=== PATIENT | male | born 1960 | race American Indian/Alaskan Native ===

== ENCOUNTER 2017-12-17 08:07 | Emergency (ER) | payer SELFPAY ==
[2017-12-17 08:11] VITALS: BP 163/90
[2017-12-17] MEDS ORDERED: DELTASONE ONE (08:12)
[2017-12-17] MEDS ORDERED: DUONEB *Not for PRN Use IH ONE (08:14)
[2017-12-17] MEDS ORDERED: DELTASONE PO ONE (08:14)
[2017-12-17] MEDS ORDERED: XOPENEX IH ONE (09:11)
--- NOTE | 2017-12-17 09:28 | Emergency Department Report ---
ED Asthma HPI - General Chief Complaint: Adult Asthma Stated Complaint: ASTHMA ATTACK Time Seen by Provider: 12/17/17 09:10 Source: patient Mode of arrival: Wheelchair Limitations: No Limitations - History of Present Illness Initial Comments: This is a 56-year-old male nontoxic, well nourished in appearance, no acute signs of distress presents to the ED with c/o of acute on chronic asthma exacerbation. Patient stated she is out of her albuterol inhaler 1 month. Patient stated that she has seasonal allergies to pollen and has been outside that might have triggered her symptoms. Patient denies any cough. Patient denies any sick contact. Patient denies any recent travels, long car, recent hospital stays. Patient denies any calf pain or calf tenderness. Patient denies any chest pain, short of breath, fever, chills, nausea, vomiting, hemoptysis, numbness, tingling, headache or stiff neck. Past medical history includes asthma. MD Complaint: "asthma attack", wheezing -: days(s) (1) Asthma History: childhood onset Severity: mild Context: none known Associated Symptoms: none. denies: productive cough, dry cough, fever, chest pain, hemoptysis, leg edema, syncope - Related Data Current Asthma Therapy: none Previous Rx's Medication Instructions Recorded Last Taken Type ALBUTEROL Inhaler [ProAir HFA 2 puff IH QID PRN #1 inhalation 12/17/17 Unknown Rx Inhaler] Prednisone [predniSONE 10 mg 10 mg PO .TAPER #1 tab.ds.pk 12/17/17 Unknown Rx (6-Day Pack, 21 Tabs)] Allergies Allergy/AdvReac Type Severity Reaction Status Date / Time No Known Allergies Allergy Unverified 12/17/17 08:09 ED Review of Systems ROS: Stated complaint: ASTHMA ATTACK Other details as noted in HPI Constitutional: denies: chills, fever Eyes: denies: eye pain, eye discharge, vision change ENT: denies: ear pain, throat pain Respiratory: wheezing. denies: cough, shortness of breath Cardiovascular: denies: chest pain, palpitations Endocrine: no symptoms reported Gastrointestinal: denies: abdominal pain, nausea, diarrhea Genitourinary: denies: urgency, dysuria Musculoskeletal: denies: back pain, joint swelling, arthralgia Skin: denies: rash, lesions Neurological: denies: headache, weakness, paresthesias Psychiatric: denies: anxiety, depression Hematological/Lymphatic: denies: easy bleeding, easy bruising ED Past Medical Hx - Past Medical History Hx Hypertension: Yes Hx Asthma: Yes - Surgical History Past Surgical History?: No - Social History Smoking Status: Current Every Day Smoker Substance Use Type: None - Medications Home Medications: Home Medications Medication Instructions Recorded Confirmed Last Taken Type ALBUTEROL Inhaler [ProAir HFA 2 puff IH QID PRN #1 inhalation 12/17/17 Unknown Rx Inhaler] Prednisone [predniSONE 10 mg 10 mg PO .TAPER #1 tab.ds.pk 12/17/17 Unknown Rx (6-Day Pack, 21 Tabs)] ED Physical Exam - General Limitations: No Limitations General appearance: alert, in no apparent distress - Head Head exam: Present: atraumatic, normocephalic - Eye Eye exam: Present: normal appearance, PERRL, EOMI Pupils: Present: normal accommodation - ENT ENT exam: Present: normal exam, mucous membranes moist - Neck Neck exam: Present: normal inspection, full ROM. Absent: tenderness, meningismus, lymphadenopathy - Respiratory Respiratory exam: Present: normal lung sounds bilaterally, wheezes (bilateral upper and lower lobes). Absent: respiratory distress, rales, rhonchi, stridor, chest wall tenderness, accessory muscle use, decreased breath sounds, prolonged expiratory - Cardiovascular Cardiovascular Exam: Present: regular rate, normal rhythm, normal heart sounds. Absent: bradycardia, tachycardia, irregular rhythm, systolic murmur, diastolic murmur, rubs, gallop - GI/Abdominal GI/Abdominal exam: Present: soft, normal bowel sounds. Absent: distended, tenderness, rebound, rigid, diminished bowel sounds - Rectal Rectal exam: Present: deferred - Extremities Exam Extremities exam: Present: normal inspection, full ROM, normal capillary refill. Absent: tenderness - Back Exam Back exam: Present: normal inspection, full ROM - Neurological Exam Neurological exam: Present: alert, oriented X3, normal gait - Psychiatric Psychiatric exam: Present: normal affect, normal mood - Skin Skin exam: Present: warm, dry, intact, normal color. Absent: rash ED Course Vital Signs 12/17/17 08:09 Temperature 97.5 F L Pulse Rate 66 Respiratory 20 Rate Blood Pressure 163/90 O2 Sat by Pulse 100 Oximetry - Reevaluation(s) Reevaluation #1: 12/17/17 09:27 Patient is speaking in full sentences with no signs of distress noted. ED Medical Decision Making - Medical Decision Making This is a 56-year-old male that presents with asthma exacerbation. Patient is stable and was examined by me. Chest x-ray has been obtained and dictated by the radiologist within normal limits. Patient is notified of the x-ray report with no questions noted by the patient. Patient did receive DuoNeb and steroids in the ED which patient the symptoms has resolved and subsided. Posttreatment and there is no wheezing upon auscultation. Patient is discharged with albuterol and prednisone. Patient was referred to Follow-up with a primary care doctor in 3-5 days or if symptoms worsen and continue return to emergency room as soon as possible. At time of discharge, the patient does not seem toxic or ill in appearance. No acute signs of distress noted. Patient agrees to discharge treatment plan of care. No further questions noted by the patient. This chart is dictated with using [employer] Dictation Program Critical care attestation.: If time is entered above; I have spent that time in minutes in the direct care of this critically ill patient, excluding procedure time. ED Disposition Clinical Impression: Asthma exacerbation Qualifiers: Asthma severity: mild Asthma persistence: intermittent Qualified Code(s): J45.21 - Mild intermittent asthma with (acute) exacerbation Disposition: DC-01 TO HOME OR SELFCARE Is pt being admited?: No Does the pt Need Aspirin: No Condition: Stable Instructions: Asthma (ED) Additional Instructions: Follow-up with a primary care doctor in 3-5 days or if symptoms worsen and continue return to emergency room as soon as possible. Prescriptions: ALBUTEROL Inhaler [ProAir HFA Inhaler] 2 puff IH QID PRN #1 inhalation PRN Reason: Shortness Of Breath Prednisone [predniSONE 10 mg (6-Day Pack, 21 Tabs)] 10 mg PO .TAPER #1 tab.ds.pk Referrals: PRIMARY CARE, [Primary Care Provider] - 3-5 Days YUDELKA ELLINGTON MD [Staff Physician] - 3-5 Days [facility] [Outside] - 3-5 Days [facility] [Outside] - 3-5 Days Forms: Work/School Release Form(ED)
--- NOTE | 2017-12-17 09:43 | XRay Report ---
FINAL REPORT EXAM: XR CHEST ROUTINE 2V HISTORY: wheezing COMPARISON: None. TECHNIQUE: Frontal and lateral views of the chest. FINDINGS: The cardiomediastinal silhouette is normal in appearance. The lungs are clear without focal consolidation. There is no pleural effusion or pneumothorax. There is no acute soft tissue or osseous abnormality. IMPRESSION: No acute cardiopulmonary disease.
== END 2017-12-17 10:11 | disposition home or self-care (01) ==
LOC: ED 08:07
DX: J45.21 Mild intermittent asthma with (acute) exacerbation (principal); I10 Essential (primary) hypertension; F17.200 Nicotine dependence, unspecified, uncomplicated
CPT/HCPCS: 71046; 94640; 99283; J7512

== ENCOUNTER 2018-02-11 03:13 | Emergency (ER) | payer SELFPAY ==
[2018-02-11] MEDS ORDERED: DUONEB *Not for PRN Use IH ONE ×2 (03:20→04:01)
[2018-02-11] MEDS ORDERED: SOLU-Medrol ONE (03:46)
[2018-02-11 04:01] VITALS: BP 160/100
[2018-02-11] MEDS ORDERED: SOLU-Medrol IM ONE (04:02)
[2018-02-11] MEDS ORDERED: PROVENTIL IH ONE (04:10)
--- NOTE | 2018-02-11 04:43 | XRay Report ---
FINAL REPORT EXAM: XR CHEST ROUTINE 2V HISTORY: cough TECHNIQUE: PA and lateral views of the chest were obtained and compared to the study of 12/17/2017. FINDINGS: The heart size and vascularity appear normal. The lungs are slightly hyperinflated. There are no acute infiltrates or effusions. The skeletal structures reveal a well-healed fracture of the left 6th rib. IMPRESSION: Slight hyperinflation. No acute process in the chest.
== END 2018-02-11 04:30 | disposition left against medical advice (07) ==
LOC: ED 03:13
DX: J45.909 Unspecified asthma, uncomplicated (principal); Z53.21 Procedure and treatment not carried out due to patient leaving prior to being seen by health care provider
CPT/HCPCS: 71046; J2930

== ENCOUNTER 2018-02-15 22:32 | Emergency (ER) | payer OTHER ==
[2018-02-15] MEDS ORDERED: PROVENTIL IH ONE ×2 (22:45→22:55)
[2018-02-16] MEDS ORDERED: DUONEB *Not for PRN Use IH ONE (00:15)
[2018-02-16] MEDS ORDERED: MAGNESIUM SULFATE 1 GM in NACL 0.9% 50 ML IV ONE (00:15)
--- NOTE | 2018-02-16 00:19 | Emergency Department Report ---
ED Asthma HPI - General Chief Complaint: Adult Asthma Stated Complaint: ASTHMA ATTACK Time Seen by Provider: 02/16/18 00:15 Source: patient Mode of arrival: Ambulatory Limitations: No Limitations - History of Present Illness Initial Comments: Is a 57-year-old male presents to emergency room with complaints of asthma exacerbation. Patient states he is short of breath. Patient states she is having difficulty breathing. Patient denies chest pain. Patient denies fever and chills. Patient denies abdominal pain. Patient states that the asthma attack started approximately 3 hours ago. MD Complaint: "asthma attack", shortness of breath, wheezing -: Sudden Asthma History: childhood onset Severity: severe Context: ran out of meds, medication non-compliance Associated Symptoms: dry cough. denies: fever, chest pain, hemoptysis, leg edema, syncope - Related Data Current Asthma Therapy: inhaled bronchodilator Previous Rx's Medication Instructions Recorded Last Taken Type ALBUTEROL Inhaler (OR & NICU) 2 puff IH QID PRN #1 inhalation 02/16/18 Unknown Rx [ProAir HFA Inhaler] Prednisone [predniSONE 10 mg 10 mg PO .TAPER #1 tab.ds.pk 02/16/18 Unknown Rx (6-Day Pack, 21 Tabs)] Allergies Allergy/AdvReac Type Severity Reaction Status Date / Time No Known Allergies Allergy Unverified 12/17/17 08:09 ED Review of Systems ROS: Stated complaint: ASTHMA ATTACK Other details as noted in HPI Constitutional: denies: chills, fever Eyes: denies: eye pain, eye discharge, vision change ENT: denies: ear pain, throat pain Respiratory: cough, shortness of breath, wheezing Cardiovascular: denies: chest pain, palpitations Endocrine: no symptoms reported Gastrointestinal: denies: abdominal pain, nausea, diarrhea Genitourinary: denies: urgency, dysuria Musculoskeletal: denies: back pain, joint swelling, arthralgia Skin: denies: rash, lesions Neurological: denies: headache, weakness, paresthesias Psychiatric: denies: anxiety, depression Hematological/Lymphatic: denies: easy bleeding, easy bruising ED Past Medical Hx - Past Medical History Previous Medical History?: Yes Hx Hypertension: Yes Hx Asthma: Yes - Surgical History Past Surgical History?: No - Family History Family history: no significant - Social History Smoking Status: Current Every Day Smoker Substance Use Type: None - Medications Home Medications: Home Medications Medication Instructions Recorded Confirmed Last Taken Type ALBUTEROL Inhaler (OR & NICU) 2 puff IH QID PRN #1 inhalation 02/16/18 Unknown Rx [ProAir HFA Inhaler] Prednisone [predniSONE 10 mg 10 mg PO .TAPER #1 tab.ds.pk 02/16/18 Unknown Rx (6-Day Pack, 21 Tabs)] ED Physical Exam - General Limitations: No Limitations General appearance: alert, in no apparent distress - Head Head exam: Present: atraumatic, normocephalic - Eye Eye exam: Present: normal appearance - ENT ENT exam: Present: mucous membranes moist - Neck Neck exam: Present: normal inspection - Respiratory Respiratory exam: Present: normal lung sounds bilaterally, wheezes, prolonged expiratory. Absent: respiratory distress, chest wall tenderness, accessory muscle use, decreased breath sounds - Cardiovascular Cardiovascular Exam: Present: regular rate, normal rhythm. Absent: systolic murmur, diastolic murmur, rubs, gallop - GI/Abdominal GI/Abdominal exam: Present: soft, normal bowel sounds - Rectal Rectal exam: Present: deferred - Extremities Exam Extremities exam: Present: normal inspection - Back Exam Back exam: Present: normal inspection - Neurological Exam Neurological exam: Present: alert, oriented X3 - Psychiatric Psychiatric exam: Present: normal affect, normal mood - Skin Skin exam: Present: warm, dry, intact, normal color. Absent: rash ED Course Vital Signs 02/15/18 02/15/18 02/16/18 22:35 22:51 00:59 Temperature 97.4 F L Pulse Rate 85 Respiratory 18 18 Rate Blood Pressure 136/101 O2 Sat by Pulse 94 98 Oximetry - Reevaluation(s) Reevaluation #1: She responded well to treatment. Lung sounds are clear. Patient will be given 125 Solu-Medrol and discharged home. Patient's lungs are clear after that mag run and DuoNeb. Patient states the reason why his lungs got bad because he ran out of his and inhalers. We'll refill patient's inhalers and give patient a pred taper for asthma exacerbation. Give patient his initial dose of steroids here and discharged home 02/16/18 01:24 ED Medical Decision Making - Lab Data Result diagrams: 02/16/18 00:37 02/16/18 00:37 - Radiology Data Radiology results: report reviewed FINAL REPORT EXAM: XR CHEST 1V AP HISTORY: Asthma TECHNIQUE: Single AP portable radiograph of the chest was obtained. PRIORS: Prior radiographs dated 02/10/2018. FINDINGS: There are no focal consolidations to suggest pneumonia. No large pleural effusion. No pneumothorax. Cardiac silhouette and mediastinal structures are unremarkable. No acute osseous abnormality identified. Healed left, posterior 6th rib fracture. IMPRESSION: Hyperinflation without acute cardiopulmonary process. Transcribed By: DT Dictated By: DIDI THOMSON DO Electronically Authenticated By: DIDI THOMSON DO Signed Date/Time: 02/16/18 0044 - Medical Decision Making Patient is a 57-year-old male presented to the emergency room with asthma exacerbation. Patient's eyes with x-rays secondary to medical noncompliance. Patient ran out of his medications. Patient will be given a refill his medications and a Medrol Dosepak . Patient is agreeable to plan of care. Patient voiced understanding. Patient given discharge instructions. Patient instructed to follow primary care doctor 3-5 days. Patient given discharge instructions and return to ER instructions. - Differential Diagnosis sob. asthma exac. medication noncompliance. Critical care attestation.: If time is entered above; I have spent that time in minutes in the direct care of this critically ill patient, excluding procedure time. ED Disposition Clinical Impression: SOB (shortness of breath), Wheezes, Dehydration Asthma with acute exacerbation in adult Qualifiers: Asthma severity: unspecified severity Asthma persistence: unspecified Qualified Code(s): J45.901 - Unspecified asthma with (acute) exacerbation Disposition: - TO HOME OR SELFCARE Is pt being admited?: No Does the pt Need Aspirin: No Condition: Stable Instructions: Asthma (ED) Additional Instructions: H [facility] primary care in 3-5 days. 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 Patient to return to ER if condition worsens. Patient to rest. Patient take meds as directed. Patient to increase water Prescriptions: ALBUTEROL Inhaler (OR & NICU) [ProAir HFA Inhaler] 2 puff IH QID PRN #1 inhalation PRN Reason: Shortness Of Breath Prednisone [predniSONE 10 mg (6-Day Pack, 21 Tabs)] 10 mg PO .TAPER #1 tab.ds.pk Referrals: PRIMARY CARE, [Primary Care Provider] - 3-5 Days Time of Disposition: 01:29
--- NOTE | 2018-02-16 00:45 | XRay Report ---
FINAL REPORT EXAM: XR CHEST 1V AP HISTORY: Asthma TECHNIQUE: Single AP portable radiograph of the chest was obtained. PRIORS: Prior radiographs dated 02/10/2018. FINDINGS: There are no focal consolidations to suggest pneumonia. No large pleural effusion. No pneumothorax. Cardiac silhouette and mediastinal structures are unremarkable. No acute osseous abnormality identified. Healed left, posterior 6th rib fracture. IMPRESSION: Hyperinflation without acute cardiopulmonary process.
[2018-02-16 00:48] LABS: Basophils # (Auto) 0.1 K/mm3 (0.0-0.1); Basophils % (Auto) 1.8 % (0.0-1.8); Eosinophils # (Auto) 0.4 K/mm3 (0.0-0.4); Eosinophils % (Auto) 7.3 % (0.0-4.3); Hematocrit 44.2 % (35.5-45.6); Hemoglobin 15.4 gm/dl (11.8-15.2); Lymphocytes # (Auto) 1.5 K/mm3 (1.2-5.4); Lymphocytes % (Auto) 24.3 % (13.4-35.0); Mean Corpuscular HGB Conc 35 % (32-34); Mean Corpuscular Hemoglobin 34 pg (28-32); Mean Corpuscular Volume 99 fl (84-94); Monocytes # (Auto) 0.7 K/mm3 (0.0-0.8); Monocytes % (Auto) 11.8 % (0.0-7.3); Platelet Count 170 K/mm3 (140-440); Red Blood Count 4.47 M/mm3 (3.65-5.03); Red Cell Distribution Width 12.2 % (13.2-15.2)
[2018-02-16 01:15] LABS: Albumin 3.9 g/dL (3.9-5); Calcium 8.5 mg/dL (8.4-10.2)
[2018-02-16] MEDS ORDERED: SOLU-Medrol IV ONE (01:30)
[2018-02-16 01:49] VITALS: BP 135/97
== END 2018-02-16 01:48 | disposition home or self-care (01) ==
LOC: ED 22:32
DX: J45.901 Unspecified asthma with (acute) exacerbation (principal); E86.0 Dehydration; I10 Essential (primary) hypertension; F17.200 Nicotine dependence, unspecified, uncomplicated
CPT/HCPCS: 36415; 71045; 80053; 85025; 93005; 93010; 94640; 96365; 96375; 99285; J2930; J3475

== ENCOUNTER 2018-02-21 12:04 | Emergency (ER) | payer SELFPAY ==
[2018-02-21 12:09] VITALS: BP 168/118
[2018-02-21] MEDS ORDERED: DECADRON IM ONE (12:20)
[2018-02-21] MEDS ORDERED: ATROVENT IH ONE ×2 (12:20→12:24)
[2018-02-21] MEDS ORDERED: PROVENTIL IH ONE ×2 (12:20→12:24)
[2018-02-21] MEDS ORDERED: DECADRON ONE (12:25)
--- NOTE | 2018-02-21 13:19 | Emergency Department Report ---
ED Asthma HPI - General Chief Complaint: Adult Asthma Stated Complaint: CHEST PAIN/ASTHMA Time Seen by Provider: 02/21/18 12:18 Source: patient Mode of arrival: Ambulatory Limitations: No Limitations - History of Present Illness Initial Comments: This is a 57-year-old male nontoxic, well nourished in appearance, no acute signs of distress presents to the ED with c/o of acute on chronic asthma exacerbation. Patient stated that she has seasonal allergies to pollen and has been outside that might have triggered her symptoms. Patient denies any cough. Patient denies any sick contact. Patient denies any recent travels, long car , recent hospital stays. Patient denies any calf pain or calf tenderness. Patient denies any chest pain, fever, chills, nausea, vomiting, hemoptysis, numbness, tingling, headache or stiff neck. Past medical history includes asthma. MD Complaint: "asthma attack", wheezing -: This morning Asthma History: childhood onset Severity: mild Context: none known Associated Symptoms: none - Related Data Previous Rx's Medication Instructions Recorded Last Taken Type ALBUTEROL Inhaler (OR & NICU) 2 puff IH QID PRN #1 inhalation 02/16/18 Unknown Rx [ProAir HFA Inhaler] Prednisone [predniSONE 10 mg 10 mg PO .TAPER #1 tab.ds.pk 02/16/18 Unknown Rx (6-Day Pack, 21 Tabs)] ALBUTEROL Inhaler(NF) [VENTOLIN 2 puff IH Q4-6H PRN #1 inha 02/21/18 Unknown Rx Inhaler(NF)] Prednisone [predniSONE 10 mg 10 mg PO .TAPER #1 tab.ds.pk 02/21/18 Unknown Rx (6-Day Pack, 21 Tabs)] Allergies Allergy/AdvReac Type Severity Reaction Status Date / Time No Known Allergies Allergy Unverified 12/17/17 08:09 ED Review of Systems ROS: Stated complaint: CHEST PAIN/ASTHMA Other details as noted in HPI Constitutional: denies: chills, fever Eyes: denies: eye pain, eye discharge, vision change ENT: denies: ear pain, throat pain Respiratory: shortness of breath, wheezing. denies: cough Cardiovascular: denies: chest pain, palpitations Endocrine: no symptoms reported Gastrointestinal: denies: abdominal pain, nausea, diarrhea Genitourinary: denies: urgency, dysuria Musculoskeletal: denies: back pain, joint swelling, arthralgia Skin: denies: rash, lesions Neurological: denies: headache, weakness, paresthesias Psychiatric: denies: anxiety, depression Hematological/Lymphatic: denies: easy bleeding, easy bruising ED Past Medical Hx - Past Medical History Hx Hypertension: Yes Hx Asthma: Yes - Social History Smoking Status: Never Smoker Substance Use Type: None - Medications Home Medications: Home Medications Medication Instructions Recorded Confirmed Last Taken Type ALBUTEROL Inhaler (OR & NICU) 2 puff IH QID PRN #1 inhalation 02/16/18 Unknown Rx [ProAir HFA Inhaler] Prednisone [predniSONE 10 mg 10 mg PO .TAPER #1 tab.ds.pk 02/16/18 Unknown Rx (6-Day Pack, 21 Tabs)] ALBUTEROL Inhaler(NF) [VENTOLIN 2 puff IH Q4-6H PRN #1 inha 02/21/18 Unknown Rx Inhaler(NF)] Prednisone [predniSONE 10 mg 10 mg PO .TAPER #1 tab.ds.pk 02/21/18 Unknown Rx (6-Day Pack, 21 Tabs)] ED Physical Exam - General Limitations: No Limitations General appearance: alert, in no apparent distress - Head Head exam: Present: atraumatic, normocephalic - Eye Eye exam: Present: normal appearance - ENT ENT exam: Present: mucous membranes moist - Neck Neck exam: Present: normal inspection - Respiratory Respiratory exam: Present: normal lung sounds bilaterally, wheezes (bilateral upper and lower lobes). Absent: respiratory distress, rales, rhonchi, stridor, chest wall tenderness, accessory muscle use, decreased breath sounds, prolonged expiratory - Cardiovascular Cardiovascular Exam: Present: regular rate, normal rhythm, normal heart sounds. Absent: bradycardia, tachycardia, irregular rhythm, systolic murmur, diastolic murmur, rubs, gallop - GI/Abdominal GI/Abdominal exam: Present: soft, normal bowel sounds. Absent: distended, tenderness, guarding, rebound, rigid, diminished bowel sounds - Rectal Rectal exam: Present: deferred - Extremities Exam Extremities exam: Present: normal inspection, full ROM, normal capillary refill - Back Exam Back exam: Present: normal inspection, full ROM - Neurological Exam Neurological exam: Present: alert, oriented X3, normal gait - Psychiatric Psychiatric exam: Present: normal affect, normal mood - Skin Skin exam: Present: warm, dry, intact, normal color. Absent: rash ED Course Vital Signs 02/21/18 02/21/18 02/21/18 12:07 12:15 12:31 Temperature 97.9 F Pulse Rate 69 58 L Pulse Rate [ Throughout] Respiratory 24 22 Rate Respiratory Rate [ Throughout] Blood Pressure 168/118 O2 Sat by Pulse 96 97 Oximetry 02/21/18 12:40 Temperature Pulse Rate Pulse Rate [ 60 Throughout] Respiratory Rate Respiratory 18 Rate [ Throughout] Blood Pressure O2 Sat by Pulse Oximetry - Reevaluation(s) Reevaluation #1: 02/21/18 13:20 Patient is speaking in full sentences with no signs of distress noted. ED Medical Decision Making - Medical Decision Making This is a 57-year-old male that presents with asthma exacerbation. Patient is stable and was examined by me. Chest x-ray has been obtained and dictated by the radiologist within normal limits. Patient is notified of the x-ray report with no questions noted by the patient. Patient did receive breathing treatment and steroids in the ED which patient the symptoms has resolved and subsided. Posttreatment and there is no wheezing upon auscultation. Patient is discharged with albuterol and prednisone. Patient was referred to Follow-up with a primary care doctor in 3-5 days or if symptoms worsen and continue return to emergency room as soon as possible. At time of discharge, the patient does not seem toxic or ill in appearance. No acute signs of distress noted. Patient agrees to discharge treatment plan of care. No further questions noted by the patient. This chart is dictated with using [employer] Dictation Program Critical care attestation.: If time is entered above; I have spent that time in minutes in the direct care of this critically ill patient, excluding procedure time. ED Disposition Clinical Impression: Asthma exacerbation Qualifiers: Asthma severity: mild Asthma persistence: intermittent Qualified Code(s): J45.21 - Mild intermittent asthma with (acute) exacerbation Disposition: -01 TO HOME OR SELFCARE Is pt being admited?: No Does the pt Need Aspirin: No Condition: Stable Instructions: Asthma (ED) Additional Instructions: Follow-up with a primary care doctor in 3-5 days or if symptoms worsen and continue return to emergency room as soon as possible. Prescriptions: ALBUTEROL Inhaler(NF) [VENTOLIN Inhaler(NF)] 2 puff IH Q4-6H PRN #1 inha PRN Reason: Wheezing Prednisone [predniSONE 10 mg (6-Day Pack, 21 Tabs)] 10 mg PO .TAPER #1 tab.ds.pk Referrals: PRIMARY CARE, [Primary Care Provider] - 3-5 Days YUDELKA ELLINGTON MD [Staff Physician] - 3-5 Days [facility] [Outside] - 3-5 Days [facility] [Outside] - 3-5 Days Forms: Work/School Release Form(ED)
--- NOTE | 2018-02-21 15:12 | XRay Report ---
CHEST 2 VIEWS INDICATION: Wheezing. COMPARISON: 02/16/2018. FINDINGS: PA and lateral chest radiographs demonstrate normal cardiomediastinal silhouette. Clear lungs. Stable bones, including old left sixth rib fracture posterolaterally. CONCLUSION: No acute disease in the chest. Thank you for the opportunity to participate in this patient's care.
== END 2018-02-21 15:27 | disposition home or self-care (01) ==
LOC: ED 12:04
DX: J45.21 Mild intermittent asthma with (acute) exacerbation (principal); I10 Essential (primary) hypertension
CPT/HCPCS: 71046; 96372; 99283; J1100

== ENCOUNTER 2018-02-25 17:14 | Emergency (ER) | payer SELFPAY ==
[2018-02-25 17:30] VITALS: BP 156/106
[2018-02-25] MEDS ORDERED: PROVENTIL IH ONE ×3 (17:30→18:52)
[2018-02-25] MEDS ORDERED: DECADRON IM ONE (18:52)
[2018-02-25] MEDS ORDERED: ATROVENT IH ONE (18:52)
--- NOTE | 2018-02-25 19:01 | XRay Report ---
FINAL REPORT PROCEDURE: XR CHEST ROUTINE 2V TECHNIQUE: PA and lateral chest radiographs were obtained. CPT 65415 HISTORY: ASTHMA COMPARISON: 02/15/2018 FINDINGS: Heart: Normal. Mediastinum/Vessels: Normal. Lungs/Pleural space: No infiltrate, effusion, or pneumothorax. Bony thorax: No acute osseous abnormality. Other: IMPRESSION: No pulmonary infiltrates.
--- NOTE | 2018-02-25 19:09 | Emergency Department Report ---
ED Asthma HPI - General Chief Complaint: Adult Asthma Stated Complaint: ASTHMA Time Seen by Provider: 02/25/18 18:47 Source: patient Mode of arrival: Ambulatory Limitations: No Limitations - History of Present Illness Initial Comments: This is a 57-year-old male nontoxic, well nourished in appearance, no acute signs of distress presents to the ED with c/o of acute on chronic asthma exacerbation. Patient was seen by me last week and weas prescribed Albuterol and Prednisone but patient stated was too expenive and cost him about "$700". Patient denies filling medications. Patient denies any cough. Patient denies any sick contact. Patient denies any recent travels, long car, recent hospital stays. Patient denies any calf pain or calf tenderness. Patient denies any chest pain, fever, chills, nausea, vomiting, hemoptysis, numbness, tingling, headache or stiff neck. Past medical history includes asthma. MD Complaint: shortness of breath, wheezing -: This morning Asthma History: childhood onset Severity: mild Context: none known Associated Symptoms: none - Related Data Current Asthma Therapy: none Previous Rx's Medication Instructions Recorded Last Taken Type ALBUTEROL Inhaler (OR & NICU) 2 puff IH QID PRN #1 inhalation 02/16/18 Unknown Rx [ProAir HFA Inhaler] Prednisone [predniSONE 10 mg 10 mg PO .TAPER #1 tab.ds.pk 02/16/18 Unknown Rx (6-Day Pack, 21 Tabs)] ALBUTEROL Inhaler(NF) [VENTOLIN 2 puff IH Q4-6H PRN #1 inha 02/21/18 Unknown Rx Inhaler(NF)] Prednisone [predniSONE 10 mg 10 mg PO .TAPER #1 tab.ds.pk 02/21/18 Unknown Rx (6-Day Pack, 21 Tabs)] Allergies Allergy/AdvReac Type Severity Reaction Status Date / Time No Known Allergies Allergy Unverified 12/17/17 08:09 ED Review of Systems ROS: Stated complaint: ASTHMA Other details as noted in HPI Constitutional: denies: chills, fever Eyes: denies: eye pain, eye discharge, vision change ENT: denies: ear pain, throat pain Respiratory: shortness of breath, wheezing. denies: cough Cardiovascular: denies: chest pain, palpitations Endocrine: no symptoms reported Gastrointestinal: denies: abdominal pain, nausea, diarrhea Genitourinary: denies: urgency, dysuria Musculoskeletal: denies: back pain, joint swelling, arthralgia Skin: denies: rash, lesions Neurological: denies: headache, weakness, paresthesias Psychiatric: denies: anxiety, depression Hematological/Lymphatic: denies: easy bleeding, easy bruising ED Past Medical Hx - Past Medical History Hx Hypertension: Yes Hx Asthma: Yes - Social History Smoking Status: Current Some Day Smoker Substance Use Type: None - Medications Home Medications: Home Medications Medication Instructions Recorded Confirmed Last Taken Type ALBUTEROL Inhaler (OR & NICU) 2 puff IH QID PRN #1 inhalation 02/16/18 Unknown Rx [ProAir HFA Inhaler] Prednisone [predniSONE 10 mg 10 mg PO .TAPER #1 tab.ds.pk 02/16/18 Unknown Rx (6-Day Pack, 21 Tabs)] ALBUTEROL Inhaler(NF) [VENTOLIN 2 puff IH Q4-6H PRN #1 inha 02/21/18 Unknown Rx Inhaler(NF)] Prednisone [predniSONE 10 mg 10 mg PO .TAPER #1 tab.ds.pk 02/21/18 Unknown Rx (6-Day Pack, 21 Tabs)] ED Physical Exam - General Limitations: No Limitations General appearance: alert, in no apparent distress - Head Head exam: Present: atraumatic, normocephalic - Eye Eye exam: Present: normal appearance Pupils: Present: normal accommodation - ENT ENT exam: Present: normal exam, mucous membranes moist - Neck Neck exam: Present: normal inspection, full ROM. Absent: tenderness, meningismus, lymphadenopathy - Respiratory Respiratory exam: Present: normal lung sounds bilaterally, wheezes (bilateral upper and lower lobes). Absent: respiratory distress, rales, rhonchi, stridor, chest wall tenderness, accessory muscle use, decreased breath sounds, prolonged expiratory - Cardiovascular Cardiovascular Exam: Present: regular rate, normal rhythm, normal heart sounds. Absent: bradycardia, tachycardia, irregular rhythm, systolic murmur, diastolic murmur, rubs, gallop - GI/Abdominal GI/Abdominal exam: Present: soft, normal bowel sounds - Rectal Rectal exam: Present: deferred - Extremities Exam Extremities exam: Present: normal inspection - Back Exam Back exam: Present: normal inspection - Neurological Exam Neurological exam: Present: alert, oriented X3 - Psychiatric Psychiatric exam: Present: normal affect, normal mood - Skin Skin exam: Present: warm, dry, intact, normal color. Absent: rash ED Course Vital Signs 02/25/18 17:26 Temperature 97.7 F Pulse Rate 75 Respiratory 24 Rate Blood Pressure 156/106 O2 Sat by Pulse 93 Oximetry - Reevaluation(s) Reevaluation #1: 02/25/18 19:07 Patient is speaking in full sentences with no signs of distress noted. ED Medical Decision Making - Medical Decision Making This is a 57-year-old male that presents with asthma exacerbation. Patient is stable and was examined by me. Chest x-ray has been obtained and dictated by the radiologist within normal limits. Patient is notified of the x-ray report with no questions noted by the patient. Patient did receive breathing treatment over an hour and steroids in the ED which patient the symptoms has resolved and subsided. Posttreatment and there is no wheezing upon auscultation. Patient stated still has his albuterol and prednisone prescription. I gave patient [employer] cards and instructed patient that with those cards the prices around around $80 and patient stated he will make sure to fill it after discharge. Patient was referred to Follow-up with a primary care doctor in 3-5 days or if symptoms worsen and continue return to emergency room as soon as possible. At time of discharge, the patient does not seem toxic or ill in appearance. No acute signs of distress noted. Patient agrees to discharge treatment plan of care. No further questions noted by the patient. This chart is dictated with using [employer] Critical care attestation.: If time is entered above; I have spent that time in minutes in the direct care of this critically ill patient, excluding procedure time. ED Disposition Clinical Impression: Asthma exacerbation Qualifiers: Asthma severity: mild Asthma persistence: intermittent Qualified Code(s): J45.21 - Mild intermittent asthma with (acute) exacerbation Disposition: -01 TO HOME OR SELFCARE Is pt being admited?: No Does the pt Need Aspirin: No Condition: Stable Instructions: Asthma (ED) Additional Instructions: Follow-up with a primary care doctor in 3-5 days or if symptoms worsen and continue return to emergency room as soon as possible. Referrals: PRIMARY CARE, [Referring] - 3-5 Days YUDELKA ELLINGTON MD [Staff Physician] - 3-5 Days [facility] [Outside] - 3-5 Days [facility] [Outside] - 3-5 Days Forms: Work/School Release Form(ED)
== END 2018-02-25 20:20 | disposition home or self-care (01) ==
LOC: ED 17:14
DX: J45.21 Mild intermittent asthma with (acute) exacerbation (principal); I10 Essential (primary) hypertension; F17.200 Nicotine dependence, unspecified, uncomplicated
CPT/HCPCS: 71046; 94644; 96372; 99283; J1100

== ENCOUNTER 2018-09-08 10:48 | Emergency (ER) | payer OTHER ==
[2018-09-08 11:02] VITALS: BP 147/106
[2018-09-08] MEDS ORDERED: DUONEB *Not for PRN Use IH ONE (11:07)
[2018-09-08] MEDS ORDERED: VIBRAMYCIN PO ONE (11:35)
[2018-09-08] MEDS ORDERED: PROVENTIL IH ONE (11:35)
[2018-09-08] MEDS ORDERED: DELTASONE PO ONE (11:35)
--- NOTE | 2018-09-08 11:38 | Emergency Department Report ---
ED Asthma HPI - General Chief Complaint: Adult Asthma Stated Complaint: ASTHMA Time Seen by Provider: 09/08/18 11:24 Source: patient Mode of arrival: Ambulatory Limitations: No Limitations - History of Present Illness Initial Comments: Chief complaint:" I still felt tight." Mr. Young is a 57-year-old male who's had asthma for the past 10 years. Also has history of tobacco abuse. States that he is "I'm having an asthma attack". Has shortness of breath. Gradual onset this morning. He is concerned about his blood pressure being elevated. Denies fever. Denies chest pain. Has nonproductive cough. MD Complaint: "asthma attack", shortness of breath -: Gradual Asthma History: history of frequent attac, history of prior ED visit Severity: mild, moderate Context: none known Associated Symptoms: dry cough - Related Data Previous Rx's Medication Instructions Recorded Last Taken Type ALBUTEROL Inhaler (OR & NICU) 2 puff IH QID PRN #1 inhalation 02/16/18 Unknown Rx [ProAir HFA Inhaler] Prednisone [predniSONE 10 mg 10 mg PO .TAPER #1 tab.ds.pk 02/16/18 Unknown Rx (6-Day Pack, 21 Tabs)] ALBUTEROL Inhaler(NF) [VENTOLIN 2 puff IH Q4-6H PRN #1 inha 02/21/18 Unknown Rx Inhaler(NF)] Prednisone [predniSONE 10 mg 10 mg PO .TAPER #1 tab.ds.pk 02/21/18 Unknown Rx (6-Day Pack, 21 Tabs)] Doxycycline Hyclate [Vibramycin] 100 mg PO BID 7 Days #14 capsule 09/08/18 Unknown Rx predniSONE [Prednisone] 50 mg PO DAILY 5 Days #5 tablet 09/08/18 Unknown Rx Allergies Allergy/AdvReac Type Severity Reaction Status Date / Time No Known Allergies Allergy Verified 09/08/18 10:52 ED Review of Systems ROS: Stated complaint: ASTHMA Other details as noted in HPI Comment: All other systems reviewed and negative Constitutional: denies: fever, malaise Respiratory: cough, shortness of breath ED Past Medical Hx - Past Medical History Previous Medical History?: Yes Hx Hypertension: Yes Hx Asthma: Yes - Social History Smoking Status: Current Every Day Smoker Substance Use Type: None - Medications Home Medications: Home Medications Medication Instructions Recorded Confirmed Last Taken Type ALBUTEROL Inhaler (OR & NICU) 2 puff IH QID PRN #1 inhalation 02/16/18 Unknown Rx [ProAir HFA Inhaler] Prednisone [predniSONE 10 mg 10 mg PO .TAPER #1 tab.ds.pk 02/16/18 Unknown Rx (6-Day Pack, 21 Tabs)] ALBUTEROL Inhaler(NF) [VENTOLIN 2 puff IH Q4-6H PRN #1 inha 02/21/18 Unknown Rx Inhaler(NF)] Prednisone [predniSONE 10 mg 10 mg PO .TAPER #1 tab.ds.pk 02/21/18 Unknown Rx (6-Day Pack, 21 Tabs)] Doxycycline Hyclate [Vibramycin] 100 mg PO BID 7 Days #14 capsule 09/08/18 Unknown Rx predniSONE [Prednisone] 50 mg PO DAILY 5 Days #5 tablet 09/08/18 Unknown Rx ED Physical Exam - General Limitations: No Limitations General appearance: alert, in no apparent distress, other (speaking full word sentences) - Head Head exam: Present: atraumatic, normocephalic - Eye Eye exam: Present: normal appearance - ENT ENT exam: Present: mucous membranes moist - Neck Neck exam: Present: normal inspection - Respiratory Respiratory exam: Present: normal lung sounds bilaterally. Absent: respiratory distress, wheezes, rales, rhonchi, chest wall tenderness, accessory muscle use, decreased breath sounds, prolonged expiratory - Cardiovascular Cardiovascular Exam: Present: regular rate, normal rhythm, normal heart sounds. Absent: systolic murmur, diastolic murmur, rubs, gallop - GI/Abdominal GI/Abdominal exam: Present: soft, normal bowel sounds. Absent: distended, tenderness, guarding, rebound - Rectal Rectal exam: Present: deferred - Extremities Exam Extremities exam: Present: normal inspection - Back Exam Back exam: Present: normal inspection - Neurological Exam Neurological exam: Present: alert, oriented X3 - Psychiatric Psychiatric exam: Present: normal affect, normal mood - Skin Skin exam: Present: warm, dry, intact, normal color. Absent: rash ED Course Vital Signs 09/08/18 09/08/18 09/08/18 11:01 11:15 11:42 Temperature 98.0 F Pulse Rate 80 Pulse Rate [ 77 70 Anterior Bilateral Throughout] Respiratory 22 Rate Respiratory 20 20 Rate [Anterior Bilateral Throughout] Blood Pressure 147/106 O2 Sat by Pulse 94 Oximetry 09/08/18 11:51 Temperature Pulse Rate Pulse Rate [ 71 Anterior Bilateral Throughout] Respiratory Rate Respiratory 20 Rate [Anterior Bilateral Throughout] Blood Pressure O2 Sat by Pulse Oximetry ED Medical Decision Making - Medical Decision Making Mild asthma exacerbation, smoking cessation recommended, prescribed doxycycline prednisone and albuterol Mr. Young presents with mild asthma attack. Clear breath sounds on exam. Good air movement. Prescribed doxycycline with history of tobacco abuse. Prescribed prednisone. I recommended antihistamine therapy during this high pollen season. He will follow-up with his primary physician to address mildly elevated blood pressure. Critical care attestation.: If time is entered above; I have spent that time in minutes in the direct care of this critically ill patient, excluding procedure time. ED Disposition Clinical Impression: Asthma exacerbation, Tobacco abuse counseling, HTN (hypertension) Disposition: -01 TO HOME OR SELFCARE Is pt being admited?: No Does the pt Need Aspirin: No Condition: Stable Instructions: How to Stop Smoking (ED) Prescriptions: predniSONE [Prednisone] 50 mg PO DAILY 5 Days #5 tablet Doxycycline Hyclate [Vibramycin] 100 mg PO BID 7 Days #14 capsule Referrals: PRIMARY CARE, [Primary Care Provider] - 3-5 Days
== END 2018-09-08 13:00 | disposition home or self-care (01) ==
LOC: ED 10:48
DX: J45.901 Unspecified asthma with (acute) exacerbation (principal); I10 Essential (primary) hypertension; F17.200 Nicotine dependence, unspecified, uncomplicated; Z71.6 Tobacco abuse counseling
CPT/HCPCS: 94640; 99283; J7512

== ENCOUNTER 2018-10-26 05:26 | Emergency (ER) | payer OTHER ==
[2018-10-26] MEDS ORDERED: DUONEB *Not for PRN Use IH ONE ×2 (05:30→07:35)
[2018-10-26] MEDS ORDERED: CATAPRES PO ONE (06:58)
[2018-10-26] MEDS ORDERED: SOLU-Medrol IV ONE (06:58)
--- NOTE | 2018-10-26 06:59 | Emergency Department Report ---
ED Shortness of Breath HPI - General Chief Complaint: Adult Asthma Stated Complaint: ALEKSANDAR Time Seen by Provider: 10/26/18 06:21 Source: patient Mode of arrival: Ambulatory Limitations: No Limitations - History of Present Illness Initial Comments: Patient is a 57-year-old male presents emergency room with complaints of asthma symptoms. Patient states she is having wheezing and difficulty breathing that started this morning. Patient states that he began having a cough 2 days ago and his symptoms worsen. Patient denies chest pain. Patient states he received a breathing treatment triage and his symptoms have improved. Patient states he is feeling better as far as his asthma goes. Patient states he should be taking blood pressure medication but he ran out months ago. Patient denies headache. Patient denies blurry vision. Patient denies dizziness. MD Complaint: shortness of breath, cough -: Sudden Severity: moderate Consistency: now resolved Improves With: rest, bronchodilators Worsens With: exertion Known History Of: asthma Context: recent URI Associated Symptoms: cough Treatments Prior to Arrival: bronchodilator - Related Data Home Oxygen Therapy: No Previous Rx's Medication Instructions Recorded Last Taken Type ALBUTEROL Inhaler (OR & NICU) 2 puff IH QID PRN #1 inhalation 02/16/18 Unknown Rx [ProAir HFA Inhaler] Prednisone [predniSONE 10 mg 10 mg PO .TAPER #1 tab.ds.pk 02/16/18 Unknown Rx (6-Day Pack, 21 Tabs)] ALBUTEROL Inhaler(NF) [VENTOLIN 2 puff IH Q4-6H PRN #1 inha 02/21/18 Unknown Rx Inhaler(NF)] Prednisone [predniSONE 10 mg 10 mg PO .TAPER #1 tab.ds.pk 02/21/18 Unknown Rx (6-Day Pack, 21 Tabs)] Doxycycline Hyclate [Vibramycin] 100 mg PO BID 7 Days #14 capsule 09/08/18 Unknown Rx predniSONE [Prednisone] 50 mg PO DAILY 5 Days #5 tablet 09/08/18 Unknown Rx ALBUTEROL Inhaler (OR & NICU) 2 puff IH QID PRN #1 inhalation 09/16/18 Unknown Rx [ProAir HFA Inhaler] Prednisone [predniSONE 10 mg 10 mg PO .TAPER #1 tab.ds.pk 09/16/18 Unknown Rx (6-Day Pack, 21 Tabs)] Allergies Allergy/AdvReac Type Severity Reaction Status Date / Time No Known Allergies Allergy Verified 09/16/18 09:28 ED Review of Systems ROS: Stated complaint: ALEKSANDAR Other details as noted in HPI Constitutional: denies: chills, fever Eyes: denies: eye pain, eye discharge, vision change ENT: denies: ear pain, throat pain Respiratory: cough, shortness of breath, wheezing Cardiovascular: denies: chest pain, palpitations Endocrine: no symptoms reported Gastrointestinal: denies: abdominal pain, nausea, diarrhea Genitourinary: denies: urgency, dysuria Musculoskeletal: denies: back pain, joint swelling, arthralgia Skin: denies: rash, lesions Neurological: denies: headache, weakness, paresthesias Psychiatric: denies: anxiety, depression Hematological/Lymphatic: denies: easy bleeding, easy bruising ED Past Medical Hx - Past Medical History Previous Medical History?: Yes Hx Hypertension: Yes Hx Asthma: Yes - Surgical History Past Surgical History?: No - Family History Family history: no significant - Social History Smoking Status: Former Smoker Substance Use Type: None - Medications Home Medications: Home Medications Medication Instructions Recorded Confirmed Last Taken Type ALBUTEROL Inhaler (OR & NICU) 2 puff IH QID PRN #1 inhalation 02/16/18 Unknown Rx [ProAir HFA Inhaler] Prednisone [predniSONE 10 mg 10 mg PO .TAPER #1 tab.ds.pk 02/16/18 Unknown Rx (6-Day Pack, 21 Tabs)] ALBUTEROL Inhaler(NF) [VENTOLIN 2 puff IH Q4-6H PRN #1 inha 02/21/18 Unknown Rx Inhaler(NF)] Prednisone [predniSONE 10 mg 10 mg PO .TAPER #1 tab.ds.pk 02/21/18 Unknown Rx (6-Day Pack, 21 Tabs)] Doxycycline Hyclate [Vibramycin] 100 mg PO BID 7 Days #14 capsule 09/08/18 Unknown Rx predniSONE [Prednisone] 50 mg PO DAILY 5 Days #5 tablet 09/08/18 Unknown Rx ALBUTEROL Inhaler (OR & NICU) 2 puff IH QID PRN #1 inhalation 09/16/18 Unknown Rx [ProAir HFA Inhaler] Prednisone [predniSONE 10 mg 10 mg PO .TAPER #1 tab.ds.pk 09/16/18 Unknown Rx (6-Day Pack, 21 Tabs)] ED Physical Exam - General Limitations: No Limitations General appearance: alert, in no apparent distress - Head Head exam: Present: atraumatic, normocephalic - Eye Eye exam: Present: normal appearance, PERRL Pupils: Present: normal accommodation - ENT ENT exam: Present: mucous membranes moist - Neck Neck exam: Present: normal inspection - Respiratory Respiratory exam: Present: normal lung sounds bilaterally, wheezes. Absent: respiratory distress, rales - Cardiovascular Cardiovascular Exam: Present: regular rate, normal rhythm. Absent: systolic murmur, diastolic murmur, rubs, gallop - GI/Abdominal GI/Abdominal exam: Present: soft, normal bowel sounds. Absent: distended, tenderness - Rectal Rectal exam: Present: deferred - Extremities Exam Extremities exam: Present: normal inspection - Back Exam Back exam: Present: normal inspection - Neurological Exam Neurological exam: Present: alert, oriented X3 - Psychiatric Psychiatric exam: Present: normal affect, normal mood - Skin Skin exam: Present: warm, dry, intact, normal color. Absent: rash ED Course Vital Signs 10/26/18 10/26/18 10/26/18 05:30 05:40 05:48 Temperature 97.9 F Pulse Rate 82 Pulse Rate [ 80 70 Posterior Bilateral Throughout] Respiratory 20 Rate Respiratory 28 H 20 Rate [Posterior Bilateral Throughout] Blood Pressure Blood Pressure 177/122 [Left] O2 Sat by Pulse 94 Oximetry 10/26/18 10/26/18 10/26/18 07:04 07:29 09:51 Temperature 97.8 F Pulse Rate 62 62 74 Pulse Rate [ Posterior Bilateral Throughout] Respiratory 15 18 18 Rate Respiratory Rate [Posterior Bilateral Throughout] Blood Pressure 172/123 Blood Pressure 168/122 173/123 142/100 [Left] O2 Sat by Pulse 97 100 100 Oximetry - Reevaluation(s) Reevaluation #1: Discussed all results with patient. We will need to continue to monitor blood pressure and bring it down with medications. Once the patient's blood pressures at a safer level patient will be discharged. I discussed plan of care with patient and patient states he wants to leave. Patient states he can't wait longer and wants to leave. Patient signed out AMA. Risk discussed with patient. Patient voiced understanding of the risk of leaving the hospital AGAINST MEDICAL ADVICE. AMA signed 10/26/18 09:00 ED Medical Decision Making - Lab Data Result diagrams: 10/26/18 07:01 05/31/19 07:01 - Radiology Data Radiology results: report reviewed PROCEDURE: XR CHEST 1V AP TECHNIQUE: Chest radiograph single view. HISTORY: sob. wheeze COMPARISONS: 02/25/2018 . FINDINGS: Heart: Normal. Mediastinum/Vessels: Normal. Lungs/Pleural space: Lungs are expanded. There are no infiltrates, effusions or pneumothoraces.. Bony thorax: No acute osseous abnormality. Life support devices: None. IMPRESSION: No acute cardiopulmonary abnormality. - Medical Decision Making She is a 57-year-old mellitus emergency with asthma exacerbation and elevated b lood pressure. Patient given blood pressure medications. Patient also given 2 breathing treatments. Patient's lungs improved. We are waiting on a patient's blood pressure to improve to a safe level for discharge and the patient states he could not stay any longer. Patient left the hospital AGAINST MEDICAL ADVICE. I discussed risks with patient. Patient voiced understanding of risks. Patient signed AMA form and left hospital AGAINST MEDICAL ADVICE. Patient's chest x-ray is negative. Patient's labs unremarkable. Patient's asthma consistent with bronchitis versus asthma exacerbation. - Differential Diagnosis asthma exacerbation. High blood pressure. Bronchitis. Critical Care Time: Yes Critical care attestation.: If time is entered above; I have spent that time in minutes in the direct care of this critically ill patient, excluding procedure time. Critical Care Time: 35 minutes ED Disposition Clinical Impression: SOB (shortness of breath), Malignant hypertension, Bronchitis, Noncompliance, Essential hypertension Asthma exacerbation Qualifiers: Asthma severity: moderate Asthma persistence: unspecified Qualified Code(s): J45.901 - Unspecified asthma with (acute) exacerbation Disposition: -07 LEFT AGAINST MED ADVICE Is pt being admited?: No Does the pt Need Aspirin: No Condition: Critical Time of Disposition: 09:37
[2018-10-26 07:14] LABS: Hematocrit 46.2 % (35.5-45.6); Hemoglobin 15.6 gm/dl (11.8-15.2); Mean Corpuscular HGB Conc 34 % (32-34); Mean Corpuscular Volume 99 fl (84-94); Platelet Count 186 K/mm3 (140-440); Red Blood Count 4.69 M/mm3 (3.65-5.03); Red Cell Distribution Width 12.6 % (13.2-15.2)
[2018-10-26 07:29] LABS: Albumin 3.9 g/dL (3.9-5); Calcium 9.2 mg/dL (8.4-10.2)
--- NOTE | 2018-10-26 07:34 | XRay Report ---
PROCEDURE: XR CHEST 1V AP TECHNIQUE: Chest radiograph single view. HISTORY: sob. wheeze COMPARISONS: 02/25/2018 . FINDINGS: Heart: Normal. Mediastinum/Vessels: Normal. Lungs/Pleural space: Lungs are expanded. There are no infiltrates, effusions or pneumothoraces.. Bony thorax: No acute osseous abnormality. Life support devices: None. IMPRESSION: No acute cardiopulmonary abnormality. This document is electronically signed by Saleem Wilder MD., Oct 26 2018 07:31:47 AM ET
[2018-10-26 09:52] VITALS: BP 142/100
== END 2018-10-26 10:26 | disposition left against medical advice (07) ==
LOC: ED 05:26
DX: J45.901 Unspecified asthma with (acute) exacerbation (principal); I10 Essential (primary) hypertension; Z91.14 Patient's other noncompliance with medication regimen
CPT/HCPCS: 36415; 71045; 80053; 85027; 94640; 96374; 99291; J2930

== ENCOUNTER 2018-10-29 20:40 | Emergency (ER) | payer SELFPAY ==
[2018-10-29] MEDS ORDERED: DECADRON IM ONE (20:51)
[2018-10-29] MEDS ORDERED: ATROVENT IH ONE (20:51)
[2018-10-29] MEDS ORDERED: PROVENTIL IH ONE (20:51)
--- NOTE | 2018-10-29 20:51 | Emergency Department Report ---
Blank Doc - Documentation Documentation: This is a 57-year-old male that presents with asthma exceratiopn. This initial assessment/diagnostic orders/clinical plan/treatment(s) is/are subject to change based on patient's health status, clinical progression and re- assessment by fellow clinical providers in the ED. Further treatment and workup at subsequent clinical providers discretion. Patient/guardians urged not to elope from the ED as their condition may be serious if not clinically assessed and managed. Initial orders include: 1- Patient sent to [facility] for further evaluation and treatment 2- breathing treatment/steroids 3- cxr
[2018-10-29] MEDS ORDERED: DUONEB *Not for PRN Use IH ONE (22:32)
[2018-10-29] MEDS ORDERED: SOLU-Medrol IM ONE (22:32)
--- NOTE | 2018-10-29 22:42 | XRay Report ---
PROCEDURE: XR CHEST ROUTINE 2V TECHNIQUE: PA and lateral chest radiographs were obtained. HISTORY: sob wheezing COMPARISONS: Chest x-ray dated October 26, 2018. FINDINGS: There is no definite evidence of focal infiltrate and no evidence of pneumothorax or pleural fluid co llection. The cardiac silhouette appears to be normal size. The thoracic aorta is mildly tortuous. The bony structures are notable for deformity of the posterior aspect of the left sixth rib consisten t with sequela of previous fracture as was demonstrated on the previous study. IMPRESSION: 1. No evidence of an acute pulmonary process. If further imaging is required, CT may be helpful. This document is electronically signed by Katia Cyr MD., October 29 2018 11:40:25 PM ET
--- NOTE | 2018-10-29 23:45 | Emergency Department Report ---
ED General Adult HPI - General Chief complaint: Adult Asthma Stated complaint: ASTHMA Time Seen by Provider: 10/29/18 20:50 Source: patient Mode of arrival: Ambulatory Limitations: No Limitations - History of Present Illness Initial comments: Patient is a 57-year-old -Mong[place] male with a history of hypertension and asthma and who ran out of his inhaler over 2 months ago and is unable to afford it because of the cost presents to the ED with complaint of acute onset persistent shortness of breath, dry cough and wheezing worse at night for the last 2 weeks. Patient states that in the last 2 days the symptoms have worsened. Patient denies fever, chills, nausea, vomiting, chest pain, dizziness, headache, sore throat, nasal and sinus congestion or abdominal pain. MD Complaint: shortness of breath; asthma attack, wheezing and dry cough -: Sudden, hour(s) (worse in the last 4 hours), week(s) (2) Location: chest Radiation: non-radiation Severity scale (0 -10): 6 Quality: aching, dull Consistency: intermittent Improves with: none Worsens with: none Associated Symptoms: denies other symptoms, shortness of breath. denies: confusion, chest pain, cough, diaphoresis, fever/chills, headaches, loss of appetite, malaise, nausea/vomiting, rash Treatments Prior to Arrival: none - Related Data Previous Rx's Medication Instructions Recorded Last Taken Type ALBUTEROL Inhaler (OR & NICU) 2 puff IH QID PRN #1 inhalation 02/16/18 Unknown Rx [ProAir HFA Inhaler] Prednisone [predniSONE 10 mg 10 mg PO .TAPER #1 tab.ds.pk 02/16/18 Unknown Rx (6-Day Pack, 21 Tabs)] ALBUTEROL Inhaler(NF) [VENTOLIN 2 puff IH Q4-6H PRN #1 inha 02/21/18 Unknown Rx Inhaler(NF)] Prednisone [predniSONE 10 mg 10 mg PO .TAPER #1 tab.ds.pk 02/21/18 Unknown Rx (6-Day Pack, 21 Tabs)] Doxycycline Hyclate [Vibramycin] 100 mg PO BID 7 Days #14 capsule 09/08/18 Unknown Rx predniSONE [Prednisone] 50 mg PO DAILY 5 Days #5 tablet 09/08/18 Unknown Rx ALBUTEROL Inhaler (OR & NICU) 2 puff IH QID PRN #1 inhalation 09/16/18 Unknown Rx [ProAir HFA Inhaler] Prednisone [predniSONE 10 mg 10 mg PO .TAPER #1 tab.ds.pk 09/16/18 Unknown Rx (6-Day Pack, 21 Tabs)] ALBUTEROL Inhaler (OR & NICU) 2 puff IH QID PRN #1 inhalation 10/29/18 Unknown Rx [ProAir HFA Inhaler] Azithromycin [Zithromax Z-JOSE MANUEL] 250 mg PO DAILY #6 tablet 10/29/18 Unknown Rx Benzonatate [Tessalon Perles] 100 mg PO Q8HR #30 capsule 10/29/18 Unknown Rx Prednisone [predniSONE 10 mg 10 mg PO .TAPER #21 tab.ds.pk 10/29/18 Unknown Rx (6-Day Pack, 21 Tabs)] Allergies Allergy/AdvReac Type Severity Reaction Status Date / Time No Known Allergies Allergy Verified 09/16/18 09:28 ED Review of Systems ROS: Stated complaint: ASTHMA Other details as noted in HPI Comment: All other systems reviewed and negative Constitutional: no symptoms reported, see HPI. denies: chills, diaphoresis, fever, malaise Eyes: as per HPI. denies: eye pain, eye discharge, vision change ENT: as per HPI. denies: ear pain, throat pain, dental pain, hearing loss, congestion Respiratory: no symptoms reported, see HPI, cough, shortness of breath, wheezing. denies: orthopnea, SOB with exertion, SOB at rest, other Cardiovascular: as per HPI. denies: chest pain, palpitations, dyspnea on exertion, orthopnea, edema, syncope, paroxysmal nocturnal dyspnea Endocrine: no symptoms reported, see HPI. denies: excessive sweating, flushing, intolerance to cold, intolerance to heat, increased hunger, increased thirst Gastrointestinal: as per HPI. denies: abdominal pain, nausea, vomiting, diarrhea, constipation, hematemesis, hematochezia Genitourinary: as per HPI. denies: urgency, dysuria, frequency, hematuria, discharge, testicular pain, testicular mass Musculoskeletal: as per HPI. denies: back pain, joint swelling, arthralgia Skin: as per HPI. denies: rash, lesions, change in color, change in hair/nails Neurological: as per HPI. denies: headache, weakness, numbness, paresthesias, abnormal gait Psychiatric: as per HPI. denies: auditory hallucinations, visual hallucinations, homicidal thoughts Hematological/Lymphatic: as per HPI ED Past Medical Hx - Past Medical History Hx Hypertension: Yes Hx Asthma: Yes - Social History Smoking Status: Never Smoker Substance Use Type: None - Medications Home Medications: Home Medications Medication Instructions Recorded Confirmed Last Taken Type ALBUTEROL Inhaler (OR & NICU) 2 puff IH QID PRN #1 inhalation 02/16/18 Unknown Rx [ProAir HFA Inhaler] Prednisone [predniSONE 10 mg 10 mg PO .TAPER #1 tab.ds.pk 02/16/18 Unknown Rx (6-Day Pack, 21 Tabs)] ALBUTEROL Inhaler(NF) [VENTOLIN 2 puff IH Q4-6H PRN #1 inha 02/21/18 Unknown Rx Inhaler(NF)] Prednisone [predniSONE 10 mg 10 mg PO .TAPER #1 tab.ds.pk 02/21/18 Unknown Rx (6-Day Pack, 21 Tabs)] Doxycycline Hyclate [Vibramycin] 100 mg PO BID 7 Days #14 capsule 09/08/18 Unknown Rx predniSONE [Prednisone] 50 mg PO DAILY 5 Days #5 tablet 09/08/18 Unknown Rx ALBUTEROL Inhaler (OR & NICU) 2 puff IH QID PRN #1 inhalation 09/16/18 Unknown Rx [ProAir HFA Inhaler] Prednisone [predniSONE 10 mg 10 mg PO .TAPER #1 tab.ds.pk 09/16/18 Unknown Rx (6-Day Pack, 21 Tabs)] ALBUTEROL Inhaler (OR & NICU) 2 puff IH QID PRN #1 inhalation 10/29/18 Unknown Rx [ProAir HFA Inhaler] Azithromycin [Zithromax Z-JOSE MANUEL] 250 mg PO DAILY #6 tablet 10/29/18 Unknown Rx Benzonatate [Tessalon Perles] 100 mg PO Q8HR #30 capsule 10/29/18 Unknown Rx Prednisone [predniSONE 10 mg 10 mg PO .TAPER #21 tab.ds.pk 10/29/18 Unknown Rx (6-Day Pack, 21 Tabs)] ED Physical Exam - General Limitations: No Limitations General appearance: alert, in no apparent distress, anxious - Head Head exam: Present: atraumatic, normocephalic, normal inspection - Eye Eye exam: Present: normal appearance, PERRL, EOMI Pupils: Present: normal accommodation - ENT ENT exam: Present: normal exam, normal orophraynx, mucous membranes moist, TM's normal bilaterally, normal external ear exam - Neck Neck exam: Present: normal inspection, full ROM. Absent: tenderness, meningismus, lymphadenopathy, thyromegaly - Respiratory Respiratory exam: Present: wheezes (moderately diffuse coarse wheezes throughout). Absent: respiratory distress, chest wall tenderness, accessory muscle use, decreased breath sounds, prolonged expiratory - Cardiovascular Cardiovascular Exam: Present: regular rate, normal rhythm, normal heart sounds - GI/Abdominal GI/Abdominal exam: Present: soft, normal bowel sounds. Absent: tenderness, rebound, rigid, hyperactive bowel sounds, hypoactive bowel sounds - Rectal Rectal exam: Present: deferred - Extremities Exam Extremities exam: Present: normal inspection, full ROM, normal capillary refill - Back Exam Back exam: Present: normal inspection, full ROM. Absent: tenderness, CVA tenderness (R), muscle spasm, paraspinal tenderness, vertebral tenderness - Neurological Exam Neurological exam: Present: alert, oriented X3, CN II-XII intact, normal gait, reflexes normal - Psychiatric Psychiatric exam: Present: normal affect - Skin Skin exam: Present: warm, dry, intact, normal color ED Course Vital Signs 10/29/18 20:48 Temperature 97.5 F L Pulse Rate 66 Respiratory 22 Rate Blood Pressure 168/118 O2 Sat by Pulse 99 Oximetry - Reevaluation(s) Reevaluation #1: 10/29/18 23:56 Patient is alert and oriented 3 and is not in any distress but hypertensive. Patient was treated in the ED with Solu-Medrol, also given 2 DuoNeb treatments treatments in the ED. Chest x-ray shows no acute cardiopulmonary abnormalities. On reevaluation, patient's wheezing has resolved patient resting comfortably watching his cell phone. The patient was discharged home on medications and advised to follow-up with his primary care physician in 3-5 days for reevaluation or return to the ED immediately if symptoms get worse. ED Medical Decision Making - Radiology Data Radiology results: report reviewed, image reviewed No acute cardiopulmonary abnormalities - Medical Decision Making Patient is alert and oriented 3 and is not in any distress but hypertensive. Patient was treated in the ED with Solu-Medrol, also given 2 DuoNeb treatments treatments in the ED. Chest x-ray shows no acute cardiopulmonary abnormalities. On reevaluation, patient's wheezing has resolved patient resting comfortably watching his cell phone. The patient's symptoms didn't his chronic asthma with occasional exacerbations. Given the fact that the patient has not have an inhaler causing cannot afford it and the patient is expected to come to the ED more frequently. Patient advised to do everything he can to obtain the bronchodilators that have been prescribed. The patient was discharged home on medications and advised to follow-up with his primary care physician in 3-5 days for reevaluation or return to the ED immediately if symptoms get worse. - Differential Diagnosis asthma exacerbations, shortness of breath, chronic bronchitis Critical care attestation.: If time is entered above; I have spent that time in minutes in the direct care of this critically ill patient, excluding procedure time. ED Disposition Clinical Impression: SOB (shortness of breath) Asthma exacerbation Qualifiers: Asthma severity: mild Asthma persistence: intermittent Qualified Code(s): J45.21 - Mild intermittent asthma with (acute) exacerbation Disposition: TO HOME OR SELFCARE Is pt being admited?: No Does the pt Need Aspirin: No Condition: Stable Instructions: Asthma (ED), Acute Bronchitis (ED) Additional Instructions: Take medications with food, drink plenty of fluids and follow up with your Primary care Physician as advised. Return to the ED immediately if symptoms get worse. Prescriptions: Prednisone [predniSONE 10 mg (6-Day Pack, 21 Tabs)] 10 mg PO .TAPER #21 tab.ds.pk ALBUTEROL Inhaler (OR & NICU) [ProAir HFA Inhaler] 2 puff IH QID PRN #1 inhalation PRN Reason: Shortness Of Breath Benzonatate [Tessalon Perles] 100 mg PO Q8HR #30 capsule Azithromycin [Zithromax Z-JOSE MANUEL] 250 mg PO DAILY #6 tablet Referrals: DI CONWAY MD [Primary Care Provider] - 3-5 Days Time of Disposition: 23:46 Print Language: PERSIAN
[2018-10-30 00:37] VITALS: BP 150/94
== END 2018-10-29 23:55 | disposition home or self-care (01) ==
LOC: ED 20:40
DX: J45.909 Unspecified asthma, uncomplicated (principal); I10 Essential (primary) hypertension
CPT/HCPCS: 71046; 94640; 96372; 99283; J1100; J2930

== ENCOUNTER 2018-11-03 18:21 | Inpatient (IN) | payer OTHER ==
[2018-11-03] MEDS ORDERED: ATROVENT IH ONE (18:31)
[2018-11-03] MEDS ORDERED: SOLU-Medrol IM ONE (18:31)
[2018-11-03] MEDS ORDERED: PROVENTIL IH ONE ×2 (18:31→19:14)
[2018-11-03] MEDS ORDERED: MAGNESIUM SULFATE 2GM/50ML 2 GM/50 ML BAG IV ONE ×2 (18:31→18:34)
[2018-11-03] MEDS ORDERED: SOLU-Medrol ONE (18:34)
--- NOTE | 2018-11-03 18:57 | Emergency Department Report ---
ED Asthma HPI - General Chief Complaint: Dyspnea/Respdistress Stated Complaint: ASTHMA/ALEKSANDAR Time Seen by Provider: 11/03/18 18:30 Source: patient, old records reviewed Mode of arrival: Ambulatory Limitations: No Limitations - History of Present Illness Initial Comments: 57-year-old male with a past medical history of asthma and hypertension presents to the hospital complaining of persistent wheezing and shortness of breath. Patient was seen here on October 29 for the same symptoms. At that time patient presented with wheezing and shortness of breath and inability to afford his albuterol inhaler. He was prescribed steroids, Z-Jose Manuel, Tessalon Perles, and albuterol while in the ED 5 days ago. He was unable to fill any of the medications stating it cost $300. He attempted to go to [facility] for additional resources but did not qualify because he does not live in [facility]. Patient denies history of previous intubation. He is to have a persistent dry cough without fever - Related Data Previous Rx's Medication Instructions Recorded Last Taken Type ALBUTEROL Inhaler (OR & NICU) 2 puff IH QID PRN #1 inhalation 02/16/18 Unknown Rx [ProAir HFA Inhaler] Prednisone [predniSONE 10 mg 10 mg PO .TAPER #1 tab.ds.pk 02/16/18 Unknown Rx (6-Day Pack, 21 Tabs)] ALBUTEROL Inhaler(NF) [VENTOLIN 2 puff IH Q4-6H PRN #1 inha 02/21/18 Unknown Rx Inhaler(NF)] Prednisone [predniSONE 10 mg 10 mg PO .TAPER #1 tab.ds.pk 02/21/18 Unknown Rx (6-Day Pack, 21 Tabs)] Doxycycline Hyclate [Vibramycin] 100 mg PO BID 7 Days #14 capsule 09/08/18 Unknown Rx predniSONE [Prednisone] 50 mg PO DAILY 5 Days #5 tablet 09/08/18 Unknown Rx ALBUTEROL Inhaler (OR & NICU) 2 puff IH QID PRN #1 inhalation 09/16/18 Unknown Rx [ProAir HFA Inhaler] Prednisone [predniSONE 10 mg 10 mg PO .TAPER #1 tab.ds.pk 09/16/18 Unknown Rx (6-Day Pack, 21 Tabs)] ALBUTEROL Inhaler (OR & NICU) 2 puff IH QID PRN #1 inhalation 10/29/18 Unknown Rx [ProAir HFA Inhaler] Azithromycin [Zithromax Z-JOSE MANUEL] 250 mg PO DAILY #6 tablet 10/29/18 Unknown Rx Benzonatate [Tessalon Perles] 100 mg PO Q8HR #30 capsule 10/29/18 Unknown Rx Prednisone [predniSONE 10 mg 10 mg PO .TAPER #21 tab.ds.pk 10/29/18 Unknown Rx (6-Day Pack, 21 Tabs)] Allergies Allergy/AdvReac Type Severity Reaction Status Date / Time No Known Allergies Allergy Verified 09/16/18 09:28 ED Review of Systems ROS: Stated complaint: ASTHMA/ALEKSANDAR Other details as noted in HPI Comment: All other systems reviewed and negative ED Past Medical Hx - Past Medical History Previous Medical History?: Yes Hx Hypertension: Yes Hx Asthma: Yes - Social History Smoking Status: Never Smoker - Medications Home Medications: Home Medications Medication Instructions Recorded Confirmed Last Taken Type ALBUTEROL Inhaler (OR & NICU) 2 puff IH QID PRN #1 inhalation 02/16/18 Unknown Rx [ProAir HFA Inhaler] Prednisone [predniSONE 10 mg 10 mg PO .TAPER #1 tab.ds.pk 02/16/18 Unknown Rx (6-Day Pack, 21 Tabs)] ALBUTEROL Inhaler(NF) [VENTOLIN 2 puff IH Q4-6H PRN #1 inha 02/21/18 Unknown Rx Inhaler(NF)] Prednisone [predniSONE 10 mg 10 mg PO .TAPER #1 tab.ds.pk 02/21/18 Unknown Rx (6-Day Pack, 21 Tabs)] Doxycycline Hyclate [Vibramycin] 100 mg PO BID 7 Days #14 capsule 09/08/18 Unknown Rx predniSONE [Prednisone] 50 mg PO DAILY 5 Days #5 tablet 09/08/18 Unknown Rx ALBUTEROL Inhaler (OR & NICU) 2 puff IH QID PRN #1 inhalation 09/16/18 Unknown Rx [ProAir HFA Inhaler] Prednisone [predniSONE 10 mg 10 mg PO .TAPER #1 tab.ds.pk 09/16/18 Unknown Rx (6-Day Pack, 21 Tabs)] ALBUTEROL Inhaler (OR & NICU) 2 puff IH QID PRN #1 inhalation 10/29/18 Unknown Rx [ProAir HFA Inhaler] Azithromycin [Zithromax Z-JOSE MANUEL] 250 mg PO DAILY #6 tablet 10/29/18 Unknown Rx Benzonatate [Tessalon Perles] 100 mg PO Q8HR #30 capsule 10/29/18 Unknown Rx Prednisone [predniSONE 10 mg 10 mg PO .TAPER #21 tab.ds.pk 10/29/18 Unknown Rx (6-Day Pack, 21 Tabs)] ED Physical Exam - General Limitations: No Limitations - Other Other exam information: General: No limitations, patient is alert in no acute distress Head exam: Atraumatic, normocephalic Eyes exam: Normal appearance ENT: Moist mucous membrane Neck exam: Normal inspection, full range of motion, no meningismus nontender Respiratory exam: Tachypnea, accessory muscle use, bilateral wheezing Cardiovascular: Mild tachycardia regular rhythm Abdomen: Soft, nondistended, and nontender, with normal bowel sounds, no rebound, or guarding Extremity: Full range of motion normal inspection no deformity, no calf tenderness or edema Back: Normal Inspection, full range of motion, no tenderness Neurologic: Alert, oriented x3, cranial nerves intact, no motor or sensory deficit Psychiatric: normal affect, normal mood Skin: Diaphoretic ED Course Vital Signs 11/03/18 11/03/18 11/03/18 18:31 18:43 18:52 Pulse Rate 92 H Pulse Rate [ 78 Anterior Bilateral] Respiratory 21 21 Rate Respiratory 24 Rate [Anterior Bilateral] Blood Pressure O2 Sat by Pulse 95 95 Oximetry 11/03/18 11/03/18 11/03/18 19:00 19:27 19:30 Pulse Rate 86 79 71 Pulse Rate [ 79 Anterior Bilateral] Respiratory 19 17 17 Rate Respiratory 17 Rate [Anterior Bilateral] Blood Pressure O2 Sat by Pulse 96 96 99 Oximetry 11/03/18 11/03/18 11/03/18 19:31 20:00 20:28 Pulse Rate 79 Pulse Rate [ 79 81 Anterior Bilateral] Respiratory 18 Rate Respiratory 17 17 Rate [Anterior Bilateral] Blood Pressure 148/99 O2 Sat by Pulse 91 Oximetry ED Medical Decision Making - Lab Data Result diagrams: 11/03/18 19:26 11/03/18 19:26 Lab Results 11/03/18 11/03/18 Range/Units 19:26 19:26 WBC 7.6 (4.5-11.0) K/mm3 RBC 4.85 (3.65-5.03) M/mm3 Hgb 16.5 H (11.8-15.2) gm/dl Hct 47.4 H (35.5-45.6) % MCV 98 H (84-94) fl MCH 34 H (28-32) pg MCHC 35 H (32-34) % RDW 12.5 L (13.2-15.2) % Plt Count 195 (140-440) K/mm3 Lymph % (Auto) 24.2 (13.4-35.0) % [place] % (Auto) 7.9 H (0.0-7.3) % Eos % (Auto) 8.3 H (0.0-4.3) % Baso % (Auto) 0.7 (0.0-1.8) % Lymph # 1.8 (1.2-5.4) K/mm3 [place] # 0.6 (0.0-0.8) K/mm3 Eos # 0.6 H (0.0-0.4) K/mm3 Baso # 0.1 (0.0-0.1) K/mm3 Seg Neutrophils % 58.9 (40.0-70.0) % Seg Neutrophils # 4.5 (1.8-7.7) K/mm3 Sodium 142 (137-145) mmol/L Potassium 4.6 (3.6-5.0) mmol/L Chloride 106.5 (98-107) mmol/L Carbon Dioxide 23 (22-30) mmol/L Anion Gap 17 mmol/L BUN 15 (9-20) mg/dL Creatinine 1.3 (0.8-1.5) mg/dL Estimated GFR > 60 ml/min BUN/Creatinine Ratio 12 % Glucose 99 (75-100) mg/dL Calcium 9.4 (8.4-10.2) mg/dL - EKG Data -: EKG Interpreted by Ne EKG shows normal: sinus rhythm, axis (qrs 70), QRS complexes Rate: normal (85) - Radiology Data Radiology results: report reviewed PROCEDURE: XR CHEST 1V AP TECHNIQUE: Chest radiograph single view. HISTORY: sob, wheeze COMPARISONS: CXR 10/29/2018 . FINDINGS: Heart: Normal. Mediastinum/Vessels: Normal. Lungs/Pleural space: Normal. Bony thorax: No acute osseous abnormality. A remote posterior left sixth rib fracture is again noted Life support devices: None. IMPRESSION: No acute cardiopulmonary abnormality. No change - Medical Decision Making Patient improving on BiPAP and bronchial dilators but still persistent wheezing after albuterol 20 mg and Atrovent 1 mg. Patient requires admission to the hospital for further management. He also received mag and Solu-Medrol. - Differential Diagnosis bronchitis, pneumonia, asthma, bronchitis Critical Care Time: No Critical care attestation.: If time is entered above; I have spent that time in minutes in the direct care of this critically ill patient, excluding procedure time. ED Disposition Clinical Impression: Asthma exacerbation, Noncompliance Disposition: OP ADMIT IP TO THIS HOSP Is pt being admited?: Yes Condition: Stable Time of Disposition: 20:27 (DR khoury/hosp)
[2018-11-03 19:55] LABS: Basophils # (Auto) 0.1 K/mm3 (0.0-0.1); Basophils % (Auto) 0.7 % (0.0-1.8); Eosinophils # (Auto) 0.6 K/mm3 (0.0-0.4); Eosinophils % (Auto) 8.3 % (0.0-4.3); Hematocrit 47.4 % (35.5-45.6); Hemoglobin 16.5 gm/dl (11.8-15.2); Lymphocytes # (Auto) 1.8 K/mm3 (1.2-5.4); Lymphocytes % (Auto) 24.2 % (13.4-35.0); Mean Corpuscular HGB Conc 35 % (32-34); Mean Corpuscular Volume 98 fl (84-94); Monocytes # (Auto) 0.6 K/mm3 (0.0-0.8); Monocytes % (Auto) 7.9 % (0.0-7.3); Platelet Count 195 K/mm3 (140-440); Red Blood Count 4.85 M/mm3 (3.65-5.03); Red Cell Distribution Width 12.5 % (13.2-15.2)
[2018-11-03 20:11] LABS: BUN/Creatinine Ratio 12; Blood Urea Nitrogen 15 mg/dL (9-20); Calcium 9.4 mg/dL (8.4-10.2); Hemolysis Index 129
--- NOTE | 2018-11-03 20:11 | XRay Report ---
PROCEDURE: XR CHEST 1V AP TECHNIQUE: Chest radiograph single view. HISTORY: sob, wheeze COMPARISONS: CXR 10/29/2018 . FINDINGS: Heart: Normal. Mediastinum/Vessels: Normal. Lungs/Pleural space: Normal. Bony thorax: No acute osseous abnormality. A remote posterior left sixth rib fracture is again noted Life support devices: None. IMPRESSION: No acute cardiopulmonary abnormality. No change This document is electronically signed by Shell Tucker MD., November 03 2018 08:09:46 PM ET
[2018-11-03] MEDS ORDERED: SODIUM CHLORIDE FLUSH SYRINGE 10 ML IV PRN (21:41)
[2018-11-03] MEDS ORDERED: ZOFRAN IV PRN (21:41)
[2018-11-03] MEDS ORDERED: TYLENOL PO PRN (21:41)
[2018-11-03] MEDS ORDERED: PROVENTIL IH PRN (21:41)
[2018-11-03] MEDS ORDERED: HABITROL TD ONE (21:46)
--- NOTE | 2018-11-03 22:00 | History and Physical Report ---
<ADELAIDE ROWLEY - Last Filed: 11/03/18 22:08> History of Present Illness Date of examination: 11/03/18 Date of admission: 11/03/2018 Chief complaint: Shortness of breath History of present illness: 57-year-old [place] male who is an ongoing smoker with history of hypertension and asthma presents to [facility] ED with complaints of nonproductive cough, wheezing and shortness of breath for the past 2 weeks. His symptoms have progressively w orsened over the past week. He feels that his wheezing is worse at nights. He states that he ran out of his inhaler over 2 months ago and is unable to afford to refill prescription. Of note patient was previously seen for similar complaints on 10/29/18 at which time he was prescribed steroids, Z-Kee, Tessalon Perles, and albuterol. Patient states that he was unable to fill prescription due to inability to afford medication. He stated cost to be approximately $300. Patient states that he has tried pursed lip breathing with relief. Admits nonproductive cough, wheezing, shortness of breath Denies fever, chills, hemoptysis, nausea, vomiting, headache Past History Past Medical History: hypertension, other Past Surgical History: Other (asthma) Social history: , smoking (2-3 cigarettes per day) Family history: no significant family history Medications and Allergies Allergies Allergy/AdvReac Type Severity Reaction Status Date / Time No Known Allergies Allergy Verified 09/16/18 09:28 Home Medications Medication Instructions Recorded Confirmed Last Taken Type ALBUTEROL Inhaler (OR & NICU) 2 puff IH QID PRN #1 inhalation 02/16/18 Unknown Rx [ProAir HFA Inhaler] Prednisone [predniSONE 10 mg 10 mg PO .TAPER #1 tab.ds.pk 02/16/18 Unknown Rx (6-Day Pack, 21 Tabs)] ALBUTEROL Inhaler(NF) [VENTOLIN 2 puff IH Q4-6H PRN #1 inha 02/21/18 Unknown Rx Inhaler(NF)] Prednisone [predniSONE 10 mg 10 mg PO .TAPER #1 tab.ds.pk 02/21/18 Unknown Rx (6-Day Pack, 21 Tabs)] Doxycycline Hyclate [Vibramycin] 100 mg PO BID 7 Days #14 capsule 09/08/18 Unknown Rx predniSONE [Prednisone] 50 mg PO DAILY 5 Days #5 tablet 09/08/18 Unknown Rx ALBUTEROL Inhaler (OR & NICU) 2 puff IH QID PRN #1 inhalation 09/16/18 Unknown Rx [ProAir HFA Inhaler] Prednisone [predniSONE 10 mg 10 mg PO .TAPER #1 tab.ds.pk 09/16/18 Unknown Rx (6-Day Pack, 21 Tabs)] ALBUTEROL Inhaler (OR & NICU) 2 puff IH QID PRN #1 inhalation 10/29/18 Unknown Rx [ProAir HFA Inhaler] Azithromycin [Zithromax Z-KEE] 250 mg PO DAILY #6 tablet 10/29/18 Unknown Rx Benzonatate [Tessalon Perles] 100 mg PO Q8HR #30 capsule 10/29/18 Unknown Rx Prednisone [predniSONE 10 mg 10 mg PO .TAPER #21 tab.ds.pk 10/29/18 Unknown Rx (6-Day Pack, 21 Tabs)] Active Meds: Active Medications Acetaminophen (Tylenol) 650 mg PO Q4H PRN PRN Reason: Pain MILD(1-3)/Fever >100.5/PARKER Albuterol (Proventil) 2.5 mg IH Q3HRT PRN PRN Reason: Shortness Of Breath Albuterol/Ipratropium (Duoneb *Not For Prn Use*) 1 ampul IH Q6HRT [facility] Amlodipine Besylate (Norvasc) 5 mg PO QDAY [facility] Azithromycin (Zithromax) 250 mg PO QDAY [facility] Stop: 11/07/18 10:01 Budesonide (Pulmicort) 0.5 mg IH Q12HRT [facility] Guaifenesin (Mucinex Er) 600 mg PO BID [facility] Heparin Sodium (Porcine) (Heparin) 5,000 unit SUB-Q Q12HR [facility] Hydralazine HCl (Apresoline) 10 mg IV Q4HR PRN PRN Reason: Blood Pressure Sodium Chloride (Nacl 0.9% 1000 Ml) 1,000 mls @ 100 mls/hr IV DIRECT YUKI Methylprednisolone Sodium Succinate (Solu-Medrol) 60 mg IV Q6HR [facility] Nicotine (Habitrol) 14 mg TD ONCE ONE Stop: 11/03/18 21:47 Ondansetron HCl (Zofran) 4 mg IV Q8H PRN PRN Reason: Nausea And Vomiting Sodium Chloride (Sodium Chloride Flush Syringe 10 Ml) 10 ml IV BID YUKI Sodium Chloride (Sodium Chloride Flush Syringe 10 Ml) 10 ml IV PRN PRN PRN Reason: LINE FLUSH Review of Systems All systems: negative (reviewed and no additional medical complaints except as noted below) Respiratory: cough, shortness of breath, wheezing Exam - Physical Exam Narrative exam: Physical exam General appearance: Present: Mild distress, alert and oriented 3, pleasant, middle-aged adult male - EENT Eyes: Present: PERRL, EOM intact ENT: hearing intact, normal dentition - Neck Neck: Present: supple, normal ROM - Respiratory Respiratory effort: labored Respiratory: Faint scattered wheezes with poor air movement - Cardiovascular Heart rate: 85 (bpm) Rhythm: Sinus rhythm regular Heart Sounds: Present: S1 & S2. Absent: rub, click - Extremities Extremities: no ischemia, pulses intact, - Peripheral Assessment Peripheral Pulses: within normal limits - Abdominal General gastrointestinal: soft, non-tender, normal bowel sounds - Integumentary Integumentary: Present: warm, dry - Musculoskeletal Musculoskeletal: Normal extremities -Neurological Neurological: CNII-XII intact - Psychiatric Psychiatric: cooperative - Constitutional Vitals: Temp Pulse Resp BP Pulse Ox 81 17 148/99 91 11/03/18 20:28 11/03/18 20:28 11/03/18 20:00 11/03/18 20:00 Results - Labs CBC & Chem 7: 11/03/18 19:26 11/03/18 19:26 Labs: Laboratory Last Values WBC 7.6 K/mm3 (4.5-11.0) 11/03/18 19: RBC 4.85 M/mm3 (3.65-5.03) 11/03/18 19:26 Hgb 16.5 gm/dl (11.8-15.2) H 11/03/18 19:26 Hct 47.4 % (35.5-45.6) H 11/03/18 19:26 MCV 98 fl (84-94) H 11/03/18 19:26 MCH 34 pg (28-32) H 11/03/18 19:26 MCHC 35 % (32-34) H 11/03/18 19:26 RDW 12.5 % (13.2-15.2) L 11/03/18 19:26 Plt Count 195 K/mm3 (140-440) 11/03/18 19:26 Lymph % (Auto) 24.2 % (13.4-35.0) 11/03/18 19:26 [place] % (Auto) 7.9 % (0.0-7.3) H 11/03/18 19:26 Eos % (Auto) 8.3 % (0.0-4.3) H 11/03/18 19:26 Baso % (Auto) 0.7 % (0.0-1.8) 11/03/18 19:26 Lymph # 1.8 K/mm3 (1.2-5.4) 11/03/18 19:26 [place] # 0.6 K/mm3 (0.0-0.8) 11/03/18 19:26 Eos # 0.6 K/mm3 (0.0-0.4) H 11/03/18 19:26 Baso # 0.1 K/mm3 (0.0-0.1) 11/03/18 19:26 Seg Neutrophils % 58.9 % (40.0-70.0) 11/03/18 19:26 Seg Neutrophils # 4.5 K/mm3 (1.8-7.7) 11/03/18 19:26 Sodium 142 mmol/L (137-145) 11/03/18 19:26 Potassium 4.6 mmol/L (3.6-5.0) 11/03/18 19:26 Chloride 106.5 mmol/L (98-107) 11/03/18 19:26 Carbon Dioxide 23 mmol/L (22-30) 11/03/18 19:26 17 mmol/L 11/03/18 19:26 BUN 15 mg/dL (9-20) 11/03/18 19:26 1.3 mg/dL (0.8-1.5) 11/03/18 19:26 Estimated GFR > 60 ml/min 11/03/18 19:26 12 % 11/03/18 19:26 Glucose 99 mg/dL (75-100) 11/03/18 19:26 Calcium 9.4 mg/dL (8.4-10.2) 11/03/18 19:26 - Imaging and Cardiology EKG: image reviewed Chest x-ray: report reviewed (No acute cardiopulmonary abnormality. ), image reviewed Assessment and Plan Assessment and plan: 57-year-old [place] male who is an ongoing smoker with history of hypertension and asthma presents to [facility] ED with complaints of nonproductive cough, wheezing and shortness of breath for the past 2 weeks after running out of his albuterol inhaler over 2 months ago and unable to refill medication due to cost. Initial ABG 7.35/36/76/20. At baseline patient does not require supplemental oxygen. CXR unrevealing for acute cardiopulmonary abnormalities. Will admit to medical floor. Asthma exacerbation Acute hypoxic respiratory failure- likely secondary to asthma exacerbation Hypertension Dehydration Tobacco abuse Plan: Continue supportive care Continue supplemental oxygen and wean as tolerated Monitor BP Start Norvasc 5 mg daily; IV hydralazine when necessary Hydrate with NS at 100ml/hr Scheduled DuoNebs and Pulmicort, when necessary albuterol Solu-Medrol 60 mg every 8 hours Mucinex Azithromycin 250 mg daily 5 days Counseled for smoking cessation Start nicotine patch Case management consult pending DVT PPX on Heparin and SCD's Advance Directives: No VTE prophylaxis?: Chemical Plan of care discussed with patient/family: Yes <GAY POSADA - Last Filed: 11/04/18 02:50> History of Present Illness Date of admission: 11/03/18 21:42 Medications and Allergies Active Meds: Active Medications Acetaminophen (Tylenol) 650 mg PO Q4H PRN PRN Reason: Pain MILD(1-3)/Fever >100.5/PARKER Albuterol (Proventil) 2.5 mg IH Q3HRT PRN PRN Reason: Shortness Of Breath Albuterol/Ipratropium (Duoneb *Not For Prn Use*) 1 ampul IH Q6HRT [facility] Amlodipine Besylate (Norvasc) 5 mg PO QDAY [facility] Azithromycin (Zithromax) 250 mg PO QDAY [facility] Stop: 11/07/18 10:01 Last Admin: 11/03/18 23:10 Dose: 250 mg Documented by: Budesonide (Pulmicort) 0.5 mg IH Q12HRT [facility] Guaifenesin (Mucinex Er) 600 mg PO BID [facility] Last Admin: 11/03/18 23:09 Dose: 600 mg Documented by: Heparin Sodium (Porcine) (Heparin) 5,000 unit SUB-Q Q12HR [facility] Last Admin: 11/03/18 23:10 Dose: 5,000 unit Documented by: Hydralazine HCl (Apresoline) 10 mg IV Q4HR PRN PRN Reason: Blood Pressure Last Admin: 11/03/18 22:40 Dose: 10 mg Documented by: Sodium Chloride (Nacl 0.9% 1000 Ml) 1,000 mls @ 100 mls/hr IV DIRECT YUKI Last Admin: 11/03/18 23:09 Dose: 100 mls/hr Documented by: Methylprednisolone Sodium Succinate (Solu-Medrol) 60 mg IV Q6HR [facility] Last Admin: 11/03/18 23:16 Dose: 60 mg Documented by: Ondansetron HCl (Zofran) 4 mg IV Q8H PRN PRN Reason: Nausea And Vomiting Sodium Chloride (Sodium Chloride Flush Syringe 10 Ml) 10 ml IV BID [facility] Last Admin: 11/03/18 22:10 Dose: 10 ml Documented by: Sodium Chloride (Sodium Chloride Flush Syringe 10 Ml) 10 ml IV PRN PRN PRN Reason: LINE FLUSH Last Admin: 11/03/18 23:17 Dose: 10 ml Documented by: Exam - Constitutional Vitals: Temp Pulse Resp BP Pulse Ox 97.6 F 75 18 154/96 93 11/03/18 23:15 11/04/18 00:07 11/04/18 00:07 11/03/18 23:18 11/04/18 00:07 Results - Labs CBC & Chem 7: 11/03/18 19:26 11/03/18 19:26 Labs: Laboratory Last Values WBC 7.6 K/mm3 (4.5-11.0) 11/03/18 19:26 RBC 4.85 M/mm3 (3.65-5.03) 11/03/18 19:26 Hgb 16.5 gm/dl (11.8-15.2) H 11/03/18 19:26 Hct 47.4 % (35.5-45.6) H 11/03/18 19:26 MCV 98 fl (84-94) H 11/03/18 19:26 MCH 34 pg (28-32) H 11/03/18 19:26 MCHC 35 % (32-34) H 11/03/18 19:26 RDW 12.5 % (13.2-15.2) L 11/03/18 19:26 Plt Count 195 K/mm3 (140-440) 11/03/18 19:26 Lymph % (Auto) 24.2 % (13.4-35.0) 11/03/18 19:26 [place] % (Auto) 7.9 % (0.0-7.3) H 11/03/18 19:26 Eos % (Auto) 8.3 % (0.0-4.3) H 11/03/18 19:26 Baso % (Auto) 0.7 % (0.0-1.8) 11/03/18 19:26 Lymph # 1.8 K/mm3 (1.2-5.4) 11/03/18 19:26 [place] # 0.6 K/mm3 (0.0-0.8) 11/03/18 19:26 Eos # 0.6 K/mm3 (0.0-0.4) H 11/03/18 19:26 Baso # 0.1 K/mm3 (0.0-0.1) 11/03/18 19:26 Seg Neutrophils % 58.9 % (40.0-70.0) 11/03/18 19: Seg Neutrophils # 4.5 K/mm3 (1.8-7.7) 11/03/18 19:26 POC ABG pH 7.355 (7.35-7.45) 11/03/18 22:07 POC ABG pCO2 36.1 (35-45) 11/03/18 22:07 POC ABG pO2 76 (80-105) L 11/03/18 22:07 POC ABG HCO3 20.2 (22-26 mml/L) 11/03/18 22:07 POC ABG Total CO2 21 (23-27mmol/L) 11/03/18 22:07 POC ABG O2 Sat 95 11/03/18 22:07 POC ABG Base Excess -5 ((-2) - (+3)mmol/L) 11/03/18 22:07 21 % 11/03/18 22:07 Sodium 142 mmol/L (137-145) 11/03/18 19:26 Potassium 4.6 mmol/L (3.6-5.0) 11/03/18 19:26 Chloride 106.5 mmol/L (98-107) 11/03/18 19:26 Carbon Dioxide 23 mmol/L (22-30) 11/03/18 19:26 17 mmol/L 11/03/18 19:26 BUN 15 mg/dL (9-20) 11/03/18 19:26 1.3 mg/dL (0.8-1.5) 11/03/18 19:26 Estimated GFR > 60 ml/min 11/03/18 19:26 12 % 11/03/18 19:26 Glucose 99 mg/dL (75-100) 11/03/18 19:26 Calcium 9.4 mg/dL (8.4-10.2) 11/03/18 19:26 Assessment and Plan Assessment and plan: I personally discussed the patient with the VENDING MANAGER-C and I agree with the above assessment and plan
[2018-11-03] MEDS: SODIUM CHLORIDE FLUSH SYRINGE 10 ML IV SCH (22:10)
[2018-11-03] MEDS ORDERED: APRESOLINE ONE (22:38)
[2018-11-03] MEDS: APRESOLINE IV PRN (22:40)
[2018-11-03] MEDS: MUCINEX ER PO SCH (23:09)
[2018-11-03] MEDS: NACL 0.9% 1000 ML 1,000 ML IV SCH (23:09)
[2018-11-03] MEDS: ZITHROMAX PO SCH (23:10)
[2018-11-03] MEDS: HEPARIN SUB-Q SCH (23:10)
[2018-11-03] MEDS: SOLU-Medrol IV SCH (23:16)
[2018-11-04] MEDS: DUONEB *Not for PRN Use IH SCH ×4 (02:00→20:10)
[2018-11-04] MEDS: PULMICORT IH SCH ×3 (05:03→20:10)
[2018-11-04] MEDS: SOLU-Medrol IV SCH ×4 (05:38→23:46)
[2018-11-04] MEDS: APRESOLINE IV PRN (05:39)
[2018-11-04 06:41] LABS: Hematocrit 46.2 % (35.5-45.6); Hemoglobin 15.6 gm/dl (11.8-15.2); Mean Corpuscular HGB Conc 34 % (32-34); Mean Corpuscular Volume 98 fl (84-94); Platelet Count 189 K/mm3 (140-440); Red Cell Distribution Width 12.6 % (13.2-15.2)
[2018-11-04 08:03] LABS: BUN/Creatinine Ratio 12; Blood Urea Nitrogen 16 mg/dL (9-20); Hemolysis Index 6
[2018-11-04 09:11] LABS: Band Neutrophils # (Manual) 0.1 K/mm3; Basophils % (Manual) 0 % (0.0-1.8); Eosinophils % (Manual) 0 % (0.0-4.3); Monocytes % (Manual) 0 % (0.0-7.3); Platelet Estimate Consistent w Auto; RBC Morphology Normal; Total Cells Counted 100
[2018-11-04] MEDS: NACL 0.9% 1000 ML 1,000 ML IV SCH ×2 (09:14→21:44)
[2018-11-04] MEDS: NORVASC PO SCH (09:16)
[2018-11-04] MEDS: MUCINEX ER PO SCH ×2 (09:17→21:44)
[2018-11-04] MEDS: ZITHROMAX PO SCH (09:17)
[2018-11-04] MEDS: HEPARIN SUB-Q SCH ×2 (09:18→21:45)
--- NOTE | 2018-11-04 09:48 | Progress Note ---
Assessment and Plan Assessment and plan: 57-year-old [place] male who is an ongoing smoker with history of hypertension and asthma presents to [facility] ED with complaints of nonproductive cough, wheezing and shortness of breath for the past 2 weeks after running out of his albuterol inhaler over 2 months ago and unable to refill medication due to cost. Initial ABG 7.35/36/76/20. At baseline patient does not require supplemental oxygen. CXR unrevealing for acute cardiopulmonary abnormalities. Asthma exacerbation Acute hypoxic respiratory failure- secondary to asthma exacerbation Hypertension Dehydration Tobacco abuse No health Insurance Plan: Continue supportive care Continue supplemental oxygen and wean as tolerated Monitor BP Started Norvasc 5 mg daily; IV hydralazine when necessary Hydrate with NS at 100ml/hr Scheduled DuoNebs and Pulmicort, when necessary albuterol Solu-Medrol 60 mg iv every 8 hours Mucinex Azithromycin 250 mg daily 5 days Counseled for smoking cessation Started nicotine patch patient states he comes to ED frequently because he cannot afford meds - transplant case manager consult History Interval history: Shortness of breath Wheeze Hospitalist Physical - Physical exam Narrative exam: Gen: Not in acute distress, lying in bed, HEENT: Normocephalic, atraumatic Neck: supple, no JVD Heart: S1 and S2 reg, no murmurs, rubs or gallop Lungs: Bilateral rhonchi, wheeze Abd: soft, non tender, non distended, normal BS Ext: No edema, no clubbing, no cyanosis, Neuro: Awake,alert, oriented x 3, moves all ext, non focal Psych:Normal mood - Constitutional Vitals: Temp Pulse Resp BP Pulse Ox 97.6 F 91 H 16 160/90 96 11/04/18 05:25 11/04/18 07:53 11/04/18 07:53 11/04/18 09:16 11/04/18 07:54 Results - Labs CBC & Chem 7: 11/04/18 05:23 11/04/18 05:23 Labs: Laboratory Last Values WBC 9.6 K/mm3 (4.5-11.0) 11/04/18 05:23 RBC 4.70 M/mm3 (3.65-5.03) 11/04/18 05:23 Hgb 15.6 gm/dl (11.8-15.2) H 11/04/18 05:23 Hct 46.2 % (35.5-45.6) H 11/04/18 05:23 MCV 98 fl (84-94) H 11/04/18 05:23 MCH 33 pg (28-32) H 11/04/18 05:23 MCHC 34 % (32-34) 11/04/18 05:23 RDW 12.6 % (13.2-15.2) L 11/04/18 05:23 Plt Count 189 K/mm3 (140-440) 11/04/18 05:23 Lymph % (Auto) 24.2 % (13.4-35.0) 11/03/18 19:26 [place] % (Auto) 7.9 % (0.0-7.3) H 11/03/18 19:26 Eos % (Auto) 8.3 % (0.0-4.3) H 11/03/18 19:26 Baso % (Auto) 0.7 % (0.0-1.8) 11/03/18 19:26 Lymph # 1.8 K/mm3 (1.2-5.4) 11/03/18 19:26 [place] # 0.6 K/mm3 (0.0-0.8) 11/03/18 19:26 Eos # 0.6 K/mm3 (0.0-0.4) H 11/03/18 19:26 Baso # 0.1 K/mm3 (0.0-0.1) 11/03/18 19:26 Add Manual Diff Complete 11/04/18 05:23 Total Counted 100 11/04/18 05:23 Seg Neutrophils % [employer] Machine Operator 11/04/18 05:23 Seg Neuts % (Manual) 95.0 % (40.0-70.0) H 11/04/18 05:23 1.0 % 11/04/18 05:23 3.0 % (13.4-35.0) L 11/04/18 05:23 Reactive Lymphs % (Man) 0 % 11/04/18 05:23 0 % (0.0-7.3) 11/04/18 05:23 0 % (0.0-4.3) 11/04/18 05:23 0 % (0.0-1.8) 11/04/18 05:23 1.0 % 11/04/18 05:23 0 % 11/04/18 05:23 0 % 11/04/18 05:23 0 % 11/04/18 05:23 Nucleated RBC % Not Reportable 11/04/18 05:23 Seg Neutrophils # 4.5 K/mm3 (1.8-7.7) 11/03/18 19:26 Seg Neutrophils # Man 9.1 K/mm3 (1.8-7.7) H 11/04/18 05:23 Band Neutrophils # 0.1 K/mm3 11/04/18 05:23 0.3 K/mm3 (1.2-5.4) L 11/04/18 05:23 Abs React Lymphs (Man) 0.0 K/mm3 11/04/18 05:23 0.0 K/mm3 (0.0-0.8) 11/04/18 05:23 0.0 K/mm3 (0.0-0.4) 11/04/18 05:23 0.0 K/mm3 (0.0-0.1) 11/04/18 05:23 0.1 K/mm3 11/04/18 05:23 0.0 K/mm3 11/04/18 05:23 0.0 K/mm3 11/04/18 05:23 Blast Cells # 0.0 K/mm3 11/04/18 05:23 WBC Morphology Not Reportable 11/04/18 05:23 Hypersegmented Neuts Not Reportable 11/04/18 05:23 Hyposegmented Neuts Not Reportable 11/04/18 05:23 Hypogranular Neuts Not Reportable 11/04/18 05:23 Not Reportable 11/04/18 05:23 Not Reportable 11/04/18 05:23 Not Reportable 11/04/18 05:23 Not Reportable 11/04/18 05:23 Not Reportable 11/04/18 05:23 Not Reportable 11/04/18 05:23 Consistent w auto 11/04/18 05:23 Not Reportable 11/04/18 05:23 Plt Clumps, EDTA Not Reportable 11/04/18 05:23 Not Reportable 11/04/18 05:23 Not Reportable 11/04/18 05:23 Not Reportable 11/04/18 05:23 Plt Morphology Comment Not Reportable 11/04/18 05:23 RBC Morphology Normal 11/04/18 05:23 Dimorphic RBCs Not Reportable 11/04/18 05:23 Not Reportable 11/04/18 05:23 Not Reportable 11/04/18 05:23 Not Reportable 11/04/18 05:23 Not Reportable 11/04/18 05:23 Not Reportable 11/04/18 05:23 Not Reportable 11/04/18 05:23 Not Reportable 11/04/18 05:23 Not Reportable 11/04/18 05:23 Not Reportable 11/04/18 05:23 Not Reportable 11/04/18 05:23 Not Reportable 11/04/18 05:23 Not Reportable 11/04/18 05:23 Not Reportable 11/04/18 05:23 Not Reportable 11/04/18 05:23 Not Reportable 11/04/18 05:23 Not Reportable 11/04/18 05:23 Not Reportable 11/04/18 05:23 Not Reportable 11/04/18 05:23 Not Reportable 11/04/18 05:23 Acanthocytes (Spur) Not Reportable 11/04/18 05:23 Rouleaux Not Reportable 11/04/18 05:23 Not Reportable 11/04/18 05:23 Not Reportable 11/04/18 05:23 Not Reportable 11/04/18 05:23 Not Reportable 11/04/18 05:23 Hem Pathologist Commnt No 11/04/18 05:23 POC ABG pH 7.355 (7.35-7.45) 11/03/18 22:07 POC ABG pCO2 36.1 (35-45) 11/03/18 22:07 POC ABG pO2 76 (80-105) L 11/03/18 22:07 POC ABG HCO3 20.2 (22-26 mml/L) 11/03/18 22:07 POC ABG Total CO2 21 (23-27mmol/L) 11/03/18 22:07 POC ABG O2 Sat 95 11/03/18 22:07 POC ABG Base Excess -5 ((-2) - (+3)mmol/L) 11/03/18 22:07 21 % 11/03/18 22:07 Sodium 141 mmol/L (137-145) 11/04/18 05:23 Potassium 4.5 mmol/L (3.6-5.0) 11/04/18 05:23 Chloride 102.3 mmol/L (98-107) 11/04/18 05:23 Carbon Dioxide 19 mmol/L (22-30) L 11/04/18 05:23 24 mmol/L 11/04/18 05:23 BUN 16 mg/dL (9-20) 11/04/18 05:23 1.3 mg/dL (0.8-1.5) 11/04/18 05:23 Estimated GFR > 60 ml/min 11/04/18 05:23 12 % 11/04/18 05:23 Glucose 136 mg/dL (75-100) H 11/04/18 05:23 Calcium 9.0 mg/dL (8.4-10.2) 11/04/18 05:23 Active Medications - Current Medications Current Medications: Generic Name Dose Route Start Last Admin Trade Name Freq PRN Reason Stop Dose Admin Acetaminophen 650 mg 11/03/18 21:41 Tylenol PO Q4H PRN Pain MILD(1-3)/Fever >100.5/PARKER Albuterol 2.5 mg 11/03/18 21:41 Proventil IH Q3HRT PRN Shortness Of Breath Albuterol/Ipratropium 1 ampul 11/04/18 02:00 11/04/18 07:40 Duoneb *Not For Prn Use* IH 1 ampul Q6HRT YUKI Administration Amlodipine Besylate 5 mg 11/04/18 10:00 11/04/18 09:16 Norvasc PO 5 mg QDAY YUKI Administration Azithromycin 250 mg 11/03/18 22:00 11/04/18 09:17 Zithromax PO 11/07/18 10:01 250 mg QDAY YUKI Administration Budesonide 0.5 mg 11/03/18 21:45 11/04/18 07:40 Pulmicort IH 0.5 mg Q12HRT YUKI Administration Guaifenesin 600 mg 11/03/18 22:00 11/04/18 09:17 Mucinex Er PO 600 mg BID YUKI Administration Heparin Sodium (Porcine) 5,000 unit 11/03/18 22:00 11/04/18 09:18 Heparin SUB-Q 5,000 unit Q12HR YUKI Administration Hydralazine HCl 10 mg 11/03/18 21:49 11/04/18 05:39 Apresoline IV 10 mg Q4HR PRN Administration Blood Pressure Sodium Chloride 1,000 mls @ 100 mls/hr 11/03/18 22:00 11/04/18 09:14 Nacl 0.9% 1000 Ml IV 100 mls/hr DIRECT YUKI Administration Methylprednisolone Sodium Succinate 60 mg 11/04/18 00:00 11/04/18 05:38 Solu-Medrol IV 60 mg Q6HR YUKI Administration Ondansetron HCl 4 mg 11/03/18 21:41 Zofran IV Q8H PRN Nausea And Vomiting Sodium Chloride 10 ml 11/03/18 22:00 11/03/18 22:10 Sodium Chloride Flush Syringe 10 Ml IV 10 ml BID YUKI Administration Sodium Chloride 10 ml 11/03/18 21:41 11/03/18 23:17 Sodium Chloride Flush Syringe 10 Ml IV 10 ml PRN PRN Administration LINE FLUSH
[2018-11-04] MEDS: FLONASE NS SCH (12:58)
[2018-11-04] MEDS: SODIUM CHLORIDE FLUSH SYRINGE 10 ML IV SCH ×2 (12:58→21:44)
[2018-11-05] MEDS: DUONEB *Not for PRN Use IH SCH ×3 (02:10→14:04)
[2018-11-05] MEDS: SOLU-Medrol IV SCH ×2 (05:35→13:43)
[2018-11-05] MEDS: NACL 0.9% 1000 ML 1,000 ML IV SCH (05:37)
[2018-11-05] MEDS: PULMICORT IH SCH (07:16)
[2018-11-05] MEDS: HEPARIN SUB-Q SCH (10:26)
[2018-11-05] MEDS: NORVASC PO SCH (10:28)
[2018-11-05] MEDS: ZITHROMAX PO SCH (10:28)
[2018-11-05] MEDS: MUCINEX ER PO SCH (10:28)
[2018-11-05] MEDS: SODIUM CHLORIDE FLUSH SYRINGE 10 ML IV SCH (10:28)
[2018-11-05] MEDS: FLONASE NS SCH (10:29)
[2018-11-05 12:36] VITALS: BP 131/79
--- NOTE | 2018-11-05 12:57 | Discharge Summary ---
Providers - Providers Date of Admission: 11/03/18 21:42 Date of discharge: 11/05/18 Attending physician: ANUPAMA CASTAÑEDA 11/03/18 22:17 Consult to Case Management [CONS] Routine Services Needed at Discharge: Inspector Packer Notified:: COPY LEFT FOR CM Primary care physician: DI SHAHID MD Hospitalization Condition: Fair Hospital course: Patient is 57-year-old male who is an ongoing smoker with history of hypertension and asthma presents to [facility] ED with complaints of nonproductive cough, wheezing and shortness of breath for 2 weeks. he states he ran out of his albuterol inhaler over 2 months ago and unable to refill medication due to cost. He was seen and admitted to the emergency department diagnosed with acute respiratory failure secondary to asthma exacerbation. Patient was started on Solu-Medrol and albuterol and admitted. He improved, shortness of breath resolved and he was subsequently discharged home on 11/05/2018. Total time spent on discharge 31 minutes Disposition: DC-01 TO HOME OR SELFCARE - Discharge Diagnoses (1) HTN (hypertension) Status: Acute (2) Asthma exacerbation Status: Acute Qualifiers: Asthma severity: mild Asthma persistence: intermittent Qualified Code(s): J45.21 - Mild intermittent asthma with (acute) exacerbation (3) Acute respiratory failure Status: Acute Core Measure Documentation - Palliative Care Palliative Care/ Comfort Measures: Not Applicable - Core Measures Any of the following diagnoses?: none Exam - Constitutional Vitals: Temp Pulse Resp BP Pulse Ox 97.3 F L 68 20 131/79 92 11/05/18 11:50 11/05/18 11:50 11/05/18 11:50 11/05/18 11:50 11/05/18 11:50 Plan Activity: advance as tolerated Diet: low fat, low cholesterol, low salt Additional Instructions: 1.Follow up with PCP or Di cruz in 1 week. Follow up with: DI CONWAY MD [Primary Care Provider] - 7 Days Prescriptions: amLODIPine [Norvasc] 5 mg PO QDAY #30 tablet Prednisone [predniSONE 5 mg (6-Day Pack, 21 Tabs)] 5 mg PO .TAPER #1 tab.ds.pk Albuterol Sulfate [Proair Respiclick] 90 mcg IH Q6H PRN #1 pump PRN Reason: Shortness Of Breath Azithromycin [Zithromax TAB] 250 mg PO QDAY #5 tablet
== END 2018-11-05 14:35 | disposition home or self-care (01) | DRG 189 ==
LOC: ED 18:21 → 3A 21:42
PROVIDERS: ADMIT Internal Medicine; ATTEND Internal Medicine
PROC: 4A033R1 Measurement of Arterial Saturation, Peripheral, Percutaneous Approach (ICD-10-PCS; principal; 2018-11-03)
PROC: 5A09457 Assistance with Respiratory Ventilation, 24-96 Consecutive Hours, Continuous Positive Airway Pressure (ICD-10-PCS; 2018-11-03)
DX: J96.01 Acute respiratory failure with hypoxia (principal); J45.901 Unspecified asthma with (acute) exacerbation; I10 Essential (primary) hypertension; E86.0 Dehydration; F17.210 Nicotine dependence, cigarettes, uncomplicated; Z71.6 Tobacco abuse counseling; Z79.899 Other long term (current) drug therapy; Z91.14 Patient's other noncompliance with medication regimen
CPT/HCPCS: 36415; 36600; 71045; 80048; 82803; 85007; 85025; 93005; 93010; 94640; 94644; 94660; 94760; 99406; G0378; J0360; J1644; J2920; J2930; J3475; J7030

== ENCOUNTER 2018-11-11 11:59 | Emergency (ER) | payer SELFPAY ==
[2018-11-11 12:05] VITALS: BP 144/103
[2018-11-11] MEDS ORDERED: PROVENTIL IH ONE ×2 (12:06→12:09)
[2018-11-11] MEDS ORDERED: ATROVENT IH ONE ×2 (12:06→12:09)
[2018-11-11] MEDS ORDERED: DELTASONE PO ONE (12:07)
[2018-11-11] MEDS ORDERED: DECADRON IM ONE (12:09)
--- NOTE | 2018-11-11 12:09 | Event Note ---
ED Screening Note Date of service: 11/11/18 Time: 12:08 ED Screening Note: 57 y/o male comes in for asthma attack. Patient reports he was here about 1 1/2 weeks ago. for the same. This initial assessment/diagnostic orders/clinical plan/treatment(s) is/are subject to change based on patients health status, clinical progression and re- assessment by fellow clinical providers in the ED. Further treatment and workup at subsequent clinical providers discretion. Patient/guardian urged not to elope from the ED as their condition may be serious if not clinically assessed and managed. Initial orders include:
--- NOTE | 2018-11-11 12:18 | Emergency Department Report ---
ED Asthma HPI - General Chief Complaint: Adult Asthma Stated Complaint: ASTHMA Time Seen by Provider: 11/11/18 12:10 Source: patient Mode of arrival: Ambulatory Limitations: No Limitations - History of Present Illness Initial Comments: This is a 57-year-old male nontoxic, well nourished in appearance, no acute signs of distress presents to the ED with c/o of acute on chronic asthma exacerbation. Patient stated she is out of her albuterol inhaler for a few months. Patient denies any cough. Patient denies any sick contact. Patient denies any recent travels, long car, recent hospital stays. Patient denies any calf pain or calf tenderness. Patient denies any chest pain, short of breath, fever, chills, nausea, vomiting, hemoptysis, numbness, tingling, headache or stiff neck. Past medical history includes asthma. Denies any allergies. MD Complaint: "asthma attack", shortness of breath, wheezing -: week(s) (2) Asthma History: childhood onset Severity: moderate Context: none known Associated Symptoms: none - Related Data Previous Rx's Medication Instructions Recorded Last Taken Type Albuterol Sulfate [Proair 90 mcg IH Q6H PRN #1 pump 11/05/18 Unknown Rx Respiclick] Azithromycin [Zithromax TAB] 250 mg PO QDAY #5 tablet 11/05/18 Unknown Rx Prednisone [predniSONE 5 mg (6-Day 5 mg PO .TAPER #1 tab.ds.pk 11/05/18 Unknown Rx Pack, 21 Tabs)] amLODIPine [Norvasc] 5 mg PO QDAY #30 tablet 11/05/18 Unknown Rx ALBUTEROL Inhaler (OR & NICU) 2 puff IH QID PRN #1 inhalation 11/11/18 Unknown Rx [ProAir HFA Inhaler] Prednisone [predniSONE 10 mg 10 mg PO .TAPER #1 tab.ds.pk 11/11/18 Unknown Rx (6-Day Pack, 21 Tabs)] Allergies Allergy/AdvReac Type Severity Reaction Status Date / Time No Known Allergies Allergy Verified 11/11/18 12:01 ED Review of Systems ROS: Stated complaint: ASTHMA Other details as noted in HPI Constitutional: denies: chills, fever Eyes: denies: eye pain, eye discharge, vision change ENT: denies: ear pain, throat pain Respiratory: shortness of breath, wheezing. denies: cough Cardiovascular: denies: chest pain, palpitations Endocrine: no symptoms reported Gastrointestinal: denies: abdominal pain, nausea, diarrhea Genitourinary: denies: urgency, dysuria Musculoskeletal: denies: back pain, joint swelling, arthralgia Skin: denies: rash, lesions Neurological: denies: headache, weakness, paresthesias Psychiatric: denies: anxiety, depression Hematological/Lymphatic: denies: easy bleeding, easy bruising ED Past Medical Hx - Past Medical History Hx Hypertension: Yes Hx Congestive Heart Failure: No Hx Diabetes: No Hx Sickle Cell Disease: No Hx Asthma: Yes Hx COPD: No Hx Tuberculosis: No Hx HIV: No - Social History Smoking Status: Never Smoker Substance Use Type: None - Medications Home Medications: Home Medications Medication Instructions Recorded Confirmed Last Taken Type Albuterol Sulfate [Proair 90 mcg IH Q6H PRN #1 pump 11/05/18 Unknown Rx Respiclick] Azithromycin [Zithromax TAB] 250 mg PO QDAY #5 tablet 11/05/18 Unknown Rx Prednisone [predniSONE 5 mg (6-Day 5 mg PO .TAPER #1 tab.ds.pk 11/05/18 Unknown Rx Pack, 21 Tabs)] amLODIPine [Norvasc] 5 mg PO QDAY #30 tablet 11/05/18 Unknown Rx ALBUTEROL Inhaler (OR & NICU) 2 puff IH QID PRN #1 inhalation 11/11/18 Unknown Rx [ProAir HFA Inhaler] Prednisone [predniSONE 10 mg 10 mg PO .TAPER #1 tab.ds.pk 11/11/18 Unknown Rx (6-Day Pack, 21 Tabs)] ED Physical Exam - General Limitations: No Limitations General appearance: alert, in no apparent distress - Head Head exam: Present: atraumatic, normocephalic - ENT ENT exam: Present: normal exam, normal orophraynx - Neck Neck exam: Present: normal inspection, full ROM. Absent: tenderness, meningismus, lymphadenopathy - Respiratory Respiratory exam: Present: wheezes (bilateral upper and lower lobes). Absent: respiratory distress, rales, rhonchi, stridor, chest wall tenderness, accessory muscle use, decreased breath sounds, prolonged expiratory - Cardiovascular Cardiovascular Exam: Present: regular rate, normal rhythm, normal heart sounds. Absent: systolic murmur, diastolic murmur, rubs, gallop - Extremities Exam Extremities exam: Present: normal inspection, full ROM - Back Exam Back exam: Present: normal inspection, full ROM - Neurological Exam Neurological exam: Present: alert, oriented X3 - Psychiatric Psychiatric exam: Present: normal affect, normal mood - Skin Skin exam: Present: warm, dry, intact, normal color. Absent: rash ED Course Vital Signs 11/11/18 11/11/18 12:03 12:30 Temperature 98 F Pulse Rate 99 H Respiratory 24 17 Rate Blood Pressure 144/103 O2 Sat by Pulse 97 Oximetry - Reevaluation(s) Reevaluation #1: 11/11/18 12:17 Patient is speaking in full sentences with no signs of distress noted. ED Medical Decision Making - Medical Decision Making This is a 57-year-old male that presents with asthma exacerbation. Patient is stable and was examined by me. Chest x-ray has been obtained and dictated by the radiologist within normal limits. Patient is notified of the x-ray report with no questions noted by the patient. Patient did receive breathing treatment and steroids in the ED which patient the symptoms has resolved and subsided. Posttreatment and there is no wheezing upon auscultation. Patient is discharged with albuterol and prednisone. Patient was referred to Follow-up with a primary care doctor in 3-5 days or if symptoms worsen and continue return to emergency room as soon as possible. At time of discharge, the patient does not seem toxic or ill in appearance. No acute signs of distress noted. Patient agrees to discharge treatment plan of care. No further questions noted by the patient. This chart is dictated with using [employer]ation [employer] Critical care attestation.: If time is entered above; I have spent that time in minutes in the direct care of this critically ill patient, excluding procedure time. ED Disposition Clinical Impression: Asthma exacerbation Qualifiers: Asthma severity: mild Asthma persistence: intermittent Qualified Code(s): J45.21 - Mild intermittent asthma with (acute) exacerbation Disposition: - TO HOME OR SELFCARE Is pt being admited?: No Does the pt Need Aspirin: No Condition: Stable Instructions: Asthma (ED) Additional Instructions: Follow-up with a primary care doctor in 3-5 days or if symptoms worsen and continue return to emergency room as soon as possible. Prescriptions: Prednisone [predniSONE 10 mg (6-Day Pack, 21 Tabs)] 10 mg PO .TAPER #1 tab.ds.pk ALBUTEROL Inhaler (OR & NICU) [ProAir HFA Inhaler] 2 puff IH QID PRN #1 inhalation PRN Reason: Shortness Of Breath [facility] Provider[facility] - 3-5 Days PRIMARY CAREMD [Referring] - 3-5 Days YUDELKA ELLINGTON MD [Staff Physician] - 3-5 Days [facility] [Outside] - 3-5 Days [facility] [Outside] - 3-5 Days Forms: Work/School Release Form(ED)
--- NOTE | 2018-11-11 14:19 | XRay Report ---
PROCEDURE: XR CHEST ROUTINE 2V TECHNIQUE: PA and lateral chest radiographs were obtained. HISTORY: sob COMPARISONS: 11/03/2018. FINDINGS: Heart: Normal. Mediastinum/Vessels: Normal. Lungs/Pleural space: No infiltrate, effusion, or pneumothorax. Bony thorax: No acute osseous abnormality. IMPRESSION: No radiographic evidence of acute abnormality. This document is electronically signed by Megan Young MD., November 11 2018 02:17:16 PM ET
== END 2018-11-11 14:40 | disposition home or self-care (01) ==
LOC: ED 11:59
DX: J45.901 Unspecified asthma with (acute) exacerbation (principal); I10 Essential (primary) hypertension; Z79.899 Other long term (current) drug therapy
CPT/HCPCS: 71046; 94640; 96372; 99284; J1100

== ENCOUNTER 2019-03-30 11:48 | Emergency (ER) | payer SELFPAY ==
[2019-03-30] MEDS ORDERED: IPRATROPIUM/ALBUTEROL SULFATE 3 ML AMPUL.NEB IH ONE (11:56)
[2019-03-30] MEDS ORDERED: predniSONE 20 MG TAB PO ONE (12:40)
--- NOTE | 2019-03-30 12:41 | Emergency Department Report ---
ED Shortness of Breath HPI - General Chief Complaint: Adult Asthma Stated Complaint: ALEKSANDAR Time Seen by Provider: 03/30/19 12:39 Source: patient Mode of arrival: Ambulatory Limitations: No Limitations - Related Data Previous Rx's Medication Instructions Recorded Last Taken Type Albuterol Sulfate [Proair 90 mcg IH Q6H PRN #1 pump 11/05/18 Unknown Rx Respiclick] Azithromycin [Zithromax TAB] 250 mg PO QDAY #5 tablet 11/05/18 Unknown Rx Prednisone [predniSONE 5 mg (6-Day 5 mg PO .TAPER #1 tab.ds.pk 11/05/18 Unknown Rx Pack, 21 Tabs)] amLODIPine 5 mg PO QDAY #30 tablet 11/05/18 Unknown Rx ALBUTEROL Inhaler (OR & NICU) 2 puff IH QID PRN #1 inhalation 11/11/18 Unknown Rx [ProAir HFA Inhaler] Prednisone [predniSONE 10 mg 10 mg PO .TAPER #1 tab.ds.pk 11/11/18 Unknown Rx (6-Day Pack, 21 Tabs)] Allergies Allergy/AdvReac Type Severity Reaction Status Date / Time No Known Allergies Allergy Verified 11/11/18 12:01 ED Review of Systems ROS: Stated complaint: ALEKSANDAR Other details as noted in HPI ED Past Medical Hx - Past Medical History Previous Medical History?: Yes Hx Hypertension: Yes Hx Congestive Heart Failure: No Hx Diabetes: No Hx Sickle Cell Disease: No Hx Asthma: Yes Hx COPD: No Hx Tuberculosis: No Hx HIV: No - Social History Smoking Status: Former Smoker Substance Use Type: None - Medications Home Medications: Home Medications Medication Instructions Recorded Confirmed Last Taken Type Albuterol Sulfate [Proair 90 mcg IH Q6H PRN #1 pump 11/05/18 Unknown Rx Respiclick] Azithromycin [Zithromax TAB] 250 mg PO QDAY #5 tablet 11/05/18 Unknown Rx Prednisone [predniSONE 5 mg (6-Day 5 mg PO .TAPER #1 tab.ds.pk 11/05/18 Unknown Rx Pack, 21 Tabs)] amLODIPine 5 mg PO QDAY #30 tablet 11/05/18 Unknown Rx ALBUTEROL Inhaler (OR & NICU) 2 puff IH QID PRN #1 inhalation 11/11/18 Unknown Rx [ProAir HFA Inhaler] Prednisone [predniSONE 10 mg 10 mg PO .TAPER #1 tab.ds.pk 11/11/18 Unknown Rx (6-Day Pack, 21 Tabs)] ED Physical Exam - General Limitations: No Limitations ED Course Vital Signs 03/30/19 03/30/19 12:01 12:17 Temperature 98.3 F Pulse Rate 60 Pulse Rate [ 102 H Bilateral Upper Lobe] Respiratory 12 Rate Respiratory 20 Rate [Bilateral Upper Lobe] Blood Pressure 110/71 [Right] O2 Sat by Pulse 100 Oximetry Critical care attestation.: If time is entered above; I have spent that time in minutes in the direct care of this critically ill patient, excluding procedure time. ED Disposition Condition: Stable
--- NOTE | 2019-03-30 12:48 | Emergency Department Report ---
ED Shortness of Breath HPI - General Chief Complaint: Adult Asthma Stated Complaint: ALEKSANDAR Time Seen by Provider: 03/30/19 12:39 Source: patient Mode of arrival: Ambulatory Limitations: No Limitations - History of Present Illness Initial Comments: 58-year-old -[place] male presents to the emergency room planing of shortness of breath and asthma flareup. Patient states that this started last night. Patient reports he's been off this medication for the last 3 days secondary to running out not able to pay for the meds. Patient admits to chest tightness denies any chest pain. Patient denies any cough runny nose or sore throat or nasal congestion. Patient denies any fever or chills no nausea no vomiting. Patient was last seen here 11/11/2018 for complaints of shortness of breath. MD Complaint: shortness of breath -: Last night Pain Scale: 0 Consistency: intermittent Improves With: bronchodilators Known History Of: asthma Associated Symptoms: denies other symptoms Treatments Prior to Arrival: none - Related Data Home Oxygen Therapy: No Previous Rx's Medication Instructions Recorded Last Taken Type Albuterol Sulfate [Proair 90 mcg IH Q6H PRN #1 pump 11/05/18 Unknown Rx Respiclick] Azithromycin [Zithromax TAB] 250 mg PO QDAY #5 tablet 11/05/18 Unknown Rx Prednisone [predniSONE 5 mg (6-Day 5 mg PO .TAPER #1 tab.ds.pk 11/05/18 Unknown Rx Pack, 21 Tabs)] amLODIPine 5 mg PO QDAY #30 tablet 11/05/18 Unknown Rx ALBUTEROL Inhaler (OR & NICU) 2 puff IH QID PRN #1 inhalation 11/11/18 Unknown Rx [ProAir HFA Inhaler] Prednisone [predniSONE 10 mg 10 mg PO .TAPER #1 tab.ds.pk 11/11/18 Unknown Rx (6-Day Pack, 21 Tabs)] ALBUTEROL Inhaler (OR & NICU) 2 puff IH QID PRN #1 inhalation 03/30/19 Unknown Rx [Proair] ALBUTEROL NEB's [Proventil] 2.5 mg IH TID PRN #25 neb 03/30/19 Unknown Rx predniSONE [Deltasone] 20 mg PO QDAY #10 tablet 03/30/19 Unknown Rx Allergies Allergy/AdvReac Type Severity Reaction Status Date / Time No Known Allergies Allergy Verified 11/11/18 12:01 ED Review of Systems ROS: Stated complaint: ALEKSANDAR Other details as noted in HPI Comment: All other systems reviewed and negative Respiratory: shortness of breath ED Past Medical Hx - Past Medical History Previous Medical History?: Yes Hx Hypertension: Yes Hx Congestive Heart Failure: No Hx Diabetes: No Hx Sickle Cell Disease: No Hx Asthma: Yes Hx COPD: No Hx Tuberculosis: No Hx HIV: No - Social History Smoking Status: Former Smoker Substance Use Type: None - Medications Home Medications: Home Medications Medication Instructions Recorded Confirmed Last Taken Type Albuterol Sulfate [Proair 90 mcg IH Q6H PRN #1 pump 11/05/18 Unknown Rx Respiclick] Azithromycin [Zithromax TAB] 250 mg PO QDAY #5 tablet 11/05/18 Unknown Rx Prednisone [predniSONE 5 mg (6-Day 5 mg PO .TAPER #1 tab.ds.pk 11/05/18 Unknown Rx Pack, 21 Tabs)] amLODIPine 5 mg PO QDAY #30 tablet 11/05/18 Unknown Rx ALBUTEROL Inhaler (OR & NICU) 2 puff IH QID PRN #1 inhalation 11/11/18 Unknown Rx [ProAir HFA Inhaler] Prednisone [predniSONE 10 mg 10 mg PO .TAPER #1 tab.ds.pk 11/11/18 Unknown Rx (6-Day Pack, 21 Tabs)] ALBUTEROL Inhaler (OR & NICU) 2 puff IH QID PRN #1 inhalation 03/30/19 Unknown Rx [Proair] ALBUTEROL NEB's [Proventil] 2.5 mg IH TID PRN #25 neb 03/30/19 Unknown Rx predniSONE [Deltasone] 20 mg PO QDAY #10 tablet 03/30/19 Unknown Rx ED Physical Exam - General Limitations: No Limitations General appearance: alert, in no apparent distress - Head Head exam: Present: atraumatic, normocephalic - Eye Eye exam: Present: normal appearance - ENT ENT exam: Present: mucous membranes moist - Neck Neck exam: Present: normal inspection - Respiratory Respiratory exam: Present: normal lung sounds bilaterally (patient has had albuterol treatment prior to my examination.). Absent: respiratory distress - Cardiovascular Cardiovascular Exam: Present: tachycardia - GI/Abdominal GI/Abdominal exam: Present: soft, normal bowel sounds. Absent: distended, tenderness, guarding - Rectal Rectal exam: Present: deferred - Extremities Exam Extremities exam: Present: normal inspection - Back Exam Back exam: Present: normal inspection - Neurological Exam Neurological exam: Present: alert, oriented X3 - Psychiatric Psychiatric exam: Present: normal affect, normal mood - Skin Skin exam: Present: warm, dry, intact, normal color. Absent: rash ED Course Vital Signs 03/30/19 03/30/19 03/30/19 12:01 12:17 13:00 Temperature 98.3 F 97.6 F Pulse Rate 60 Pulse Rate [ 102 H Bilateral Upper Lobe] Respiratory 12 18 Rate Respiratory 20 Rate [Bilateral Upper Lobe] Blood Pressure 110/71 113/76 [Right] O2 Sat by Pulse 100 95 Oximetry - Reevaluation(s) Reevaluation #1: 03/30/19 12:49 Patient has completed inhalation treatment. Patient reports that he feels much better. Patient was order prednisone 60 mg by mouth. Reevaluation #2: 03/30/19 14:04 Patient reevaluated lungs are clear to auscultation. Patient reports he is ready to go home. ED Medical Decision Making - Medical Decision Making 58-year-old -[place] male presents to the emergency room planing of shortness of breath and asthma flareup. Patient states that this started last night. Patient reports he's been off this medication for the last 3 days secondary to running out not able to pay for the meds. Patient admits to chest tightness denies any chest pain. Patient denies any cough runny nose or sore throat or nasal congestion. Patient denies any fever or chills no nausea no vomiting. Patient was last seen here 11/11/2018 for complaints of shortness of breath. Patient was given nebulizer treatment and prednisone. Patient be discharged home on prednisone 20 mg daily for 5 days. Patient be discharged home with a nebulizer solution and albuterol inhaler and instructions on how to obtain a nebulizer machine. Patient is to follow up with a primary care provider patient verbalizes understanding. Critical care attestation.: If time is entered above; I have spent that time in minutes in the direct care of this critically ill patient, excluding procedure time. ED Disposition Clinical Impression: Asthma exacerbation Disposition: DC- TO HOME OR SELFCARE Is pt being admited?: No Does the pt Need Aspirin: No Condition: Stable Additional Instructions: [employer] [place] Mini Nebulizer. Prescriptions: predniSONE [Deltasone] 20 mg PO QDAY #10 tablet ALBUTEROL Inhaler (OR & NICU) [Proair] 2 puff IH QID PRN #1 inhalation PRN Reason: Shortness Of Breath ALBUTEROL NEB's [Proventil] 2.5 mg IH TID PRN #25 neb PRN Reason: Wheezing Referrals: [facility] [Outside] - 3-5 Days [facility] [Outside] - 3-5 Days [facility] [Outside] - 3-5 Days
[2019-03-30 13:01] VITALS: BP 113/76
== END 2019-03-30 14:00 | disposition home or self-care (01) ==
LOC: ED 11:48
DX: J45.901 Unspecified asthma with (acute) exacerbation (principal); I10 Essential (primary) hypertension; Z87.891 Personal history of nicotine dependence; Z79.899 Other long term (current) drug therapy
CPT/HCPCS: 94640; 99282; J7512; 94644

== ENCOUNTER 2019-04-20 12:19 | Emergency (ER) | payer SELFPAY ==
[2019-04-20] MEDS ORDERED: IPRATROPIUM 0.02% NEBU 2.5 ML IH ONE (12:47)
[2019-04-20] MEDS ORDERED: ALBUTEROL 2.5 MG/3 ML NEBU IH ONE (12:47)
--- NOTE | 2019-04-20 12:47 | Event Note ---
ED Screening Note ED Screening Note: cough, wheezing, SOB, tightness in chest that began last night no fever no productive cough states he is out of albuterol/symbicort for 3 days +smoker decreased air movement bilaterally This initial assessment/diagnostic orders/clinical plan/treatment(s) is/are subject to change based on patients health status, clinical progression and re- assessment by fellow clinical providers in the ED. Further treatment and workup at subsequent clinical providers discretion. Patient/guardian urged not to elope from the ED as their condition may be serious if not clinically assessed and managed. Initial orders include: neb tx, steroids
[2019-04-20] MEDS ORDERED: methylPREDNISolone Sod Succinate 125 MG/2 ML INJ IV ONE (12:48)
[2019-04-20] MEDS ORDERED: predniSONE 20 MG TAB PO ONE (14:24)
--- NOTE | 2019-04-20 14:25 | Emergency Department Report ---
ED Abdominal Pain HPI - General Chief Complaint: Dyspnea/Respdistress Stated Complaint: ALEKSANDAR, WHEEZING Time Seen by Provider: 04/20/19 12:45 Source: patient Mode of arrival: Ambulatory Limitations: No Limitations - Related Data Previous Rx's Medication Instructions Recorded Last Taken Type Albuterol Sulfate [Proair 90 mcg IH Q6H PRN #1 pump 11/05/18 Unknown Rx Respiclick] Azithromycin [Zithromax TAB] 250 mg PO QDAY #5 tablet 11/05/18 Unknown Rx Prednisone [predniSONE 5 mg (6-Day 5 mg PO .TAPER #1 tab.ds.pk 11/05/18 Unknown Rx Pack, 21 Tabs)] amLODIPine 5 mg PO QDAY #30 tablet 11/05/18 Unknown Rx ALBUTEROL Inhaler (OR & NICU) 2 puff IH QID PRN #1 inhalation 11/11/18 Unknown Rx [ProAir HFA Inhaler] Prednisone [predniSONE 10 mg 10 mg PO .TAPER #1 tab.ds.pk 11/11/18 Unknown Rx (6-Day Pack, 21 Tabs)] ALBUTEROL Inhaler (OR & NICU) 2 puff IH QID PRN #1 inhalation 03/30/19 Unknown Rx [Proair] ALBUTEROL NEB's [Proventil] 2.5 mg IH TID PRN #25 neb 03/30/19 Unknown Rx predniSONE [Deltasone] 20 mg PO QDAY #10 tablet 03/30/19 Unknown Rx Allergies Allergy/AdvReac Type Severity Reaction Status Date / Time No Known Allergies Allergy Verified 11/11/18 12:01 ED Review of Systems ROS: Stated complaint: ALEKSANDAR, WHEEZING Other details as noted in HPI ED Past Medical Hx - Past Medical History Hx Hypertension: Yes Hx Congestive Heart Failure: No Hx Diabetes: No Hx Sickle Cell Disease: No Hx Asthma: Yes Hx COPD: No Hx Tuberculosis: No Hx HIV: No - Social History Smoking Status: Current Every Day Smoker Substance Use Type: Alcohol - Medications Home Medications: Home Medications Medication Instructions Recorded Confirmed Last Taken Type Albuterol Sulfate [Proair 90 mcg IH Q6H PRN #1 pump 11/05/18 Unknown Rx Respiclick] Azithromycin [Zithromax TAB] 250 mg PO QDAY #5 tablet 11/05/18 Unknown Rx Prednisone [predniSONE 5 mg (6-Day 5 mg PO .TAPER #1 tab.ds.pk 11/05/18 Unknown Rx Pack, 21 Tabs)] amLODIPine 5 mg PO QDAY #30 tablet 11/05/18 Unknown Rx ALBUTEROL Inhaler (OR & NICU) 2 puff IH QID PRN #1 inhalation 11/11/18 Unknown Rx [ProAir HFA Inhaler] Prednisone [predniSONE 10 mg 10 mg PO .TAPER #1 tab.ds.pk 11/11/18 Unknown Rx (6-Day Pack, 21 Tabs)] ALBUTEROL Inhaler (OR & NICU) 2 puff IH QID PRN #1 inhalation 03/30/19 Unknown Rx [Proair] ALBUTEROL NEB's [Proventil] 2.5 mg IH TID PRN #25 neb 03/30/19 Unknown Rx predniSONE [Deltasone] 20 mg PO QDAY #10 tablet 03/30/19 Unknown Rx ED Physical Exam - General Limitations: No Limitations ED Course Vital Signs 04/20/19 12:22 Temperature 97.6 F Pulse Rate 68 Respiratory 18 Rate Blood Pressure 122/82 O2 Sat by Pulse 96 Oximetry Critical care attestation.: If time is entered above; I have spent that time in minutes in the direct care of this critically ill patient, excluding procedure time. ED Disposition Condition: Stable
[2019-04-20 14:51] VITALS: BP 142/93
--- NOTE | 2019-04-20 15:13 | Emergency Department Report ---
ED Asthma HPI - General Chief Complaint: Dyspnea/Respdistress Stated Complaint: ALEKSANDAR, WHEEZING Time Seen by Provider: 04/20/19 12:45 Source: patient, old records reviewed Mode of arrival: Ambulatory Limitations: No Limitations - History of Present Illness Initial Comments: This is a pleasant 58-year-old gentleman. The patient is a tobacco consumer, and reports history of asthma. He presents to the emergency room today with complaint of painless cough, wheezing is shortness of breath. Symptoms were improved with albuterol, Atrovent and steroids. He endorses that he has no additional symptoms at this time, and endorses readiness for discharge. He denies DVT and pulmonary embolism risk factors. MD Complaint: "asthma attack", shortness of breath, wheezing -: Sudden Asthma History: adult onset, history of prior ED visit Severity: mild Context: ran out of meds Associated Symptoms: dry cough - Related Data Previous Rx's Medication Instructions Recorded Last Taken Type Azithromycin [Zithromax TAB] 250 mg PO QDAY #5 tablet 11/05/18 Unknown Rx Prednisone [predniSONE 5 mg (6-Day 5 mg PO .TAPER #1 tab.ds.pk 11/05/18 Unknown Rx Pack, 21 Tabs)] amLODIPine 5 mg PO QDAY #30 tablet 11/05/18 Unknown Rx ALBUTEROL Inhaler (OR & NICU) 2 puff IH QID PRN #1 inhalation 11/11/18 Unknown Rx [ProAir HFA Inhaler] Prednisone [predniSONE 10 mg 10 mg PO .TAPER #1 tab.ds.pk 11/11/18 Unknown Rx (6-Day Pack, 21 Tabs)] ALBUTEROL Inhaler (OR & NICU) 2 puff IH QID PRN #1 inhalation 03/30/19 Unknown Rx [Proair] ALBUTEROL NEB's [Proventil 0.083% 2.5 mg IH TID PRN #25 neb 04/20/19 Unknown Rx NEBS] Albuterol Sulfate [Proair 90 mcg IH Q6H PRN #1 pump 04/20/19 Unknown Rx Respiclick] predniSONE [Deltasone] 20 mg PO QDAY #10 tablet 04/20/19 Unknown Rx Allergies Allergy/AdvReac Type Severity Reaction Status Date / Time No Known Allergies Allergy Verified 11/11/18 12:01 ED Review of Systems ROS: Stated complaint: ALEKSANDAR, WHEEZING Other details as noted in HPI Constitutional: denies: fever ENT: congestion Respiratory: shortness of breath, wheezing Cardiovascular: denies: chest pain, syncope Gastrointestinal: denies: abdominal pain Musculoskeletal: denies: back pain ED Past Medical Hx - Past Medical History Hx Hypertension: Yes Hx Congestive Heart Failure: No Hx Diabetes: No Hx Sickle Cell Disease: No Hx Asthma: Yes Hx COPD: No Hx Tuberculosis: No Hx HIV: No - Social History Smoking Status: Current Every Day Smoker Substance Use Type: Alcohol - Medications Home Medications: Home Medications Medication Instructions Recorded Confirmed Last Taken Type Azithromycin [Zithromax TAB] 250 mg PO QDAY #5 tablet 11/05/18 Unknown Rx Prednisone [predniSONE 5 mg (6-Day 5 mg PO .TAPER #1 tab.ds.pk 11/05/18 Unknown Rx Pack, 21 Tabs)] amLODIPine 5 mg PO QDAY #30 tablet 11/05/18 Unknown Rx ALBUTEROL Inhaler (OR & NICU) 2 puff IH QID PRN #1 inhalation 11/11/18 Unknown Rx [ProAir HFA Inhaler] Prednisone [predniSONE 10 mg 10 mg PO .TAPER #1 tab.ds.pk 11/11/18 Unknown Rx (6-Day Pack, 21 Tabs)] ALBUTEROL Inhaler (OR & NICU) 2 puff IH QID PRN #1 inhalation 03/30/19 Unknown Rx [Proair] ALBUTEROL NEB's [Proventil 0.083% 2.5 mg IH TID PRN #25 neb 04/20/19 Unknown Rx NEBS] Albuterol Sulfate [Proair 90 mcg IH Q6H PRN #1 pump 04/20/19 Unknown Rx Respiclick] predniSONE [Deltasone] 20 mg PO QDAY #10 tablet 04/20/19 Unknown Rx ED Physical Exam - General Limitations: No Limitations (there is no facial droop. The tongue is midline. Extraocular movements are intact bilaterally. Patient speaking in full complete sentences. Shoulder shrug is intact bilaterally. Hearing is grossly intact bilaterally. Visual acuity intact to finger counting and color perception at a close distance. 5/5 strength 4 extremities. Sensation intact to light touch in 4 extremities.) General appearance: alert, in no apparent distress - Head Head exam: Present: atraumatic, normocephalic - Eye Eye exam: Present: normal appearance, EOMI. Absent: nystagmus - ENT ENT exam: Present: normal exam, normal orophraynx, mucous membranes moist, normal external ear exam - Neck Neck exam: Present: normal inspection, full ROM. Absent: tenderness, meningismus - Respiratory Respiratory exam: Present: decreased breath sounds. Absent: respiratory distress, wheezes, rales, rhonchi - Cardiovascular Cardiovascular Exam: Present: regular rate, normal rhythm, normal heart sounds. Absent: bradycardia, tachycardia, irregular rhythm, systolic murmur, diastolic murmur, rubs, gallop - GI/Abdominal GI/Abdominal exam: Present: soft. Absent: distended, tenderness, guarding, rebound, rigid, pulsatile mass - Rectal Rectal exam: Present: deferred - Extremities Exam Extremities exam: Present: normal inspection, full ROM, other (2+ pulses noted in the bilateral upper extremities. There is no long bony tenderness. The compartments are soft. The pelvis is stable.). Absent: calf tenderness - Back Exam Back exam: Present: normal inspection. Absent: tenderness, CVA tenderness (R), CVA tenderness (L), paraspinal tenderness, vertebral tenderness - Neurological Exam Neurological exam: Present: alert, normal gait, other (there is no facial droop. The tongue is midline. Extraocular movements are intact bilaterally. Patient speaking in full complete sentences. Shoulder shrug is intact bilaterally. Hearing is grossly intact bilaterally. Visual acuity intact to finger counting and color perception at a close distance. 5/5 strength 4 extremities. Sensation intact to light touch in 4 extremities.). Absent: motor sensory deficit - Psychiatric Psychiatric exam: Present: normal affect, normal mood - Skin Skin exam: Present: warm, dry, intact, normal color. Absent: rash ED Course Vital Signs 04/20/19 04/20/19 04/20/19 12:22 14:25 14:50 Temperature 97.6 F Pulse Rate 68 65 Pulse Rate [ Bilateral] Respiratory 18 18 18 Rate Respiratory Rate [Bilateral ] Blood Pressure 122/82 Blood Pressure 142/93 [Left] O2 Sat by Pulse 96 97 99 Oximetry 04/20/19 14:55 Temperature Pulse Rate Pulse Rate [ 67 Bilateral] Respiratory Rate Respiratory 18 Rate [Bilateral ] Blood Pressure Blood Pressure [Left] O2 Sat by Pulse Oximetry ED Medical Decision Making - Lab Data Vital Signs 04/20/19 04/20/19 04/20/19 12:22 14:25 14:50 Temperature 97.6 F Pulse Rate 68 65 Pulse Rate [ Bilateral] Respiratory 18 18 18 Rate Respiratory Rate [Bilateral ] Blood Pressure 122/82 Blood Pressure 142/93 [Left] O2 Sat by Pulse 96 97 99 Oximetry 04/20/19 14:55 Temperature Pulse Rate Pulse Rate [ 67 Bilateral] Respiratory Rate Respiratory 18 Rate [Bilateral ] Blood Pressure Blood Pressure [Left] O2 Sat by Pulse Oximetry - Medical Decision Making Differential diagnosis, including not limited to: Asthma, bronchitis Assessment and plan: 58-year-old gentleman who endorses no DVT or pulmonary embolism risk factors, low risk by well's criteria, is a tobacco user, not motivated to discontinue tobacco's consumption at this time, with probable simple bronchitis. He is afebrile with reassuring vital signs. He did not have wheezing on my initial examination as he was arty receiving a breathing treatment. He completed his breathing treatment, endorsed readiness for discharge. He was watching TV on his cellular phone device, and is in no acute distress. The patient does not appear to have an emergent medical condition at this time, and he is medically suitable for discharge. Critical care attestation.: If time is entered above; I have spent that time in minutes in the direct care of this critically ill patient, excluding procedure time. ED Disposition Clinical Impression: Bronchitis Disposition: DC-01 TO HOME OR SELFCARE Is pt being admited?: No Does the pt Need Aspirin: No Condition: Stable Instructions: Chronic Bronchitis (ED) Additional Instructions: Recommend patient discontinue or minimize tobacco and smoke consumption. Follow-up with the primary care doctor within the next month. Take the medications as needed and directed. Return to the emergency room right away with new, worsened or different symptoms, or symptoms not present on the initial emergency room evaluation. Referrals: [facility] [Provider Group] - as needed [facility] [Provider Group] - as needed
== END 2019-04-20 15:19 | disposition home or self-care (01) ==
LOC: ED 12:19
DX: J40 Bronchitis, not specified as acute or chronic (principal); F17.200 Nicotine dependence, unspecified, uncomplicated; I10 Essential (primary) hypertension; Z79.899 Other long term (current) drug therapy
CPT/HCPCS: 94640; 99283; J7512; 94644; J2930

== ENCOUNTER 2019-07-23 19:12 | Emergency (ER) | payer SELFPAY ==
[2019-07-23] MEDS ORDERED: IPRATROPIUM/ALBUTEROL SULFATE 3 ML AMPUL.NEB IH ONE (19:18)
[2019-07-23] MEDS ORDERED: dexAMETHasone 20 MG/5 ML VIAL IV ONE (19:21)
[2019-07-23] MEDS ORDERED: MAGNESIUM SULFATE 2 GM/50 ML BAG IV ONE (19:21)
[2019-07-23] MEDS ORDERED: ALBUTEROL 2.5 MG/3 ML NEBU IH ONE (19:28)
[2019-07-23] MEDS ORDERED: IPRATROPIUM 0.02% NEBU 2.5 ML IH ONE (19:30)
--- NOTE | 2019-07-23 20:02 | XRay Report ---
CHEST 2 VIEWS INDICATION / CLINICAL INFORMATION: MAIN: sob; Anentte for several hours. Out of neb for 2 days. Nonproductive cough. Diaphoretic. slight lab ored. Worse with excertion. MAEW. Diminished and tight. . COMPARISON: Chest x-ray 05/23/2019 FINDINGS: SUPPORT DEVICES: None. HEART / MEDIASTINUM: No significant abnormality. LUNGS / PLEURA: No significant pulmonary or pleural abnormality. No pneumothorax. ADDITIONAL FINDINGS: Old healed fracture of left sixth posterior rib again noted. IMPRESSION: 1. No acute findings. Signer Name: Jonny Vitale MD Signed: 07/23/2019 7:58 PM Workstation Name: [email or web address]
--- NOTE | 2019-07-23 21:43 | Emergency Department Report ---
ED Shortness of Breath HPI - General Chief Complaint: Dyspnea/Respdistress Stated Complaint: ASTHMA Time Seen by Provider: 07/23/19 20:45 Source: patient Mode of arrival: Ambulatory Limitations: No Limitations - History of Present Illness Initial Comments: Mr. Young is a 58 y/o aam with hx of Asthma and htn, who presents for sob and wheezing for past 3 days pt states he is out of albuterol , he has appointment to see pcp in 1 week , he states sob exacerbated by environmental exposure. Symptoms are relieved by nothing. pt rates symptoms at 6/10 on 1/10 scale. MD Complaint: shortness of breath, "asthma attack" Onset/Timin -: days(s) Radiation: back Severity: moderate Pain Scale: 5 Quality: other (sob wheezing ) Consistency: constant Improves With: nothing Worsens With: exertion, other (activity) Known History Of: asthma, other (htn) Context: recent URI Associated Symptoms: cough Treatments Prior to Arrival: none - Related Data Home Oxygen Therapy: No Previous Rx's Medication Instructions Recorded Last Taken Type Azithromycin [Zithromax TAB] 250 mg PO QDAY #5 tablet 11/05/18 Unknown Rx Prednisone [predniSONE 5 mg (6-Day 5 mg PO .TAPER #1 tab.ds.pk 11/05/18 Unknown Rx Pack, 21 Tabs)] amLODIPine 5 mg PO QDAY #30 tablet 11/05/18 Unknown Rx Albuterol INH(or & Nicu Only) 2 puff IH QID PRN #1 inhalation 11/11/18 Unknown Rx [ProAir HFA Inhaler] Prednisone [predniSONE 10 mg 10 mg PO .TAPER #1 tab.ds.pk 11/11/18 Unknown Rx (6-Day Pack, 21 Tabs)] Albuterol Sulfate [Proair 90 mcg IH Q6H PRN #1 pump 04/20/19 Unknown Rx Respiclick] ALBUTEROL NEB's [Proventil 0.083% 2.5 mg IH TID PRN #25 neb 05/24/19 Unknown Rx NEBS] Albuterol INH(or & Nicu Only) 2 puff IH QID PRN #1 inhalation 05/24/19 Unknown Rx [ProAir HFA Inhaler] Nebulizer and Compressor [Falcon 1 each MC Q6H #1 each 05/24/19 Unknown Rx Choice Nebulizer] predniSONE [Deltasone] 20 mg PO QDAY #10 tablet 05/24/19 Unknown Rx Albuterol Sulfate [Proventil Hfa] 2 puff IH Q4HR PRN #1 hfa.aer.ad 05/27/19 Unknown Rx predniSONE [Deltasone] 50 mg PO QDAY #5 tab 05/27/19 Unknown Rx ALBUTEROL NEB's [Proventil 0.083% 2.5 mg IH Q4H PRN #25 vial 07/23/19 Unknown Rx NEBS] Acetaminophen/Codeine [Tylenol 1 tab PO Q6H PRN #12 tab 07/23/19 Unknown Rx /Codeine # 3 tab] Albuterol INH(or & Nicu Only) 2 puff IH QID PRN #8.5 gram 07/23/19 Unknown Rx [ProAir HFA Inhaler] Azithromycin [Zithromax Z-KEE] 250 mg PO DAILY #6 tab 07/23/19 Unknown Rx Montelukast [Singulair] 10 mg PO QPM #30 tablet 07/23/19 Unknown Rx Nebulizer Accessories [Aeroneb Go] 1 each MC PRN PRN #1 each 07/23/19 Unknown Rx predniSONE [Deltasone] 40 mg PO QDAY 5 Days #10 tab 07/23/19 Unknown Rx Allergies Allergy/AdvReac Type Severity Reaction Status Date / Time No Known Allergies Allergy Verified 11/11/18 12:01 ED Review of Systems ROS: Stated complaint: ASTHMA Other details as noted in HPI Constitutional: denies: chills, fever Eyes: denies: eye pain, eye discharge, vision change ENT: congestion. denies: ear pain, throat pain Respiratory: cough, shortness of breath, wheezing Cardiovascular: denies: chest pain, palpitations Endocrine: no symptoms reported Gastrointestinal: denies: abdominal pain, nausea, vomiting, diarrhea Genitourinary: as per HPI Musculoskeletal: denies: back pain, joint swelling, arthralgia Skin: denies: rash, lesions Neurological: denies: headache, weakness, paresthesias Psychiatric: denies: anxiety, depression Hematological/Lymphatic: denies: easy bleeding, easy bruising ED Past Medical Hx - Past Medical History Hx Hypertension: Yes Hx Congestive Heart Failure: No Hx Diabetes: No Hx Sickle Cell Disease: No Hx Asthma: Yes Hx COPD: No Hx Tuberculosis: No Hx HIV: No - Social History Smoking Status: Never Smoker Substance Use Type: None - Medications Home Medications: Home Medications Medication Instructions Recorded Confirmed Last Taken Type Azithromycin [Zithromax TAB] 250 mg PO QDAY #5 tablet 11/05/18 Unknown Rx Prednisone [predniSONE 5 mg (6-Day 5 mg PO .TAPER #1 tab.ds.pk 11/05/18 Unknown Rx Pack, 21 Tabs)] amLODIPine 5 mg PO QDAY #30 tablet 11/05/18 Unknown Rx Albuterol INH(or & Nicu Only) 2 puff IH QID PRN #1 inhalation 11/11/18 Unknown Rx [ProAir HFA Inhaler] Prednisone [predniSONE 10 mg 10 mg PO .TAPER #1 tab.ds.pk 11/11/18 Unknown Rx (6-Day Pack, 21 Tabs)] Albuterol Sulfate [Proair 90 mcg IH Q6H PRN #1 pump 04/20/19 Unknown Rx Respiclick] ALBUTEROL NEB's [Proventil 0.083% 2.5 mg IH TID PRN #25 neb 05/24/19 Unknown Rx NEBS] Albuterol INH(or & Nicu Only) 2 puff IH QID PRN #1 inhalation 05/24/19 Unknown Rx [ProAir HFA Inhaler] Nebulizer and Compressor [Falcon 1 each MC Q6H #1 each 05/24/19 Unknown Rx Choice Nebulizer] predniSONE [Deltasone] 20 mg PO QDAY #10 tablet 05/24/19 Unknown Rx Albuterol Sulfate [Proventil Hfa] 2 puff IH Q4HR PRN #1 hfa.aer.ad 05/27/19 Unknown Rx predniSONE [Deltasone] 50 mg PO QDAY #5 tab 05/27/19 Unknown Rx ALBUTEROL NEB's [Proventil 0.083% 2.5 mg IH Q4H PRN #25 vial 07/23/19 Unknown Rx NEBS] Acetaminophen/Codeine [Tylenol 1 tab PO Q6H PRN #12 tab 07/23/19 Unknown Rx /Codeine # 3 tab] Albuterol INH(or & Nicu Only) 2 puff IH QID PRN #8.5 gram 07/23/19 Unknown Rx [ProAir HFA Inhaler] Azithromycin [Zithromax Z-KEE] 250 mg PO DAILY #6 tab 07/23/19 Unknown Rx Montelukast [Singulair] 10 mg PO QPM #30 tablet 07/23/19 Unknown Rx Nebulizer Accessories [Aeroneb Go] 1 each MC PRN PRN #1 each 07/23/19 Unknown Rx predniSONE [Deltasone] 40 mg PO QDAY 5 Days #10 tab 07/23/19 Unknown Rx ED Physical Exam - General Limitations: No Limitations General appearance: alert, in no apparent distress - Head Head exam: Present: atraumatic, normocephalic - Eye Eye exam: Present: normal appearance, PERRL, EOMI Pupils: Present: normal accommodation - ENT ENT exam: Present: normal exam - Neck Neck exam: Present: normal inspection, full ROM. Absent: tenderness, lymphadenopathy - Respiratory Respiratory exam: Present: normal lung sounds bilaterally, wheezes, decreased breath sounds - Cardiovascular Cardiovascular Exam: Present: regular rate, normal rhythm, normal heart sounds. Absent: systolic murmur, diastolic murmur, rubs, gallop - GI/Abdominal GI/Abdominal exam: Present: soft, normal bowel sounds. Absent: distended, tenderness, guarding, rebound, rigid, bruit, hernia - Rectal Rectal exam: Present: deferred - Extremities Exam Extremities exam: Present: normal inspection, full ROM, normal capillary refill. Absent: tenderness - Back Exam Back exam: Present: normal inspection, full ROM. Absent: tenderness, CVA tenderness (R), CVA tenderness (L), rash noted - Neurological Exam Neurological exam: Present: alert, oriented X3, CN II-XII intact, normal gait - Psychiatric Psychiatric exam: Present: normal affect, normal mood - Skin Skin exam: Present: warm, dry, intact, normal color. Absent: rash ED Course Vital Signs 07/23/19 07/23/19 19:17 19:34 Temperature 97.6 F Pulse Rate 72 Pulse Rate [ 75 Bilateral] Respiratory 22 Rate Respiratory 24 Rate [Bilateral ] Blood Pressure 170/107 O2 Sat by Pulse 94 Oximetry ED Medical Decision Making - Radiology Data Radiology results: report reviewed, image reviewed Findings Reporting MD: Jonny Vitale Dictation Time: July 23, 2019 18:58 Sourcing Intern: Not available Cashier Payments Received Date: CHEST 2 VIEWS INDICATION / CLINICAL INFORMATION: MAIN: sob; Annette for several hours. Out of neb for 2 days. Nonproductive cough. Diaphoretic. slight labored. Worse with excertion. MAEW. Diminished and tight. . COMPARISON: Chest x-ray 05/23/2019 FINDINGS: SUPPORT DEVICES: None. HEART / MEDIASTINUM: No significant abnormality. LUNGS / PLEURA: No significant pulmonary or pleural abnormality. No pneumothorax. ADDITIONAL FINDINGS: Old healed fracture of left sixth posterior rib again noted. IMPRESSION: 1. No acute findings. Signer Name: Jonny Vitale MD Signed: 07/23/2019 6:58 PM Workstation Name: [email or web address] - Medical Decision Making Right breathing symptoms are improved. Wheezing is resolved. Patient is ambulatory in ED from room to bathroom and back to room without increased shortness of breath. plan refill albuterol Singulair prednisone Z-Kee Patient will follow-up with PCP in 2 to 3 days. He would take BP medication upon arr ival to home and continue to take all medications as prescribed. Patient verbalized agreement and understanding with discharge plan will be DC'd home in stable condition at this time Critical care attestation.: If time is entered above; I have spent that time in minutes in the direct care of this critically ill patient, excluding procedure time. ED Disposition Clinical Impression: Asthma attack Qualifiers: Asthma severity: moderate Asthma persistence: persistent Qualified Code(s): J45.41 - Moderate persistent asthma with (acute) exacerbation Disposition: DC-01 TO HOME OR SELFCARE Is pt being admited?: No Does the pt Need Aspirin: No Condition: Stable Instructions: Asthma (ED) Prescriptions: Nebulizer Accessories [Aeroneb Go] 1 each MC PRN PRN #1 each PRN Reason: as needed predniSONE [Deltasone] 40 mg PO QDAY 5 Days #10 tab Albuterol INH(or & Nicu Only) [ProAir HFA Inhaler] 2 puff IH QID PRN #8.5 gram PRN Reason: Shortness Of Breath ALBUTEROL NEB's [Proventil 0.083% NEBS] 2.5 mg IH Q4H PRN #25 vial PRN Reason: shortness of breath Montelukast [Singulair] 10 mg PO QPM #30 tablet Acetaminophen/Codeine [Tylenol /Codeine # 3 tab] 1 tab PO Q6H PRN #12 tab PRN Reason: pain Azithromycin [Zithromax Z-KEE] 250 mg PO DAILY #6 tab Referrals: JENNA DOOLEY MD [Staff Physician] - 3-5 Days Forms: Work/School Release Form(ED) Time of Disposition: 22:03
[2019-07-23 22:13] VITALS: BP 137/91
--- NOTE | 2019-07-23 22:54 | Event Note ---
ED Screening Note Date of service: 07/23/19 Time: 19:18 ED Screening Note: 58 y o with pmh of asthma presents with sob x this am out of meds diaphoretic This initial assessment/diagnostic orders/clinical plan/treatment(s) is/are subject to change based on patients health status, clinical progression and re- assessment by fellow clinical providers in the ED. Further treatment and workup at subsequent clinical providers discretion. Patient/guardian urged not to elope from the ED as their condition may be serious if not clinically assessed and managed. Initial orders include: iv mag, decadron, duoneb xray
== END 2019-07-23 21:50 | disposition home or self-care (01) ==
LOC: ED 19:12
DX: J45.41 Moderate persistent asthma with (acute) exacerbation (principal); I10 Essential (primary) hypertension; Z79.899 Other long term (current) drug therapy
CPT/HCPCS: 71046; 94644; 96365; 96375; 99283; J1100; J3475

== ENCOUNTER 2019-09-15 11:23 | Emergency (ER) | payer SELFPAY | END 2019-09-15 13:02 | disposition home or self-care (01) | LOC: ED 11:23 | DX: J45.901 Unspecified asthma with (acute) exacerbation (principal); J96.00 Acute respiratory failure, unspecified whether with hypoxia or hypercapnia; I10 Essential (primary) hypertension; Z91.19 Patient's noncompliance with other medical treatment and regimen; Z79.2 Long term (current) use of antibiotics; Z79.899 Other long term (current) drug therapy | CPT/HCPCS: 94640; 96365; 99283; J3475; J7030 ==

== ENCOUNTER 2019-09-15 18:39 | Emergency (ER) | payer SELFPAY ==
[2019-09-15] MEDS ORDERED: IPRATROPIUM 0.02% NEBU 2.5 ML IH ONE (19:29)
[2019-09-15] MEDS ORDERED: ALBUTEROL 2.5 MG/3 ML NEBU IH ONE (19:29)
[2019-09-15] MEDS ORDERED: dexAMETHasone 20 MG/5 ML VIAL IV ONE (19:30)
[2019-09-15] MEDS ORDERED: SODIUM CHLORIDE 0.9% 1000 ML 1,000 ML IV ONE (19:30)
--- NOTE | 2019-09-15 19:32 | XRay Report ---
CHEST 2 VIEWS INDICATION / CLINICAL INFORMATION: SEVERE SOB/WHEEZING. COMPARISON: 2 views of the chest from 09/04/2019. FINDINGS: SUPPORT DEVICES: None. HEART / MEDIASTINUM: No significant abnormality. LUNGS / PLEURA: No significant pulmonary or pleural abnormality. No pneumothorax. ADDITIONAL FINDINGS: No significant additional findings. IMPRESSION: 1. No acute abnormality of the chest. Signer Name: Teofilo Baig MD Signed: 09/15/2019 7:27 PM Workstation Name: [id number]
[2019-09-15 19:41] LABS: Hematocrit 46.5 % (35.5-45.6); Hemoglobin 15.9 gm/dl (11.8-15.2); Mean Corpuscular HGB Conc 34 % (32-34); Mean Corpuscular Volume 97 fl (84-94); Platelet Count 202 K/mm3 (140-440); Red Blood Count 4.78 M/mm3 (3.65-5.03); Red Cell Distribution Width 12.8 % (13.2-15.2)
--- NOTE | 2019-09-15 19:51 | Emergency Department Report ---
ED Asthma HPI - General Chief Complaint: Dyspnea/Respdistress Stated Complaint: ASTHMA ATTACK Time Seen by Provider: 09/15/19 19:26 Source: patient Mode of arrival: Ambulatory Limitations: No Limitations - History of Present Illness Initial Comments: Patient was here in the emergency department earlier today and received albuterol neb treatment. Patient was feeling better before being discharged. Patient states he woke from a nap and could not breathe MD Complaint: "asthma attack", shortness of breath, wheezing -: This afternoon Asthma History: history of frequent attac (Patient is had poor compliance with albuterol secondary to not getting his medication on time from [facility] is stating that albuterol MDIs have been quite expensive) Severity: moderate, severe Context: ran out of meds Associated Symptoms: dry cough, chest pain (tightness). denies: productive cough, fever - Related Data Previous Rx's Medication Instructions Recorded Last Taken Type Azithromycin [Zithromax TAB] 250 mg PO QDAY #5 tablet 11/05/18 Unknown Rx Prednisone [predniSONE 5 mg (6-Day 5 mg PO .TAPER #1 tab.ds.pk 11/05/18 Unknown Rx Pack, 21 Tabs)] amLODIPine 5 mg PO QDAY #30 tablet 11/05/18 Unknown Rx Albuterol INH(or & Nicu Only) 2 puff IH QID PRN #1 inhalation 11/11/18 Unknown Rx [ProAir HFA Inhaler] Prednisone [predniSONE 10 mg 10 mg PO .TAPER #1 tab.ds.pk 11/11/18 Unknown Rx (6-Day Pack, 21 Tabs)] Albuterol Sulfate [Proair 90 mcg IH Q6H PRN #1 pump 04/20/19 Unknown Rx Respiclick] ALBUTEROL NEB's [Proventil 0.083% 2.5 mg IH TID PRN #25 neb 05/24/19 Unknown Rx NEBS] Albuterol INH(or & Nicu Only) 2 puff IH QID PRN #1 inhalation 05/24/19 Unknown Rx [ProAir HFA Inhaler] Nebulizer and Compressor [[place] 1 each MC Q6H #1 each 05/24/19 Unknown Rx Choice Nebulizer] Albuterol Sulfate [Proventil Hfa] 2 puff IH Q4HR PRN #1 hfa.aer.ad 05/27/19 Unknown Rx ALBUTEROL NEB's [Proventil 0.083% 2.5 mg IH Q4H PRN #25 vial 07/23/19 Unknown Rx NEBS] Acetaminophen/Codeine [Tylenol 1 tab PO Q6H PRN #12 tab 07/23/19 Unknown Rx /Codeine # 3 tab] Albuterol INH(or & Nicu Only) 2 puff IH QID PRN #8.5 gram 07/23/19 Unknown Rx [ProAir HFA Inhaler] Azithromycin [Zithromax Z-JOSE MANUEL] 250 mg PO DAILY #6 tab 07/23/19 Unknown Rx Montelukast [Singulair] 10 mg PO QPM #30 tablet 07/23/19 Unknown Rx Nebulizer Accessories [Aeroneb Go] 1 each MC PRN PRN #1 each 07/23/19 Unknown Rx predniSONE [Deltasone] 40 mg PO QDAY 5 Days #10 tab 07/23/19 Unknown Rx Albuterol Sulfate [Proventil Hfa] 6.7 gm IH TID PRN #1 hfa.aer.ad 09/04/19 Unknown Rx predniSONE [Deltasone] 20 mg PO QDAY #10 tablet 09/04/19 Unknown Rx Albuterol INH(or & Nicu Only) 2 puff IH QID PRN #1 inhalation 09/15/19 Unknown Rx [ProAir HFA Inhaler] Albuterol Sulfate [Albuterol 0.63% 0.63 mg IH TID PRN #270 ml 09/15/19 Unknown Rx NEBS] Albuterol Sulfate [Proventil Hfa] 6.7 gm IH QID PRN #1 hfa.aer.ad 09/15/19 Unknown Rx predniSONE [Deltasone] 20 mg PO QDAY #5 tab 09/15/19 Unknown Rx predniSONE [Deltasone] 50 mg PO QDAY #5 tab 09/15/19 Unknown Rx Allergies Allergy/AdvReac Type Severity Reaction Status Date / Time No Known Allergies Allergy Verified 11/11/18 12:01 ED Review of Systems ROS: Stated complaint: ASTHMA ATTACK Other details as noted in HPI Comment: All other systems reviewed and negative ED Past Medical Hx - Past Medical History Hx Hypertension: Yes Hx Congestive Heart Failure: No Hx Diabetes: No Hx Sickle Cell Disease: No Hx Asthma: Yes Hx COPD: No Hx Tuberculosis: No Hx HIV: No - Social History Smoking Status: Former Smoker Substance Use Type: None - Medications Home Medications: Home Medications Medication Instructions Recorded Confirmed Last Taken Type Azithromycin [Zithromax TAB] 250 mg PO QDAY #5 tablet 11/05/18 Unknown Rx Prednisone [predniSONE 5 mg (6-Day 5 mg PO .TAPER #1 tab.ds.pk 11/05/18 Unknown Rx Pack, 21 Tabs)] amLODIPine 5 mg PO QDAY #30 tablet 11/05/18 Unknown Rx Albuterol INH(or & Nicu Only) 2 puff IH QID PRN #1 inhalation 11/11/18 Unknown Rx [ProAir HFA Inhaler] Prednisone [predniSONE 10 mg 10 mg PO .TAPER #1 tab.ds.pk 11/11/18 Unknown Rx (6-Day Pack, 21 Tabs)] Albuterol Sulfate [Proair 90 mcg IH Q6H PRN #1 pump 04/20/19 Unknown Rx Respiclick] ALBUTEROL NEB's [Proventil 0.083% 2.5 mg IH TID PRN #25 neb 05/24/19 Unknown Rx NEBS] Albuterol INH(or & Nicu Only) 2 puff IH QID PRN #1 inhalation 05/24/19 Unknown Rx [ProAir HFA Inhaler] Nebulizer and Compressor [[place] 1 each MC Q6H #1 each 05/24/19 Unknown Rx Choice Nebulizer] Albuterol Sulfate [Proventil Hfa] 2 puff IH Q4HR PRN #1 hfa.aer.ad 05/27/19 Unknown Rx ALBUTEROL NEB's [Proventil 0.083% 2.5 mg IH Q4H PRN #25 vial 07/23/19 Unknown Rx NEBS] Acetaminophen/Codeine [Tylenol 1 tab PO Q6H PRN #12 tab 07/23/19 Unknown Rx /Codeine # 3 tab] Albuterol INH(or & Nicu Only) 2 puff IH QID PRN #8.5 gram 07/23/19 Unknown Rx [ProAir HFA Inhaler] Azithromycin [Zithromax Z-JOSE MANUEL] 250 mg PO DAILY #6 tab 07/23/19 Unknown Rx Montelukast [Singulair] 10 mg PO QPM #30 tablet 07/23/19 Unknown Rx Nebulizer Accessories [Aeroneb Go] 1 each MC PRN PRN #1 each 07/23/19 Unknown Rx predniSONE [Deltasone] 40 mg PO QDAY 5 Days #10 tab 07/23/19 Unknown Rx Albuterol Sulfate [Proventil Hfa] 6.7 gm IH TID PRN #1 hfa.aer.ad 09/04/19 Unknown Rx predniSONE [Deltasone] 20 mg PO QDAY #10 tablet 09/04/19 Unknown Rx Albuterol INH(or & Nicu Only) 2 puff IH QID PRN #1 inhalation 09/15/19 Unknown Rx [ProAir HFA Inhaler] Albuterol Sulfate [Albuterol 0.63% 0.63 mg IH TID PRN #270 ml 09/15/19 Unknown Rx NEBS] Albuterol Sulfate [Proventil Hfa] 6.7 gm IH QID PRN #1 hfa.aer.ad 09/15/19 Unknown Rx predniSONE [Deltasone] 20 mg PO QDAY #5 tab 09/15/19 Unknown Rx predniSONE [Deltasone] 50 mg PO QDAY #5 tab 09/15/19 Unknown Rx ED Physical Exam - General Limitations: No Limitations General appearance: alert, in no apparent distress - Head Head exam: Present: atraumatic, normocephalic - Eye Eye exam: Present: normal appearance - ENT ENT exam: Present: mucous membranes moist - Neck Neck exam: Present: normal inspection - Respiratory Respiratory exam: Present: respiratory distress, wheezes. Absent: normal lung sounds bilaterally - Cardiovascular Cardiovascular Exam: Present: regular rate, normal rhythm, normal heart sounds. Absent: systolic murmur, diastolic murmur, rubs, gallop - GI/Abdominal GI/Abdominal exam: Present: soft, normal bowel sounds. Absent: distended, tenderness, guarding - Rectal Rectal exam: Present: deferred - Extremities Exam Extremities exam: Present: normal inspection - Back Exam Back exam: Present: normal inspection - Neurological Exam Neurological exam: Present: alert, oriented X3 - Psychiatric Psychiatric exam: Present: normal affect, normal mood - Skin Skin exam: Present: warm, dry, intact, normal color. Absent: rash ED Course Vital Signs 09/15/19 09/15/19 09/15/19 18:47 19:31 19:46 Temperature 98.1 F Pulse Rate 85 81 Pulse Rate [ Posterior Bilateral Throughout] Respiratory 24 19 Rate Respiratory Rate [Posterior Bilateral Throughout] Blood Pressure 129/85 130/84 O2 Sat by Pulse 89 93 94 Oximetry 09/15/19 09/15/19 09/15/19 19:54 20:00 20:16 Temperature Pulse Rate 65 72 Pulse Rate [ 71 Posterior Bilateral Throughout] Respiratory 13 16 Rate Respiratory 20 Rate [Posterior Bilateral Throughout] Blood Pressure 125/83 125/83 O2 Sat by Pulse 96 97 Oximetry 09/15/19 09/15/19 09/15/19 20:30 20:46 21:00 Temperature Pulse Rate 72 73 Pulse Rate [ 80 Posterior Bilateral Throughout] Respiratory 14 15 Rate Respiratory 17 Rate [Posterior Bilateral Throughout] Blood Pressure 130/84 130/84 O2 Sat by Pulse 96 98 Oximetry 09/15/19 09/15/19 09/15/19 21:08 21:16 21:30 Temperature Pulse Rate 74 72 Pulse Rate [ Posterior Bilateral Throughout] Respiratory 18 20 21 Rate Respiratory Rate [Posterior Bilateral Throughout] Blood Pressure 130/84 137/83 137/83 O2 Sat by Pulse 91 96 97 Oximetry 09/15/19 09/15/19 21:46 22:00 Temperature Pulse Rate 79 73 Pulse Rate [ Posterior Bilateral Throughout] Respiratory 20 17 Rate Respiratory Rate [Posterior Bilateral Throughout] Blood Pressure 137/83 132/81 O2 Sat by Pulse 97 92 Oximetry - Reevaluation(s) Reevaluation #1: 09/15/19 22:26 Patient received hour-long neb treatment and is feeling much improved. Wheezing has resolved. Satting 96% on room air. Patient states that he is been waiting for his medications from [facility] to be mailed to them for 3 weeks. Patient be given a prescription for albuterol and a good Rx card will be discharged home. ED Medical Decision Making - Lab Data Result diagrams: 09/15/19 19:26 09/15/19 19:26 - Radiology Data Ordering Physician: ANA TRINIDAD MD Date of Service: 09/15/19 Procedure(s): XR chest routine 2V Accession Number(s): [id number] cc: NAA TRINIDAD MD Fluoro Time In Minutes: CHEST 2 VIEWS INDICATION / CLINICAL INFORMATION: SEVERE SOB/WHEEZING. COMPARISON: 2 views of the chest from 09/04/2019. FINDINGS: SUPPORT DEVICES: None. HEART / MEDIASTINUM: No significant abnormality. LUNGS / PLEURA: No significant pulmonary or pleural abnormality. No pneumothorax. ADDITIONAL FINDINGS: No significant additional findings. IMPRESSION: 1. No acute abnormality of the chest. Signer Name: Teofilo Baig MD Signed: 09/15/2019 7:27 PM Workstation Name: [id number] Transcribed By: JESSICA Dictated By: Teofilo Baig MD Electronically Authenticated By: Teofilo Baig MD Signed Date/Time: 09/15/191926 Critical care attestation.: If time is entered above; I have spent that time in minutes in the direct care of this critically ill patient, excluding procedure time. ED Disposition Clinical Impression: Asthma exacerbation, Hypoxia Disposition: DC-01 TO HOME OR SELFCARE Is pt being admited?: No Does the pt Need Aspirin: No Condition: Stable Instructions: Asthma (ED) Referrals: PRIMARY CAREMD [Primary Care Provider] - 3-5 Days Time of Disposition: 22:47
[2019-09-15 19:57] LABS: Calcium 8.9 mg/dL (8.4-10.2)
[2019-09-15] MEDS ORDERED: MAGNESIUM SULFATE 1 GM in SODIUM CHLORIDE 0.9% 50 ML IV ONE (20:00)
[2019-09-15 22:57] VITALS: BP 126/82
== END 2019-09-15 22:58 | disposition home or self-care (01) ==
LOC: ED 18:39
DX: J44.1 Chronic obstructive pulmonary disease with (acute) exacerbation (principal); R09.02 Hypoxemia; I10 Essential (primary) hypertension; Z87.891 Personal history of nicotine dependence; Z79.899 Other long term (current) drug therapy
CPT/HCPCS: 36415; 71046; 80048; 85027; 94644; 96365; 96375; 99284; J1100; J3475; J7030

== ENCOUNTER 2019-10-19 19:42 | Observation (INO) | payer SELFPAY ==
[2019-10-19] MEDS ORDERED: ALBUTEROL 2.5 MG/3 ML NEBU IH ONE ×2 (19:53→19:54)
[2019-10-19] MEDS ORDERED: IPRATROPIUM 0.02% NEBU 2.5 ML IH ONE ×2 (19:54→20:00)
--- NOTE | 2019-10-19 20:10 | Emergency Department Report ---
ED Shortness of Breath HPI - General Chief Complaint: Dyspnea/Respdistress Stated Complaint: ALEKSANDAR Time Seen by Provider: 10/19/19 19:52 Source: patient, EMS Mode of arrival: Stretcher Limitations: No Limitations - History of Present Illness Initial Comments: 58-year-old male with history of asthma, hypertension, presents to ED with difficulty breathing. Patient reports onset of an asthma attack earlier today. Patient administered breathing treatments at home, without relief. EMS was called. They gave patient mag sulfate 2 g, Solu-Medrol 125 mg, albuterol 5 mg nebs, and placed patient on CPAP. Patient denies fever, cough, sore throat, diarrhea chest pain, body aches, loss of smell or taste, known exposure to anyone who has tested positive for COVID-19. Patient denies tobacco and drug use. Patient denies any history of intubations. MD Complaint: "asthma attack" -: This afternoon Severity: severe Consistency: constant Improves With: nothing Worsens With: nothing Known History Of: asthma Treatments Prior to Arrival: bronchodilator, NIPPV - Related Data Home Oxygen Therapy: No Previous Rx's Medication Instructions Recorded Last Taken Type Azithromycin [Zithromax TAB] 250 mg PO QDAY #5 tablet 11/05/18 Unknown Rx Prednisone [predniSONE 5 mg (6-Day 5 mg PO .TAPER #1 tab.ds.pk 11/05/18 Unknown Rx Pack, 21 Tabs)] amLODIPine 5 mg PO QDAY #30 tablet 11/05/18 Unknown Rx Albuterol INH(or & Nicu Only) 2 puff IH QID PRN #1 inhalation 11/11/18 Unknown Rx [ProAir HFA Inhaler] Prednisone [predniSONE 10 mg 10 mg PO .TAPER #1 tab.ds.pk 11/11/18 Unknown Rx (6-Day Pack, 21 Tabs)] Albuterol Sulfate [Proair 90 mcg IH Q6H PRN #1 pump 04/20/19 Unknown Rx Respiclick] ALBUTEROL NEB's [Proventil 0.083% 2.5 mg IH TID PRN #25 neb 05/24/19 Unknown Rx NEBS] Albuterol INH(or & Nicu Only) 2 puff IH QID PRN #1 inhalation 05/24/19 Unknown Rx [ProAir HFA Inhaler] Nebulizer and Compressor [[place] 1 each MC Q6H #1 each 05/24/19 Unknown Rx Choice Nebulizer] Albuterol Sulfate [Proventil Hfa] 2 puff IH Q4HR PRN #1 hfa.aer.ad 05/27/19 Unknown Rx ALBUTEROL NEB's [Proventil 0.083% 2.5 mg IH Q4H PRN #25 vial 07/23/19 Unknown Rx NEBS] Acetaminophen/Codeine [Tylenol 1 tab PO Q6H PRN #12 tab 07/23/19 Unknown Rx /Codeine # 3 tab] Albuterol INH(or & Nicu Only) 2 puff IH QID PRN #8.5 gram 07/23/19 Unknown Rx [ProAir HFA Inhaler] Azithromycin [Zithromax Z-JOSE MANUEL] 250 mg PO DAILY #6 tab 07/23/19 Unknown Rx Montelukast [Singulair] 10 mg PO QPM #30 tablet 07/23/19 Unknown Rx Nebulizer Accessories [Aeroneb Go] 1 each MC PRN PRN #1 each 07/23/19 Unknown Rx predniSONE [Deltasone] 40 mg PO QDAY 5 Days #10 tab 07/23/19 Unknown Rx Albuterol Sulfate [Proventil Hfa] 6.7 gm IH TID PRN #1 hfa.aer.ad 09/04/19 Unk nown Rx predniSONE [Deltasone] 20 mg PO QDAY #10 tablet 09/04/19 Unknown Rx Albuterol INH(or & Nicu Only) 2 puff IH QID PRN #1 inhalation 09/15/19 Unknown Rx [ProAir HFA Inhaler] Albuterol Sulfate [Albuterol 0.63% 0.63 mg IH TID PRN #270 ml 09/15/19 Unknown Rx NEBS] Albuterol Sulfate [Proventil Hfa] 6.7 gm IH QID PRN #1 hfa.aer.ad 09/15/19 Unknown Rx predniSONE [Deltasone] 20 mg PO QDAY #5 tab 09/15/19 Unknown Rx predniSONE [Deltasone] 50 mg PO QDAY #5 tab 09/15/19 Unknown Rx Allergies Allergy/AdvReac Type Severity Reaction Status Date / Time No Known Allergies Allergy Verified 11/11/18 12:01 ED Review of Systems ROS: Stated complaint: ALEKSANDAR Other details as noted in HPI Comment: All other systems reviewed and negative Constitutional: denies: chills, fever ENT: denies: throat pain Respiratory: shortness of breath Cardiovascular: denies: chest pain Gastrointestinal: denies: vomiting, diarrhea Musculoskeletal: denies: myalgia ED Past Medical Hx - Past Medical History Previous Medical History?: Yes Hx Hypertension: Yes Hx Congestive Heart Failure: No Hx Diabetes: No Hx Sickle Cell Disease: No Hx Asthma: Yes Hx COPD: No Hx Tuberculosis: No Hx HIV: No - Surgical History Past Surgical History?: No - Social History Smoking Status: Never Smoker Substance Use Type: None - Medications Home Medications: Home Medications Medication Instructions Recorded Confirmed Last Taken Type Azithromycin [Zithromax TAB] 250 mg PO QDAY #5 tablet 11/05/18 Unknown Rx Prednisone [predniSONE 5 mg (6-Day 5 mg PO .TAPER #1 tab.ds.pk 11/05/18 Unknown Rx Pack, 21 Tabs)] amLODIPine 5 mg PO QDAY #30 tablet 11/05/18 Unknown Rx Albuterol INH(or & Nicu Only) 2 puff IH QID PRN #1 inhalation 11/11/18 Unknown Rx [ProAir HFA Inhaler] Prednisone [predniSONE 10 mg 10 mg PO .TAPER #1 tab.ds.pk 11/11/18 Unknown Rx (6-Day Pack, 21 Tabs)] Albuterol Sulfate [Proair 90 mcg IH Q6H PRN #1 pump 04/20/19 Unknown Rx Respiclick] ALBUTEROL NEB's [Proventil 0.083% 2.5 mg IH TID PRN #25 neb 05/24/19 Unknown Rx NEBS] Albuterol INH(or & Nicu Only) 2 puff IH QID PRN #1 inhalation 05/24/19 Unknown Rx [ProAir HFA Inhaler] Nebulizer and Compressor [[place] 1 each MC Q6H #1 each 05/24/19 Unknown Rx Choice Nebulizer] Albuterol Sulfate [Proventil Hfa] 2 puff IH Q4HR PRN #1 hfa.aer.ad 05/27/19 Unknown Rx ALBUTEROL NEB's [Proventil 0.083% 2.5 mg IH Q4H PRN #25 vial 07/23/19 Unknown Rx NEBS] Acetaminophen/Codeine [Tylenol 1 tab PO Q6H PRN #12 tab 07/23/19 Unknown Rx /Codeine # 3 tab] Albuterol INH(or & Nicu Only) 2 puff IH QID PRN #8.5 gram 07/23/19 Unknown Rx [ProAir HFA Inhaler] Azithromycin [Zithromax Z-JOSE MANUEL] 250 mg PO DAILY #6 tab 07/23/19 Unknown Rx Montelukast [Singulair] 10 mg PO QPM #30 tablet 07/23/19 Unknown Rx Nebulizer Accessories [Aeroneb Go] 1 each MC PRN PRN #1 each 07/23/19 Unknown Rx predniSONE [Deltasone] 40 mg PO QDAY 5 Days #10 tab 07/23/19 Unknown Rx Albuterol Sulfate [Proventil Hfa] 6.7 gm IH TID PRN #1 hfa.aer.ad 09/04/19 Unknown Rx predniSONE [Deltasone] 20 mg PO QDAY #10 tablet 09/04/19 Unknown Rx Albuterol INH(or & Nicu Only) 2 puff IH QID PRN #1 inhalation 09/15/19 Unknown Rx [ProAir HFA Inhaler] Albuterol Sulfate [Albuterol 0.63% 0.63 mg IH TID PRN #270 ml 09/15/19 Unknown Rx NEBS] Albuterol Sulfate [Proventil Hfa] 6.7 gm IH QID PRN #1 hfa.aer.ad 09/15/19 Unknown Rx predniSONE [Deltasone] 20 mg PO QDAY #5 tab 09/15/19 Unknown Rx predniSONE [Deltasone] 50 mg PO QDAY #5 tab 09/15/19 Unknown Rx ED Physical Exam - General Limitations: No Limitations General appearance: alert, in distress - Head Head exam: Present: atraumatic, normocephalic - Eye Eye exam: Present: normal appearance, EOMI - ENT ENT exam: Present: mucous membranes moist - Neck Neck exam: Present: normal inspection - Respiratory Respiratory exam: Present: decreased breath sounds, other (Tachypnea present) - Cardiovascular Cardiovascular Exam: Present: regular rate, normal rhythm - GI/Abdominal GI/Abdominal exam: Present: soft. Absent: distended, tenderness - Extremities Exam Extremities exam: Present: normal inspection - Neurological Exam Neurological exam: Present: alert, oriented X3 - Psychiatric Psychiatric exam: Present: normal affect, normal mood - Skin Skin exam: Present: warm, dry, intact, normal color ED Course Vital Signs 10/19/19 10/19/19 10/19/19 19:46 19:56 20:02 Temperature 97.4 F L Pulse Rate 97 H Pulse Rate [ 97 H Bilateral Throughout] Respiratory 20 Rate Respiratory 20 Rate [Bilateral Throughout] Blood Pressure O2 Sat by Pulse 98 98 Oximetry 10/19/19 10/19/19 10/19/19 20:03 20:30 20:45 Temperature Pulse Rate 107 H 85 Pulse Rate [ Bilateral Throughout] Respiratory 22 20 18 Rate Respiratory Rate [Bilateral Throughout] Blood Pressure 140/99 116/76 O2 Sat by Pulse 98 Oximetry 10/19/19 10/19/19 10/19/19 21:00 21:30 22:00 Temperature Pulse Rate 82 92 H 79 Pulse Rate [ Bilateral Throughout] Respiratory 20 20 15 Rate Respiratory Rate [Bilateral Throughout] Blood Pressure 122/84 126/94 124/82 O2 Sat by Pulse 98 Oximetry 10/19/19 10/19/19 10/19/19 22:30 23:00 23:30 Temperature Pulse Rate 81 71 79 Pulse Rate [ Bilateral Throughout] Respiratory 15 13 15 Rate Respiratory Rate [Bilateral Throughout] Blood Pressure 111/84 121/81 116/80 O2 Sat by Pulse 95 Oximetry ED Medical Decision Making - Lab Data Result diagrams: 10/19/19 20:10 10/19/19 20:10 - EKG Data -: EKG Interpreted by Pa EKG shows normal: sinus rhythm, axis, intervals, QRS complexes, ST-T waves - EKG Data When compared to previous EKG there are: no significant change - Radiology Data Radiology results: report reviewed, image reviewed - Medical Decision Making 58 yo M w/ acute asthma exacerbation, initially requiring BiPAP. EKG, labs unre markable. Pt received mag sulfate and solumedrol in the field from EMS. CXR normal. Pt able to come off of BiPAP due to improvement of his condition. No suspicion of COVID. Pt will be admitted to hospitalist for further management. - Differential Diagnosis asthma, pneumonia, pulm edema Critical Care Time: Yes Critical care time in (mins) excluding proc time.: 35 Critical care attestation.: If time is entered above; I have spent that time in minutes in the direct care of this critically ill patient, excluding procedure time. Critical Care Time: 35 min ED Disposition Clinical Impression: Acute respiratory failure, Acute asthma exacerbation Disposition: OP ADMIT IP TO THIS HOSP Is pt being admited?: Yes Condition: Stable Time of Disposition: 20:44
[2019-10-19 20:21] LABS: Basophils # (Auto) 0.1 K/mm3 (0.0-0.1); Basophils % (Auto) 1.5 % (0.0-1.8); Eosinophils # (Auto) 0.3 K/mm3 (0.0-0.4); Eosinophils % (Auto) 4.4 % (0.0-4.3); Hematocrit 46.2 % (35.5-45.6); Hemoglobin 15.2 gm/dl (11.8-15.2); Lymphocytes # (Auto) 1.5 K/mm3 (1.2-5.4); Lymphocytes % (Auto) 21.1 % (13.4-35.0); Mean Corpuscular HGB Conc 33 % (32-34); Mean Corpuscular Volume 97 fl (84-94); Monocytes # (Auto) 0.4 K/mm3 (0.0-0.8); Monocytes % (Auto) 6.3 % (0.0-7.3); Platelet Count 191 K/mm3 (140-440); Red Blood Count 4.75 M/mm3 (3.65-5.03); Red Cell Distribution Width 12.9 % (13.2-15.2)
--- NOTE | 2019-10-19 20:29 | XRay Report ---
CHEST 1 VIEW INDICATION / CLINICAL INFORMATION: sob. COMPARISON: 09/15/2019 FINDINGS: SUPPORT DEVICES: None. HEART / MEDIASTINUM: No significant abnormality. LUNGS / PLEURA: No significant pulmonary or pleural abnormality. No pneumothorax. ADDITIONAL FINDINGS: No significant additional findings. IMPRESSION: No acute pulmonary or pleural abnormality. No change from 09/15/2019 Signer Name: Jt Damian MD FACR Signed: 10/19/2019 8:24 PM Workstation Name: [id number]
[2019-10-19 20:32] LABS: INR 1.05 (0.87-1.13)
[2019-10-19 20:33] LABS: Partial Thromboplastin Time 26.3 Sec. (24.2-36.6)
[2019-10-19 20:35] LABS: BUN/Creatinine Ratio 13; Blood Urea Nitrogen 18 mg/dL (9-20); Calcium 8.8 mg/dL (8.4-10.2); Hemolysis Index 9
[2019-10-19] MEDS ORDERED: ACETAMINOPHEN 325 MG TAB PO PRN (22:51)
[2019-10-19] MEDS ORDERED: ONDANSETRON 4 MG/2 ML INJ IV PRN (22:51)
--- NOTE | 2019-10-19 22:51 | History and Physical Report ---
History of Present Illness History of present illness: 58-year-old man with a history of hypertension, asthma comes emergency room for evaluation. He stated that he started having shortness of breath today, he ran out of some of his nebulizer treatments. States that he has been ouit of his Symbicort and that helps to control his symptoms very well. Patient was given steroids, magnesium and started on CPAP en route to the hospital. In the emergency room he was switched to BiPAP and was later taken off. Patient will be admitted for asthma exacerbation Review Of Systems: Constitutional: no weight loss, fever, chills Ears, eyes, nose, mouth and throat: no nasal congestion, no nasal discharge, no sinus pressure, blurry vision, diplopia Neck: No neck pain or rigidity. Cardiovascular: No palpitations, chest pain Respiratory: No cough Gastrointestinal: No hematochezia Genitourinary : no dysuria, frequency Musculoskeletal: no muscle ache , joint pain Integumentary: no rash, no pruritis Neurological: no parathesias, focal weakness Endocrine: no cold or heat intolerance, no polyuria or polydipsia Hematologic/Lymphatic: no easy bruising, no easy bleeding, no gland swelling Allergic/Immunologic: no urticaria, no angioedema. PAST MEDICAL HISTORY: Asthma, hypertension PAST SURGICAL HISTORY: None SOCIAL HISTORY: Denies alcohol, tobacco, drugs FAMILY HISTORY: Hypertension Medications and Allergies Allergies Allergy/AdvReac Type Severity Reaction Status Date / Time No Known Allergies Allergy Verified 11/11/18 12:01 Home Medications Medication Instructions Recorded Confirmed Last Taken Type Azithromycin [Zithromax TAB] 250 mg PO QDAY #5 tablet 11/05/18 Unknown Rx Prednisone [predniSONE 5 mg (6-Day 5 mg PO .TAPER #1 tab.ds.pk 11/05/18 Unknown Rx Pack, 21 Tabs)] amLODIPine 5 mg PO QDAY #30 tablet 11/05/18 Unknown Rx Albuterol INH(or & Nicu Only) 2 puff IH QID PRN #1 inhalation 11/11/18 Unknown Rx [ProAir HFA Inhaler] Prednisone [predniSONE 10 mg 10 mg PO .TAPER #1 tab.ds.pk 11/11/18 Unknown Rx (6-Day Pack, 21 Tabs)] Albuterol Sulfate [Proair 90 mcg IH Q6H PRN #1 pump 04/20/19 Unknown Rx Respiclick] ALBUTEROL NEB's [Proventil 0.083% 2.5 mg IH TID PRN #25 neb 05/24/19 Unknown Rx NEBS] Albuterol INH(or & Nicu Only) 2 puff IH QID PRN #1 inhalation 05/24/19 Unknown Rx [ProAir HFA Inhaler] Nebulizer and Compressor [Mcdonough 1 each MC Q6H #1 each 05/24/19 Unknown Rx Choice Nebulizer] Albuterol Sulfate [Proventil Hfa] 2 puff IH Q4HR PRN #1 hfa.aer.ad 05/27/19 Unknown Rx ALBUTEROL NEB's [Proventil 0.083% 2.5 mg IH Q4H PRN #25 vial 07/23/19 Unknown Rx NEBS] Acetaminophen/Codeine [Tylenol 1 tab PO Q6H PRN #12 tab 07/23/19 Unknown Rx /Codeine # 3 tab] Albuterol INH(or & Nicu Only) 2 puff IH QID PRN #8.5 gram 07/23/19 Unknown Rx [ProAir HFA Inhaler] Azithromycin [Zithromax Z-JOSE MANUEL] 250 mg PO DAILY #6 tab 07/23/19 Unknown Rx Montelukast [Singulair] 10 mg PO QPM #30 tablet 07/23/19 Unknown Rx Nebulizer Accessories [Aeroneb Go] 1 each MC PRN PRN #1 each 07/23/19 Unknown Rx predniSONE [Deltasone] 40 mg PO QDAY 5 Days #10 tab 07/23/19 Unknown Rx Albuterol Sulfate [Proventil Hfa] 6.7 gm IH TID PRN #1 hfa.aer.ad 09/04/19 Unknown Rx predniSONE [Deltasone] 20 mg PO QDAY #10 tablet 09/04/19 Unknown Rx Albuterol INH(or & Nicu Only) 2 puff IH QID PRN #1 inhalation 09/15/19 Unknown Rx [ProAir HFA Inhaler] Albuterol Sulfate [Albuterol 0.63% 0.63 mg IH TID PRN #270 ml 09/15/19 Unknown Rx NEBS] Albuterol Sulfate [Proventil Hfa] 6.7 gm IH QID PRN #1 hfa.aer.ad 09/15/19 Unknown Rx predniSONE [Deltasone] 20 mg PO QDAY #5 tab 09/15/19 Unknown Rx predniSONE [Deltasone] 50 mg PO QDAY #5 tab 09/15/19 Unknown Rx Exam - Physical Exam Narrative exam: Gen. appearance: Patient lying in bed, no apparent distress HEENT: Normocephalic, atraumatic, pupils equally round and reactive to light, extraocular movement intact, and no sclericterus,. No JVD or thyromegaly or nodule,neck supple, no carotid bruit ,mucous membranes moist, no exudate or erythema Heart: S1, S2, regular rate and rhythm Lungs: Wheezing bilaterally, breathing comfortable Abdomen: Positive bowel sounds, nontender, nondistended, no organomegaly Extremity: no edema, cyanosis, clubbing Skin: No rash, nodules, warm, dry Neuro: Cranial nerves II to XII intact, speech is fluent, moves extremities, sensory intact - Constitutional Vitals: Temp Pulse Resp BP Pulse Ox 97.4 F L 85 18 116/76 98 10/19/19 19:56 10/19/19 20:30 10/19/19 20:45 10/19/19 20:30 10/19/19 20:03 HEART Score - HEART Score Troponin: Troponin T < 0.010 ng/mL (0.00-0.029) 10/19/19 20:10 Results - Labs CBC & Chem 7: 10/19/19 20:10 10/19/19 20:10 Labs: Abnormal lab results 10/19/19 10/19/19 Range/Units 20:10 20:10 Hct 46.2 H (35.5-45.6) % MCV 97 H (84-94) fl RDW 12.9 L (13.2-15.2) % Eos % (Auto) 4.4 H (0.0-4.3) % Carbon Dioxide 20 L (22-30) mmol/L Glucose 127 H (75-100) mg/dL - Imaging and Cardiology EKG: image reviewed Chest x-ray: report reviewed Assessment and Plan Assessment Asthma exacerbation Start high-dose steroids, nebulizer treatments Patient is currently doing well Hypertension Restart outpatient medications DVT prophylaxis
[2019-10-20] MEDS: methylPREDNISolone Sod Succinate 125 MG/2 ML INJ IV SCH ×2 (01:21→06:05)
[2019-10-20 03:55] LABS: Hematocrit 44.8 % (35.5-45.6); Mean Corpuscular HGB Conc 33 % (32-34); Mean Corpuscular Volume 98 fl (84-94); Platelet Count 191 K/mm3 (140-440); Red Blood Count 4.56 M/mm3 (3.65-5.03); Red Cell Distribution Width 12.9 % (13.2-15.2)
[2019-10-20 04:13] LABS: Calcium 9.3 mg/dL (8.4-10.2)
[2019-10-20 06:16] VITALS: BP 133/79
[2019-10-20] MEDS ORDERED: ENOXAPARIN 40 MG/0.4 ML INJ SUB-Q SCH (10:00)
[2019-10-20] MEDS ORDERED: ENOXAPARIN 30 MG/0.3 ML INJ SUB-Q SCH (10:00)
[2019-10-20 10:02] LABS: Basophils % (Manual) 0 % (0.0-1.8); Eosinophils % (Manual) 0 % (0.0-4.3); Platelet Estimate Consistent w Auto; RBC Morphology Normal; Total Cells Counted 100
--- NOTE | 2019-10-20 10:25 | Discharge Summary ---
Providers - Providers Date of Admission: 10/19/19 22:51 Date of discharge: 10/20/19 Attending physician: HARIS QUIROGA Primary care physician: BEAN VARNER MD Hospitalization Condition: Good Hospital course: 58-year-old male presented with asthma exacerbation. Did well on BiPAP. Patient was out of nebulizers. Patient was out of Symbicort and was out of all rescue inhalers. For greater than 10 days had exacerbation placed on steroids nebulizers did very well. No wheezing back at baseline able to discharge. Disposition: DC-01 TO HOME OR SELFCARE - Discharge Diagnoses (1) Acute asthma exacerbation Status: Acute (2) Acute respiratory failure Status: Acute (3) HTN (hypertension) Status: Acute Core Measure Documentation - Palliative Care Palliative Care/ Comfort Measures: Not Applicable - Core Measures Any of the following diagnoses?: none Exam - Constitutional Vitals: Temp Pulse Resp BP Pulse Ox 98.1 F 86 20 133/79 94 10/20/19 06:03 10/20/19 06:03 10/20/19 06:03 10/20/19 06:03 10/20/19 08:24 General appearance: Present: no acute distress, well-nourished - EENT Eyes: Present: PERRL ENT: hearing intact, clear oral mucosa - Neck Neck: Present: supple, normal ROM - Respiratory Respiratory effort: normal Respiratory: bilateral: CTA - Cardiovascular Heart Sounds: Present: S1 & S2. Absent: rub, click - Extremities Extremities: pulses symmetrical, No edema Peripheral Pulses: within normal limits - Abdominal General gastrointestinal: Present: soft, non-tender, non-distended, normal bowel sounds Male genitourinary: Present: normal - Integumentary Integumentary: Present: clear, warm, dry - Musculoskeletal Musculoskeletal: gait normal, strength equal bilaterally - Psychiatric Psychiatric: appropriate mood/affect, intact judgment & insight - Neurologic Neurologic: CNII-XII intact, moves all extremities Plan Activity: no restrictions Weight Bearing Status: Full Weight Bearing Diet: low salt Follow up with: PRIMARY CARE, [Primary Care Provider] - 7 Days Prescriptions: predniSONE [Deltasone] 10 mg PO QDAY #60 tablet Albuterol INH(or & Nicu Only) [ProAir HFA Inhaler] 2 puff IH QID PRN #1 inhalation PRN Reason: Shortness Of Breath ALBUTEROL NEB's [Proventil 0.083% NEBS] 2.5 mg IH Q6HRT #14 nebu
[2019-10-20] MEDS ORDERED: predniSONE 10 MG TAB PO SCH (12:00)
[2019-10-20] MEDS ORDERED: ALBUTEROL 2.5 MG/3 ML NEBU IH SCH (14:00)
[2019-10-21] MEDS ORDERED: predniSONE 10 MG TAB PO SCH (10:00)
[2019-10-22] MEDS ORDERED: predniSONE 10 MG TAB PO SCH (10:00)
[2019-10-25] MEDS ORDERED: predniSONE 20 MG TAB PO SCH (10:00)
[2019-10-30] MEDS ORDERED: predniSONE 10 MG TAB PO SCH (10:00)
== END 2019-10-20 11:43 | disposition home or self-care (01) ==
LOC: ED 19:42 → IMCU 22:51
PROVIDERS: ADMIT Internal Medicine; ATTEND Internal Medicine
DX: J45.901 Unspecified asthma with (acute) exacerbation (principal); J96.00 Acute respiratory failure, unspecified whether with hypoxia or hypercapnia; I10 Essential (primary) hypertension; Z79.51 Long term (current) use of inhaled steroids; Z79.52 Long term (current) use of systemic steroids; Z79.899 Other long term (current) drug therapy
CPT/HCPCS: 36415; 71045; 80048; 83880; 84484; 85007; 85025; 85610; 85730; 93005; 94644; 96374; 96376; 99291; G0378; J2930; J1650

== ENCOUNTER 2020-01-25 20:45 | Emergency (ER) | payer MEDICAID ==
[2020-01-25 21:18] VITALS: BP 154/91
[2020-01-25] MEDS ORDERED: ALBUTEROL 2.5 MG/3 ML NEBU IH ONE ×2 (21:21→21:25)
[2020-01-25] MEDS ORDERED: IPRATROPIUM 0.02% NEBU 2.5 ML IH ONE ×2 (21:21→21:25)
[2020-01-25] MEDS ORDERED: predniSONE 50 MG TAB PO STA (21:46)
--- NOTE | 2020-01-25 21:47 | Emergency Department Report ---
ED Asthma HPI - General Chief Complaint: Adult Asthma Stated Complaint: TROUBLE BREATHING Time Seen by Provider: 01/25/20 21:39 Source: patient Mode of arrival: Stretcher Limitations: No Limitations - History of Present Illness Initial Comments: 59-year-old -French male with past medical history of asthma presents to the emergency department complaining of asthma exacerbation secondary to him running out of his medication states he was going up and down stairs to take out the trash and began to develop some symptoms of shortness of breath and wheezing resulting in the asthma exacerbation. Ports no hemoptysis no hematemesis no hematochezia. No fever, chills, sweats no chest pain or palpitations. No abdominal pain no diarrhea. MD Complaint: "asthma attack", wheezing - Related Data Previous Rx's Medication Instructions Recorded Last Taken Type Prednisone [predniSONE 5 mg (6-Day 5 mg PO .TAPER #1 tab.ds.pk 11/05/18 Unknown Rx Pack, 21 Tabs)] amLODIPine 5 mg PO QDAY #30 tablet 11/05/18 Unknown Rx Prednisone [predniSONE 10 mg 10 mg PO .TAPER #1 tab.ds.pk 11/11/18 Unknown Rx (6-Day Pack, 21 Tabs)] Albuterol Sulfate [Proair 90 mcg IH Q6H PRN #1 pump 04/20/19 Unknown Rx Respiclick] ALBUTEROL NEB's [Proventil 0.083% 2.5 mg IH TID PRN #25 neb 05/24/19 Unknown Rx NEBS] Nebulizer and Compressor [Morven 1 each MC Q6H #1 each 05/24/19 Unknown Rx Choice Nebulizer] Albuterol Sulfate [Proventil Hfa] 2 puff IH Q4HR PRN #1 hfa.aer.ad 05/27/19 Unknown Rx ALBUTEROL NEB's [Proventil 0.083% 2.5 mg IH Q4H PRN #25 vial 07/23/19 Unknown Rx NEBS] Acetaminophen/Codeine [Tylenol 1 tab PO Q6H PRN #12 tab 07/23/19 Unknown Rx /Codeine # 3 tab] Montelukast [Singulair] 10 mg PO QPM #30 tablet 07/23/19 Unknown Rx Nebulizer Accessories [Aeroneb Go] 1 each MC PRN PRN #1 each 07/23/19 Unknown Rx predniSONE [Deltasone] 40 mg PO QDAY 5 Days #10 tab 07/23/19 Unknown Rx Albuterol Sulfate [Proventil Hfa] 6.7 gm IH TID PRN #1 hfa.aer.ad 09/04/19 Unknown Rx predniSONE [Deltasone] 20 mg PO QDAY #10 tablet 09/04/19 Unknown Rx Albuterol Sulfate [Albuterol 0.63% 0.63 mg IH TID PRN #270 ml 09/15/19 Unknown Rx NEBS] Albuterol Sulfate [Proventil Hfa] 6.7 gm IH QID PRN #1 hfa.aer.ad 09/15/19 Unknown Rx predniSONE [Deltasone] 20 mg PO QDAY #5 tab 09/15/19 Unknown Rx predniSONE [Deltasone] 50 mg PO QDAY #5 tab 09/15/19 Unknown Rx ALBUTEROL NEB's [Proventil 0.083% 2.5 mg IH Q6HRT #14 nebu 10/20/19 Unknown Rx NEBS] Acetaminophen [Acetaminophen TAB] 650 mg PO Q4H PRN tablet 10/20/19 Unknown Rx Albuterol Mdi (or & Nicu Only) 2 puff IH QID PRN #1 inhalation 10/20/19 Unknown Rx [ProAir HFA Inhaler] predniSONE [Deltasone] 10 mg PO QDAY #60 tablet 10/20/19 Unknown Rx Albuterol Mdi (or & Nicu Only) 1 puff IH Q4-6H PRN #1 inha 01/25/20 Unknown Rx [ProAir HFA Inhaler] Montelukast [Singulair] 10 mg PO QPM #14 tablet 01/25/20 Unknown Rx predniSONE [Deltasone] 50 mg PO QDAY #5 tab 01/25/20 Unknown Rx Allergies Allergy/AdvReac Type Severity Reaction Status Date / Time No Known Allergies Allergy Verified 11/11/18 12:01 ED Review of Systems ROS: Stated complaint: TROUBLE BREATHING Other details as noted in HPI Comment: All other systems reviewed and negative ED Past Medical Hx - Past Medical History Previous Medical History?: Yes Hx Hypertension: Yes Hx Congestive Heart Failure: No Hx Diabetes: No Hx Sickle Cell Disease: No Hx Asthma: Yes Hx COPD: No Hx Tuberculosis: No Hx HIV: No - Surgical History Past Surgical History?: No - Social History Smoking Status: Never Smoker Substance Use Type: None - Medications Home Medications: Home Medications Medication Instructions Recorded Confirmed Last Taken Type Prednisone [predniSONE 5 mg (6-Day 5 mg PO .TAPER #1 tab.ds.pk 11/05/18 Unknown Rx Pack, 21 Tabs)] amLODIPine 5 mg PO QDAY #30 tablet 11/05/18 Unknown Rx Prednisone [predniSONE 10 mg 10 mg PO .TAPER #1 tab.ds.pk 11/11/18 Unknown Rx (6-Day Pack, 21 Tabs)] Albuterol Sulfate [Proair 90 mcg IH Q6H PRN #1 pump 04/20/19 Unknown Rx Respiclick] ALBUTEROL NEB's [Proventil 0.083% 2.5 mg IH TID PRN #25 neb 05/24/19 Unknown Rx NEBS] Nebulizer and Compressor [Morven 1 each MC Q6H #1 each 05/24/19 Unknown Rx Choice Nebulizer] Albuterol Sulfate [Proventil Hfa] 2 puff IH Q4HR PRN #1 hfa.aer.ad 05/27/19 Unknown Rx ALBUTEROL NEB's [Proventil 0.083% 2.5 mg IH Q4H PRN #25 vial 07/23/19 Unknown Rx NEBS] Acetaminophen/Codeine [Tylenol 1 tab PO Q6H PRN #12 tab 07/23/19 Unknown Rx /Codeine # 3 tab] Montelukast [Singulair] 10 mg PO QPM #30 tablet 07/23/19 Unknown Rx Nebulizer Accessories [Aeroneb Go] 1 each MC PRN PRN #1 each 07/23/19 Unknown Rx predniSONE [Deltasone] 40 mg PO QDAY 5 Days #10 tab 07/23/19 Unknown Rx Albuterol Sulfate [Proventil Hfa] 6.7 gm IH TID PRN #1 hfa.aer.ad 09/04/19 Unknown Rx predniSONE [Deltasone] 20 mg PO QDAY #10 tablet 09/04/19 Unknown Rx Albuterol Sulfate [Albuterol 0.63% 0.63 mg IH TID PRN #270 ml 09/15/19 Unknown Rx NEBS] Albuterol Sulfate [Proventil Hfa] 6.7 gm IH QID PRN #1 hfa.aer.ad 09/15/19 Unknown Rx predniSONE [Deltasone] 20 mg PO QDAY #5 tab 09/15/19 Unknown Rx predniSONE [Deltasone] 50 mg PO QDAY #5 tab 09/15/19 Unknown Rx ALBUTEROL NEB's [Proventil 0.083% 2.5 mg IH Q6HRT #14 nebu 10/20/19 Unknown Rx NEBS] Acetaminophen [Acetaminophen TAB] 650 mg PO Q4H PRN tablet 10/20/19 Unknown Rx Albuterol Mdi (or & Nicu Only) 2 puff IH QID PRN #1 inhalation 10/20/19 Unknown Rx [ProAir HFA Inhaler] predniSONE [Deltasone] 10 mg PO QDAY #60 tablet 10/20/19 Unknown Rx Albuterol Mdi (or & Nicu Only) 1 puff IH Q4-6H PRN #1 inha 01/25/20 Unknown Rx [ProAir HFA Inhaler] Montelukast [Singulair] 10 mg PO QPM #14 tablet 01/25/20 Unknown Rx predniSONE [Deltasone] 50 mg PO QDAY #5 tab 01/25/20 Unknown Rx ED Physical Exam - General Limitations: No Limitations General appearance: alert, in no apparent distress - Head Head exam: Present: atraumatic, normocephalic - Eye Eye exam: Present: normal appearance - ENT ENT exam: Present: mucous membranes moist - Neck Neck exam: Present: normal inspection - Respiratory Respiratory exam: Present: normal lung sounds bilaterally, wheezes. Absent: respiratory distress - Cardiovascular Cardiovascular Exam: Present: regular rate, normal rhythm. Absent: systolic murmur, diastolic murmur, rubs, gallop - GI/Abdominal GI/Abdominal exam: Present: soft, normal bowel sounds - Rectal Rectal exam: Present: deferred - Extremities Exam Extremities exam: Present: normal inspection - Back Exam Back exam: Present: normal inspection - Neurological Exam Neurological exam: Present: alert, oriented X3 - Psychiatric Psychiatric exam: Present: normal affect, normal mood - Skin Skin exam: Present: warm, dry, intact, normal color. Absent: rash ED Course Vital Signs 01/25/20 01/25/20 20:50 21:28 Temperature 97.2 F L Pulse Rate 88 Pulse Rate [ 94 H Bilateral Throughout] Respiratory 16 Rate Respiratory 20 Rate [Bilateral Throughout] Blood Pressure 154/91 O2 Sat by Pulse 95 Oximetry - Reevaluation(s) Reevaluation #2: 01/25/20 22:51 Mr. Young is is resting in bed no acute distress no active wheezing. Good air movement speaking in full sentences he is ambulatory with no residual complications. Discussed with patient the safety of his discharge and and he agrees with the plan and feels comfortable with doing so. ED Medical Decision Making - Medical Decision Making No altered mental status, saddle respirations, belly breathing or other signs of impending ventilatory failure. No intubations or recent admissions to the hospital for asthma. Unlikely pneumonia, CHF, COPD, GERD Workup Review include a chest x-ray which was normal she also received steroids and albuterol Therapies: Prednisone 50 mg PO. Albuterol nebulizer Reassessment: Patient improved with albuterol and ipratropium in less than 3 hours. Disposition: Discharge home with return precautions. Advised to follow up with primary care physician within next 24-48 hours. Aside from this acute exacerbation patient has been well controlled on baseline home regimen. Rx short steroid course, albuterol, Singulair, Flovent Critical care attestation.: If time is entered above; I have spent that time in minutes in the direct care of this critically ill patient, excluding procedure time. ED Disposition Clinical Impression: Acute asthma exacerbation, Asthma exacerbation Disposition: - TO HOME OR SELFCARE Is pt being admited?: No Does the pt Need Aspirin: No Condition: Stable Instructions: Asthma (ED) Prescriptions: predniSONE [Deltasone] 50 mg PO QDAY #5 tab Albuterol Mdi (or & Nicu Only) [ProAir HFA Inhaler] 1 puff IH Q4-6H PRN #1 inha PRN Reason: Cough Montelukast [Singulair] 10 mg PO QPM #14 tablet Referrals: PRIMARY CAREMD [Primary Care Provider] - 3-5 Days [facility] [Provider Group] - 3-5 Days
== END 2020-01-25 23:03 | disposition home or self-care (01) ==
LOC: ED 20:45
DX: J45.901 Unspecified asthma with (acute) exacerbation (principal); I10 Essential (primary) hypertension; Z79.899 Other long term (current) drug therapy
CPT/HCPCS: 94640; 99283; J7512; 94644

== ENCOUNTER 2020-02-24 16:09 | Emergency (ER) | payer MEDICAID ==
[2020-02-24] MEDS ORDERED: IPRATROPIUM/ALBUTEROL SULFATE 3 ML AMPUL.NEB IH ONE ×2 (16:19→16:20)
[2020-02-24] MEDS ORDERED: ALBUTEROL 2.5 MG/3 ML NEBU IH ONE ×2 (16:35→20:29)
--- NOTE | 2020-02-24 19:45 | XRay Report ---
CHEST 2 VIEWS INDICATION / CLINICAL INFORMATION: SOB, hx asthma. Dyspnea FINDINGS: SUPPORT DEVICES: None. HEART / MEDIASTINUM: No significant abnormality. LUNGS / PLEURA: No significant pulmonary or pleural abnormality. No pneumothorax. ADDITIONAL FINDINGS: No significant additional findings. IMPRESSION: 1. No acute findings. Signer Name: Sree Anne MD Signed: 02/24/2020 7:41 PM Workstation Name: [id number]
[2020-02-24] MEDS ORDERED: dexAMETHasone 20 MG/5 ML VIAL IM ONE (20:05)
[2020-02-24] MEDS ORDERED: IPRATROPIUM 0.02% NEBU 2.5 ML IH ONE (20:29)
[2020-02-24] MEDS ORDERED: LACTATED RINGERS 500 ML IV ONE (20:30)
[2020-02-24] MEDS ORDERED: MAGNESIUM SULFATE 2 GM/50 ML BAG IV ONE (20:30)
[2020-02-24] MEDS ORDERED: EPINEPHrine/PF 1 MG/1 ML INJ SUB-Q ONE (20:30)
--- NOTE | 2020-02-24 20:31 | Emergency Department Report ---
ED General Adult HPI - General Chief complaint: Adult Asthma Stated complaint: ASTHMA PUI?: No Time Seen by Provider: 02/24/20 20:11 Source: patient, RN notes reviewed, old records reviewed Mode of arrival: Ambulatory Limitations: No Limitations - History of Present Illness Initial comments: The patient was evaluated in the emergency department for symptoms described in the history of present illness. He/she was evaluated in the context of the global COVID-19 pandemic, which necessitated consideration that the patient might be at risk for infection with the virus that causes COVID-19. Institutional protocols and algorithms that pertain to the evaluation of patients at risk for COVID-19 are in a state of rapid change based on information released by regulatory bodies including the CDC and federal and state organizations. These policies and algorithms were followed during the patient's care in the emergency department. Please note that these policies, procedures and recommendations changed on a rapid basis. Mr. Young is a 59-year-old gentleman whom I evaluated in the past, with a prior history of tobacco use, and asthma/bronchitis. He ran out of his outpatient asthma medications. He presents to the ER with a complaint of painless wheezing, cough and shortness of breath. This is similar to prior exacerbations. He denies headache, neck pain, chest pain, abdominal pain, all physical pain, loss of taste, loss of smell, and COVID symptomatology. He also endorses that he is no longer smoking. -: Gradual, days(s) Consistency: constant Improves with: medication, rest Worsens with: movement - Related Data Previous Rx's Medication Instructions Recorded Last Taken Type Prednisone [predniSONE 5 mg (6-Day 5 mg PO .TAPER #1 tab.ds.pk 11/05/18 Unknown Rx Pack, 21 Tabs)] amLODIPine 5 mg PO QDAY #30 tablet 11/05/18 Unknown Rx Prednisone [predniSONE 10 mg 10 mg PO .TAPER #1 tab.ds.pk 11/11/18 Unknown Rx (6-Day Pack, 21 Tabs)] Albuterol Sulfate [Proair 90 mcg IH Q6H PRN #1 pump 04/20/19 Unknown Rx Respiclick] ALBUTEROL NEB's [Proventil 0.083% 2.5 mg IH TID PRN #25 neb 05/24/19 Unknown Rx NEBS] Nebulizer and Compressor [[place] 1 each MC Q6H #1 each 05/24/19 Unknown Rx Choice Nebulizer] Albuterol Sulfate [Proventil Hfa] 2 puff IH Q4HR PRN #1 hfa.aer.ad 05/27/19 Unknown Rx ALBUTEROL NEB's [Proventil 0.083% 2.5 mg IH Q4H PRN #25 vial 07/23/19 Unknown Rx NEBS] Acetaminophen/Codeine [Tylenol 1 tab PO Q6H PRN #12 tab 07/23/19 Unknown Rx /Codeine # 3 tab] Montelukast [Singulair] 10 mg PO QPM #30 tablet 07/23/19 Unknown Rx Nebulizer Accessories [Aeroneb Go] 1 each MC PRN PRN #1 each 07/23/19 Unknown Rx predniSONE [Deltasone] 40 mg PO QDAY 5 Days #10 tab 07/23/19 Unknown Rx Albuterol Sulfate [Proventil Hfa] 6.7 gm IH TID PRN #1 hfa.aer.ad 09/04/19 Unknown Rx predniSONE [Deltasone] 20 mg PO QDAY #10 tablet 09/04/19 Unknown Rx Albuterol Sulfate [Albuterol 0.63% 0.63 mg IH TID PRN #270 ml 09/15/19 Unknown Rx NEBS] Albuterol Sulfate [Proventil Hfa] 6.7 gm IH QID PRN #1 hfa.aer.ad 09/15/19 Unknown Rx predniSONE [Deltasone] 20 mg PO QDAY #5 tab 09/15/19 Unknown Rx predniSONE [Deltasone] 50 mg PO QDAY #5 tab 09/15/19 Unknown Rx ALBUTEROL NEB's [Proventil 0.083% 2.5 mg IH Q6HRT #14 nebu 10/20/19 Unknown Rx NEBS] Acetaminophen [Acetaminophen TAB] 650 mg PO Q4H PRN tablet 10/20/19 Unknown Rx Albuterol Mdi (or & Nicu Only) 2 puff IH QID PRN #1 inhalation 10/20/19 Unknown Rx [ProAir HFA Inhaler] predniSONE [Deltasone] 10 mg PO QDAY #60 tablet 10/20/19 Unknown Rx Albuterol Mdi (or & Nicu Only) 1 puff IH Q4-6H PRN #1 inha 01/25/20 Unknown Rx [ProAir HFA Inhaler] Montelukast [Singulair] 10 mg PO QPM #14 tablet 01/25/20 Unknown Rx predniSONE [Deltasone] 50 mg PO QDAY #5 tab 01/25/20 Unknown Rx Albuterol Sulfate [Albuterol 0.63% 0.63 mg IH Q4HR PRN #2 ml 02/24/20 Unknown Rx NEBS] Albuterol Sulfate [Proair 90 mcg IH Q4HR PRN #2 aer.pow.ba 02/24/20 Unknown Rx Respiclick] Ipratropium (Nf) [Atrovent] 2 puff IH Q6HR PRN #1 inha 02/24/20 Unknown Rx Ipratropium [Atrovent NEB] 0.5 mg IH Q4HR #2 ml 02/24/20 Unknown Rx predniSONE [Deltasone] 40 mg PO QDAY #8 tab 02/24/20 Unknown Rx Allergies Allergy/AdvReac Type Severity Reaction Status Date / Time No Known Allergies Allergy Verified 11/11/18 12:01 ED Review of Systems ROS: Stated complaint: ASTHMA Other details as noted in HPI Constitutional: denies: fever, malaise Eyes: denies: eye discharge, vision change ENT: congestion. denies: epistaxis Respiratory: shortness of breath, SOB with exertion, SOB at rest, wheezing Cardiovascular: denies: chest pain Gastrointestinal: denies: abdominal pain Musculoskeletal: denies: back pain Neurological: denies: weakness Hematological/Lymphatic: denies: easy bleeding ED Past Medical Hx - Past Medical History Previous Medical History?: Yes Hx Hypertension: Yes Hx Congestive Heart Failure: No Hx Diabetes: No Hx Sickle Cell Disease: No Hx Asthma: Yes Hx COPD: No Hx Tuberculosis: No Hx HIV: No - Social History Smoking Status: Never Smoker Substance Use Type: None - Medications Home Medications: Home Medications Medication Instructions Recorded Confirmed Last Taken Type Prednisone [predniSONE 5 mg (6-Day 5 mg PO .TAPER #1 tab.ds.pk 11/05/18 Unknown Rx Pack, 21 Tabs)] amLODIPine 5 mg PO QDAY #30 tablet 11/05/18 Unknown Rx Prednisone [predniSONE 10 mg 10 mg PO .TAPER #1 tab.ds.pk 11/11/18 Unknown Rx (6-Day Pack, 21 Tabs)] Albuterol Sulfate [Proair 90 mcg IH Q6H PRN #1 pump 04/20/19 Unknown Rx Respiclick] ALBUTEROL NEB's [Proventil 0.083% 2.5 mg IH TID PRN #25 neb 05/24/19 Unknown Rx NEBS] Nebulizer and Compressor [[place] 1 each MC Q6H #1 each 05/24/19 Unknown Rx Choice Nebulizer] Albuterol Sulfate [Proventil Hfa] 2 puff IH Q4HR PRN #1 hfa.aer.ad 05/27/19 Unknown Rx ALBUTEROL NEB's [Proventil 0.083% 2.5 mg IH Q4H PRN #25 vial 07/23/19 Unknown Rx NEBS] Acetaminophen/Codeine [Tylenol 1 tab PO Q6H PRN #12 tab 07/23/19 Unknown Rx /Codeine # 3 tab] Montelukast [Singulair] 10 mg PO QPM #30 tablet 07/23/19 Unknown Rx Nebulizer Accessories [Aeroneb Go] 1 each MC PRN PRN #1 each 07/23/19 Unknown Rx predniSONE [Deltasone] 40 mg PO QDAY 5 Days #10 tab 07/23/19 Unknown Rx Albuterol Sulfate [Proventil Hfa] 6.7 gm IH TID PRN #1 hfa.aer.ad 09/04/19 Unknown Rx predniSONE [Deltasone] 20 mg PO QDAY #10 tablet 09/04/19 Unknown Rx Albuterol Sulfate [Albuterol 0.63% 0.63 mg IH TID PRN #270 ml 09/15/19 Unknown Rx NEBS] Albuterol Sulfate [Proventil Hfa] 6.7 gm IH QID PRN #1 hfa.aer.ad 09/15/19 Unknown Rx predniSONE [Deltasone] 20 mg PO QDAY #5 tab 09/15/19 Unknown Rx predniSONE [Deltasone] 50 mg PO QDAY #5 tab 09/15/19 Unknown Rx ALBUTEROL NEB's [Proventil 0.083% 2.5 mg IH Q6HRT #14 nebu 10/20/19 Unknown Rx NEBS] Acetaminophen [Acetaminophen TAB] 650 mg PO Q4H PRN tablet 10/20/19 Unknown Rx Albuterol Mdi (or & Nicu Only) 2 puff IH QID PRN #1 inhalation 10/20/19 Unknown Rx [ProAir HFA Inhaler] predniSONE [Deltasone] 10 mg PO QDAY #60 tablet 10/20/19 Unknown Rx Albuterol Mdi (or & Nicu Only) 1 puff IH Q4-6H PRN #1 inha 01/25/20 Unknown Rx [ProAir HFA Inhaler] Montelukast [Singulair] 10 mg PO QPM #14 tablet 01/25/20 Unknown Rx predniSONE [Deltasone] 50 mg PO QDAY #5 tab 01/25/20 Unknown Rx Albuterol Sulfate [Albuterol 0.63% 0.63 mg IH Q4HR PRN #2 ml 02/24/20 Unknown Rx NEBS] Albuterol Sulfate [Proair 90 mcg IH Q4HR PRN #2 aer.pow.ba 02/24/20 Unknown Rx Respiclick] Ipratropium (Nf) [Atrovent] 2 puff IH Q6HR PRN #1 inha 02/24/20 Unknown Rx Ipratropium [Atrovent NEB] 0.5 mg IH Q4HR #2 ml 02/24/20 Unknown Rx predniSONE [Deltasone] 40 mg PO QDAY #8 tab 02/24/20 Unknown Rx ED Physical Exam - General Limitations: No Limitations General appearance: alert, anxious - Head Head exam: Present: atraumatic, normocephalic - Eye Eye exam: Present: normal appearance, EOMI. Absent: nystagmus - ENT ENT exam: Present: normal exam, normal orophraynx, mucous membranes moist, normal external ear exam - Neck Neck exam: Present: normal inspection, full ROM. Absent: tenderness, meningismus - Respiratory Respiratory exam: Present: respiratory distress, wheezes, accessory muscle use. Absent: rales, rhonchi, stridor - Cardiovascular Cardiovascular Exam: Present: regular rate, normal rhythm, normal heart sounds. Absent: bradycardia, tachycardia, irregular rhythm, systolic murmur, diastolic murmur, rubs, gallop - GI/Abdominal GI/Abdominal exam: Present: soft. Absent: distended, tenderness, guarding, rebound, rigid, pulsatile mass - Rectal Rectal exam: Present: deferred - Extremities Exam Extremities exam: Present: normal inspection, full ROM, other (2+ pulses noted in the bilateral upper and lower extremities. There is no palpable cord. negative Homans sign. Muscular compartments are soft. The pelvis is stable.). Absent: pedal edema, calf tenderness - Back Exam Back exam: Present: normal inspection, full ROM. Absent: tenderness, CVA tenderness (R), CVA tenderness (L), paraspinal tenderness, vertebral tenderness - Neurological Exam Neurological exam: Present: alert, other (No facial droop. Tongue midline. Extraocular movements intact bilaterally. Facial sensation intact to light touch in V1, V2, V3 distribution bilaterally. 5 and a 5 strength in 4 extremities. Sensation intact to light touch in 4 extremities.) - Psychiatric Psychiatric exam: Present: anxious - Skin Skin exam: Present: warm, dry, intact, normal color. Absent: rash ED Course Vital Signs 02/24/20 02/24/20 02/24/20 16:14 17:04 19:40 Temperature 98.4 F Pulse Rate 80 72 Pulse Rate [ 80 Anterior Bilateral Throughout] Respiratory 26 H Rate Respiratory 20 Rate [Anterior Bilateral Throughout] Blood Pressure 141/98 Blood Pressure 164/107 [Right] O2 Sat by Pulse 95 96 Oximetry 02/24/20 02/24/20 02/24/20 19:41 20:13 20:17 Temperature 97.7 F Pulse Rate 69 Pulse Rate [ Anterior Bilateral Throughout] Respiratory 13 Rate Respiratory Rate [Anterior Bilateral Throughout] Blood Pressure Blood Pressure [Right] O2 Sat by Pulse 92 96 Oximetry 02/24/20 02/24/20 02/24/20 20:21 20:28 20:41 Temperature 97.8 F Pulse Rate 63 74 64 Pulse Rate [ Anterior Bilateral Throughout] Respiratory 13 12 15 Rate Respiratory Rate [Anterior Bilateral Throughout] Blood Pressure 133/87 133/87 133/87 Blood Pressure 133/87 [Right] O2 Sat by Pulse 95 98 96 Oximetry 02/24/20 02/24/20 02/24/20 20:45 20:51 21:05 Temperature Pulse Rate 63 64 61 Pulse Rate [ Anterior Bilateral Throughout] Respiratory 12 12 13 Rate Respiratory Rate [Anterior Bilateral Throughout] Blood Pressure 133/87 133/87 127/92 Blood Pressure [Right] O2 Sat by Pulse 97 97 95 Oximetry 02/24/20 02/24/20 02/24/20 21:11 21:15 21:21 Temperature Pulse Rate 62 61 72 Pulse Rate [ Anterior Bilateral Throughout] Respiratory 16 13 18 Rate Respiratory Rate [Anterior Bilateral Throughout] Blood Pressure 122/100 122/100 122/100 Blood Pressure [Right] O2 Sat by Pulse 99 97 97 Oximetry - Reevaluation(s) Reevaluation #1: 02/24/20 20:55 Torrential diagnosis, including but not limited to: Bronchitis, asthma, reactive airway disease Assessment and plan: 59-year-old gentleman whom I evaluated in the past, presenting with wheezing and likely recurrent reactive airway disease exacerbation, likely secondary to running out of his medication. He denies fever, cough, loss of taste and smell, and DVT, pulmonary embolism risk factors. He is low risk by Wells criteria. We will treat with albuterol, Atrovent, steroids, magnesium, subcutaneous epinephrine, and reassess Reevaluation #2: 02/24/20 22:12 Patient is reassessed multiple times. His wheezing has improved. He is playing on his cellular phone. He reports that he is ready for discharge. His wheezing is resolved, his vital signs are stable, and he is medically suitable for discharge at this point time ED Medical Decision Making - Lab Data Vital Signs 02/24/20 02/24/20 02/24/20 16:14 17:04 19:40 Temperature 98.4 F Pulse Rate 80 72 Pulse Rate [ 80 Anterior Bilateral Throughout] Respiratory 26 H Rate Respiratory 20 Rate [Anterior Bilateral Throughout] Blood Pressure 141/98 Blood Pressure 164/107 [Right] O2 Sat by Pulse 95 96 Oximetry 02/24/20 02/24/20 02/24/20 19:41 20:13 20:17 Temperature 97.7 F Pulse Rate 69 Pulse Rate [ Anterior Bilateral Throughout] Respiratory 13 Rate Respiratory Rate [Anterior Bilateral Throughout] Blood Pressure Blood Pressure [Right] O2 Sat by Pulse 92 96 Oximetry 02/24/20 02/24/20 20:21 20:28 Temperature 97.8 F Pulse Rate 63 74 Pulse Rate [ Anterior Bilateral Throughout] Respiratory 13 18 Rate Respiratory Rate [Anterior Bilateral Throughout] Blood Pressure 133/87 Blood Pressure 133/87 [Right] O2 Sat by Pulse 95 98 Oximetry - Radiology Data Radiology results: report reviewed, image reviewed X-ray of the chest is negative for acute disease Critical care attestation.: If time is entered above; I have spent that time in minutes in the direct care of this critically ill patient, excluding procedure time. ED Disposition Clinical Impression: Acute asthma exacerbation Qualifiers: Asthma severity: unspecified severity Asthma persistence: intermittent Qualified Code(s): J45.21 - Mild intermittent asthma with (acute) exacerbation Disposition: TO HOME OR SELFCARE Is pt being admited?: No Does the pt Need Aspirin: No Condition: Stable Instructions: Asthma (ED) Additional Instructions: Take the medications as needed and directed. Avoid consumption of tobacco and smoke products. Follow-up with an outpatient primary care doctor within the next 7 to 10 days. Return to the emergency room right away with new pain, worsened pain, migration of pain, projectile vomiting, change in mental status, confusion, inability to tolerate liquid feeds, new, worsened or different symptoms not present on the initial emergency room evaluation. Referrals: DI CONWAY MD [Primary Care Provider] - 3-5 Days XI TOMLINSON MD [Staff Physician] - 3-5 Days [facility] [Provider Group] - 3-5 Days
[2020-02-24 22:31] VITALS: BP 134/87
== END 2020-02-24 22:25 | disposition home or self-care (01) ==
LOC: ED 16:09
DX: J45.901 Unspecified asthma with (acute) exacerbation (principal); I10 Essential (primary) hypertension; Z79.899 Other long term (current) drug therapy
CPT/HCPCS: 71046; 94640; 94644; 96365; 96372; 99284; J0171; J1100; J3475; J7120

== ENCOUNTER 2020-03-17 20:49 | Emergency (ER) | payer MEDICAID ==
[2020-03-17] MEDS ORDERED: IPRATROPIUM 0.02% NEBU 2.5 ML IH ONE (20:52)
[2020-03-17] MEDS ORDERED: ALBUTEROL 2.5 MG/3 ML NEBU IH ONE (20:52)
[2020-03-17] MEDS ORDERED: methylPREDNISolone Sod Succinate 125 MG/2 ML INJ IM STA (20:52)
--- NOTE | 2020-03-17 20:57 | Event Note ---
ED Screening Note Date of service: 03/17/20 Time: 20:51 ED Screening Note: c/o SOB due to asthma x today mild cough per pt hypoxic aound 90% on room air denies hx of intubation pt placed on 2 L nasal cannula neb tx ordered. Resp called This initial assessment/diagnostic orders/clinical plan/treatment(s) is/are subject to change based on patients health status, clinical progression and re- assessment by fellow clinical providers in the ED. Further treatment and workup at subsequent clinical providers discretion. Patient/guardian urged not to elope from the ED as their condition may be serious if not clinically assessed and managed. Initial orders include: CXR neb tx
[2020-03-17] MEDS ORDERED: diphenhydrAMINE 50 MG/ML VIAL IV STA (21:32)
--- NOTE | 2020-03-17 21:32 | Emergency Department Report ---
ED Asthma HPI - General Chief Complaint: Dyspnea/Respdistress Stated Complaint: ALEKSANDAR/ASTHMA Time Seen by Provider: 03/17/20 20:50 Source: patient Mode of arrival: Ambulatory Limitations: No Limitations - History of Present Illness Initial Comments: 59 years F [place] male with known history of asthma since [facility] complaining of an asthma flareup which was secondary to an encounter with a dog. Reports having some wheezing sensation and lower tightness in his chest was not responding to his albuterol pump Complaint: "asthma attack", wheezing -: Gradual Severity: mild, moderate Context: other (Was around a dog with excessive sweating which causes asthma to trigger) Associated Symptoms: dry cough - Related Data Current Asthma Therapy: inhaled bronchodilator Previous Rx's Medication Instructions Recorded Last Taken Type Prednisone [predniSONE 5 mg (6-Day 5 mg PO .TAPER #1 tab.ds.pk 11/05/18 Unknown Rx Pack, 21 Tabs)] amLODIPine 5 mg PO QDAY #30 tablet 11/05/18 Unknown Rx Prednisone [predniSONE 10 mg 10 mg PO .TAPER #1 tab.ds.pk 11/11/18 Unknown Rx (6-Day Pack, 21 Tabs)] Albuterol Sulfate [Proair 90 mcg IH Q6H PRN #1 pump 04/20/19 Unknown Rx Respiclick] ALBUTEROL NEB's [Proventil 0.083% 2.5 mg IH TID PRN #25 neb 05/24/19 Unknown Rx NEBS] Nebulizer and Compressor [[place] 1 each MC Q6H #1 each 05/24/19 Unknown Rx Choice Nebulizer] Albuterol Sulfate [Proventil Hfa] 2 puff IH Q4HR PRN #1 hfa.aer.ad 05/27/19 Unknown Rx ALBUTEROL NEB's [Proventil 0.083% 2.5 mg IH Q4H PRN #25 vial 07/23/19 Unknown Rx NEBS] Acetaminophen/Codeine [Tylenol 1 tab PO Q6H PRN #12 tab 07/23/19 Unknown Rx /Codeine # 3 tab] Montelukast [Singulair] 10 mg PO QPM #30 tablet 07/23/19 Unknown Rx Nebulizer Accessories [Aeroneb Go] 1 each MC PRN PRN #1 each 07/23/19 Unknown Rx predniSONE [Deltasone] 40 mg PO QDAY 5 Days #10 tab 07/23/19 Unknown Rx Albuterol Sulfate [Proventil Hfa] 6.7 gm IH TID PRN #1 hfa.aer.ad 09/04/19 Unknown Rx predniSONE [Deltasone] 20 mg PO QDAY #10 tablet 09/04/19 Unknown Rx Albuterol Sulfate [Albuterol 0.63% 0.63 mg IH TID PRN #270 ml 09/15/19 Unknown Rx NEBS] Albuterol Sulfate [Proventil Hfa] 6.7 gm IH QID PRN #1 hfa.aer.ad 09/15/19 Unknown Rx predniSONE [Deltasone] 20 mg PO QDAY #5 tab 09/15/19 Unknown Rx predniSONE [Deltasone] 50 mg PO QDAY #5 tab 09/15/19 Unknown Rx ALBUTEROL NEB's [Proventil 0.083% 2.5 mg IH Q6HRT #14 nebu 10/20/19 Unknown Rx NEBS] Acetaminophen [Acetaminophen TAB] 650 mg PO Q4H PRN tablet 10/20/19 Unknown Rx Albuterol Mdi (or & Nicu Only) 2 puff IH QID PRN #1 inhalation 10/20/19 Unknown Rx [ProAir HFA Inhaler] predniSONE [Deltasone] 10 mg PO QDAY #60 tablet 10/20/19 Unknown Rx Albuterol Mdi (or & Nicu Only) 1 puff IH Q4-6H PRN #1 inha 01/25/20 Unknown Rx [ProAir HFA Inhaler] Montelukast [Singulair] 10 mg PO QPM #14 tablet 01/25/20 Unknown Rx predniSONE [Deltasone] 50 mg PO QDAY #5 tab 01/25/20 Unknown Rx Albuterol Sulfate [Albuterol 0.63% 0.63 mg IH Q4HR PRN #2 ml 02/24/20 Unknown Rx NEBS] Albuterol Sulfate [Proair 90 mcg IH Q4HR PRN #2 aer.pow.ba 02/24/20 Unknown Rx Respiclick] Ipratropium (Nf) [Atrovent] 2 puff IH Q6HR PRN #1 inha 02/24/20 Unknown Rx Ipratropium [Atrovent NEB] 0.5 mg IH Q4HR #2 ml 02/24/20 Unknown Rx predniSONE [Deltasone] 40 mg PO QDAY #8 tab 02/24/20 Unknown Rx ALBUTEROL NEB's [Proventil 0.083% 2.5 mg IH TID PRN #30 neb 03/17/20 Unknown Rx NEBS] Albuterol Mdi (or & Nicu Only) 2 puff IH QID PRN #1 inhalation 03/17/20 Unknown Rx [ProAir HFA Inhaler] Montelukast [Singulair] 10 mg PO QPM #14 tablet 03/17/20 Unknown Rx predniSONE [Deltasone] 50 mg PO QDAY #5 tab 03/17/20 Unknown Rx Allergies Allergy/AdvReac Type Severity Reaction Status Date / Time No Known Allergies Allergy Verified 11/11/18 12:01 ED Review of Systems ROS: Stated complaint: ALEKSANDAR/ASTHMA Other details as noted in HPI Comment: All other systems reviewed and negative ED Past Medical Hx - Past Medical History Hx Hypertension: Yes Hx Congestive Heart Failure: No Hx Diabetes: No Hx Sickle Cell Disease: No Hx Asthma: Yes Hx COPD: No Hx Tuberculosis: No Hx HIV: No - Social History Smoking Status: Never Smoker Substance Use Type: None - Medications Home Medications: Home Medications Medication Instructions Recorded Confirmed Last Taken Type Prednisone [predniSONE 5 mg (6-Day 5 mg PO .TAPER #1 tab.ds.pk 11/05/18 Unknown Rx Pack, 21 Tabs)] amLODIPine 5 mg PO QDAY #30 tablet 11/05/18 Unknown Rx Prednisone [predniSONE 10 mg 10 mg PO .TAPER #1 tab.ds.pk 11/11/18 Unknown Rx (6-Day Pack, 21 Tabs)] Albuterol Sulfate [Proair 90 mcg IH Q6H PRN #1 pump 04/20/19 Unknown Rx Respiclick] ALBUTEROL NEB's [Proventil 0.083% 2.5 mg IH TID PRN #25 neb 05/24/19 Unknown Rx NEBS] Nebulizer and Compressor [[place] 1 each MC Q6H #1 each 05/24/19 Unknown Rx Choice Nebulizer] Albuterol Sulfate [Proventil Hfa] 2 puff IH Q4HR PRN #1 hfa.aer.ad 05/27/19 Unknown Rx ALBUTEROL NEB's [Proventil 0.083% 2.5 mg IH Q4H PRN #25 vial 07/23/19 Unknown Rx NEBS] Acetaminophen/Codeine [Tylenol 1 tab PO Q6H PRN #12 tab 07/23/19 Unknown Rx /Codeine # 3 tab] Montelukast [Singulair] 10 mg PO QPM #30 tablet 07/23/19 Unknown Rx Nebulizer Accessories [Aeroneb Go] 1 each MC PRN PRN #1 each 07/23/19 Unknown Rx predniSONE [Deltasone] 40 mg PO QDAY 5 Days #10 tab 07/23/19 Unknown Rx Albuterol Sulfate [Proventil Hfa] 6.7 gm IH TID PRN #1 hfa.aer.ad 09/04/19 Unknown Rx predniSONE [Deltasone] 20 mg PO QDAY #10 tablet 09/04/19 Unknown Rx Albuterol Sulfate [Albuterol 0.63% 0.63 mg IH TID PRN #270 ml 09/15/19 Unknown Rx NEBS] Albuterol Sulfate [Proventil Hfa] 6.7 gm IH QID PRN #1 hfa.aer.ad 09/15/19 Unknown Rx predniSONE [Deltasone] 20 mg PO QDAY #5 tab 09/15/19 Unknown Rx predniSONE [Deltasone] 50 mg PO QDAY #5 tab 09/15/19 Unknown Rx ALBUTEROL NEB's [Proventil 0.083% 2.5 mg IH Q6HRT #14 nebu 10/20/19 Unknown Rx NEBS] Acetaminophen [Acetaminophen TAB] 650 mg PO Q4H PRN tablet 10/20/19 Unknown Rx Albuterol Mdi (or & Nicu Only) 2 puff IH QID PRN #1 inhalation 10/20/19 Unknown Rx [ProAir HFA Inhaler] predniSONE [Deltasone] 10 mg PO QDAY #60 tablet 10/20/19 Unknown Rx Albuterol Mdi (or & Nicu Only) 1 puff IH Q4-6H PRN #1 inha 01/25/20 Unknown Rx [ProAir HFA Inhaler] Montelukast [Singulair] 10 mg PO QPM #14 tablet 01/25/20 Unknown Rx predniSONE [Deltasone] 50 mg PO QDAY #5 tab 01/25/20 Unknown Rx Albuterol Sulfate [Albuterol 0.63% 0.63 mg IH Q4HR PRN #2 ml 02/24/20 Unknown Rx NEBS] Albuterol Sulfate [Proair 90 mcg IH Q4HR PRN #2 aer.pow.ba 02/24/20 Unknown Rx Respiclick] Ipratropium (Nf) [Atrovent] 2 puff IH Q6HR PRN #1 inha 02/24/20 Unknown Rx Ipratropium [Atrovent NEB] 0.5 mg IH Q4HR #2 ml 02/24/20 Unknown Rx predniSONE [Deltasone] 40 mg PO QDAY #8 tab 02/24/20 Unknown Rx ALBUTEROL NEB's [Proventil 0.083% 2.5 mg IH TID PRN #30 neb 03/17/20 Unknown Rx NEBS] Albuterol Mdi (or & Nicu Only) 2 puff IH QID PRN #1 inhalation 03/17/20 Unknown Rx [ProAir HFA Inhaler] Montelukast [Singulair] 10 mg PO QPM #14 tablet 03/17/20 Unknown Rx predniSONE [Deltasone] 50 mg PO QDAY #5 tab 03/17/20 Unknown Rx ED Physical Exam - General Limitations: No Limitations General appearance: alert, in no apparent distress - Head Head exam: Present: atraumatic, normocephalic - Eye Eye exam: Present: normal appearance, PERRL Pupils: Present: normal accommodation - ENT ENT exam: Present: normal exam, normal orophraynx, mucous membranes moist - Neck Neck exam: Present: normal inspection, full ROM - Respiratory Respiratory exam: Present: normal lung sounds bilaterally, wheezes, accessory muscle use, decreased breath sounds. Absent: respiratory distress, rales - Cardiovascular Cardiovascular Exam: Present: regular rate, normal rhythm. Absent: systolic murmur, diastolic murmur, rubs, gallop - GI/Abdominal GI/Abdominal exam: Present: soft, normal bowel sounds. Absent: tenderness, guarding - Rectal Rectal exam: Present: deferred - Extremities Exam Extremities exam: Present: normal inspection, full ROM, normal capillary refill - Back Exam Back exam: Present: normal inspection - Neurological Exam Neurological exam: Present: alert, oriented X3 - Psychiatric Psychiatric exam: Present: normal affect, normal mood - Skin Skin exam: Present: warm, dry, intact, normal color. Absent: rash ED Medical Decision Making - Radiology Data Radiology results: report reviewed [facility] [address] [place] [address] XRay Report Signed Patient: OSCAR BARBA MR #: [id number] : 1960 Acct:[id number] Age/Sex: 59 / M ADM Date: 03/17/20 Loc: ED Attending Dr: Ordering Physician: GWENDOLYN INTERIANO Date of Service: 03/17/20 Procedure(s): XR chest routine 2V Accession Number(s): [id number] cc: GWENDOLYN INTERIANO Fluoro Time In Minutes: CHEST 2 VIEWS INDICATION / CLINICAL INFORMATION: shortness of breath, hypoxia. COMPARISON: 02/24/2020 FINDINGS: SUPPORT DEVICES: None. HEART / MEDIASTINUM: Stable. LUNGS / PLEURA: No significant pulmonary or pleural abnormality. No pneumothorax. ADDITIONAL FINDINGS: No significant additional findings. IMPRESSION: 1. No acute findings. No significant interval change. Signer Name: Stephan Kang MD Signed: 03/17/2020 10:44 PM Workstation Name: [id number] Transcribed By: Dictated By: STEPHAN KANG Electronically Authenticated By: STEPHAN KANG Signed Date/Time: 03/17/202243 DD/ 42 TD/TT: - Medical Decision Making This patient presents with dyspnea most likely secondary to asthma exacerbation. Differential diagnosis includes asthma, bronchitis, pleuritic pulmonary issue, viral syndrome. Presentation not consistent with acute cardiac etiologies to include ACS , CHF, pericardial effusion/tamponade. Presentation not consistent with acute respiratory etiologies to include acute pulmonary embolism ( PERC negative), pneumothorax, infectious etiology such as pneumonia. The presentation also not consistent with known cardiopulmonary causes to include toxic syndrome, metabolic etiology such as acidemia or electrolyte derangements, sepsis, neurologic causes. Mr. Barba does have some increased work of breath ing at the beginning of his visit was improved significantly with treatment. There is no altered mental status. No other signs of any ventilatory failure. No intubations or rehab or recent admissions to the hospital for asthma. His chest x-ray showed no acute processes and he received steroids, albuterol magnesium and fluids. He did show significant improvement and he was discharged home Disposition: Discharge home with return precautions. Advised to follow up with primary care physician within next 24-48 hours. Aside from this acute exacerbation patient has been well controlled on baseline home regimen. Rx short steroid course, albuterol, Singulair, Flovent Critical care attestation.: If time is entered above; I have spent that time in minutes in the direct care of this critically ill patient, excluding procedure time. ED Disposition Condition: Stable Referrals: PRIMARY CARE, [Primary Care Provider] - 3-5 Days
[2020-03-17] MEDS ORDERED: MAGNESIUM SULFATE 2 GM/50 ML BAG IV ONE (21:34)
[2020-03-17] MEDS ORDERED: SODIUM CHLORIDE 0.9% 1000 ML 1,000 ML ONE (21:47)
[2020-03-17] MEDS ORDERED: SODIUM CHLORIDE 0.9% 1000 ML 1,000 ML IV ONE (21:48)
--- NOTE | 2020-03-17 22:49 | XRay Report ---
CHEST 2 VIEWS INDICATION / CLINICAL INFORMATION: shortness of breath, hypoxia. COMPARISON: 02/24/2020 FINDINGS: SUPPORT DEVICES: None. HEART / MEDIASTINUM: Stable. LUNGS / PLEURA: No significant pulmonary or pleural abnormality. No pneumothorax. ADDITIONAL FINDINGS: No significant additional findings. IMPRESSION: 1. No acute findings. No significant interval change. Signer Name: Stephan Corbin MD Signed: 03/17/2020 10:44 PM Workstation Name: [id number]
[2020-03-18 03:38] VITALS: BP 111/79
== END 2020-03-18 03:45 | disposition home or self-care (01) ==
LOC: ED 20:49
DX: J45.909 Unspecified asthma, uncomplicated (principal); I10 Essential (primary) hypertension; Z79.899 Other long term (current) drug therapy
CPT/HCPCS: 71046; 94640; 96365; 96372; 96375; 99283; J1200; J2930; J3475; J7030

== ENCOUNTER 2020-04-21 08:40 | Emergency (ER) | payer MEDICAID ==
[2020-04-21] MEDS ORDERED: ALBUTEROL 2.5 MG/3 ML NEBU IH ONE (08:59)
[2020-04-21] MEDS ORDERED: IPRATROPIUM 0.02% NEBU 2.5 ML IH ONE (09:07)
[2020-04-21] MEDS ORDERED: methylPREDNISolone Sod Succinate 125 MG/2 ML INJ IV ONE (09:07)
[2020-04-21] MEDS ORDERED: MAGNESIUM SULFATE 2 GM/50 ML BAG IV ONE (09:07)
--- NOTE | 2020-04-21 09:13 | Emergency Department Report ---
ED Asthma HPI - General Chief Complaint: Adult Asthma Stated Complaint: ASTHMA PUI?: No Time Seen by Provider: 04/21/20 08:52 Source: patient, EMS Mode of arrival: Stretcher Limitations: No Limitations - History of Present Illness Initial Comments: Patient is 59 years old male with history of asthma, hypertension. Patient presented to the ER complaining of shortness of breath and wheezing since last night. Patient received albuterol 5 mg inhalation by EMS however patient still wheezing on arrival to the ER with an oxygen saturation of 94% on room air. Patient denied any fever or chills. No chest pain. MD Complaint: "asthma attack", shortness of breath, wheezing -: Last night Severity: moderate Treatments Prior to Arrival: inhaled bronchodilator - Related Data Current Asthma Therapy: inhaled bronchodilator Previous Rx's Medication Instructions Recorded Last Taken Type Prednisone [predniSONE 5 mg (6-Day 5 mg PO .TAPER #1 tab.ds.pk 11/05/18 Unknown Rx Pack, 21 Tabs)] amLODIPine 5 mg PO QDAY #30 tablet 11/05/18 Unknown Rx Prednisone [predniSONE 10 mg 10 mg PO .TAPER #1 tab.ds.pk 11/11/18 Unknown Rx (6-Day Pack, 21 Tabs)] Albuterol Sulfate [Proair 90 mcg IH Q6H PRN #1 pump 04/20/19 Unknown Rx Respiclick] ALBUTEROL NEB's [Proventil 0.083% 2.5 mg IH TID PRN #25 neb 05/24/19 Unknown Rx NEBS] Nebulizer and Compressor [[place] 1 each MC Q6H #1 each 05/24/19 Unknown Rx Choice Nebulizer] Albuterol Sulfate [Proventil Hfa] 2 puff IH Q4HR PRN #1 hfa.aer.ad 05/27/19 Unknown Rx ALBUTEROL NEB's [Proventil 0.083% 2.5 mg IH Q4H PRN #25 vial 07/23/19 Unknown Rx NEBS] Acetaminophen/Codeine [Tylenol 1 tab PO Q6H PRN #12 tab 07/23/19 Unknown Rx /Codeine # 3 tab] Montelukast [Singulair] 10 mg PO QPM #30 tablet 07/23/19 Unknown Rx Nebulizer Accessories [Aeroneb Go] 1 each MC PRN PRN #1 each 07/23/19 Unknown Rx predniSONE [Deltasone] 40 mg PO QDAY 5 Days #10 tab 07/23/19 Unknown Rx Albuterol Sulfate [Proventil Hfa] 6.7 gm IH TID PRN #1 hfa.aer.ad 09/04/19 Unknown Rx predniSONE 20 mg PO QDAY #10 tablet 09/04/19 Unknown Rx Albuterol Sulfate [Albuterol 0.63% 0.63 mg IH TID PRN #270 ml 09/15/19 Unknown Rx NEBS] Albuterol Sulfate [Proventil Hfa] 6.7 gm IH QID PRN #1 hfa.aer.ad 09/15/19 Unknown Rx predniSONE [Deltasone] 20 mg PO QDAY #5 tab 09/15/19 Unknown Rx predniSONE [Deltasone] 50 mg PO QDAY #5 tab 09/15/19 Unknown Rx ALBUTEROL NEB's [Proventil 0.083% 2.5 mg IH Q6HRT #14 nebu 10/20/19 Unknown Rx NEBS] Acetaminophen [Acetaminophen TAB] 650 mg PO Q4H PRN tablet 10/20/19 Unknown Rx Albuterol Mdi (or & Nicu Only) 2 puff IH QID PRN #1 inhalation 10/20/19 Unknown Rx [ProAir HFA Inhaler] predniSONE 10 mg PO QDAY #60 tablet 10/20/19 Unknown Rx Albuterol Mdi (or & Nicu Only) 1 puff IH Q4-6H PRN #1 inha 01/25/20 Unknown Rx [ProAir HFA Inhaler] Montelukast [Singulair] 10 mg PO QPM #14 tablet 01/25/20 Unknown Rx predniSONE [Deltasone] 50 mg PO QDAY #5 tab 01/25/20 Unknown Rx Albuterol Sulfate [Albuterol 0.63% 0.63 mg IH Q4HR PRN #2 ml 02/24/20 Unknown Rx NEBS] Albuterol Sulfate [Proair 90 mcg IH Q4HR PRN #2 aer.pow.ba 02/24/20 Unknown Rx Respiclick] Ipratropium (Nf) [Atrovent] 2 puff IH Q6HR PRN #1 inha 02/24/20 Unknown Rx Ipratropium [Atrovent NEB] 0.5 mg IH Q4HR #2 ml 02/24/20 Unknown Rx predniSONE [Deltasone] 40 mg PO QDAY #8 tab 02/24/20 Unknown Rx ALBUTEROL NEB's [Proventil 0.083% 2.5 mg IH TID PRN #30 neb 03/17/20 Unknown Rx NEBS] Albuterol Mdi (or & Nicu Only) 2 puff IH QID PRN #1 inhalation 03/17/20 Unknown Rx [ProAir HFA Inhaler] Montelukast [Singulair] 10 mg PO QPM #14 tablet 03/17/20 Unknown Rx predniSONE [Deltasone] 50 mg PO QDAY #5 tab 03/17/20 Unknown Rx Allergies Allergy/AdvReac Type Severity Reaction Status Date / Time No Known Allergies Allergy Verified 11/11/18 12:01 ED Review of Systems ROS: Stated complaint: ASTHMA Other details as noted in HPI Comment: All other systems reviewed and negative Constitutional: denies: chills, fever Respiratory: shortness of breath, SOB with exertion, SOB at rest, wheezing. denies: cough Cardiovascular: denies: chest pain, palpitations Gastrointestinal: denies: abdominal pain, nausea, vomiting Musculoskeletal: denies: back pain ED Past Medical Hx - Past Medical History Hx Hypertension: Yes Hx Congestive Heart Failure: No Hx Diabetes: No Hx Sickle Cell Disease: No Hx Asthma: Yes Hx COPD: No Hx Tuberculosis: No Hx HIV: No - Social History Smoking Status: Unknown if ever smoked - Medications Home Medications: Home Medications Medication Instructions Recorded Confirmed Last Taken Type Prednisone [predniSONE 5 mg (6-Day 5 mg PO .TAPER #1 tab.ds.pk 11/05/18 Unknown Rx Pack, 21 Tabs)] amLODIPine 5 mg PO QDAY #30 tablet 11/05/18 Unknown Rx Prednisone [predniSONE 10 mg 10 mg PO .TAPER #1 tab.ds.pk 11/11/18 Unknown Rx (6-Day Pack, 21 Tabs)] Albuterol Sulfate [Proair 90 mcg IH Q6H PRN #1 pump 04/20/19 Unknown Rx Respiclick] ALBUTEROL NEB's [Proventil 0.083% 2.5 mg IH TID PRN #25 neb 05/24/19 Unknown Rx NEBS] Nebulizer and Compressor [[place] 1 each MC Q6H #1 each 05/24/19 Unknown Rx Choice Nebulizer] Albuterol Sulfate [Proventil Hfa] 2 puff IH Q4HR PRN #1 hfa.aer.ad 05/27/19 Unknown Rx ALBUTEROL NEB's [Proventil 0.083% 2.5 mg IH Q4H PRN #25 vial 07/23/19 Unknown Rx NEBS] Acetaminophen/Codeine [Tylenol 1 tab PO Q6H PRN #12 tab 07/23/19 Unknown Rx /Codeine # 3 tab] Montelukast [Singulair] 10 mg PO QPM #30 tablet 07/23/19 Unknown Rx Nebulizer Accessories [Aeroneb Go] 1 each MC PRN PRN #1 each 07/23/19 Unknown Rx predniSONE [Deltasone] 40 mg PO QDAY 5 Days #10 tab 07/23/19 Unknown Rx Albuterol Sulfate [Proventil Hfa] 6.7 gm IH TID PRN #1 hfa.aer.ad 09/04/19 Unknown Rx predniSONE 20 mg PO QDAY #10 tablet 09/04/19 Unknown Rx Albuterol Sulfate [Albuterol 0.63% 0.63 mg IH TID PRN #270 ml 09/15/19 Unknown Rx NEBS] Albuterol Sulfate [Proventil Hfa] 6.7 gm IH QID PRN #1 hfa.aer.ad 09/15/19 Unknown Rx predniSONE [Deltasone] 20 mg PO QDAY #5 tab 09/15/19 Unknown Rx predniSONE [Deltasone] 50 mg PO QDAY #5 tab 09/15/19 Unknown Rx ALBUTEROL NEB's [Proventil 0.083% 2.5 mg IH Q6HRT #14 nebu 10/20/19 Unknown Rx NEBS] Acetaminophen [Acetaminophen TAB] 650 mg PO Q4H PRN tablet 10/20/19 Unknown Rx Albuterol Mdi (or & Nicu Only) 2 puff IH QID PRN #1 inhalation 10/20/19 Unknown Rx [ProAir HFA Inhaler] predniSONE 10 mg PO QDAY #60 tablet 10/20/19 Unknown Rx Albuterol Mdi (or & Nicu Only) 1 puff IH Q4-6H PRN #1 inha 01/25/20 Unknown Rx [ProAir HFA Inhaler] Montelukast [Singulair] 10 mg PO QPM #14 tablet 01/25/20 Unknown Rx predniSONE [Deltasone] 50 mg PO QDAY #5 tab 01/25/20 Unknown Rx Albuterol Sulfate [Albuterol 0.63% 0.63 mg IH Q4HR PRN #2 ml 02/24/20 Unknown Rx NEBS] Albuterol Sulfate [Proair 90 mcg IH Q4HR PRN #2 aer.pow.ba 02/24/20 Unknown Rx Respiclick] Ipratropium (Nf) [Atrovent] 2 puff IH Q6HR PRN #1 inha 02/24/20 Unknown Rx Ipratropium [Atrovent NEB] 0.5 mg IH Q4HR #2 ml 02/24/20 Unknown Rx predniSONE [Deltasone] 40 mg PO QDAY #8 tab 02/24/20 Unknown Rx ALBUTEROL NEB's [Proventil 0.083% 2.5 mg IH TID PRN #30 neb 03/17/20 Unknown Rx NEBS] Albuterol Mdi (or & Nicu Only) 2 puff IH QID PRN #1 inhalation 03/17/20 Unknown Rx [ProAir HFA Inhaler] Montelukast [Singulair] 10 mg PO QPM #14 tablet 03/17/20 Unknown Rx predniSONE [Deltasone] 50 mg PO QDAY #5 tab 03/17/20 Unknown Rx ED Physical Exam - General Limitations: No Limitations General appearance: alert, in no apparent distress - Head Head exam: Present: atraumatic, normocephalic, normal inspection - Eye Eye exam: Present: normal appearance - ENT ENT exam: Present: normal exam, normal orophraynx, mucous membranes moist - Neck Neck exam: Present: normal inspection, full ROM. Absent: tenderness, meningismus - Respiratory Respiratory exam: Present: normal lung sounds bilaterally - Cardiovascular Cardiovascular Exam: Present: regular rate, normal rhythm, normal heart sounds - GI/Abdominal GI/Abdominal exam: Present: soft, normal bowel sounds. Absent: distended, tenderness, guarding, rebound, rigid, organomegaly, mass, bruit, pulsatile mass, hernia - Extremities Exam Extremities exam: Present: normal inspection, full ROM, normal capillary refill. Absent: tenderness, pedal edema, joint swelling, calf tenderness - Back Exam Back exam: Present: normal inspection, full ROM. Absent: CVA tenderness (R), CVA tenderness (L) - Neurological Exam Neurological exam: Present: alert, oriented X3, CN II-XII intact, reflexes normal. Absent: motor sensory deficit - Psychiatric Psychiatric exam: Present: normal mood - Skin Skin exam: Present: warm, intact, normal color ED Course Vital Signs 04/21/20 08:47 Pulse Rate 96 H Respiratory 30 H Rate Blood Pressure 140/92 O2 Sat by Pulse 94 Oximetry ED Medical Decision Making - Lab Data Result diagrams: 04/21/20 09:34 04/21/20 09:34 - Radiology Data Radiology results: report reviewed - Medical Decision Making Patient is 59 years old male with history of asthma, hypertension. Patient presented to the ER complaining of shortness of breath and wheezing since last night. Patient received albuterol 5 mg inhalation by EMS however patient still wheezing on arrival to the ER with an oxygen saturation of 94% on room air. Patient denied any fever or chills. No chest pain. Patient received albuterol, Atrovent and Solu-Medrol. Patient stated that he is feeling much better. Labs reviewed and is unremarkable. Chest x-ray is negative for acute finding. Patient given prescription for prednisone and albuterol and advised to follow-up with his primary doctor in the next 2 to 3 days and to return to the ER if he develop any new symptoms. Critical care attestation.: If time is entered above; I have spent that time in minutes in the direct care of this critically ill patient, excluding procedure time. ED Disposition Clinical Impression: Asthma exacerbation Disposition: DC-01 TO HOME OR SELFCARE Is pt being admited?: No Condition: Stable Instructions: Asthma, Adult Referrals: [facility] [Other] - 3-5 Days
--- NOTE | 2020-04-21 09:50 | XRay Report ---
CHEST 1 VIEW INDICATION / CLINICAL INFORMATION: Dyspnea. FINDINGS: SUPPORT DEVICES: None. HEART / MEDIASTINUM: No significant abnormality. LUNGS / PLEURA: No significant pulmonary or pleural abnormality. No pneumothorax. ADDITIONAL FINDINGS: No significant additional findings. IMPRESSION: 1. No acute findings. Signer Name: Sree Anne MD Signed: 04/21/2020 9:45 AM Workstation Name: [email or web address]
[2020-04-21 09:57] LABS: Basophils % (Auto) 0.8 % (0.0-1.8); Eosinophils # (Auto) 0.3 K/mm3 (0.0-0.4); Eosinophils % (Auto) 5.2 % (0.0-4.3); Hematocrit 45.6 % (35.5-45.6); Hemoglobin 15.2 gm/dl (11.8-15.2); Lymphocytes # (Auto) 1.3 K/mm3 (1.2-5.4); Lymphocytes % (Auto) 24.2 % (13.4-35.0); Mean Corpuscular HGB Conc 33 % (32-34); Mean Corpuscular Volume 97 fl (84-94); Monocytes # (Auto) 0.5 K/mm3 (0.0-0.8); Monocytes % (Auto) 10.4 % (0.0-7.3); Platelet Count 171 K/mm3 (140-440); Red Cell Distribution Width 12.7 % (13.2-15.2)
[2020-04-21 10:13] LABS: BUN/Creatinine Ratio 15; Blood Urea Nitrogen 19 mg/dL (9-20); Calcium 8.9 mg/dL (8.4-10.2); Hemolysis Index 47
[2020-04-21 12:13] VITALS: BP 131/94
== END 2020-04-21 12:13 | disposition home or self-care (01) ==
LOC: ED 08:40
DX: J45.901 Unspecified asthma with (acute) exacerbation (principal); I10 Essential (primary) hypertension; Z79.899 Other long term (current) drug therapy
CPT/HCPCS: 36415; 71045; 80048; 85025; 94640; 96365; 96375; 99285; J2930; J3475

== ENCOUNTER 2020-05-20 13:49 | Emergency (ER) | payer MEDICAID ==
[2020-05-20 13:57] VITALS: BP 129/87
--- NOTE | 2020-05-20 14:21 | Event Note ---
ED Screening Note ED Screening Note: asthma exacerbation that began last night uses albuterol inhaler, albuterol nebulizer, and singulair ran out of his medication two weeks ago mild dry cough no productive cough no fever no v/d PMHx HTN no allergies to meds This initial assessment/diagnostic orders/clinical plan/treatment(s) is/are flores bject to change based on patients health status, clinical progression and re- assessment by fellow clinical providers in the ED. Further treatment and workup at subsequent clinical providers discretion. Patient/guardian urged not to elope from the ED as their condition may be serious if not clinically assessed and managed. Initial orders include: meds
[2020-05-20] MEDS ORDERED: MAGNESIUM SULFATE 2 GM/50 ML BAG IV ONE (14:24)
[2020-05-20] MEDS ORDERED: dexAMETHasone 20 MG/5 ML VIAL IV ONE (14:24)
[2020-05-20] MEDS ORDERED: ALBUTEROL 2.5 MG/3 ML NEBU IH ONE (14:24)
[2020-05-20] MEDS ORDERED: IPRATROPIUM 0.02% NEBU 2.5 ML IH ONE (14:24)
--- NOTE | 2020-05-20 16:25 | Emergency Department Report ---
ED Asthma HPI - General Chief Complaint: Adult Asthma Stated Complaint: ALEKSANDAR Time Seen by Provider: 05/20/20 14:19 Source: patient Mode of arrival: Ambulatory Limitations: No Limitations - History of Present Illness Initial Comments: The patient was evaluated in the emergency department for symptoms described in the history of present illness. He/she was evaluated in the context of the global COVID-19 pandemic, which necessitated consideration that the patient might be at risk for infection with the virus that causes COVID-19. Institutional protocols and algorithms that pertain to the evaluation of patients at risk for COVID-19 are in a state of rapid change based on information released by regulatory bodies including the CDC and federal and [facility] organizations. These policies and algorithms were followed during the patient's care in the emergency department. Please note that these policies, procedures and recommendations changed on a rapid basis. 59-year-old -[place] male presents to the emergency room stating that his asthma has acted up since he started working out yesterday. Patient states is been out of his home meds. He denies any history of intubation but does have a history of hospitalization. Patient admits that his triggers are pets and heat. He reports he has been using the Flonase. He currently needs a pr escription refill on his montelukast, his albuterol and Atrovent nebulizer solutions. Patient denies any fever chills no diarrhea chest pain no headache. No contact with Covid. FERNANDEZ Complaint: "asthma attack", wheezing Onset/Timin -: days(s) Asthma History: history of prior ED visit Severity: moderate Context: ran out of meds, exercise, pet exposure - Related Data Current Asthma Therapy: inhaled bronchodilator Previous Rx's Medication Instructions Recorded Last Taken Type Prednisone [predniSONE 5 mg (6-Day 5 mg PO .TAPER #1 tab.ds.pk 11/05/18 Unknown Rx Pack, 21 Tabs)] amLODIPine 5 mg PO QDAY #30 tablet 11/05/18 Unknown Rx Albuterol Sulfate [Proair 90 mcg IH Q6H PRN #1 pump 04/20/19 Unknown Rx Respiclick] ALBUTEROL NEB's [Proventil 0.083% 2.5 mg IH TID PRN #25 neb 05/24/19 Unknown Rx NEBS] Nebulizer and Compressor [[place] 1 each MC Q6H #1 each 05/24/19 Unknown Rx Choice Nebulizer] Albuterol Sulfate [Proventil Hfa] 2 puff IH Q4HR PRN #1 hfa.aer.ad 05/27/19 Unknown Rx Nebulizer Accessories [Aeroneb Go] 1 each MC PRN PRN #1 each 07/23/19 Unknown Rx Albuterol Sulfate [Proventil Hfa] 6.7 gm IH TID PRN #1 hfa.aer.ad 09/04/19 Unknown Rx Albuterol Sulfate [Proventil Hfa] 6.7 gm IH QID PRN #1 hfa.aer.ad 09/15/19 Unknown Rx Acetaminophen [Acetaminophen TAB] 650 mg PO Q4H PRN tablet 10/20/19 Unknown Rx Albuterol Mdi (or & Nicu Only) 2 puff IH QID PRN #1 inhalation 10/20/19 Unknown Rx [ProAir HFA Inhaler] Albuterol Sulfate [Albuterol 0.63% 0.63 mg IH Q4HR PRN #2 ml 02/24/20 Unknown Rx NEBS] Albuterol Sulfate [Proair 90 mcg IH Q4HR PRN #2 aer.pow.ba 02/24/20 Unknown Rx Respiclick] Ipratropium (Nf) [Atrovent] 2 puff IH Q6HR PRN #1 inha 02/24/20 Unknown Rx ALBUTEROL NEB's [Proventil 0.083% 2.5 mg IH TID PRN #30 neb 03/17/20 Unknown Rx NEBS] ALBUTEROL NEB's [Proventil 0.083% 2.5 mg IH TID PRN #30 nebu 04/21/20 Unknown Rx NEBS] Prednisone [predniSONE 10 mg 10 mg PO .TAPER #1 tab.ds.pk 04/21/20 Unknown Rx (6-Day Pack, 21 Tabs)] Albuterol Sulfate [Albuterol 0.63% 0.63 mg IH TID PRN #270 ml 05/20/20 Unknown Rx NEBS] Ipratropium [Atrovent NEB] 0.5 mg IH Q4HR PRN #1 box 05/20/20 Unknown Rx Montelukast [Singulair] 10 mg PO QPM #30 tablet 05/20/20 Unknown Rx predniSONE [Deltasone] 40 mg PO QDAY 5 Days #10 tab 05/20/20 Unknown Rx Allergies Allergy/AdvReac Type Severity Reaction Status Date / Time No Known Allergies Allergy Verified 05/20/20 13:53 ED Review of Systems ROS: Stated complaint: ALEKSANDAR Other details as noted in HPI Comment: All other systems reviewed and negative ED Past Medical Hx - Past Medical History Hx Hypertension: Yes Hx Congestive Heart Failure: No Hx Diabetes: No Hx Sickle Cell Disease: No Hx Asthma: Yes Hx COPD: No Hx Tuberculosis: No Hx HIV: No - Social History Smoking Status: Unknown if ever smoked - Medications Home Medications: Home Medications Medication Instructions Recorded Confirmed Last Taken Type Prednisone [predniSONE 5 mg (6-Day 5 mg PO .TAPER #1 tab.ds.pk 11/05/18 Unknown Rx Pack, 21 Tabs)] amLODIPine 5 mg PO QDAY #30 tablet 11/05/18 Unknown Rx Albuterol Sulfate [Proair 90 mcg IH Q6H PRN #1 pump 04/20/19 Unknown Rx Respiclick] ALBUTEROL NEB's [Proventil 0.083% 2.5 mg IH TID PRN #25 neb 05/24/19 Unknown Rx NEBS] Nebulizer and Compressor [Redbird 1 each MC Q6H #1 each 05/24/19 Unknown Rx Choice Nebulizer] Albuterol Sulfate [Proventil Hfa] 2 puff IH Q4HR PRN #1 hfa.aer.ad 05/27/19 Unknown Rx Nebulizer Accessories [Aeroneb Go] 1 each MC PRN PRN #1 each 07/23/19 Unknown Rx Albuterol Sulfate [Proventil Hfa] 6.7 gm IH TID PRN #1 hfa.aer.ad 09/04/19 Unknown Rx Albuterol Sulfate [Proventil Hfa] 6.7 gm IH QID PRN #1 hfa.aer.ad 09/15/19 Unknown Rx Acetaminophen [Acetaminophen TAB] 650 mg PO Q4H PRN tablet 10/20/19 Unknown Rx Albuterol Mdi (or & Nicu Only) 2 puff IH QID PRN #1 inhalation 10/20/19 Unknown Rx [ProAir HFA Inhaler] Albuterol Sulfate [Albuterol 0.63% 0.63 mg IH Q4HR PRN #2 ml 02/24/20 Unknown Rx NEBS] Albuterol Sulfate [Proair 90 mcg IH Q4HR PRN #2 aer.pow.ba 02/24/20 Unknown Rx Respiclick] Ipratropium (Nf) [Atrovent] 2 puff IH Q6HR PRN #1 inha 02/24/20 Unknown Rx ALBUTEROL NEB's [Proventil 0.083% 2.5 mg IH TID PRN #30 neb 03/17/20 Unknown Rx NEBS] ALBUTEROL NEB's [Proventil 0.083% 2.5 mg IH TID PRN #30 nebu 04/21/20 Unknown Rx NEBS] Prednisone [predniSONE 10 mg 10 mg PO .TAPER #1 tab.ds.pk 04/21/20 Unknown Rx (6-Day Pack, 21 Tabs)] Albuterol Sulfate [Albuterol 0.63% 0.63 mg IH TID PRN #270 ml 05/20/20 Unknown Rx NEBS] Ipratropium [Atrovent NEB] 0.5 mg IH Q4HR PRN #1 box 05/20/20 Unknown Rx Montelukast [Singulair] 10 mg PO QPM #30 tablet 05/20/20 Unknown Rx predniSONE [Deltasone] 40 mg PO QDAY 5 Days #10 tab 05/20/20 Unknown Rx ED Physical Exam - General Limitations: No Limitations General appearance: alert, in no apparent distress - Head Head exam: Present: atraumatic, normocephalic - Eye Eye exam: Present: normal appearance - ENT ENT exam: Present: mucous membranes moist - Neck Neck exam: Present: normal inspection - Respiratory Respiratory exam: Present: normal lung sounds bilaterally. Absent: respiratory distress, wheezes, accessory muscle use, decreased breath sounds - Cardiovascular Cardiovascular Exam: Present: regular rate, normal rhythm. Absent: systolic murmur, diastolic murmur, rubs, gallop - Extremities Exam Extremities exam: Present: normal inspection, full ROM - Back Exam Back exam: Present: normal inspection - Neurological Exam Neurological exam: Present: alert, oriented X3, normal gait - Psychiatric Psychiatric exam: Present: normal affect, normal mood - Skin Skin exam: Present: warm, dry, intact, normal color. Absent: rash ED Course Vital Signs 05/20/20 05/20/20 13:56 14:40 Temperature 98.6 F Pulse Rate 69 Pulse Rate [ 66 Throughout] Respiratory 24 Rate Respiratory 18 Rate [ Throughout] Blood Pressure 129/87 [Right] O2 Sat by Pulse 95 Oximetry ED Medical Decision Making - Medical Decision Making 59-year-old -[place] male presents to the emergency room stating that his asthma has acted up since he started working out yesterday. Patient states is been out of his home meds. He denies any history of intubation but does have a history of hospitalization. Patient admits that his triggers are pets and heat. He reports he has been using the Flonase. He currently needs a prescription refill on his montelukast, his albuterol and Atrovent nebulizer solutions. Patient denies any fever chills no diarrhea chest pain no headache. No contact with Covid. Patient was given albuterol Atrovent steroids magnesium prior to this provider evaluate and patient is he was evaluated by triage provider. Patient reports he has improved much with having medication. Patient will be discharged home with refills of his chronic medications. Critical care attestation.: If time is entered above; I have spent that time in minutes in the direct care of this critically ill patient, excluding procedure time. ED Disposition Clinical Impression: Asthma exacerbation Qualifiers: Asthma severity: moderate Asthma persistence: unspecified Qualified Code(s): J45.901 - Unspecified asthma with (acute) exacerbation HTN (hypertension) Qualifiers: Hypertension type: unspecified Qualified Code(s): I10 - Essential (primary) hypertension Disposition: DC-01 TO HOME OR SELFCARE Is pt being admited?: No Does the pt Need Aspirin: No Condition: Stable Instructions: Hypertension (ED) Additional Instructions: Use medications as prescribed. Follow-up with your primary care provider. Try taking [id number] Claritin or Zyrtec for your allergens continue with the Flonase at home. Prescriptions: Albuterol Sulfate [Albuterol 0.63% NEBS] 0.63 mg IH TID PRN #270 ml PRN Reason: Wheezing Ipratropium [Atrovent NEB] 0.5 mg IH Q4HR PRN #1 box PRN Reason: Shortness Of Breath predniSONE [Deltasone] 40 mg PO QDAY 5 Days #10 tab Montelukast [Singulair] 10 mg PO QPM #30 tablet Referrals: PRIMARY CARE, [Primary Care Provider] - 3-5 Days Absolute, Care [Other] - 3-5 Days Forms: Work/School Release Form(ED)
== END 2020-05-20 16:43 | disposition home or self-care (01) ==
LOC: ED 13:49
DX: J45.901 Unspecified asthma with (acute) exacerbation (principal); I10 Essential (primary) hypertension; Z79.899 Other long term (current) drug therapy
CPT/HCPCS: 94644; 96365; 96375; 99283; J1100; J3475

== ENCOUNTER 2020-06-20 19:41 | Emergency (ER) | payer MEDICAID ==
[2020-06-20 20:10] VITALS: BP 127/91
[2020-06-20] MEDS ORDERED: dexAMETHasone 20 MG/5 ML VIAL IM ONE (20:10)
[2020-06-20] MEDS ORDERED: ALBUTEROL 2.5 MG/3 ML NEBU IH ONE (20:10)
[2020-06-20] MEDS ORDERED: IPRATROPIUM 0.02% NEBU 2.5 ML IH ONE (20:10)
--- NOTE | 2020-06-20 21:17 | Emergency Department Report ---
ED General Adult HPI - General Chief complaint: Adult Asthma Stated complaint: ASTHMA Time Seen by Provider: 06/20/20 20:10 Source: patient Mode of arrival: Ambulatory Limitations: No Limitations - Related Data Previous Rx's Medication Instructions Recorded Last Taken Type Prednisone [predniSONE 5 mg (6-Day 5 mg PO .TAPER #1 tab.ds.pk 11/05/18 Unknown Rx Pack, 21 Tabs)] amLODIPine 5 mg PO QDAY #30 tablet 11/05/18 Unknown Rx Albuterol Sulfate [Proair 90 mcg IH Q6H PRN #1 pump 04/20/19 Unknown Rx Respiclick] Nebulizer and Compressor [[place] 1 each MC Q6H #1 each 05/24/19 Unknown Rx Choice Nebulizer] Albuterol Sulfate [Proventil Hfa] 2 puff IH Q4HR PRN #1 hfa.aer.ad 05/27/19 Unknown Rx Nebulizer Accessories [Aeroneb Go] 1 each MC PRN PRN #1 each 07/23/19 Unknown Rx Albuterol Sulfate [Proventil Hfa] 6.7 gm IH TID PRN #1 hfa.aer.ad 09/04/19 Unknown Rx Albuterol Sulfate [Proventil Hfa] 6.7 gm IH QID PRN #1 hfa.aer.ad 09/15/19 Unknown Rx Acetaminophen [Acetaminophen TAB] 650 mg PO Q4H PRN tablet 10/20/19 Unknown Rx Albuterol Sulfate [Albuterol 0.63% 0.63 mg IH Q4HR PRN #2 ml 02/24/20 Unknown Rx NEBS] Albuterol Sulfate [Proair 90 mcg IH Q4HR PRN #2 aer.pow.ba 02/24/20 Unknown Rx Respiclick] Ipratropium (Nf) [Atrovent] 2 puff IH Q6HR PRN #1 inha 02/24/20 Unknown Rx ALBUTEROL NEB's [Proventil 0.083% 2.5 mg IH TID PRN #30 neb 03/17/20 Unknown Rx NEBS] ALBUTEROL NEB's [Proventil 0.083% 2.5 mg IH TID PRN #30 nebu 04/21/20 Unknown Rx NEBS] Albuterol Sulfate [Albuterol 0.63% 0.63 mg IH TID PRN #270 ml 05/20/20 Unknown Rx NEBS] predniSONE [Deltasone] 40 mg PO QDAY 5 Days #10 tab 05/20/20 Unknown Rx ALBUTEROL NEB's [Proventil 0.083% 2.5 mg IH TID PRN #25 neb 06/20/20 Unknown Rx NEBS] Albuterol Mdi (or & Nicu Only) 2 puff IH QID PRN #1 inhalation 06/20/20 Unknown Rx [ProAir HFA Inhaler] Ipratropium [Atrovent NEB] 0.5 mg IH Q4HR PRN #1 box 06/20/20 Unknown Rx Montelukast [Singulair] 10 mg PO QPM #30 tablet 06/20/20 Unknown Rx Prednisone [predniSONE 10 mg 10 mg PO .TAPER #1 tab.ds.pk 06/20/20 Unknown Rx (6-Day Pack, 21 Tabs)] Allergies Allergy/AdvReac Type Severity Reaction Status Date / Time No Known Allergies Allergy Verified 05/20/20 13:53 ED Review of Systems ROS: Stated complaint: ASTHMA Other details as noted in HPI ED Past Medical Hx - Past Medical History Previous Medical History?: Yes Hx Hypertension: Yes Hx Congestive Heart Failure: No Hx Diabetes: No Hx Sickle Cell Disease: No Hx Asthma: Yes Hx COPD: No Hx Tuberculosis: No Hx HIV: No - Surgical History Past Surgical History?: No - Social History Smoking Status: Former Smoker Substance Use Type: None - Medications Home Medications: Home Medications Medication Instructions Recorded Confirmed Last Taken Type Prednisone [predniSONE 5 mg (6-Day 5 mg PO .TAPER #1 tab.ds.pk 11/05/18 Unknown Rx Pack, 21 Tabs)] amLODIPine 5 mg PO QDAY #30 tablet 11/05/18 Unknown Rx Albuterol Sulfate [Proair 90 mcg IH Q6H PRN #1 pump 04/20/19 Unknown Rx Respiclick] Nebulizer and Compressor [Edison 1 each MC Q6H #1 each 05/24/19 Unknown Rx Choice Nebulizer] Albuterol Sulfate [Proventil Hfa] 2 puff IH Q4HR PRN #1 hfa.aer.ad 05/27/19 Unknown Rx Nebulizer Accessories [Aeroneb Go] 1 each MC PRN PRN #1 each 07/23/19 Unknown Rx Albuterol Sulfate [Proventil Hfa] 6.7 gm IH TID PRN #1 hfa.aer.ad 09/04/19 Unknown Rx Albuterol Sulfate [Proventil Hfa] 6.7 gm IH QID PRN #1 hfa.aer.ad 09/15/19 Unknown Rx Acetaminophen [Acetaminophen TAB] 650 mg PO Q4H PRN tablet 10/20/19 Unknown Rx Albuterol Sulfate [Albuterol 0.63% 0.63 mg IH Q4HR PRN #2 ml 02/24/20 Unknown Rx NEBS] Albuterol Sulfate [Proair 90 mcg IH Q4HR PRN #2 aer.pow.ba 02/24/20 Unknown Rx Respiclick] Ipratropium (Nf) [Atrovent] 2 puff IH Q6HR PRN #1 inha 02/24/20 Unknown Rx ALBUTEROL NEB's [Proventil 0.083% 2.5 mg IH TID PRN #30 neb 03/17/20 Unknown Rx NEBS] ALBUTEROL NEB's [Proventil 0.083% 2.5 mg IH TID PRN #30 nebu 04/21/20 Unknown Rx NEBS] Albuterol Sulfate [Albuterol 0.63% 0.63 mg IH TID PRN #270 ml 05/20/20 Unknown Rx NEBS] predniSONE [Deltasone] 40 mg PO QDAY 5 Days #10 tab 05/20/20 Unknown Rx ALBUTEROL NEB's [Proventil 0.083% 2.5 mg IH TID PRN #25 neb 06/20/20 Unknown Rx NEBS] Albuterol Mdi (or & Nicu Only) 2 puff IH QID PRN #1 inhalation 06/20/20 Unknown Rx [ProAir HFA Inhaler] Ipratropium [Atrovent NEB] 0.5 mg IH Q4HR PRN #1 box 06/20/20 Unknown Rx Montelukast [Singulair] 10 mg PO QPM #30 tablet 06/20/20 Unknown Rx Prednisone [predniSONE 10 mg 10 mg PO .TAPER #1 tab.ds.pk 06/20/20 Unknown Rx (6-Day Pack, 21 Tabs)] ED Physical Exam - General Limitations: No Limitations ED Course Vital Signs 01/23/21 19:59 Temperature 97.9 F Pulse Rate 88 Respiratory 18 Rate Blood Pressure 127/91 O2 Sat by Pulse 96 Oximetry Critical care attestation.: If time is entered above; I have spent that time in minutes in the direct care of this critically ill patient, excluding procedure time. ED Disposition Disposition: DC-01 TO HOME OR SELFCARE Is pt being admited?: No Condition: Stable Instructions: Asthma, Adult Prescriptions: Ipratropium [Atrovent NEB] 0.5 mg IH Q4HR PRN #1 box PRN Reason: Shortness Of Breath Prednisone [predniSONE 10 mg (6-Day Pack, 21 Tabs)] 10 mg PO .TAPER #1 tab.ds.pk Albuterol Mdi (or & Nicu Only) [ProAir HFA Inhaler] 2 puff IH QID PRN #1 inhalation PRN Reason: Shortness Of Breath ALBUTEROL NEB's [Proventil 0.083% NEBS] 2.5 mg IH TID PRN #25 neb PRN Reason: Wheezing Montelukast [Singulair] 10 mg PO QPM #30 tablet Referrals: [facility] [Provider Group] - 3-5 Days
== END 2020-06-20 21:35 | disposition home or self-care (01) ==
LOC: ED 19:41
DX: J45.909 Unspecified asthma, uncomplicated (principal); I10 Essential (primary) hypertension; Z87.891 Personal history of nicotine dependence; Z79.899 Other long term (current) drug therapy
CPT/HCPCS: 94644; 96372; 99282; J1100

== ENCOUNTER 2020-07-21 12:54 | Emergency (ER) | payer MEDICARE, MEDICAID ==
[2020-07-21 12:59] VITALS: BP 127/91
[2020-07-21] MEDS ORDERED: IPRATROPIUM/ALBUTEROL SULFATE 3 ML AMPUL.NEB IH ONE (13:10)
[2020-07-21] MEDS ORDERED: IPRATROPIUM/ALBUTEROL SULFATE 3 ML AMPUL.NEB IH SCH (13:35)
--- NOTE | 2020-07-21 13:35 | Emergency Department Report ---
ED General Adult HPI - General Chief complaint: Adult Asthma Stated complaint: ASTHMA ATTACK Time Seen by Provider: 07/21/20 13:07 Source: patient Mode of arrival: Ambulatory Limitations: No Limitations - History of Present Illness Initial comments: Patient is a 59-year-old asthmatic male who presents emergency department for evaluation of what he describes as an asthma attack that occurred while doing housework today. Patient states he attempted to use his nebulizer, however, realized at that time he was out of medicine, requesting nebulizer treatment in the emergency department. Patient denies chest pain, denies fever, denies cough, denies calf pain or swelling - Related Data Previous Rx's Medication Instructions Recorded Last Taken Type Prednisone [predniSONE 5 mg (6-Day 5 mg PO .TAPER #1 tab.ds.pk 11/05/18 Unknown Rx Pack, 21 Tabs)] amLODIPine 5 mg PO QDAY #30 tablet 11/05/18 Unknown Rx Albuterol Sulfate [Proair 90 mcg IH Q6H PRN #1 pump 04/20/19 Unknown Rx Respiclick] Nebulizer and Compressor [[place] 1 each MC Q6H #1 each 05/24/19 Unknown Rx Choice Nebulizer] Albuterol Sulfate [Proventil Hfa] 2 puff IH Q4HR PRN #1 hfa.aer.ad 05/27/19 Unknown Rx Nebulizer Accessories [Aeroneb Go] 1 each MC PRN PRN #1 each 07/23/19 Unknown Rx Albuterol Sulfate [Proventil Hfa] 6.7 gm IH TID PRN #1 hfa.aer.ad 09/04/19 Unknown Rx Albuterol Sulfate [Proventil Hfa] 6.7 gm IH QID PRN #1 hfa.aer.ad 09/15/19 Unknown Rx Acetaminophen [Acetaminophen TAB] 650 mg PO Q4H PRN tablet 10/20/19 Unknown Rx Albuterol Sulfate [Albuterol 0.63% 0.63 mg IH Q4HR PRN #2 ml 02/24/20 Unknown Rx NEBS] Albuterol Sulfate [Proair 90 mcg IH Q4HR PRN #2 aer.pow.ba 02/24/20 Unknown Rx Respiclick] Ipratropium (Nf) [Atrovent] 2 puff IH Q6HR PRN #1 inha 02/24/20 Unknown Rx ALBUTEROL NEB's [Proventil 0.083% 2.5 mg IH TID PRN #30 neb 03/17/20 Unknown Rx NEBS] ALBUTEROL NEB's [Proventil 0.083% 2.5 mg IH TID PRN #30 nebu 04/21/20 Unknown Rx NEBS] Albuterol Sulfate [Albuterol 0.63% 0.63 mg IH TID PRN #270 ml 05/20/20 Unknown Rx NEBS] predniSONE [Deltasone] 40 mg PO QDAY 5 Days #10 tab 05/20/20 Unknown Rx ALBUTEROL NEB's [Proventil 0.083% 2.5 mg IH TID PRN #25 neb 06/20/20 Unknown Rx NEBS] Albuterol Mdi (or & Nicu Only) 2 puff IH QID PRN #1 inhalation 06/20/20 Unknown Rx [ProAir HFA Inhaler] Ipratropium [Atrovent NEB] 0.5 mg IH Q4HR PRN #1 box 06/20/20 Unknown Rx Montelukast [Singulair] 10 mg PO QPM #30 tablet 06/20/20 Unknown Rx Prednisone [predniSONE 10 mg 10 mg PO .TAPER #1 tab.ds.pk 06/20/20 Unknown Rx (6-Day Pack, 21 Tabs)] ALBUTEROL NEB's [Proventil 0.083% 2.5 mg IH TID PRN #90 neb 07/21/20 Unknown Rx NEBS] Allergies Allergy/AdvReac Type Severity Reaction Status Date / Time No Known Allergies Allergy Verified 05/20/20 13:53 ED Review of Systems ROS: Stated complaint: ASTHMA ATTACK Other details as noted in HPI Comment: All other systems reviewed and negative ED Past Medical Hx - Past Medical History Previous Medical History?: Yes Hx Hypertension: Yes Hx Congestive Heart Failure: No Hx Diabetes: No Hx Sickle Cell Disease: No Hx Asthma: Yes Hx COPD: No Hx Tuberculosis: No Hx HIV: No - Social History Smoking Status: Never Smoker Substance Use Type: None - Medications Home Medications: Home Medications Medication Instructions Recorded Confirmed Last Taken Type Prednisone [predniSONE 5 mg (6-Day 5 mg PO .TAPER #1 tab.ds.pk 11/05/18 Unknown Rx Pack, 21 Tabs)] amLODIPine 5 mg PO QDAY #30 tablet 11/05/18 Unknown Rx Albuterol Sulfate [Proair 90 mcg IH Q6H PRN #1 pump 04/20/19 Unknown Rx Respiclick] Nebulizer and Compressor [[place] 1 each MC Q6H #1 each 05/24/19 Unknown Rx Choice Nebulizer] Albuterol Sulfate [Proventil Hfa] 2 puff IH Q4HR PRN #1 hfa.aer.ad 05/27/19 Unknown Rx Nebulizer Accessories [Aeroneb Go] 1 each MC PRN PRN #1 each 07/23/19 Unknown Rx Albuterol Sulfate [Proventil Hfa] 6.7 gm IH TID PRN #1 hfa.aer.ad 09/04/19 Unknown Rx Albuterol Sulfate [Proventil Hfa] 6.7 gm IH QID PRN #1 hfa.aer.ad 09/15/19 Unknown Rx Acetaminophen [Acetaminophen TAB] 650 mg PO Q4H PRN tablet 10/20/19 Unknown Rx Albuterol Sulfate [Albuterol 0.63% 0.63 mg IH Q4HR PRN #2 ml 02/24/20 Unknown Rx NEBS] Albuterol Sulfate [Proair 90 mcg IH Q4HR PRN #2 aer.pow.ba 02/24/20 Unknown Rx Respiclick] Ipratropium (Nf) [Atrovent] 2 puff IH Q6HR PRN #1 inha 02/24/20 Unknown Rx ALBUTEROL NEB's [Proventil 0.083% 2.5 mg IH TID PRN #30 neb 03/17/20 Unknown Rx NEBS] ALBUTEROL NEB's [Proventil 0.083% 2.5 mg IH TID PRN #30 nebu 04/21/20 Unknown Rx NEBS] Albuterol Sulfate [Albuterol 0.63% 0.63 mg IH TID PRN #270 ml 05/20/20 Unknown Rx NEBS] predniSONE [Deltasone] 40 mg PO QDAY 5 Days #10 tab 05/20/20 Unknown Rx ALBUTEROL NEB's [Proventil 0.083% 2.5 mg IH TID PRN #25 neb 06/20/20 Unknown Rx NEBS] Albuterol Mdi (or & Nicu Only) 2 puff IH QID PRN #1 inhalation 06/20/20 Unknown Rx [ProAir HFA Inhaler] Ipratropium [Atrovent NEB] 0.5 mg IH Q4HR PRN #1 box 06/20/20 Unknown Rx Montelukast [Singulair] 10 mg PO QPM #30 tablet 06/20/20 Unknown Rx Prednisone [predniSONE 10 mg 10 mg PO .TAPER #1 tab.ds.pk 06/20/20 Unknown Rx (6-Day Pack, 21 Tabs)] ALBUTEROL NEB's [Proventil 0.083% 2.5 mg IH TID PRN #90 neb 07/21/20 Unknown Rx NEBS] ED Physical Exam - General Limitations: No Limitations General appearance: alert, in no apparent distress - Head Head exam: Present: atraumatic, normocephalic - Eye Eye exam: Present: normal appearance - ENT ENT exam: Present: mucous membranes moist - Neck Neck exam: Present: normal inspection - Respiratory Respiratory exam: Present: normal lung sounds bilaterally, wheezes. Absent: respiratory distress - Cardiovascular Cardiovascular Exam: Present: regular rate, normal rhythm - GI/Abdominal GI/Abdominal exam: Present: soft, normal bowel sounds - Rectal Rectal exam: Present: deferred - Extremities Exam Extremities exam: Present: normal inspection - Back Exam Back exam: Present: normal inspection - Neurological Exam Neurological exam: Present: alert, oriented X3 - Psychiatric Psychiatric exam: Present: normal affect, normal mood - Skin Skin exam: Present: warm, dry, intact, normal color. Absent: rash ED Course Vital Signs 07/21/20 12:59 Temperature 98.0 F Pulse Rate 71 Respiratory 30 H Rate Blood Pressure 127/91 [Right] O2 Sat by Pulse 92 Oximetry - Reevaluation(s) Reevaluation #1: 07/21/20 13:35 Patient refuses lab work, is advised to reconsider, states he only needs nebulizer treatment as he is having asthma exacerbation. Patient treated with DuoNeb's x3. Reevaluation #2: 07/21/20 14:28 Patient reevaluated and in no acute distress. Lungs clear to auscultation bilaterally, respiratory rate now 12, patient states is breathing normally, requesting discharge. Critical care attestation.: If time is entered above; I have spent that time in minutes in the direct care of this critically ill patient, excluding procedure time. ED Disposition Clinical Impression: Asthma exacerbation Disposition: DC-01 TO HOME OR SELFCARE Is pt being admited?: No Condition: Stable Instructions: Asthma, Adult Additional Instructions: Follow-up with primary care doctor 1 to 2 days for reevaluation. Return to the emergency department for worsening symptoms. Please note you may require outpatient COVID-19 testing Prescriptions: ALBUTEROL NEB's [Proventil 0.083% NEBS] 2.5 mg IH TID PRN #90 neb PRN Reason: Wheezing
--- NOTE | 2020-07-21 13:45 | XRay Report ---
. XR chest 1V ap INDICATION / CLINICAL INFORMATION: Dyspnea COMPARISON: April 21, 2020 FINDINGS: SUPPORT DEVICES: None. HEART / MEDIASTINUM: No significant abnormality. LUNGS / PLEURA: Lungs are clear. Costophrenic sulci are sharp. No pneumothorax. ADDITIONAL FINDINGS: No significant additional findings. IMPRESSION: 1. No acute findings. Signer Name: Preet Estes MD Signed: 07/21/2020 1:41 PM Workstation Name: [id number]
== END 2020-07-21 15:40 | disposition home or self-care (01) ==
LOC: ED 12:54
DX: J45.901 Unspecified asthma with (acute) exacerbation (principal); I10 Essential (primary) hypertension; Z79.899 Other long term (current) drug therapy
CPT/HCPCS: 71045; 99283

== ENCOUNTER 2020-08-22 14:45 | Emergency (ER) | payer MEDICARE ==
[2020-08-22] MEDS ORDERED: IPRATROPIUM/ALBUTEROL SULFATE 3 ML AMPUL.NEB IH ONE (15:29)
[2020-08-22] MEDS ORDERED: predniSONE 20 MG TAB PO ONE (15:29)
--- NOTE | 2020-08-22 15:30 | Event Note ---
ED Screening Note Date of service: 08/22/20 Time: 15:28 ED Screening Note: 59-year-old -[place] male presents to the emergency room for asthma flareup. Patient states he has chest tightness. Patient has a history of asthma. This initial assessment/diagnostic orders/clinical plan/treatment(s) is/are subject to change based on patients health status, clinical progression and re- assessment by fellow clinical providers in the ED. Further treatment and workup at subsequent clinical providers discretion. Patient/guardian urged not to elope from the ED as their condition may be serious if not clinically assessed and managed. Initial orders include:
[2020-08-22] MEDS ORDERED: diphenhydrAMINE 25 MG CAP PO ONE (16:06)
--- NOTE | 2020-08-22 16:07 | Emergency Department Report ---
ED General Adult HPI - General Chief complaint: Adult Asthma Stated complaint: ASTHMA ATTACK Time Seen by Provider: 08/22/20 15:50 Source: patient Mode of arrival: Ambulatory Limitations: No Limitations - History of Present Illness Initial comments: 59-year-old male with past medical history of asthma and hypertension. State that his asthma started flaring up around 12 noon today. Patient states he was outside his eyes started itching and became red he started wheezing. he used his inhaler with some much relief ,he has a nebulizer machine at home but states he is out of the albuterol solution. Patient states he is also out of his Singulair.he denies chest pain he denies fever cough no vomiting no diarrhea no loss of taste and smell. Patient is currently in no acute distress -: hour(s) Radiation: non-radiation Consistency: constant Improves with: medication (Inhaler) Worsens with: none Associated Symptoms: other (Red swollen eyes). denies: confusion, chest pain, cough, diaphoresis, fever/chills, headaches, loss of appetite, malaise, nausea/vomiting, rash, shortness of breath, syncope Treatments Prior to Arrival: other (Used albuterol inhaler) - Related Data Previous Rx's Medication Instructions Recorded Last Taken Type Prednisone [predniSONE 5 mg (6-Day 5 mg PO .TAPER #1 tab.ds.pk 11/05/18 Unknown Rx Pack, 21 Tabs)] amLODIPine 5 mg PO QDAY #30 tablet 11/05/18 Unknown Rx Albuterol Sulfate [Proair 90 mcg IH Q6H PRN #1 pump 04/20/19 Unknown Rx Respiclick] Nebulizer and Compressor [[place] 1 each MC Q6H #1 each 05/24/19 Unknown Rx Choice Nebulizer] Albuterol Sulfate [Proventil Hfa] 2 puff IH Q4HR PRN #1 hfa.aer.ad 05/27/19 Unknown Rx Nebulizer Accessories [Aeroneb Go] 1 each MC PRN PRN #1 each 07/23/19 Unknown Rx Albuterol Sulfate [Proventil Hfa] 6.7 gm IH TID PRN #1 hfa.aer.ad 09/04/19 Unknown Rx Albuterol Sulfate [Proventil Hfa] 6.7 gm IH QID PRN #1 hfa.aer.ad 09/15/19 Unknown Rx Acetaminophen [Acetaminophen TAB] 650 mg PO Q4H PRN tablet 10/20/19 Unknown Rx Albuterol Sulfate [Albuterol 0.63% 0.63 mg IH Q4HR PRN #2 ml 02/24/20 Unknown Rx NEBS] Albuterol Sulfate [Proair 90 mcg IH Q4HR PRN #2 aer.pow.ba 02/24/20 Unknown Rx Respiclick] Ipratropium (Nf) [Atrovent] 2 puff IH Q6HR PRN #1 inha 02/24/20 Unknown Rx ALBUTEROL NEB's [Proventil 0.083% 2.5 mg IH TID PRN #30 neb 03/17/20 Unknown Rx NEBS] ALBUTEROL NEB's [Proventil 0.083% 2.5 mg IH TID PRN #30 nebu 04/21/20 Unknown Rx NEBS] Albuterol Sulfate [Albuterol 0.63% 0.63 mg IH TID PRN #270 ml 05/20/20 Unknown Rx NEBS] ALBUTEROL NEB's [Proventil 0.083% 2.5 mg IH TID PRN #25 neb 06/20/20 Unknown Rx NEBS] Albuterol Mdi (or & Nicu Only) 2 puff IH QID PRN #1 inhalation 06/20/20 Unknown Rx [ProAir HFA Inhaler] Ipratropium [Atrovent NEB] 0.5 mg IH Q4HR PRN #1 box 06/20/20 Unknown Rx Montelukast [Singulair] 10 mg PO QPM #30 tablet 06/20/20 Unknown Rx Prednisone [predniSONE 10 mg 10 mg PO .TAPER #1 tab.ds.pk 06/20/20 Unknown Rx (6-Day Pack, 21 Tabs)] ALBUTEROL NEB's [Proventil 0.083% 2.5 mg IH TID PRN #90 neb 07/21/20 Unknown Rx NEBS] predniSONE [Deltasone] 40 mg PO QDAY 5 Days #10 tab 07/21/20 Unknown Rx Albuterol Sulfate [Albuterol 0.63% 0.63 mg IH TID PRN #1 box 08/22/20 Unknown Rx NEBS] Montelukast [Singulair] 10 mg PO QPM #30 tablet 08/22/20 Unknown Rx predniSONE [Deltasone] 40 mg PO QDAY 3 Days #6 tab 08/22/20 Unknown Rx Allergies Allergy/AdvReac Type Severity Reaction Status Date / Time No Known Allergies Allergy Verified 05/20/20 13:53 ED Review of Systems ROS: Stated complaint: ASTHMA ATTACK Other details as noted in HPI Comment: All other systems reviewed and negative Constitutional: no symptoms reported Eyes: other (Red itchy eyes) ENT: denies: ear pain, dental pain Respiratory: wheezing. denies: cough, shortness of breath Cardiovascular: denies: chest pain, palpitations, dyspnea on exertion, edema, syncope, paroxysmal nocturnal dyspnea Gastrointestinal: denies: abdominal pain, nausea, vomiting Genitourinary: denies: urgency, frequency, hematuria Musculoskeletal: denies: back pain, joint swelling Skin: denies: rash, change in color Neurological: denies: headache, weakness, numbness, paresthesias, confusion Psychiatric: denies: anxiety, depression ED Past Medical Hx - Past Medical History Previous Medical History?: Yes Hx Hypertension: Yes Hx Congestive Heart Failure: No Hx Diabetes: No Hx Sickle Cell Disease: No Hx Asthma: Yes Hx COPD: No Hx Tuberculosis: No Hx HIV: No - Surgical History Past Surgical History?: No - Social History Smoking Status: Never Smoker Substance Use Type: None - Medications Home Medications: Home Medications Medication Instructions Recorded Confirmed Last Taken Type Prednisone [predniSONE 5 mg (6-Day 5 mg PO .TAPER #1 tab.ds.pk 11/05/18 Unknown Rx Pack, 21 Tabs)] amLODIPine 5 mg PO QDAY #30 tablet 11/05/18 Unknown Rx Albuterol Sulfate [Proair 90 mcg IH Q6H PRN #1 pump 04/20/19 Unknown Rx Respiclick] Nebulizer and Compressor [[place] 1 each MC Q6H #1 each 05/24/19 Unknown Rx Choice Nebulizer] Albuterol Sulfate [Proventil Hfa] 2 puff IH Q4HR PRN #1 hfa.aer.ad 05/27/19 Unknown Rx Nebulizer Accessories [Aeroneb Go] 1 each MC PRN PRN #1 each 07/23/19 Unknown Rx Albuterol Sulfate [Proventil Hfa] 6.7 gm IH TID PRN #1 hfa.aer.ad 09/04/19 Unknown Rx Albuterol Sulfate [Proventil Hfa] 6.7 gm IH QID PRN #1 hfa.aer.ad 09/15/19 Unknown Rx Acetaminophen [Acetaminophen TAB] 650 mg PO Q4H PRN tablet 10/20/19 Unknown Rx Albuterol Sulfate [Albuterol 0.63% 0.63 mg IH Q4HR PRN #2 ml 02/24/20 Unknown Rx NEBS] Albuterol Sulfate [Proair 90 mcg IH Q4HR PRN #2 aer.pow.ba 02/24/20 Unknown Rx Respiclick] Ipratropium (Nf) [Atrovent] 2 puff IH Q6HR PRN #1 inha 02/24/20 Unknown Rx ALBUTEROL NEB's [Proventil 0.083% 2.5 mg IH TID PRN #30 neb 03/17/20 Unknown Rx NEBS] ALBUTEROL NEB's [Proventil 0.083% 2.5 mg IH TID PRN #30 nebu 04/21/20 Unknown Rx NEBS] Albuterol Sulfate [Albuterol 0.63% 0.63 mg IH TID PRN #270 ml 05/20/20 Unknown Rx NEBS] ALBUTEROL NEB's [Proventil 0.083% 2.5 mg IH TID PRN #25 neb 06/20/20 Unknown Rx NEBS] Albuterol Mdi (or & Nicu Only) 2 puff IH QID PRN #1 inhalation 06/20/20 Unknown Rx [ProAir HFA Inhaler] Ipratropium [Atrovent NEB] 0.5 mg IH Q4HR PRN #1 box 06/20/20 Unknown Rx Montelukast [Singulair] 10 mg PO QPM #30 tablet 06/20/20 Unknown Rx Prednisone [predniSONE 10 mg 10 mg PO .TAPER #1 tab.ds.pk 06/20/20 Unknown Rx (6-Day Pack, 21 Tabs)] ALBUTEROL NEB's [Proventil 0.083% 2.5 mg IH TID PRN #90 neb 07/21/20 Unknown Rx NEBS] predniSONE [Deltasone] 40 mg PO QDAY 5 Days #10 tab 07/21/20 Unknown Rx Albuterol Sulfate [Albuterol 0.63% 0.63 mg IH TID PRN #1 box 08/22/20 Unknown Rx NEBS] Montelukast [Singulair] 10 mg PO QPM #30 tablet 08/22/20 Unknown Rx predniSONE [Deltasone] 40 mg PO QDAY 3 Days #6 tab 08/22/20 Unknown Rx ED Physical Exam - General Limitations: No Limitations General appearance: alert, in no apparent distress - Head Head exam: Present: atraumatic - Eye Eye exam: Present: conjunctival injection, periorbital swelling. Absent: periorbital tenderness Pupils: Present: normal accommodation - ENT ENT exam: Present: normal exam, mucous membranes moist - Neck Neck exam: Present: normal inspection - Respiratory Respiratory exam: Present: normal lung sounds bilaterally, decreased breath sounds. Absent: wheezes, rales, rhonchi, stridor, accessory muscle use - Cardiovascular Cardiovascular Exam: Present: regular rate, normal heart sounds - GI/Abdominal GI/Abdominal exam: Present: soft - exam: Present: normal inspection - Extremities Exam Extremities exam: Present: normal inspection - Back Exam Back exam: Present: normal inspection - Neurological Exam Neurological exam: Present: alert, oriented X3 - Psychiatric Psychiatric exam: Present: normal affect - Skin Skin exam: Present: warm, intact ED Course Vital Signs 08/22/20 08/22/20 08/22/20 15:25 16:23 16:54 Temperature 98.1 F 98 F 98 F Pulse Rate 70 65 65 Respiratory 22 18 18 Rate Blood Pressure 154/90 Blood Pressure 129/92 129/92 [Right] O2 Sat by Pulse 96 98 98 Oximetry - Reevaluation(s) Reevaluation #1: 08/22/20 16:39 Patient in no acute distress she is well-appearing tolerated albuterol treatment well. 08/22/20 16:39 ED Medical Decision Making - Medical Decision Making 59-year-old male with a past medical history of asthma today at 12 noon while outdoors he started with red itchy eyes and felt as if his asthma was acting up he did get some relief from his albuterol inhaler but he is out of the nebulizer albuterol solution. He was given albuterol neb treatment 40 of prednisone and Benadryl 50. I plan to discharge patient home with solution for his nebulizer treatment refill for his Singulair and prednisone 40 mg daily for the next 3 days and follow-up with his primary care doctor as needed Critical Care Time: No Critical care attestation.: If time is entered above; I have spent that time in minutes in the direct care of this critically ill patient, excluding procedure time. ED Disposition Clinical Impression: Asthma flare Qualifiers: Asthma severity: mild Asthma persistence: persistent Qualified Code(s): J45.31 - Mild persistent asthma with (acute) exacerbation Disposition: TO HOME OR SELFCARE Is pt being admited?: No Does the pt Need Aspirin: No Condition: Stable Instructions: Asthma, Adult Additional Instructions: Take Singulair daily as prescribed use the albuterol solution treatment 3 times a day as needed for wheezing. Follow-up with your primary care doctor in 3 to 5 days or return to the emergency room for any worsening symptoms shortness of breath or difficulty breathing Prescriptions: Albuterol Sulfate [Albuterol 0.63% NEBS] 0.63 mg IH TID PRN #1 box PRN Reason: Wheezing predniSONE [Deltasone] 40 mg PO QDAY 3 Days #6 tab Montelukast [Singulair] 10 mg PO QPM #30 tablet Referrals: [facility] [Other] - 3-5 Days Time of Disposition: 16:46
[2020-08-22 16:24] VITALS: BP 129/92
== END 2020-08-22 16:55 | disposition home or self-care (01) ==
LOC: ED 14:45
DX: J45.901 Unspecified asthma with (acute) exacerbation (principal); I10 Essential (primary) hypertension; Z79.899 Other long term (current) drug therapy
CPT/HCPCS: 94640; 99283; J7512; 94644

== ENCOUNTER 2020-09-11 17:43 | Emergency (ER) | payer MEDICARE ==
[2020-09-11] MEDS ORDERED: ASPIRIN 81 MG TAB CHEW PO ONE (17:48)
--- NOTE | 2020-09-11 17:51 | Event Note ---
ED Screening Note Date of service: 09/11/20 Time: 17:49 ED Screening Note: 59-year-old male patient with history of asthma, tobacco use, and hypertension presents emergency department with complaints of shortness of breath for the last 6 hours. Patient attributes his symptoms to asthma. States he ran out of his inhaler earlier today. Typically, patient experiences wheezing and coughing along with shortness of breath when his asthma flares up. He has not noticed any significant amount of wheezing or coughing today associated with his dyspnea. Shortness of breath began on exertion while he was at work. Tachycardic and hypertensive in triage General: Awake, appropriately interactive. Neck: Supple. Full range of motion intact. Cardiovascular: Tachycardic. Normal peripheral perfusion. Pulmonary: Mild respiratory distress. Clear to auscultation bilaterally. Skin: No apparent rashes or lesions. Neurological: No facial asymmetry. Speech is clear. Follows commands. Patient is alert and oriented. Musculoskeletal: Moves all four extremities spontaneously with normal range of motion. Psych: Cooperative. Appropriate mood and affect. I have greeted and performed a focused rapid initial assessment of this patient. A comprehensive ED assessment and evaluation of the patient, analysis of all test results, and completion of the medical decision-making process will be conducted by additional ED providers. This initial assessment/diagnostic orders/clinical plan/treatment(s) is/are subject to change based on patients health status, clinical progression and re-assessment. Further treatment and workup at subsequent clinical provider's discretion. Patient/guardian urged not to elope from the ED as their condition may be serious if not clinically assessed and managed.
[2020-09-11 17:52] VITALS: BP 127/95
--- NOTE | 2020-09-11 19:15 | XRay Report ---
CHEST 2 VIEWS INDICATION / CLINICAL INFORMATION: SOB. COMPARISON: 07/21/2020. FINDINGS: SUPPORT DEVICES: None. HEART / MEDIASTINUM: Stable. LUNGS / PLEURA: No significant pulmonary or pleural abnormality. No pneumothorax. ADDITIONAL FINDINGS: No significant additional findings. IMPRESSION: No acute cardiopulmonary abnormality. Signer Name: Michi Damian MD Signed: 09/11/2020 7:10 PM Workstation Name: [id number]
== END 2020-09-11 19:00 | disposition left against medical advice (07) ==
LOC: ED 17:43
DX: R06.02 Shortness of breath (principal); Z53.21 Procedure and treatment not carried out due to patient leaving prior to being seen by health care provider
CPT/HCPCS: 71046; 93005

== ENCOUNTER 2020-09-14 12:12 | Emergency (ER) | payer MEDICARE ==
[2020-09-14 12:18] VITALS: BP 130/92
[2020-09-14] MEDS ORDERED: ALBUTEROL 2.5 MG/3 ML NEBU IH ONE (12:23)
[2020-09-14] MEDS ORDERED: IPRATROPIUM 0.02% NEBU 2.5 ML IH ONE (12:23)
[2020-09-14] MEDS ORDERED: dexAMETHasone 20 MG/5 ML VIAL IM ONE (12:24)
--- NOTE | 2020-09-14 12:29 | Emergency Department Report ---
ED Shortness of Breath HPI - General Chief Complaint: Dyspnea/Respdistress Stated Complaint: ASTHMA ATTACK Time Seen by Provider: 09/14/20 12:23 Source: patient Mode of arrival: Ambulatory Limitations: No Limitations - History of Present Illness Initial Comments: 59-year-old -[place] male with a past medical history of asthma presents to the emergency room for exacerbation of his asthma. Patient states he has shortness of breath. He admits to is just a slight cough. He does report that allergies have given him some trouble. He has been hospitalized for asthma in the past but is never been intubated. Patient denies any fever chills no nausea no vomiting. Patient states is been using his inhaler. MD Complaint: shortness of breath -: This morning Pain Scale: 6 Improves With: nothing Worsens With: lying flat (Left side makes worse), coughing Known History Of: asthma Context: allergen exposure, smoke/fume exposure Associated Symptoms: cough (Slight cough) - Related Data Home Oxygen Therapy: No Previous Rx's Medication Instructions Recorded Last Taken Type Prednisone [predniSONE 5 mg (6-Day 5 mg PO .TAPER #1 tab.ds.pk 11/05/18 Unknown Rx Pack, 21 Tabs)] amLODIPine 5 mg PO QDAY #30 tablet 11/05/18 Unknown Rx Albuterol Sulfate [Proair 90 mcg IH Q6H PRN #1 pump 04/20/19 Unknown Rx Respiclick] Nebulizer and Compressor [[place] 1 each MC Q6H #1 each 05/24/19 Unknown Rx Choice Nebulizer] Albuterol Sulfate [Proventil Hfa] 2 puff IH Q4HR PRN #1 hfa.aer.ad 05/27/19 Unknown Rx Nebulizer Accessories [Aeroneb Go] 1 each MC PRN PRN #1 each 07/23/19 Unknown Rx Albuterol Sulfate [Proventil Hfa] 6.7 gm IH TID PRN #1 hfa.aer.ad 09/04/19 Unknown Rx Albuterol Sulfate [Proventil Hfa] 6.7 gm IH QID PRN #1 hfa.aer.ad 09/15/19 Unknown Rx Acetaminophen [Acetaminophen TAB] 650 mg PO Q4H PRN tablet 10/20/19 Unknown Rx Albuterol Sulfate [Albuterol 0.63% 0.63 mg IH Q4HR PRN #2 ml 02/24/20 Unknown Rx NEBS] ALBUTEROL NEB's [Proventil 0.083% 2.5 mg IH TID PRN #30 nebu 04/21/20 Unknown Rx NEBS] Albuterol Sulfate [Albuterol 0.63% 0.63 mg IH TID PRN #270 ml 05/20/20 Unknown Rx NEBS] ALBUTEROL NEB's [Proventil 0.083% 2.5 mg IH TID PRN #25 neb 06/20/20 Unknown Rx NEBS] Albuterol Mdi (or & Nicu Only) 2 puff IH QID PRN #1 inhalation 06/20/20 Unknown Rx [ProAir HFA Inhaler] Montelukast [Singulair] 10 mg PO QPM #30 tablet 06/20/20 Unknown Rx Prednisone [predniSONE 10 mg 10 mg PO .TAPER #1 tab.ds.pk 06/20/20 Unknown Rx (6-Day Pack, 21 Tabs)] ALBUTEROL NEB's [Proventil 0.083% 2.5 mg IH TID PRN #90 neb 07/21/20 Unknown Rx NEBS] predniSONE [Deltasone] 40 mg PO QDAY 5 Days #10 tab 07/21/20 Unknown Rx Albuterol Sulfate [Albuterol 0.63% 0.63 mg IH TID PRN #1 box 08/22/20 Unknown Rx NEBS] Montelukast [Singulair] 10 mg PO QPM #30 tablet 08/22/20 Unknown Rx predniSONE [Deltasone] 40 mg PO QDAY 3 Days #6 tab 08/22/20 Unknown Rx ALBUTEROL NEB's [Proventil 0.083% 2.5 mg IH TID PRN #30 neb 09/14/20 Unknown Rx NEBS] Albuterol Sulfate [Proair 90 mcg IH Q4HR PRN #2 aer.pow.ba 09/14/20 Unknown Rx Respiclick] Cetirizine HCl [Zyrtec 10mg tab] 10 mg PO QDAY #30 tablet 09/14/20 Unknown Rx Fluticasone/Salmeterol [Advair 1 puff IH BID #1 disk.w.dev 09/14/20 Unknown Rx Diskus 250-50 mcg] Ipratropium (Nf) [Atrovent HFA 2 puff IH Q6HR PRN #1 inha 09/14/20 Unknown Rx 17MCG/PUFF] Ipratropium [Atrovent NEB] 0.5 mg IH Q4HR PRN #1 box 09/14/20 Unknown Rx Allergies Allergy/AdvReac Type Severity Reaction Status Date / Time No Known Allergies Allergy Verified 05/20/20 13:53 ED Review of Systems ROS: Stated complaint: ASTHMA ATTACK Other details as noted in HPI Comment: All other systems reviewed and negative ED Past Medical Hx - Past Medical History Hx Hypertension: Yes Hx Congestive Heart Failure: No Hx Diabetes: No Hx Sickle Cell Disease: No Hx Asthma: Yes Hx COPD: Yes Hx Tuberculosis: No Hx HIV: No - Social History Smoking Status: Never Smoker Substance Use Type: None - Medications Home Medications: Home Medications Medication Instructions Recorded Confirmed Last Taken Type Prednisone [predniSONE 5 mg (6-Day 5 mg PO .TAPER #1 tab.ds.pk 11/05/18 Unknown Rx Pack, 21 Tabs)] amLODIPine 5 mg PO QDAY #30 tablet 11/05/18 Unknown Rx Albuterol Sulfate [Proair 90 mcg IH Q6H PRN #1 pump 04/20/19 Unknown Rx Respiclick] Nebulizer and Compressor [[place] 1 each MC Q6H #1 each 05/24/19 Unknown Rx Choice Nebulizer] Albuterol Sulfate [Proventil Hfa] 2 puff IH Q4HR PRN #1 hfa.aer.ad 05/27/19 Unknown Rx Nebulizer Accessories [Aeroneb Go] 1 each MC PRN PRN #1 each 07/23/19 Unknown Rx Albuterol Sulfate [Proventil Hfa] 6.7 gm IH TID PRN #1 hfa.aer.ad 09/04/19 Unknown Rx Albuterol Sulfate [Proventil Hfa] 6.7 gm IH QID PRN #1 hfa.aer.ad 09/15/19 Unknown Rx Acetaminophen [Acetaminophen TAB] 650 mg PO Q4H PRN tablet 10/20/19 Unknown Rx Albuterol Sulfate [Albuterol 0.63% 0.63 mg IH Q4HR PRN #2 ml 02/24/20 Unknown Rx NEBS] ALBUTEROL NEB's [Proventil 0.083% 2.5 mg IH TID PRN #30 nebu 04/21/20 Unknown Rx NEBS] Albuterol Sulfate [Albuterol 0.63% 0.63 mg IH TID PRN #270 ml 05/20/20 Unknown Rx NEBS] ALBUTEROL NEB's [Proventil 0.083% 2.5 mg IH TID PRN #25 neb 06/20/20 Unknown Rx NEBS] Albuterol Mdi (or & Nicu Only) 2 puff IH QID PRN #1 inhalation 06/20/20 Unknown Rx [ProAir HFA Inhaler] Montelukast [Singulair] 10 mg PO QPM #30 tablet 06/20/20 Unknown Rx Prednisone [predniSONE 10 mg 10 mg PO .TAPER #1 tab.ds.pk 06/20/20 Unknown Rx (6-Day Pack, 21 Tabs)] ALBUTEROL NEB's [Proventil 0.083% 2.5 mg IH TID PRN #90 neb 07/21/20 Unknown Rx NEBS] predniSONE [Deltasone] 40 mg PO QDAY 5 Days #10 tab 07/21/20 Unknown Rx Albuterol Sulfate [Albuterol 0.63% 0.63 mg IH TID PRN #1 box 08/22/20 Unknown Rx NEBS] Montelukast [Singulair] 10 mg PO QPM #30 tablet 08/22/20 Unknown Rx predniSONE [Deltasone] 40 mg PO QDAY 3 Days #6 tab 08/22/20 Unknown Rx ALBUTEROL NEB's [Proventil 0.083% 2.5 mg IH TID PRN #30 neb 09/14/20 Unknown Rx NEBS] Albuterol Sulfate [Proair 90 mcg IH Q4HR PRN #2 aer.pow.ba 09/14/20 Unknown Rx Respiclick] Cetirizine HCl [Zyrtec 10mg tab] 10 mg PO QDAY #30 tablet 09/14/20 Unknown Rx Fluticasone/Salmeterol [Advair 1 puff IH BID #1 disk.w.dev 09/14/20 Unknown Rx Diskus 250-50 mcg] Ipratropium (Nf) [Atrovent HFA 2 puff IH Q6HR PRN #1 inha 09/14/20 Unknown Rx 17MCG/PUFF] Ipratropium [Atrovent NEB] 0.5 mg IH Q4HR PRN #1 box 09/14/20 Unknown Rx ED Physical Exam - General Limitations: No Limitations General appearance: alert, in distress - Head Head exam: Present: atraumatic, normocephalic - Eye Eye exam: Present: normal appearance - ENT ENT exam: Present: normal exam - Neck Neck exam: Present: normal inspection, full ROM - Respiratory Respiratory exam: Present: decreased breath sounds, prolonged expiratory, other (Speaking in complete sentences, respiration rate 26) - Cardiovascular Cardiovascular Exam: Present: regular rate - GI/Abdominal GI/Abdominal exam: Present: soft, normal bowel sounds. Absent: distended, tenderness - Extremities Exam Extremities exam: Present: normal inspection - Back Exam Back exam: Present: normal inspection - Neurological Exam Neurological exam: Present: alert, oriented X3, normal gait - Psychiatric Psychiatric exam: Present: normal affect, normal mood - Skin Skin exam: Present: warm, dry, intact, normal color. Absent: rash ED Course Vital Signs 09/14/20 09/14/20 12:15 12:46 Temperature 98.1 F Pulse Rate 76 Pulse Rate [ 88 Anterior Bilateral Throughout] Respiratory 26 H Rate Respiratory 18 Rate [Anterior Bilateral Throughout] Blood Pressure 130/92 [Right] O2 Sat by Pulse 95 Oximetry - Reevaluation(s) Reevaluation #1: 09/14/20 13:45 Patient is breathing better no accessory muscles use. ED Medical Decision Making - Medical Decision Making 59-year-old -[place] male with a past medical history of asthma presents to the emergency room for exacerbation of his asthma. Patient states he has shortness of breath. He admits to is just a slight cough. He does report that allergies have given him some trouble. He has been hospitalized for asthma in the past but is never been intubated. Patient denies any fever chills no nausea no vomiting. Patient states is been using his inhaler. Albuterol 10 mg inhalation, Atrovent 1 mg inhalation and dexamethasone 10 mg IM has been ordered. Respiratory has been called to initiate medications. Critical care attestation.: If time is entered above; I have spent that time in minutes in the direct care of this critically ill patient, excluding procedure time. ED Disposition Clinical Impression: Asthma exacerbation, HTN (hypertension) Disposition: DC- TO HOME OR SELFCARE Is pt being admited?: No Does the pt Need Aspirin: No Condition: Stable Instructions: Asthma, Adult, [id number], Hypertension (ED) Prescriptions: Fluticasone/Salmeterol [Advair Diskus 250-50 mcg] 1 puff IH BID #1 disk.w.dev Ipratropium (Nf) [Atrovent HFA 17MCG/PUFF] 2 puff IH Q6HR PRN #1 inha PRN Reason: Wheezing Ipratropium [Atrovent NEB] 0.5 mg IH Q4HR PRN #1 box PRN Reason: Shortness Of Breath Albuterol Sulfate [Proair Respiclick] 90 mcg IH Q4HR PRN #2 aer.pow.ba PRN Reason: Wheezing ALBUTEROL NEB's [Proventil 0.083% NEBS] 2.5 mg IH TID PRN #30 neb PRN Reason: Wheezing Cetirizine HCl [Zyrtec 10mg tab] 10 mg PO QDAY #30 tablet Referrals: HARIS QUIROGA MD [Staff Physician] - 3-5 Days XI TOMLINSON MD [Staff Physician] - 3-5 Days Forms: Work/School Release Form(ED)
--- NOTE | 2020-09-14 12:35 | Event Note ---
ED Screening Note Date of service: 09/14/20 Time: 12:33 ED Screening Note: 59-year-old male patient with history of asthma presents emergency department with complaints of shortness of breath today. States his current symptoms are reminiscent of prior asthma exacerbations. States he has been out of his inhaler for a couple of days. States he typically uses his inhaler daily, in addition to other asthma medications prescribed by his primary care provider. Patient has been hospitalized for asthma once before. Increased work of breathing noted in triage. General: Awake, appropriately interactive, no acute distress. Neck: Supple. Full range of motion intact. Cardiovascular: Normal peripheral perfusion. Pulmonary: Tachypnea. Diminished air movement throughout. Skin: No apparent rashes or lesions. Neurological: No facial asymmetry. Speech is clear. Follows commands. Patient is alert and oriented. Musculoskeletal: Moves all four extremities spontaneously with normal range of motion. Psych: Cooperative. Appropriate mood and affect. Respiratory therapy paged for breathing treatment upon completion of medical screening exam. I have greeted and performed a focused rapid initial assessment of this patient. A comprehensive ED assessment and evaluation of the patient, analysis of all test results, and completion of the medical decision-making process will be conducted by additional ED providers. This initial assessment/diagnostic orders/clinical plan/treatment(s) is/are subject to change based on patients health status, clinical progression and re-assessment. Further treatment and workup at subsequent clinical provider's discretion. Patient/guardian urged not to elope from the ED as their condition may be serious if not clinically assessed and managed.
== END 2020-09-14 13:52 | disposition home or self-care (01) ==
LOC: ED 12:12
DX: J45.901 Unspecified asthma with (acute) exacerbation (principal); I10 Essential (primary) hypertension; Z79.899 Other long term (current) drug therapy
CPT/HCPCS: 94640; 96372; 99282; J1100; 94644

== ENCOUNTER 2020-09-21 12:34 | Emergency (ER) | payer MEDICARE ==
[2020-09-21 12:47] VITALS: BP 132/94
[2020-09-21] MEDS ORDERED: IPRATROPIUM 0.02% NEBU 2.5 ML IH ONE ×2 (13:04→15:55)
[2020-09-21] MEDS ORDERED: ALBUTEROL 2.5 MG/3 ML NEBU IH ONE ×3 (13:04→15:54)
[2020-09-21] MEDS ORDERED: dexAMETHasone 20 MG/5 ML VIAL IV ONE (13:04)
--- NOTE | 2020-09-21 15:48 | Emergency Department Report ---
ED Asthma HPI - General Chief Complaint: Adult Asthma Stated Complaint: ASTHMA PUI?: No Source: patient Mode of arrival: Wheelchair Limitations: No Limitations - History of Present Illness Initial Comments: 59-year-old -English male who is known to this provider presents to the emergency room complaining of difficulty breathing. Patient states has been using his inhaler but is not working. Patient is feels that he is gotten contact with someone who may have had a cold. Patient denies any fever chills no nausea no vomiting no headache or chest pain. MD Complaint: shortness of breath Onset/Timin -: days(s) Asthma History: adult onset, history of frequent attac, history of prior ED visit Context: recent URI Treatments Prior to Arrival: inhaled bronchodilator - Related Data Current Asthma Therapy: inhaled bronchodilator Previous Rx's Medication Instructions Recorded Last Taken Type Prednisone [predniSONE 5 mg (6-Day 5 mg PO .TAPER #1 tab.ds.pk 11/05/18 Unknown Rx Pack, 21 Tabs)] amLODIPine 5 mg PO QDAY #30 tablet 11/05/18 Unknown Rx Albuterol Sulfate [Proair 90 mcg IH Q6H PRN #1 pump 04/20/19 Unknown Rx Respiclick] Nebulizer and Compressor [Hiawatha 1 each MC Q6H #1 each 05/24/19 Unknown Rx Choice Nebulizer] Albuterol Sulfate [Proventil Hfa] 2 puff IH Q4HR PRN #1 hfa.aer.ad 05/27/19 Unknown Rx Nebulizer Accessories [Aeroneb Go] 1 each MC PRN PRN #1 each 07/23/19 Unknown Rx Albuterol Sulfate [Proventil Hfa] 6.7 gm IH TID PRN #1 hfa.aer.ad 09/04/19 Unknown Rx Albuterol Sulfate [Proventil Hfa] 6.7 gm IH QID PRN #1 hfa.aer.ad 09/15/19 Unknown Rx Acetaminophen [Acetaminophen TAB] 650 mg PO Q4H PRN tablet 10/20/19 Unknown Rx Albuterol Sulfate [Albuterol 0.63% 0.63 mg IH Q4HR PRN #2 ml 02/24/20 Unknown Rx NEBS] ALBUTEROL NEB's [Proventil 0.083% 2.5 mg IH TID PRN #30 nebu 04/21/20 Unknown Rx NEBS] Albuterol Sulfate [Albuterol 0.63% 0.63 mg IH TID PRN #270 ml 05/20/20 Unknown Rx NEBS] ALBUTEROL NEB's [Proventil 0.083% 2.5 mg IH TID PRN #25 neb 06/20/20 Unknown Rx NEBS] Albuterol Mdi (or & Nicu Only) 2 puff IH QID PRN #1 inhalation 06/20/20 Unknown Rx [ProAir HFA Inhaler] Montelukast [Singulair] 10 mg PO QPM #30 tablet 06/20/20 Unknown Rx Prednisone [predniSONE 10 mg 10 mg PO .TAPER #1 tab.ds.pk 06/20/20 Unknown Rx (6-Day Pack, 21 Tabs)] ALBUTEROL NEB's [Proventil 0.083% 2.5 mg IH TID PRN #90 neb 07/21/20 Unknown Rx NEBS] Albuterol Sulfate [Albuterol 0.63% 0.63 mg IH TID PRN #1 box 08/22/20 Unknown Rx NEBS] Montelukast [Singulair] 10 mg PO QPM #30 tablet 08/22/20 Unknown Rx predniSONE [Deltasone] 40 mg PO QDAY 3 Days #6 tab 08/22/20 Unknown Rx ALBUTEROL NEB's [Proventil 0.083% 2.5 mg IH TID PRN #30 neb 09/14/20 Unknown Rx NEBS] Albuterol Sulfate [Proair 90 mcg IH Q4HR PRN #2 aer.pow.ba 09/14/20 Unknown Rx Respiclick] Cetirizine HCl [Zyrtec 10mg tab] 10 mg PO QDAY #30 tablet 09/14/20 Unknown Rx Fluticasone/Salmeterol [Advair 1 puff IH BID #1 disk.w.dev 09/14/20 Unknown Rx Diskus 250-50 mcg] Ipratropium (Nf) [Atrovent HFA 2 puff IH Q6HR PRN #1 inha 09/14/20 Unknown Rx 17MCG/PUFF] Ipratropium [Atrovent NEB] 0.5 mg IH Q4HR PRN #1 box 09/14/20 Unknown Rx Benzonatate [Tessalon Perles] 100 mg PO Q8HR PRN #15 capsule 09/21/20 Unknown Rx predniSONE [Deltasone] 40 mg PO QDAY 5 Days #10 tab 09/21/20 Unknown Rx Allergies Allergy/AdvReac Type Severity Reaction Status Date / Time No Known Allergies Allergy Verified 05/20/20 13:53 ED Review of Systems ROS: Stated complaint: ASTHMA Other details as noted in HPI Comment: All other systems reviewed and negative ED Past Medical Hx - Past Medical History Previous Medical History?: Yes Hx Hypertension: Yes Hx Congestive Heart Failure: No Hx Diabetes: No Hx Sickle Cell Disease: No Hx Asthma: Yes Hx COPD: Yes Hx Tuberculosis: No Hx HIV: No - Social History Smoking Status: Former Smoker Substance Use Type: None - Medications Home Medications: Home Medications Medication Instructions Recorded Confirmed Last Taken Type Prednisone [predniSONE 5 mg (6-Day 5 mg PO .TAPER #1 tab.ds.pk 11/05/18 Unknown Rx Pack, 21 Tabs)] amLODIPine 5 mg PO QDAY #30 tablet 11/05/18 Unknown Rx Albuterol Sulfate [Proair 90 mcg IH Q6H PRN #1 pump 04/20/19 Unknown Rx Respiclick] Nebulizer and Compressor [Hiawatha 1 each MC Q6H #1 each 05/24/19 Unknown Rx Choice Nebulizer] Albuterol Sulfate [Proventil Hfa] 2 puff IH Q4HR PRN #1 hfa.aer.ad 05/27/19 Unknown Rx Nebulizer Accessories [Aeroneb Go] 1 each MC PRN PRN #1 each 07/23/19 Unknown Rx Albuterol Sulfate [Proventil Hfa] 6.7 gm IH TID PRN #1 hfa.aer.ad 09/04/19 Unknown Rx Albuterol Sulfate [Proventil Hfa] 6.7 gm IH QID PRN #1 hfa.aer.ad 09/15/19 Unknown Rx Acetaminophen [Acetaminophen TAB] 650 mg PO Q4H PRN tablet 10/20/19 Unknown Rx Albuterol Sulfate [Albuterol 0.63% 0.63 mg IH Q4HR PRN #2 ml 02/24/20 Unknown Rx NEBS] ALBUTEROL NEB's [Proventil 0.083% 2.5 mg IH TID PRN #30 nebu 04/21/20 Unknown Rx NEBS] Albuterol Sulfate [Albuterol 0.63% 0.63 mg IH TID PRN #270 ml 05/20/20 Unknown Rx NEBS] ALBUTEROL NEB's [Proventil 0.083% 2.5 mg IH TID PRN #25 neb 06/20/20 Unknown Rx NEBS] Albuterol Mdi (or & Nicu Only) 2 puff IH QID PRN #1 inhalation 06/20/20 Unknown Rx [ProAir HFA Inhaler] Montelukast [Singulair] 10 mg PO QPM #30 tablet 06/20/20 Unknown Rx Prednisone [predniSONE 10 mg 10 mg PO .TAPER #1 tab.ds.pk 06/20/20 Unknown Rx (6-Day Pack, 21 Tabs)] ALBUTEROL NEB's [Proventil 0.083% 2.5 mg IH TID PRN #90 neb 07/21/20 Unknown Rx NEBS] Albuterol Sulfate [Albuterol 0.63% 0.63 mg IH TID PRN #1 box 08/22/20 Unknown Rx NEBS] Montelukast [Singulair] 10 mg PO QPM #30 tablet 08/22/20 Unknown Rx predniSONE [Deltasone] 40 mg PO QDAY 3 Days #6 tab 08/22/20 Unknown Rx ALBUTEROL NEB's [Proventil 0.083% 2.5 mg IH TID PRN #30 neb 09/14/20 Unknown Rx NEBS] Albuterol Sulfate [Proair 90 mcg IH Q4HR PRN #2 aer.pow.ba 09/14/20 Unknown Rx Respiclick] Cetirizine HCl [Zyrtec 10mg tab] 10 mg PO QDAY #30 tablet 09/14/20 Unknown Rx Fluticasone/Salmeterol [Advair 1 puff IH BID #1 disk.w.dev 09/14/20 Unknown Rx Diskus 250-50 mcg] Ipratropium (Nf) [Atrovent HFA 2 puff IH Q6HR PRN #1 inha 09/14/20 Unknown Rx 17MCG/PUFF] Ipratropium [Atrovent NEB] 0.5 mg IH Q4HR PRN #1 box 09/14/20 Unknown Rx Benzonatate [Tessalon Perles] 100 mg PO Q8HR PRN #15 capsule 09/21/20 Unknown Rx predniSONE [Deltasone] 40 mg PO QDAY 5 Days #10 tab 09/21/20 Unknown Rx ED Physical Exam - General Limitations: No Limitations General appearance: alert, in distress - Head Head exam: Present: atraumatic, normocephalic - Eye Eye exam: Present: normal appearance - ENT ENT exam: Present: normal exam, normal external ear exam - Neck Neck exam: Present: normal inspection, full ROM. Absent: tenderness - Respiratory Respiratory exam: Present: rhonchi, decreased breath sounds, prolonged expiratory - Cardiovascular Cardiovascular Exam: Present: regular rate - Extremities Exam Extremities exam: Present: normal inspection - Back Exam Back exam: Present: normal inspection - Neurological Exam Neurological exam: Present: alert, oriented X3, normal gait - Psychiatric Psychiatric exam: Present: normal affect, normal mood - Skin Skin exam: Present: warm, dry, intact, normal color. Absent: rash ED Course Vital Signs 09/21/20 09/21/20 12:45 16:06 Temperature 98.9 F Pulse Rate 91 H Pulse Rate [ 84 Anterior Bilateral Throughout] Respiratory 26 H Rate Respiratory 19 Rate [Anterior Bilateral Throughout] Blood Pressure 132/94 O2 Sat by Pulse 95 Oximetry - Reevaluation(s) Reevaluation #1: 09/21/20 17:53 Patient is moving air better after having a continuous neb. Patient received dexamethasone IM to the left gluteal. ED Medical Decision Making - Medical Decision Making 59-year-old -English male who is known to this provider presents to the emergency room complaining of difficulty breathing. Patient states has been using his inhaler but is not working. Patient is feels that he is gotten contact with someone who may have had a cold. Patient denies any fever chills no nausea no vomiting no headache or chest pain. Critical care attestation.: If time is entered above; I have spent that time in minutes in the direct care of this critically ill patient, excluding procedure time. ED Disposition Clinical Impression: Asthma exacerbation Disposition: DC-01 TO HOME OR SELFCARE Is pt being admited?: No Does the pt Need Aspirin: No Condition: Stable Instructions: Asthma, Adult, [id number] Additional Instructions: Continue with your neb treatments start your prednisone pack tomorrow. Take benzonatate as needed for cough. Prescriptions: predniSONE [Deltasone] 40 mg PO QDAY 5 Days #10 tab Benzonatate [Tessalon Perles] 100 mg PO Q8HR PRN #15 capsule PRN Reason: Cough Referrals: PRIMARY CARE, [Primary Care Provider] - 3-5 Days [facility] [Provider Group] - 3-5 Days Forms: Work/School Release Form(ED)
[2020-09-21] MEDS ORDERED: dexAMETHasone 20 MG/5 ML VIAL ONE (17:33)
== END 2020-09-21 18:23 | disposition home or self-care (01) ==
LOC: ED 12:34
DX: J45.901 Unspecified asthma with (acute) exacerbation (principal); I10 Essential (primary) hypertension; Z87.891 Personal history of nicotine dependence; Z79.899 Other long term (current) drug therapy
CPT/HCPCS: 94640; 96374; 99283; J1100; 94644

== ENCOUNTER 2020-10-28 06:02 | Emergency (ER) | payer MEDICARE ==
[2020-10-28 14:33] VITALS: BP 126/87
[2020-10-28] MEDS ORDERED: ALBUTEROL 2.5 MG/3 ML NEBU IH ONE (14:39)
[2020-10-28] MEDS ORDERED: IPRATROPIUM 0.02% NEBU 2.5 ML IH ONE (14:39)
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
[2020-10-28] MEDS ORDERED: methylPREDNISolone Sod Succinate 125 MG/2 ML INJ IV ONE (14:53)
--- NOTE | 2020-10-28 14:53 | Emergency Department Report ---
Minor Respiratory - HPI Chief Complaint: Dyspnea/Respdistress Stated Complaint: ASTHMA Duration: Today Severity: moderate Minor Respiratory: Yes Able to Tolerate Fluids, Yes Cough, Yes Shortness of Breath, No Rhinorrhea, No Sore Throat, No Ear Pain, No Sick Contacts, No Hemoptysis, No Chest Pain, No Fever Other History: 59 yo AA male comes to ER with wheezing. He has a/c asthma and ran out of meds yesterday. No chest pain. No fever or chills. No nvd. Ambulatory and non toxic on arrival to [facility]. ED Review of Systems ROS: Stated complaint: ASTHMA Other details as noted in HPI Comment: All other systems reviewed and negative ED Past Medical Hx - Past Medical History Previous Medical History?: Yes Hx Hypertension: Yes Hx Congestive Heart Failure: No Hx Diabetes: No Hx Sickle Cell Disease: No Hx Asthma: Yes Hx COPD: Yes Hx Tuberculosis: No Hx HIV: No - Surgical History Past Surgical History?: No - Social History Smoking Status: Never Smoker Substance Use Type: None - Medications Home Medications: Home Medications Medication Instructions Recorded Confirmed Last Taken Type amLODIPine 5 mg PO QDAY #30 tablet 11/05/18 Unknown Rx Fluticasone/Salmeterol [Advair 1 puff IH BID #1 disk.w.dev 09/14/20 Unknown Rx Diskus 250-50 mcg] Ipratropium (Nf) [Atrovent HFA 2 puff IH Q6HR PRN #1 inha 09/14/20 Unknown Rx 17MCG/PUFF] Ipratropium [Atrovent NEB] 0.5 mg IH Q4HR PRN #1 box 09/14/20 Unknown Rx ALBUTEROL NEB's [Proventil 0.083% 2.5 mg IH TID PRN #30 neb 10/28/20 Unknown Rx NEBS] Albuterol Sulfate [Proventil Hfa] 6.7 gm IH QID PRN #1 hfa.aer.ad 10/28/20 Unknown Rx Montelukast [Singulair] 10 mg PO QPM #30 tablet 10/28/20 Unknown Rx predniSONE [Deltasone] 20 mg PO DAILY #5 tablet 10/28/20 Unknown Rx Minor Respiratory Exam - Exam General: Vital signs noted. No distress. Alert and acting appropriately. HEENT: Yes Moist Mucous Membranes, No Pharyngeal Erythema, No Pharyngeal Exudates, No Rhinorrhea, No Conjuctival Injection, No Frontal Tenderness, No Maxillary Tenderness Ear: Neither TM Bulge, Neither TM Erythema, Neither EAC Pain, Neither EAC Discharge Neck: Yes Supple, No Adenopathy Lungs: Yes Good Air Exchange, Yes Wheezes, No Ronchi, No Stridor, No Cough, No Labored Respirations, No Retractions, No Use of Accessory Muscles, No Other Abnormal Lung Sounds Heart: Yes Regular, No Murmur Abdomen: Yes Normal Bowel Sounds, No Tenderness, No Peritoneal Signs Skin: No Rash, No Edema Neurologic: Alert and oriented, no deficits. Musculoskeletal: Unremarkable. ED Course Vital Signs 10/28/20 14:31 Temperature 97.8 F Pulse Rate 83 Respiratory 25 H Rate Blood Pressure 126/87 [Right] O2 Sat by Pulse 97 Oximetry ED Medical Decision Making - Radiology Data Radiology results: report reviewed, image reviewed NAP - Medical Decision Making duoneb/solumedrol given xray nap dc home with dc plan of care. I've explained to pt the importance of seeing pcp for his asthma- not the ER. He comes here often for refills. Ran out of meds yesterday. RR 18 p duoneb 100% on roomair, dc home with dc plan of care and pcp follow up. Vital Signs 10/28/20 14:31 Temperature 97.8 F Pulse Rate 83 Respiratory 25 H Rate Blood Pressure 126/87 [Right] O2 Sat by Pulse 97 Oximetry - Differential Diagnosis ASTHMA AE WITH OR WITHOUT INFECTION Critical care attestation.: If time is entered above; I have spent that time in minutes in the direct care of this critically ill patient, excluding procedure time. ED Disposition Clinical Impression: Asthma exacerbation, Noncompliance, Medication refill Disposition: DC-01 TO HOME OR SELFCARE Is pt being admited?: No Does the pt Need Aspirin: No Condition: Stable Instructions: Asthma, Adult Additional Instructions: MEDS ORDERED FOLLOW UP WITH PCP- REFERRAL BELOW Prescriptions: predniSONE [Deltasone] 20 mg PO DAILY #5 tablet ALBUTEROL NEB's [Proventil 0.083% NEBS] 2.5 mg IH TID PRN #30 neb PRN Reason: Wheezing Albuterol Sulfate [Proventil Hfa] 6.7 gm IH QID PRN #1 hfa.aer.ad PRN Reason: Wheezing Montelukast [Singulair] 10 mg PO QPM #30 tablet Referrals: XI TOMLINSON MD [Staff Physician] - 3-5 Days Time of Disposition: 15:10
--- NOTE | 2020-10-28 15:20 | XRay Report ---
XR chest 1V ap INDICATION / CLINICAL INFORMATION: sob COMPARISON: 09/11/2020 FINDINGS: SUPPORT DEVICES: None. HEART / MEDIASTINUM: No significant abnormality. LUNGS / PLEURA: Lungs are clear. Costophrenic sulci are sharp. No pneumothorax. ADDITIONAL FINDINGS: No significant additional findings. IMPRESSION: 1. No acute findings. Signer Name: Preet Estes MD Signed: 10/28/2020 3:16 PM Workstation Name: [id number]
== END 2020-10-28 16:12 | disposition home or self-care (01) ==
LOC: ED 14:28
DX: J45.901 Unspecified asthma with (acute) exacerbation (principal); Z91.19 Patient's noncompliance with other medical treatment and regimen; Z76.0 Encounter for issue of repeat prescription; I10 Essential (primary) hypertension; Z79.899 Other long term (current) drug therapy
CPT/HCPCS: 71045; 94640; 96374; 99283; J2930; 94644

== ENCOUNTER 2020-11-10 17:58 | Emergency (ER) | payer MEDICARE ==
[2020-11-10] MEDS ORDERED: ALBUTEROL 2.5 MG/3 ML NEBU IH ONE (18:06)
[2020-11-10] MEDS ORDERED: IPRATROPIUM 0.02% NEBU 2.5 ML IH ONE (18:06)
--- NOTE | 2020-11-10 18:09 | Event Note ---
ED Screening Note Date of service: 11/10/20 Time: 18:07 ED Screening Note: 59-year-old male patient with history of asthma and COPD presents to the emergency department with complaints of shortness of breath and wheezing starting 2 hours ago. Patient used his rescue inhaler with limited relief. Patient has been hospitalized for asthma/COPD exacerbation on 1 prior occasion. He did not require mechanical ventilation. No current steroid or antibiotic use. States current symptoms are consistent with prior asthma/COPD exacerbations. General: Awake, appropriately interactive. Neck: Supple. Full range of motion intact. Cardiovascular: Normal peripheral perfusion. Pulmonary: Increased work of breathing. Speaking in full sentences. Inspiratory and expiratory wheezing. Skin: No apparent rashes or lesions. Neurological: No facial asymmetry. Speech is clear. Follows commands. Patient is alert and oriented. Musculoskeletal: Moves all four extremities spontaneously with normal range of motion. Psych: Cooperative. Appropriate mood and affect. Breathing treatment ordered. Triage nurse aware of direct bed request. I have greeted and performed a focused rapid initial assessment of this patient. A comprehensive ED assessment and evaluation of the patient, analysis of all test results, and completion of the medical decision-making process will be conducted by additional ED providers. This initial assessment/diagnostic orders/clinical plan/treatment(s) is/are subject to change based on patients health status, clinical progression and re-assessment. Further treatment and workup at subsequent clinical provider's discretion. Patient/guardian urged not to elope from the ED as their condition may be serious if not clinically assessed and managed.
[2020-11-10] MEDS ORDERED: dexAMETHasone 4 MG/ML VIAL IM STA (18:14)
--- NOTE | 2020-11-10 20:26 | Emergency Department Report ---
ED Asthma HPI - General Chief Complaint: Dyspnea/Respdistress Stated Complaint: ASTHMA ATTACK Time Seen by Provider: 11/10/20 18:13 Source: patient Mode of arrival: Wheelchair Limitations: No Limitations - History of Present Illness MD Complaint: "asthma attack", shortness of breath, wheezing -: Gradual Asthma History: adult onset, history of frequent attac, history of prior ED visit Severity: moderate Context: ran out of meds, allergen exposure Associated Symptoms: none, dry cough - Related Data Current Asthma Therapy: none Previous Rx's Medication Instructions Recorded Last Taken Type amLODIPine 5 mg PO QDAY #30 tablet 11/05/18 Unknown Rx Fluticasone/Salmeterol [Advair 1 puff IH BID #1 disk.w.dev 09/14/20 Unknown Rx Diskus 250-50 mcg] Ipratropium (Nf) [Atrovent HFA 2 puff IH Q6HR PRN #1 inha 09/14/20 Unknown Rx 17MCG/PUFF] Ipratropium [Atrovent NEB] 0.5 mg IH Q4HR PRN #1 box 09/14/20 Unknown Rx ALBUTEROL NEB's [Proventil 0.083% 2.5 mg IH TID PRN #30 neb 10/28/20 Unknown Rx NEBS] Albuterol Sulfate [Proventil Hfa] 6.7 gm IH QID PRN #1 hfa.aer.ad 10/28/20 Unknown Rx Montelukast [Singulair] 10 mg PO QPM #30 tablet 10/28/20 Unknown Rx predniSONE [Deltasone] 20 mg PO DAILY #5 tablet 10/28/20 Unknown Rx Albuterol Mdi (or & Nicu Only) 1 puff IH Q4-6H PRN #1 inha 11/10/20 Unknown Rx [ProAir HFA Inhaler] Ipratropium/Albuterol Sulfate 1 ampul IH Q8HR PRN #30 ampul.neb 11/10/20 Unknown Rx [DUONEB *Not for PRN Use*] Montelukast [Singulair] 10 mg PO QPM #14 tablet 11/10/20 Unknown Rx predniSONE [Deltasone] 20 mg PO QDAY #5 tab 11/10/20 Unknown Rx Allergies Allergy/AdvReac Type Severity Reaction Status Date / Time No Known Allergies Allergy Verified 05/20/20 13:53 ED Review of Systems ROS: Stated complaint: ASTHMA ATTACK Other details as noted in HPI Comment: All other systems reviewed and negative ED Past Medical Hx - Past Medical History Previous Medical History?: Yes Hx Hypertension: Yes Hx Congestive Heart Failure: No Hx Diabetes: No Hx Sickle Cell Disease: No Hx Asthma: Yes Hx COPD: Yes Hx Tuberculosis: No Hx HIV: No - Social History Smoking Status: Never Smoker Substance Use Type: None - Medications Home Medications: Home Medications Medication Instructions Recorded Confirmed Last Taken Type amLODIPine 5 mg PO QDAY #30 tablet 11/05/18 Unknown Rx Fluticasone/Salmeterol [Advair 1 puff IH BID #1 disk.w.dev 09/14/20 Unknown Rx Diskus 250-50 mcg] Ipratropium (Nf) [Atrovent HFA 2 puff IH Q6HR PRN #1 inha 09/14/20 Unknown Rx 17MCG/PUFF] Ipratropium [Atrovent NEB] 0.5 mg IH Q4HR PRN #1 box 09/14/20 Unknown Rx ALBUTEROL NEB's [Proventil 0.083% 2.5 mg IH TID PRN #30 neb 10/28/20 Unknown Rx NEBS] Albuterol Sulfate [Proventil Hfa] 6.7 gm IH QID PRN #1 hfa.aer.ad 10/28/20 Unknown Rx Montelukast [Singulair] 10 mg PO QPM #30 tablet 10/28/20 Unknown Rx predniSONE [Deltasone] 20 mg PO DAILY #5 tablet 10/28/20 Unknown Rx Albuterol Mdi (or & Nicu Only) 1 puff IH Q4-6H PRN #1 inha 11/10/20 Unknown Rx [ProAir HFA Inhaler] Ipratropium/Albuterol Sulfate 1 ampul IH Q8HR PRN #30 ampul.neb 11/10/20 Unknown Rx [DUONEB *Not for PRN Use*] Montelukast [Singulair] 10 mg PO QPM #14 tablet 11/10/20 Unknown Rx predniSONE [Deltasone] 20 mg PO QDAY #5 tab 11/10/20 Unknown Rx ED Physical Exam - General Limitations: No Limitations General appearance: alert, in no apparent distress - Head Head exam: Present: atraumatic, normocephalic - Eye Eye exam: Present: normal appearance - ENT ENT exam: Present: mucous membranes moist - Neck Neck exam: Present: normal inspection - Respiratory Respiratory exam: Present: normal lung sounds bilaterally. Absent: respiratory distress, wheezes, rales, chest wall tenderness, accessory muscle use, decreased breath sounds - Cardiovascular Cardiovascular Exam: Present: regular rate, normal rhythm. Absent: systolic murmur, diastolic murmur, rubs, gallop - GI/Abdominal GI/Abdominal exam: Present: soft, normal bowel sounds. Absent: tenderness, guarding, rebound, hyperactive bowel sounds, hypoactive bowel sounds, organomegaly, mass - Rectal Rectal exam: Present: deferred - Extremities Exam Extremities exam: Present: normal inspection, full ROM, normal capillary refill - Back Exam Back exam: Present: normal inspection. Absent: CVA tenderness (R), CVA tenderness (L) - Neurological Exam Neurological exam: Present: alert, oriented X3, CN II-XII intact - Psychiatric Psychiatric exam: Present: normal affect, normal mood. Absent: anxious, flat affect - Skin Skin exam: Present: warm, dry, intact, normal color. Absent: rash, diaphoretic, erythema ED Medical Decision Making - Medical Decision Making No altered mental status, saddle respirations, belly breathing or other signs of impending ventilatory failure. No intubations or recent admissions to the hospital for asthma. Unlikely pneumonia, CHF, COPD, GERD Workup Review include a chest x-ray which was normal she also received steroids and albuterol Therapies: Prednisone 50 mg PO. Albuterol nebulizer Reassessment: Patient improved with albuterol and ipratropium in less than 3 hours. Disposition: Discharge home with return precautions. Advised to follow up with primary care physician within next 24-48 hours. Aside from this acute exacerbation patient has been well controlled on baseline home regimen. Rx short steroid course, albuterol, Singulair, Flovent Critical care attestation.: If time is entered above; I have spent that time in minutes in the direct care of this critically ill patient, excluding procedure time. ED Disposition Clinical Impression: Asthma exacerbation, Acute respiratory failure Disposition: TO HOME OR SELFCARE Is pt being admited?: No Does the pt Need Aspirin: No Condition: Stable Instructions: Asthma, Adult, Cough, Adult, [id number], Form - Asthma Action Plan, Adult, Peak Flow Meter, Asthma Attack, Cough, Adult, Asthma Attack Prevention, Adult, Asthma and Physical Activity Prescriptions: predniSONE [Deltasone] 20 mg PO QDAY #5 tab Ipratropium/Albuterol Sulfate [DUONEB *Not for PRN Use*] 1 ampul IH Q8HR PRN #30 ampul.neb PRN Reason: asthma flare Albuterol Mdi (or & Nicu Only) [ProAir HFA Inhaler] 1 puff IH Q4-6H PRN #1 inha PRN Reason: Cough Montelukast [Singulair] 10 mg PO QPM #14 tablet Referrals: CESAR MALAVE MD [Staff Physician] - 3-5 Days
== END 2020-11-10 20:20 | disposition home or self-care (01) ==
LOC: ED 17:58
DX: J96.00 Acute respiratory failure, unspecified whether with hypoxia or hypercapnia (principal); J45.901 Unspecified asthma with (acute) exacerbation; I10 Essential (primary) hypertension; J44.9 Chronic obstructive pulmonary disease, unspecified; Z79.899 Other long term (current) drug therapy
CPT/HCPCS: 94640; 96372; 99282; J1100

== ENCOUNTER 2020-12-05 07:25 | Emergency (ER) | payer MEDICARE ==
[2020-12-05] MEDS ORDERED: IPRATROPIUM 0.02% NEBU 2.5 ML IH ONE ×3 (07:45→08:03)
[2020-12-05] MEDS ORDERED: ALBUTEROL 2.5 MG/3 ML NEBU IH ONE ×3 (07:45→08:03)
[2020-12-05] MEDS ORDERED: MAGNESIUM SULFATE 2 GM/50 ML BAG IV ONE ×2 (07:50→07:51)
[2020-12-05] MEDS ORDERED: methylPREDNISolone Sod Succinate 125 MG/2 ML INJ ONE (07:50)
[2020-12-05] MEDS ORDERED: methylPREDNISolone Sod Succinate 125 MG/2 ML INJ IV ONE (07:50)
--- NOTE | 2020-12-05 07:54 | Emergency Department Report ---
ED Shortness of Breath HPI - General Chief Complaint: Dyspnea/Respdistress Stated Complaint: ASTHMA ATTACK,ALEKSANDAR Time Seen by Provider: 12/05/20 07:46 Source: patient Mode of arrival: Wheelchair Limitations: No Limitations - History of Present Illness Initial Comments: Patient is 59 years old male with history of asthma and hypertension. Patient presented to the ER complaining of shortness of breath and wheezing. Patient stated that symptoms started this morning around 400. Patient stated that he ran out of his medication. He stated that he is taking prednisone daily. Patient denied any fever or chills. No chest pain, abdominal pain, nausea or vomiting. MD Complaint: shortness of breath, cough, "asthma attack" -: Sudden, This morning Consistency: constant Known History Of: asthma - Related Data Previous Rx's Medication Instructions Recorded Last Taken Type amLODIPine 5 mg PO QDAY #30 tablet 11/05/18 Unknown Rx Fluticasone/Salmeterol [Advair 1 puff IH BID #1 disk.w.dev 09/14/20 Unknown Rx Diskus 250-50 mcg] Ipratropium (Nf) [Atrovent HFA 2 puff IH Q6HR PRN #1 inha 09/14/20 Unknown Rx 17MCG/PUFF] Ipratropium [Atrovent NEB] 0.5 mg IH Q4HR PRN #1 box 09/14/20 Unknown Rx ALBUTEROL NEB's [Proventil 0.083% 2.5 mg IH TID PRN #30 neb 10/28/20 Unknown Rx NEBS] Albuterol Sulfate [Proventil Hfa] 6.7 gm IH QID PRN #1 hfa.aer.ad 10/28/20 Unknown Rx Montelukast [Singulair] 10 mg PO QPM #30 tablet 10/28/20 Unknown Rx predniSONE [Deltasone] 20 mg PO DAILY #5 tablet 10/28/20 Unknown Rx Albuterol Mdi (or & Nicu Only) 1 puff IH Q4-6H PRN #1 inha 11/10/20 Unknown Rx [ProAir HFA Inhaler] Ipratropium/Albuterol Sulfate 1 ampul IH Q8HR PRN #30 ampul.neb 11/10/20 Unknown Rx [DUONEB *Not for PRN Use*] Montelukast [Singulair] 10 mg PO QPM #14 tablet 11/10/20 Unknown Rx predniSONE [Deltasone] 20 mg PO QDAY #5 tab 11/10/20 Unknown Rx Allergies Allergy/AdvReac Type Severity Reaction Status Date / Time No Known Allergies Allergy Verified 05/20/20 13:53 ED Review of Systems ROS: Stated complaint: ASTHMA ATTACK,ALEKSANDAR Other details as noted in HPI Comment: All other systems reviewed and negative Constitutional: denies: chills, fever Respiratory: cough, orthopnea, shortness of breath, SOB with exertion, SOB at rest, wheezing Cardiovascular: denies: chest pain, palpitations Gastrointestinal: denies: abdominal pain, nausea, vomiting Musculoskeletal: denies: back pain Neurological: denies: headache, weakness, numbness, paresthesias, confusion ED Past Medical Hx - Past Medical History Previous Medical History?: Yes Hx Hypertension: Yes Hx Congestive Heart Failure: No Hx Diabetes: No Hx Sickle Cell Disease: No Hx Asthma: Yes Hx COPD: Yes Hx Tuberculosis: No Hx HIV: No - Social History Smoking Status: Never Smoker Substance Use Type: None - Medications Home Medications: Home Medications Medication Instructions Recorded Confirmed Last Taken Type amLODIPine 5 mg PO QDAY #30 tablet 11/05/18 Unknown Rx Fluticasone/Salmeterol [Advair 1 puff IH BID #1 disk.w.dev 09/14/20 Unknown Rx Diskus 250-50 mcg] Ipratropium (Nf) [Atrovent HFA 2 puff IH Q6HR PRN #1 inha 09/14/20 Unknown Rx 17MCG/PUFF] Ipratropium [Atrovent NEB] 0.5 mg IH Q4HR PRN #1 box 09/14/20 Unknown Rx ALBUTEROL NEB's [Proventil 0.083% 2.5 mg IH TID PRN #30 neb 10/28/20 Unknown Rx NEBS] Albuterol Sulfate [Proventil Hfa] 6.7 gm IH QID PRN #1 hfa.aer.ad 10/28/20 Unknown Rx Montelukast [Singulair] 10 mg PO QPM #30 tablet 10/28/20 Unknown Rx predniSONE [Deltasone] 20 mg PO DAILY #5 tablet 10/28/20 Unknown Rx Albuterol Mdi (or & Nicu Only) 1 puff IH Q4-6H PRN #1 inha 11/10/20 Unknown Rx [ProAir HFA Inhaler] Ipratropium/Albuterol Sulfate 1 ampul IH Q8HR PRN #30 ampul.neb 11/10/20 Unknown Rx [DUONEB *Not for PRN Use*] Montelukast [Singulair] 10 mg PO QPM #14 tablet 11/10/20 Unknown Rx predniSONE [Deltasone] 20 mg PO QDAY #5 tab 11/10/20 Unknown Rx ED Physical Exam - General Limitations: No Limitations General appearance: in distress - Head Head exam: Present: atraumatic, normocephalic, normal inspection - Eye Eye exam: Present: normal appearance, PERRL - ENT ENT exam: Present: normal exam, normal orophraynx, mucous membranes moist - Neck Neck exam: Present: normal inspection, full ROM. Absent: tenderness, meningismus - Respiratory Respiratory exam: Present: respiratory distress, wheezes, rhonchi, accessory muscle use, decreased breath sounds, prolonged expiratory - Cardiovascular Cardiovascular Exam: Present: regular rate, normal rhythm, normal heart sounds - GI/Abdominal GI/Abdominal exam: Present: soft, normal bowel sounds. Absent: distended, tenderness, guarding, rebound, rigid, bruit, pulsatile mass, hernia - Extremities Exam Extremities exam: Present: normal inspection, full ROM, normal capillary refill. Absent: tenderness - Back Exam Back exam: Present: normal inspection, full ROM. Absent: CVA tenderness (R), CVA tenderness (L) - Neurological Exam Neurological exam: Present: alert, oriented X3, CN II-XII intact, normal gait, reflexes normal. Absent: motor sensory deficit - Psychiatric Psychiatric exam: Present: normal mood - Skin Skin exam: Present: warm, intact, normal color ED Course Vital Signs 12/05/20 12/05/20 12/05/20 07:32 07:47 08:37 Temperature 97.5 F L Pulse Rate 86 79 Pulse Rate [ 96 H Posterior Bilateral Throughout] Respiratory 28 H 16 Rate Respiratory 18 Rate [Posterior Bilateral Throughout] Blood Pressure 160/130 129/85 [Right] O2 Sat by Pulse 93 100 Oximetry ED Medical Decision Making - Lab Data Result diagrams: 12/05/20 07:50 12/05/20 07:50 - Radiology Data Radiology results: report reviewed - Medical Decision Making Patient is 59 years old male with history of asthma and hypertension. Patient presented to the ER complaining of shortness of breath and wheezing. Patient stated that symptoms started this morning around 400. Patient stated that he ran out of his medication. He stated that he is taking prednisone daily. Patient denied any fever or chills. No chest pain, abdominal pain, nausea or vomiting. Patient received albuterol, Atrovent, Solu-Medrol and magnesium sulfate. Patient stated that he is feeling much better and is ready to go home. Labs reviewed and is unremarkable chest x-ray negative for acute finding. Patient given prescription for prednisone and advised to follow-up with his primary doctor in the next 2 to 3 days and to return to the ER if he develop any new symptoms. Critical care attestation.: If time is entered above; I have spent that time in minutes in the direct care of this critically ill patient, excluding procedure time. ED Disposition Clinical Impression: Asthma exacerbation Disposition: DC-01 TO HOME OR SELFCARE Is pt being admited?: No Condition: Stable Instructions: Asthma, Adult Referrals: [facility] [Provider Group] - 3-5 Days
[2020-12-05 08:33] LABS: Basophils # (Auto) 0.1 K/mm3 (0.0-0.1); Basophils % (Auto) 1.2 % (0.0-1.8); Eosinophils # (Auto) 0.6 K/mm3 (0.0-0.4); Eosinophils % (Auto) 9.8 % (0.0-4.3); Hematocrit 44.7 % (35.5-45.6); Hemoglobin 14.6 gm/dl (11.8-15.2); Lymphocytes % (Auto) 16.9 % (13.4-35.0); Mean Corpuscular HGB Conc 33 % (32-34); Mean Corpuscular Volume 97 fl (84-94); Monocytes # (Auto) 0.7 K/mm3 (0.0-0.8); Monocytes % (Auto) 10.6 % (0.0-7.3); Platelet Count 211 K/mm3 (140-440); Red Blood Count 4.62 M/mm3 (3.65-5.03); Red Cell Distribution Width 13.1 % (13.2-15.2)
[2020-12-05 08:35] LABS: BUN/Creatinine Ratio 13; Blood Urea Nitrogen 18 mg/dL (9-20); Calcium 8.8 mg/dL (8.4-10.2); Hemolysis Index 5
--- NOTE | 2020-12-05 08:43 | XRay Report ---
CHEST 1 VIEW INDICATION: Dyspnea. COMPARISON: 10/28/2020 FINDINGS: SUPPORT DEVICES: None. HEART: Within normal limits. LUNGS/PLEURA: Minimal streaky left greater the right basilar airspace disease with otherwise clear arlene ngs. ADDITIONAL FINDINGS: None. IMPRESSION: 1. Pulmonary findings as above. Signer Name: Steve Ramos MD Signed: 12/05/2020 8:38 AM Workstation Name: [id number]
[2020-12-05 11:22] VITALS: BP 135/97
== END 2020-12-05 11:22 | disposition home or self-care (01) ==
LOC: ED 07:25
DX: J45.901 Unspecified asthma with (acute) exacerbation (principal); I10 Essential (primary) hypertension; Z79.899 Other long term (current) drug therapy
CPT/HCPCS: 36415; 71045; 80048; 83880; 85025; 94644; 96365; 96375; 99284; J2930; J3475

== ENCOUNTER 2020-12-13 20:34 | Emergency (ER) | payer MEDICARE ==
[2020-12-13] MEDS ORDERED: IPRATROPIUM/ALBUTEROL SULFATE 3 ML AMPUL.NEB IH ONE (20:39)
[2020-12-13] MEDS ORDERED: predniSONE 20 MG TAB PO ONE (20:39)
[2020-12-13] MEDS ORDERED: ALBUTEROL 2.5 MG/3 ML NEBU IH ONE ×2 (20:54→20:56)
[2020-12-13] MEDS ORDERED: IPRATROPIUM 0.02% NEBU 2.5 ML IH ONE ×2 (20:55→20:56)
--- NOTE | 2020-12-13 21:16 | XRay Report ---
CHEST 2 VIEWS INDICATION / CLINICAL INFORMATION: Chest Pain. COMPARISON: 12/05/2020 FINDINGS: SUPPORT DEVICES: None. HEART / MEDIASTINUM: No significant abnormality. LUNGS / PLEURA: No significant pulmonary or pleural abnormality. No pneumothorax. ADDITIONAL FINDINGS: Old healed left posterior rib fracture again noted. IMPRESSION: 1. No acute findings. Signer Name: Bhavin Anderson MD Signed: 12/13/2020 9:11 PM Workstation Name: [id number]
--- NOTE | 2020-12-13 21:25 | Emergency Department Report ---
Blank Doc - Documentation Documentation: 59-year-old male that presents with chest tightness/pain in shortness of breath. Patient stated has history of asthma exacerbation. Exam: Some wheezing on auscultation bilaterally with tightness 1- This is a initial triage assessment/medical screening only. Full assessment a nd work-up will be completed once the patient is in proper hospital gown, ED bed and in a private room setting. This initial assessment/diagnostic orders/clinical plan/ treatment(s) is/are subject to change based on pt's health status, clinical progression and re-assessment by fellow clinical providers in the ED. Further treatment and workup at subsequent clinical providers discretion. Patient/guardians urged not to elope from ED as their condition may be serious if not clinically assessed and managed. 2-cardiac work-up 3-DuoNeb and prednisone ordered
[2020-12-13] MEDS ORDERED: methylPREDNISolone Sod Succinate 125 MG/2 ML INJ IV ONE (22:03)
[2020-12-13 22:04] LABS: Basophils # (Auto) 0.1 K/mm3 (0.0-0.1); Eosinophils # (Auto) 0.3 K/mm3 (0.0-0.4); Eosinophils % (Auto) 4.3 % (0.0-4.3); Hematocrit 42.1 % (35.5-45.6); Lymphocytes # (Auto) 1.5 K/mm3 (1.2-5.4); Lymphocytes % (Auto) 19.2 % (13.4-35.0); Mean Corpuscular HGB Conc 33 % (32-34); Mean Corpuscular Volume 97 fl (84-94); Monocytes # (Auto) 0.8 K/mm3 (0.0-0.8); Monocytes % (Auto) 10.1 % (0.0-7.3); Platelet Count 197 K/mm3 (140-440); Red Blood Count 4.32 M/mm3 (3.65-5.03); Red Cell Distribution Width 13.1 % (13.2-15.2)
--- NOTE | 2020-12-13 22:08 | Emergency Department Report ---
HPI - General Chief Complaint: Adult Asthma Time Seen by Provider: 12/13/20 20:38 - HPI HPI: 59-year-old male with history of hypertension, asthma/COPD presents complaining of acute onset of shortness of breath and wheezing which started proximately 4 hours prior to arrival. The patient states that he was at home today moving furniture at his home around 6 PM when he began to feel very short of breath with wheezing. He also reports chest congestion typical of his asthma/COPD exacerbations. He tried using his home inhalers but his symptoms did not improve significantly and therefore he decided to call 911 and come to the emergency department. He is fully vaccinated against the novel coronavirus. He says this feels just like all prior asthma attacks. He states that other than his shortness of breath/wheezing/chest congestion he has had no fever/chills, no night sweats, no cough, no headache, no vision change, no neck pain, no palpitations,no edema, no abdominal pain, no nausea, and no other symptoms whatsoever. ED Past Medical Hx - Past Medical History Hx Hypertension: Yes Hx Congestive Heart Failure: No Hx Diabetes: No Hx Sickle Cell Disease: No Hx Asthma: Yes Hx COPD: Yes Hx Tuberculosis: No Hx HIV: No - Social History Smoking Status: Never Smoker Substance Use Type: None - Medications Home Medications: Home Medications Medication Instructions Recorded Confirmed Last Taken Type amLODIPine 5 mg PO QDAY #30 tablet 11/05/18 Unknown Rx Ipratropium [Atrovent NEB] 0.5 mg IH Q4HR PRN #1 box 09/14/20 Unknown Rx Albuterol Sulfate [Proventil Hfa] 6.7 gm IH QID PRN #1 hfa.aer.ad 10/28/20 Unknown Rx predniSONE [Deltasone] 20 mg PO DAILY #5 tablet 10/28/20 Unknown Rx Albuterol Mdi (or & Nicu Only) 1 puff IH Q4-6H PRN #1 inha 11/10/20 Unknown Rx [ProAir HFA Inhaler] Ipratropium/Albuterol Sulfate 1 ampul IH Q8HR PRN #30 ampul.neb 11/10/20 Unknown Rx [DUONEB *Not for PRN Use*] Montelukast [Singulair] 10 mg PO QPM #14 tablet 11/10/20 Unknown Rx predniSONE [Deltasone] 20 mg PO QDAY #5 tab 11/10/20 Unknown Rx Prednisone [predniSONE 10 mg 10 mg PO .TAPER #1 tab.ds.pk 12/05/20 Unknown Rx (6-Day Pack, 21 Tabs)] ALBUTEROL NEB's [Proventil 0.083% 2.5 mg IH TID PRN #30 neb 12/14/20 Unknown Rx NEBS] Fluticasone/Salmeterol [Advair 1 puff IH BID #1 disk.w.dev 12/14/20 Unknown Rx Diskus 250-50 mcg] Ipratropium (Nf) [Atrovent HFA 2 puff IH Q6HR PRN #1 inha 12/14/20 Unknown Rx 17MCG/PUFF] Montelukast [Singulair] 10 mg PO QPM #30 tablet 12/14/20 Unknown Rx predniSONE [Deltasone] 20 mg PO DAILY #8 tablet 12/14/20 Unknown Rx ED Review of Systems ROS: Stated complaint: asthma Other details as noted in HPI Constitutional: denies: chills, fever Eyes: denies: eye pain, vision change ENT: denies: throat pain, congestion Respiratory: shortness of breath, wheezing. denies: cough Cardiovascular: other (chest congestion). denies: palpitations, edema, syncope Gastrointestinal: denies: abdominal pain, nausea, vomiting Genitourinary: denies: dysuria, frequency Musculoskeletal: denies: back pain, myalgia Skin: denies: rash Neurological: denies: headache, weakness, numbness Physical Exam - Physical Exam Vital Signs: Vital Signs 12/13/20 21:08 Pulse Rate [ 90 Bilateral] Respiratory 20 Rate [Bilateral ] Physical Exam: GENERAL: Well developed and well nourished. In moderate respiratory distress. HEAD: Normocephalic. No obvious signs of trauma. ENT: Dry mucous membranes. EYES: Extraocular movements are intact. Pupils are equal round and reactive to light bilaterally NECK: Supple. Full ROM is intact. Trachea is midline. LUNGS: Tripoding. In moderate respiratory distress. There is equal chest rise bilaterally. Lung auscultation reveals globally decreased air movement throughout with very faint end expiratory wheezes CARDIOVASCULAR: Regular rate and rhythm. No murmurs or rubs. VASCULAR: Cap refill < 2 seconds ABDOMEN: Abdomen is soft and nondistended. There is no significant tenderness, guarding or rebound. SKIN: Skin is warm and dry NEURO: Patient is awake, alert, and oriented. 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 No focal deficits. MUSCULOSKELETAL: No obvious deformities. No significant tenderness. Normal ROM throughout. BACK/SPINE: No costovertebral angle tenderness. ED Course Vital Signs 12/13/20 21:08 Pulse Rate [ 90 Bilateral] Respiratory 20 Rate [Bilateral ] ED Medical Decision Making - Lab Data Result diagrams: 12/13/20 21:25 12/13/20 21:25 Lab Results 12/13/20 12/13/20 12/13/20 Range/Units 21:25 21:25 21:25 WBC 8.0 (4.5-11.0) K/mm3 RBC 4.32 (3.65-5.03) M/mm3 Hgb 14.0 (11.8-15.2) gm/dl Hct 42.1 (35.5-45.6) % MCV 97 H (84-94) fl MCH 32 (28-32) pg MCHC 33 (32-34) % RDW 13.1 L (13.2-15.2) % Plt Count 197 (140-440) K/mm3 Lymph % (Auto) 19.2 (13.4-35.0) % Charlton % (Auto) 10.1 H (0.0-7.3) % Eos % (Auto) 4.3 (0.0-4.3) % Baso % (Auto) 1.0 (0.0-1.8) % Lymph # (Auto) 1.5 (1.2-5.4) K/mm3 Charlton # (Auto) 0.8 (0.0-0.8) K/mm3 Eos # (Auto) 0.3 (0.0-0.4) K/mm3 Baso # (Auto) 0.1 (0.0-0.1) K/mm3 Seg Neutrophils % 65.4 (40.0-70.0) % Seg Neutrophils # 5.2 (1.8-7.7) K/mm3 PT 12.5 (12.2-14.9) Sec. INR 0.89 (0.87-1.13) APTT 28.6 (24.2-36.6) Sec. Sodium 144 (137-145) mmol/L Potassium 3.8 (3.6-5.0) mmol/L Chloride 107.8 H (98-107) mmol/L Carbon Dioxide 25 (22-30) mmol/L Anion Gap 15 mmol/L BUN 15 (9-20) mg/dL Creatinine 1.4 H (0.8-1.3) mg/dL Estimated GFR > 60 ml/min BUN/Creatinine Ratio 11 % Glucose 89 (75-100) mg/dL Calcium 8.4 (8.4-10.2) mg/dL Magnesium (1.7-2.3) mg/dL Total Bilirubin 0.30 (0.1-1.2) mg/dL AST 15 (5-40) units/L ALT 16 (7-56) units/L Alkaline Phosphatase 66 (35-129) units/L Troponin T < 0.010 (0.00-0.029) ng/mL Total Protein 6.4 (6.3-8.2) g/dL Albumin 3.5 L (3.9-5) g/dL Albumin/Globulin Ratio 1.2 % /18/ Range/Units 21:25 WBC (4.5-11.0) K/mm3 RBC (3.65-5.03) M/mm3 Hgb (11.8-15.2) gm/dl Hct (35.5-45.6) % MCV (84-94) fl MCH (28-32) pg MCHC (32-34) % RDW (13.2-15.2) % Plt Count (140-440) K/mm3 Lymph % (Auto) (13.4-35.0) % Charlton % (Auto) (0.0-7.3) % Eos % (Auto) (0.0-4.3) % Baso % (Auto) (0.0-1.8) % Lymph # (Auto) (1.2-5.4) K/mm3 Charlton # (Auto) (0.0-0.8) K/mm3 Eos # (Auto) (0.0-0.4) K/mm3 Baso # (Auto) (0.0-0.1) K/mm3 Seg Neutrophils % (40.0-70.0) % Seg Neutrophils # (1.8-7.7) K/mm3 PT (12.2-14.9) Sec. INR (0.87-1.13) APTT (24.2-36.6) Sec. Sodium (137-145) mmol/L Potassium (3.6-5.0) mmol/L Chloride (98-107) mmol/L Carbon Dioxide (22-30) mmol/L Anion Gap mmol/L BUN (9-20) mg/dL Creatinine (0.8-1.3) mg/dL Estimated GFR ml/min BUN/Creatinine Ratio % Glucose (75-100) mg/dL Calcium (8.4-10.2) mg/dL Magnesium 2.10 (1.7-2.3) mg/dL Total Bilirubin (0.1-1.2) mg/dL AST (5-40) units/L ALT (7-56) units/L Alkaline Phosphatase (35-129) units/L Troponin T (0.00-0.029) ng/mL Total Protein (6.3-8.2) g/dL Albumin (3.9-5) g/dL Albumin/Globulin Ratio % - EKG Data -: EKG Interpreted by Ne - EKG Data 12/13/20 22:30 Normal sinus rhythm. Normal axis. Normal intervals. No ectopy. No significant ST segment or T wave abnormalities. - Radiology Data CHEST 2 VIEWS INDICATION / CLINICAL INFORMATION: Chest Pain. COMPARISON: 12/05/2020 FINDINGS: SUPPORT DEVICES: None. HEART / MEDIASTINUM: No significant abnormality. LUNGS / PLEURA: No significant pulmonary or pleural abnormality. No pneumothorax. ADDITIONAL FINDINGS: Old healed left posterior rib fracture again noted. IMPRESSION: 1. No acute findings. Signer Name: Bhavin Anderson MD Signed: 12/13/2020 8:11 PM Workstation Name: [id number] - Medical Decision Making 59-year-old male with history of asthma/COPD brought in by EMS after complaining of acute onset shortness of breath and wheezing which started approximately 4 hours ago. He also has chest congestion. He says this feels just like all p rior asthma attacks. The patient is fully vaccinated against the novel coronavirus. He has no other symptoms. He is afebrile and with normal vital signs other than elevated respiratory rate. He is in moderate respiratory distress with tripoding posture. He has very dry mucous membranes. Lung a uscultation reveals globally decreased air movement throughout with very faint end expiratory wheezes. We will perform broad work-up with a full set of labs, EKG, and chest x-ray. We will give 1 L of IV fluids, 125 mg of IV Solu-Medrol, and continuous DuoNebs with frequent reassessment. On repeat assessment at 10:45 PM, the patient is unchanged. Apparently there were has been an issue with the nebulizer and the patient has not received the breathing treatments for the past 20 minutes. Respiratory was called to the bedside and the nebulizer equipment was replaced and the patient was put back on his breathing treatments. We will continue to evaluate him very frequently. Labs have resulted and reveal no significant leukocytosis or anemia. His creatinine is slightly elevated at 1.4, but review of the patient's prior medical records reveals that this is at his baseline. There are no significant electrolyte abnormalities. Troponin is negative. Chest x-ray is clear. EKG is nonischemic. On repeat assessment at 12 AM, the patient is sitting up in bed talking on his cell phone. He states that he feels completely better and wants to go home. He is no longer in respiratory distress. Lung auscultation reveals slightly improved air entry bilaterally with end expiratory wheezes. I told him that my recommendation is to be admitted to the hospital given that I anticipate he will need very frequent breathing treatments. The patient states that he will not stay. I explained that the risk of refusing admission includes worsening of his condition, permanent/temporary disability, and . He expressed understanding of these risks but still wants to go home and still refuses admission. Therefore I will prescribe him 40 mg of prednisone for the next 4 days as well as refills for his albuterol nebulizer to be performed every 4 hours and a refill on his ipratropium and Symbicort. I encouraged him to return at any time and to follow-up with The next few days which he says he will. His vital signs have remained stable and he has not been hypoxic at any point. Critical Care Time: Yes Critical care time in (mins) excluding proc time.: 35 Critical care attestation.: If time is entered above; I have spent that time in minutes in the direct care of this critically ill patient, excluding procedure time. Critical care time was spent in the evaluation, work-up, and and treatment of critical asthma exacerbation requiring continuous DuoNebs, IV steroid, and frequent reevaluation and assessment. ED Disposition Clinical Impression: Acute asthma exacerbation Disposition: - TO HOME OR SELFCARE Is pt being admited?: No Condition: Stable Instructions: Asthma, Adult, Bronchospasm, Adult, Asthma Attack Prescriptions: Fluticasone/Salmeterol [Advair Diskus 250-50 mcg] 1 puff IH BID #1 disk.w.dev Ipratropium (Nf) [Atrovent HFA 17MCG/PUFF] 2 puff IH Q6HR PRN #1 inha PRN Reason: Wheezing predniSONE [Deltasone] 20 mg PO DAILY #8 tablet ALBUTEROL NEB's [Proventil 0.083% NEBS] 2.5 mg IH TID PRN #30 neb PRN Reason: Wheezing Montelukast [Singulair] 10 mg PO QPM #30 tablet Referrals: [facility] [Primary Care Provider] - 3-5 Days [facility] [Provider Group] - 3-5 Days
[2020-12-13] MEDS ORDERED: SODIUM CHLORIDE 0.9% 1000 ML 1,000 ML IV ONE ×2 (22:18)
[2020-12-13 22:26] LABS: Alanine Aminotransferase 16 units/L (7-56); Albumin 3.5 g/dL (3.9-5); BUN/Creatinine Ratio 11; Blood Urea Nitrogen 15 mg/dL (9-20); Calcium 8.4 mg/dL (8.4-10.2); Hemolysis Index 4
[2020-12-13 22:27] LABS: INR 0.89 (0.87-1.13)
[2020-12-13 22:28] LABS: Partial Thromboplastin Time 28.6 Sec. (24.2-36.6)
[2020-12-14 01:07] VITALS: BP 148/113
--- NOTE | 2020-12-15 09:15 | Electrocardiograph Report ---
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
--- NOTE | 2020-12-17 12:08 | Electrocardiograph Report ---
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
== END 2020-12-14 00:50 | disposition home or self-care (01) ==
LOC: ED 20:34
DX: J45.901 Unspecified asthma with (acute) exacerbation (principal); I10 Essential (primary) hypertension; Z79.899 Other long term (current) drug therapy
CPT/HCPCS: 36415; 71046; 80053; 83735; 84484; 85025; 85610; 85730; 93005; 94644; 96374; 99284; J2930; J7030; J7512

== ENCOUNTER 2020-12-31 21:33 | Observation (INO) | payer MEDICARE ==
[2020-12-31] MEDS ORDERED: IPRATROPIUM/ALBUTEROL SULFATE 3 ML AMPUL.NEB IH ONE (21:40)
[2020-12-31] MEDS ORDERED: ALBUTEROL 2.5 MG/3 ML NEBU IH ONE (22:22)
[2020-12-31] MEDS ORDERED: IPRATROPIUM 0.02% NEBU 2.5 ML IH ONE (22:22)
[2020-12-31] MEDS ORDERED: methylPREDNISolone Sod Succinate 125 MG/2 ML INJ IV ONE (22:22)
[2020-12-31] MEDS ORDERED: MAGNESIUM SULFATE 2 GM/50 ML BAG IV ONE (22:22)
--- NOTE | 2020-12-31 22:24 | Emergency Department Report ---
ED Shortness of Breath HPI - General Chief Complaint: Adult Asthma Stated Complaint: ALEKSANDAR Time Seen by Provider: 12/31/20 22:19 Source: patient Mode of arrival: Ambulatory Limitations: No Limitations - History of Present Illness Initial Comments: Patient is a 60-year-old male who presents emergency room with complaints of difficulty breathing and shortness of breath. Patient dates he also has a dry cough. Patient dates his symptoms started earlier today. Patient states his symptoms are worsening. Patient states that he has been using inhaler multiple times with no relief. Proximally an hour ago. Patient states he normally uses a once a day. Patient denies chest pain. Patient denies fever chills. Patient states she is COVID-19 vaccine. Patient states he completed both doses 1 month ago. Patient. Patient has history of asthma and COPD. Patient denies recent travel. Patient denies recent international travel. Patient denies exposure to the novel coronavirus. Patient denies sick contacts. Patient denies fever and chills. Patient denies cough. Patient denies diarrhea. Patient denies coming in contact with anybody with symptoms of the novel coronavirus. MD Complaint: shortness of breath, cough, "asthma attack" -: Sudden Severity: severe Consistency: constant Improves With: rest Worsens With: exertion Known History Of: COPD, asthma Associated Symptoms: cough Treatments Prior to Arrival: bronchodilator - Related Data Home Oxygen Therapy: No Previous Rx's Medication Instructions Recorded Last Taken Type amLODIPine 5 mg PO QDAY #30 tablet 11/05/18 Unknown Rx Ipratropium [Atrovent NEB] 0.5 mg IH Q4HR PRN #1 box 09/14/20 Unknown Rx Albuterol Sulfate [Proventil Hfa] 6.7 gm IH QID PRN #1 hfa.aer.ad 10/28/20 Unknown Rx predniSONE [Deltasone] 20 mg PO DAILY #5 tablet 10/28/20 Unknown Rx Albuterol Mdi (or & Nicu Only) 1 puff IH Q4-6H PRN #1 inha 11/10/20 Unknown Rx [ProAir HFA Inhaler] Ipratropium/Albuterol Sulfate 1 ampul IH Q8HR PRN #30 ampul.neb 11/10/20 Unknown Rx [DUONEB *Not for PRN Use*] Montelukast [Singulair] 10 mg PO QPM #14 tablet 11/10/20 Unknown Rx predniSONE [Deltasone] 20 mg PO QDAY #5 tab 11/10/20 Unknown Rx Prednisone [predniSONE 10 mg 10 mg PO .TAPER #1 tab.ds.pk 12/05/20 Unknown Rx (6-Day Pack, 21 Tabs)] ALBUTEROL NEB's [Proventil 0.083% 2.5 mg IH TID PRN #30 neb 12/14/20 Unknown Rx NEBS] Fluticasone/Salmeterol [Advair 1 puff IH BID #1 disk.w.dev 12/14/20 Unknown Rx Diskus 250-50 mcg] Ipratropium (Nf) [Atrovent HFA 2 puff IH Q6HR PRN #1 inha 12/14/20 Unknown Rx 17MCG/PUFF] Montelukast [Singulair] 10 mg PO QPM #30 tablet 12/14/20 Unknown Rx predniSONE [Deltasone] 20 mg PO DAILY #8 tablet 12/14/20 Unknown Rx Allergies Allergy/AdvReac Type Severity Reaction Status Date / Time No Known Allergies Allergy Verified 05/20/20 13:53 ED Review of Systems ROS: Stated complaint: ALEKSANDAR Other details as noted in HPI Constitutional: denies: chills, fever Eyes: denies: eye pain, eye discharge, vision change ENT: denies: ear pain, throat pain Respiratory: see HPI, cough, shortness of breath. denies: wheezing Cardiovascular: denies: chest pain, palpitations Endocrine: no symptoms reported Gastrointestinal: denies: abdominal pain, nausea, diarrhea Genitourinary: denies: urgency, dysuria Musculoskeletal: denies: back pain, joint swelling, arthralgia Skin: denies: rash, lesions Neurological: denies: headache, weakness, paresthesias Psychiatric: denies: anxiety, depression Hematological/Lymphatic: denies: easy bleeding, easy bruising ED Past Medical Hx - Past Medical History Previous Medical History?: Yes Hx Hypertension: Yes Hx Congestive Heart Failure: No Hx Diabetes: No Hx Sickle Cell Disease: No Hx Asthma: Yes Hx COPD: Yes Hx Tuberculosis: No Hx HIV: No - Surgical History Past Surgical History?: No - Social History Smoking Status: Never Smoker Substance Use Type: None - Medications Home Medications: Home Medications Medication Instructions Recorded Confirmed Last Taken Type amLODIPine 5 mg PO QDAY #30 tablet 11/05/18 Unknown Rx Ipratropium [Atrovent NEB] 0.5 mg IH Q4HR PRN #1 box 09/14/20 Unknown Rx Albuterol Sulfate [Proventil Hfa] 6.7 gm IH QID PRN #1 hfa.aer.ad 10/28/20 Unknown Rx predniSONE [Deltasone] 20 mg PO DAILY #5 tablet 10/28/20 Unknown Rx Albuterol Mdi (or & Nicu Only) 1 puff IH Q4-6H PRN #1 inha 11/10/20 Unknown Rx [ProAir HFA Inhaler] Ipratropium/Albuterol Sulfate 1 ampul IH Q8HR PRN #30 ampul.neb 11/10/20 Unknown Rx [DUONEB *Not for PRN Use*] Montelukast [Singulair] 10 mg PO QPM #14 tablet 11/10/20 Unknown Rx predniSONE [Deltasone] 20 mg PO QDAY #5 tab 11/10/20 Unknown Rx Prednisone [predniSONE 10 mg 10 mg PO .TAPER #1 tab.ds.pk 12/05/20 Unknown Rx (6-Day Pack, 21 Tabs)] ALBUTEROL NEB's [Proventil 0.083% 2.5 mg IH TID PRN #30 neb 12/14/20 Unknown Rx NEBS] Fluticasone/Salmeterol [Advair 1 puff IH BID #1 disk.w.dev 12/14/20 Unknown Rx Diskus 250-50 mcg] Ipratropium (Nf) [Atrovent HFA 2 puff IH Q6HR PRN #1 inha 12/14/20 Unknown Rx 17MCG/PUFF] Montelukast [Singulair] 10 mg PO QPM #30 tablet 12/14/20 Unknown Rx predniSONE [Deltasone] 20 mg PO DAILY #8 tablet 12/14/20 Unknown Rx ED Physical Exam - General Limitations: No Limitations General appearance: alert, in distress - Head Head exam: Present: atraumatic, normocephalic - Eye Eye exam: Present: normal appearance - ENT ENT exam: Present: mucous membranes moist - Neck Neck exam: Present: normal inspection - Respiratory Respiratory exam: Present: respiratory distress, wheezes, accessory muscle use, decreased breath sounds - Cardiovascular Cardiovascular Exam: Present: regular rate, normal rhythm. Absent: systolic murmur, diastolic murmur, rubs, gallop - GI/Abdominal GI/Abdominal exam: Present: soft, normal bowel sounds - Rectal Rectal exam: Present: deferred - Extremities Exam Extremities exam: Present: normal inspection - Back Exam Back exam: Present: normal inspection - Neurological Exam Neurological exam: Present: alert, oriented X3 - Psychiatric Psychiatric exam: Present: normal affect, normal mood - Skin Skin exam: Present: warm, dry, intact, normal color. Absent: rash ED Course Vital Signs 12/31/20 12/31/20 12/31/20 21:37 22:31 22:47 Temperature 98.6 F Pulse Rate 75 61 67 Pulse Rate [ Bilateral] Respiratory 20 17 20 Rate Respiratory Rate [Bilateral ] Blood Pressure 117/90 122/80 122/89 O2 Sat by Pulse 96 100 98 Oximetry 12/31/20 12/31/20 12/31/20 22:57 23:01 23:31 Temperature Pulse Rate 72 62 Pulse Rate [ 88 Bilateral] Respiratory 19 20 Rate Respiratory 20 Rate [Bilateral ] Blood Pressure 113/79 122/88 O2 Sat by Pulse 94 100 Oximetry 12/31/20 01/01/21 01/01/21 23:57 00:01 00:31 Temperature Pulse Rate 67 68 96 H Pulse Rate [ Bilateral] Respiratory 17 20 23 Rate Respiratory Rate [Bilateral ] Blood Pressure 89/60 121/86 121/86 O2 Sat by Pulse 100 100 96 Oximetry 01/01/21 01:01 Temperature Pulse Rate 77 Pulse Rate [ Bilateral] Respiratory 23 Rate Respiratory Rate [Bilateral ] Blood Pressure 124/94 O2 Sat by Pulse 99 Oximetry - Reevaluation(s) Reevaluation #1: Patient is currently on a standard DuoNeb treatment. Patient will be given an hour-long treatment and given Solu-Medrol and magnesium. Patient in respiratory distress. Patient will be placed on BiPAP. 12/31/20 22:29 Reevaluation #2: Patient's work to breathe is improved. Patient states feeling much better with BiPAP. 12/31/20 22:57 Reevaluation #3: I discussed all results with patient. I discussed plan of care with patient. Patient agrees with plan of care and admission. Patient to be admitted to the hospitalist service. 01/01/21 00:53 - Consultations Consultation #1: Hospitalist consulted for admission. Hospitalist to admit patient. 01/01/21 00:53 ED Medical Decision Making - Lab Data Result diagrams: 12/31/20 00:05 12/31/20 00:05 - Radiology Data Radiology results: report reviewed, image reviewed interpreted by me: Chest x-ray: No pneumonia, no pneumothorax, no foreign body, no osseous findings, no acute findings CHEST 1 VIEW 12/31/2020 9:32 PM INDICATION / CLINICAL INFORMATION: sob....Wheezing, coughing and ALEKSANDAR started today. Has been using inhaler and no improvement.. COMPARISON: 12/13/20 FINDINGS: SUPPORT DEVICES: None. HEART / MEDIASTINUM: No significant abnormality. LUNGS / PLEURA: No significant pulmonary or pleural abnormality. No pneumothorax. ADDITIONAL FINDINGS: Healed left rib fractures unchanged. IMPRESSION: 1. No acute findings. No change. - Medical Decision Making Patient is a 60-year-old male who presents emergency room with difficulty breathing and shortness of breath and wheezing and cough. Patient denied fever. Patient had a chest x-ray was negative for acute finding. I personally reviewed the chest x-ray. Patient had labs done which were essentially unremarkable. Patient initially given albuterol treatment with no improvement. Patient was then given Solu-Medrol and magnesium and placed on BiPAP. Patient responded well to BiPAP. Patient's work of breathing improved. Patient admitted to the hospital service for further evaluation and treatment. Critical care time documented due to the multiple reassessments, prolonged time at the bedside, interpretation of diagnostics and labs. - Differential Diagnosis SoB, status asthmaticus, respiratory failure, hypoxia, Critical Care Time: Yes Critical care time in (mins) excluding proc time.: 35 Critical care attestation.: If time is entered above; I have spent that time in minutes in the direct care of this critically ill patient, excluding procedure time. Critical Care Time: 35 minutes ED Disposition Clinical Impression: Asthma exacerbation Qualifiers: Asthma severity: severe Asthma persistence: persistent Qualified Code(s): J45.51 - Severe persistent asthma with (acute) exacerbation Acute respiratory failure Qualifiers: Respiratory failure complication: hypoxia Qualified Code(s): J96.01 - Acute respiratory failure with hypoxia Disposition: OP ADMIT IP TO THIS HOSP Is pt being admited?: Yes Does the pt Need Aspirin: No Condition: Stable Time of Disposition: 00:59
--- NOTE | 2020-12-31 22:43 | XRay Report ---
CHEST 1 VIEW 12/31/2020 9:32 PM INDICATION / CLINICAL INFORMATION: sob....Wheezing, coughing and ALEKSANDAR started today. Has been using in haler and no improvement.. COMPARISON: 12/13/20 FINDINGS: SUPPORT DEVICES: None. HEART / MEDIASTINUM: No significant abnormality. LUNGS / PLEURA: No significant pulmonary or pleural abnormality. No pneumothorax. ADDITIONAL FINDINGS: Healed left rib fractures unchanged. IMPRESSION: 1. No acute findings. No change. Signer Name: Helen Landeros MD Signed: 12/31/2020 10:39 PM Workstation Name: [id number]
[2021-01-01 00:23] LABS: Basophils # (Auto) 0.1 K/mm3 (0.0-0.1); Basophils % (Auto) 1.1 % (0.0-1.8); Eosinophils # (Auto) 0.5 K/mm3 (0.0-0.4); Eosinophils % (Auto) 7.4 % (0.0-4.3); Hematocrit 43.6 % (35.5-45.6); Hemoglobin 14.5 gm/dl (11.8-15.2); Lymphocytes # (Auto) 1.4 K/mm3 (1.2-5.4); Lymphocytes % (Auto) 22.5 % (13.4-35.0); Mean Corpuscular HGB Conc 33 % (32-34); Mean Corpuscular Volume 98 fl (84-94); Monocytes # (Auto) 0.5 K/mm3 (0.0-0.8); Monocytes % (Auto) 8.8 % (0.0-7.3); Platelet Count 202 K/mm3 (140-440); Red Blood Count 4.44 M/mm3 (3.65-5.03); Red Cell Distribution Width 12.9 % (13.2-15.2)
[2021-01-01 00:47] LABS: Alanine Aminotransferase 16 units/L (7-56); Albumin 3.9 g/dL (3.9-5); BUN/Creatinine Ratio 16; Blood Urea Nitrogen 22 mg/dL (9-20); Calcium 8.5 mg/dL (8.4-10.2); Hemolysis Index 191
[2021-01-01] MEDS ORDERED: ACETAMINOPHEN 325 MG TAB PO PRN (02:25)
[2021-01-01] MEDS ORDERED: MAGNESIUM HYDROXIDE (MOM) ORAL LIQD UDC PO PRN (02:25)
[2021-01-01] MEDS ORDERED: MORPHINE 4 MG/1 ML INJ IV PRN (02:25)
[2021-01-01] MEDS ORDERED: ONDANSETRON 4 MG/2 ML INJ IV PRN (02:25)
[2021-01-01] MEDS ORDERED: MORPHINE 2 MG/1 ML INJ IV PRN (02:25)
--- NOTE | 2021-01-01 02:33 | History and Physical Report ---
History of Present Illness Date of examination: 01/01/21 Date of admission: 01/01/2021 Chief complaint: Shortness of Breath History of present illness: 60-year-old male with known history of asthma presents to the emergency room today complaining of difficulty breathing and shortness of breath. He has also been having some dry cough all of which started earlier today. He has been using his inhaler without any significant improvement. He denies any fever or chills, no chest pain, no headache or dizziness, no diaphoresis, no nausea vomiting and no abdominal pain. Patient denies any sick contacts and no recent travel. Denies any contact with anyone with COVID-19. Patient states he was fully vaccinated against COVID-19 about month ago. He however indicates that he has a pet dog at home. Denies any exposure to toxic fumes or chemicals. He denies ever being intubated in the past. Upon arrival in the emergency room patient was in respiratory distress, wheezing and subsequently placed on BiPAP and nebulizing treatments.. Work-up reveals a potassium of 5.7, BUN of 22 and creatinine 1.4, chest x-ray showed no acute findings. Patient being admitted of with asthma exacerbation. Past History Past Medical History: hypertension (Asthma), other Past Surgical History: No surgical history Social history: no significant social history Family history: no significant family history Medications and Allergies Allergies Allergy/AdvReac Type Severity Reaction Status Date / Time No Known Allergies Allergy Verified 05/20/20 13:53 Home Medications Medication Instructions Recorded Confirmed Last Taken Type amLODIPine 5 mg PO QDAY #30 tablet 11/05/18 Unknown Rx Ipratropium [Atrovent NEB] 0.5 mg IH Q4HR PRN #1 box 09/14/20 Unknown Rx Albuterol Sulfate [Proventil Hfa] 6.7 gm IH QID PRN #1 hfa.aer.ad 10/28/20 Unknown Rx predniSONE [Deltasone] 20 mg PO DAILY #5 tablet 10/28/20 Unknown Rx Albuterol Mdi (or & Nicu Only) 1 puff IH Q4-6H PRN #1 inha 11/10/20 Unknown Rx [ProAir HFA Inhaler] Ipratropium/Albuterol Sulfate 1 ampul IH Q8HR PRN #30 ampul.neb 11/10/20 Unknown Rx [DUONEB *Not for PRN Use*] Montelukast [Singulair] 10 mg PO QPM #14 tablet 11/10/20 Unknown Rx predniSONE [Deltasone] 20 mg PO QDAY #5 tab 11/10/20 Unknown Rx Prednisone [predniSONE 10 mg 10 mg PO .TAPER #1 tab.ds.pk 12/05/20 Unknown Rx (6-Day Pack, 21 Tabs)] ALBUTEROL NEB's [Proventil 0.083% 2.5 mg IH TID PRN #30 neb 12/14/20 Unknown Rx NEBS] Fluticasone/Salmeterol [Advair 1 puff IH BID #1 disk.w.dev 12/14/20 Unknown Rx Diskus 250-50 mcg] Ipratropium (Nf) [Atrovent HFA 2 puff IH Q6HR PRN #1 inha 12/14/20 Unknown Rx 17MCG/PUFF] Montelukast [Singulair] 10 mg PO QPM #30 tablet 12/14/20 Unknown Rx predniSONE [Deltasone] 20 mg PO DAILY #8 tablet 12/14/20 Unknown Rx Review of Systems Constitutional: no fever, no chills Ears, nose, mouth and throat: no nasal congestion, no sore throat Cardiovascular: no chest pain, no palpitations Respiratory: cough, shortness of breath, wheezing Gastrointestinal: no abdominal pain, no nausea, no vomiting, no diarrhea Genitourinary Male: no dysuria, no hematuria, no nocturia Musculoskeletal: no neck pain, no low back pain Integumentary: no rash, no pruritis Neurological: no headaches, no confusion Psychiatric: no anxiety, no depression Endocrine: no polyphagia, no polydipsia, no polyuria, no nocturia Exam - Constitutional Vitals: Temp Pulse Resp BP Pulse Ox 98.6 F 66 18 124/94 98 12/31/20 21:37 01/01/21 02:01 01/01/21 02:01 01/01/21 02:01 01/01/21 02:01 General appearance: Present: mild distress, well-nourished - EENT Eyes: Present: PERRL, EOM intact. Absent: scleral icterus ENT: hearing intact, clear oral mucosa, dentition normal - Neck Neck: Present: supple, normal ROM - Respiratory Respiratory effort: labored Respiratory: bilateral: wheezing - Cardiovascular Rhythm: regular Heart Sounds: Present: S1 & S2. Absent: gallop, systolic murmur, diastolic murmur, rub, click - Extremities Extremities: no ischemia, pulses intact, pulses symmetrical, No edema, normal temperature, normal color, Full ROM Peripheral Pulses: within normal limits - Abdominal General gastrointestinal: Present: soft, non-tender, non-distended, normal bowel sounds. Absent: mass - Integumentary Integumentary: Present: clear, warm, dry. Absent: rash - Musculoskeletal Musculoskeletal: strength equal bilaterally - Psychiatric Psychiatric: appropriate mood/affect, intact judgment & insight, memory intact, cooperative - Neurologic Neurologic: CNII-XII intact, no focal deficits, moves all extremities Results - Labs CBC & Chem 7: 12/31/20 00:05 12/31/20 00:05 Labs: Abnormal lab results 12/31/20 12/31/20 Range/Units 00:05 00:05 MCV 98 H (84-94) fl MCH 33 H (28-32) pg RDW 12.9 L (13.2-15.2) % [place] % (Auto) 8.8 H (0.0-7.3) % Eos % (Auto) 7.4 H (0.0-4.3) % Eos # (Auto) 0.5 H (0.0-0.4) K/mm3 Sodium 136 L (137-145) mmol/L Potassium 5.7 H (3.6-5.0) mmol/L Carbon Dioxide 18 L (22-30) mmol/L BUN 22 H (9-20) mg/dL Creatinine 1.4 H (0.8-1.3) mg/dL Assessment and Plan - Patient Problems (1) DVT prophylaxis Current Visit: Yes Status: Acute (2) Acute asthma exacerbation Current Visit: No Status: Acute Plan to address problem: Patient placed on nebulizing treatment and IV steroid. He was also initiated on BiPAP while in the emergency room. We will place consult to pulmonology for evaluation and recommendations. (3) HTN (hypertension) Current Visit: No Status: Acute Plan to address problem: We will resume routine home medications and monitor vital signs closely. (4) Full code status Current Visit: Yes Status: Acute Plan to address problem: Patient is full code.
[2021-01-01] MEDS ORDERED: methylPREDNISolone Sod Succinate 40 MG/1 ML INJ IV SCH ×2 (06:00→09:26)
[2021-01-01] MEDS: IPRATROPIUM/ALBUTEROL SULFATE 3 ML AMPUL.NEB IH SCH ×2 (08:50→15:10)
[2021-01-01] MEDS ORDERED: BUDESONIDE 0.5 MG/2 ML NEBU IH SCH (10:00)
[2021-01-01] MEDS ORDERED: ARFORMOTEROL 15 MCG/2 ML NEBU IH SCH (10:00)
[2021-01-01] MEDS ORDERED: amLODIPine 5 MG TAB PO SCH (10:00)
--- NOTE | 2021-01-01 12:01 | Event Note ---
Date: 01/01/21 Patient seen and examined today. He still has some wheezing and exertional dyspnea. He tells me that he ran out of his medications some of them. I did have education and counseling on how to renew his medication before the run out. He verbalized understanding will continue steroid therapy at this time and nebulizer management and reevaluate in the next 24 hours. Will monitor renal function and hyperkalemia we will repeat labs in the morning anticipate correction.
[2021-01-01] MEDS ORDERED: methylPREDNISolone Sod Succinate 125 MG/2 ML INJ IV SCH (14:00)
[2021-01-01 16:12] VITALS: BP 135/84
== END 2021-01-01 16:20 | disposition home or self-care (01) ==
LOC: ED 21:33 → CC1 01-01 02:25 → 4A 01-01 11:23
PROVIDERS: ADMIT Internal Medicine Geriatric Medicine; ATTEND Internal Medicine
DX: J96.01 Acute respiratory failure with hypoxia (principal); Z20.822 Contact with and (suspected) exposure to COVID-19; J45.51 Severe persistent asthma with (acute) exacerbation; I10 Essential (primary) hypertension; J44.9 Chronic obstructive pulmonary disease, unspecified
CPT/HCPCS: 36415; 71045; 80053; 85025; 94640; 94644; 96365; 96375; 96376; 99291; G0378; J2920; J2930; J3475; U0003

== ENCOUNTER 2021-01-16 22:08 | Emergency (ER) | payer MEDICARE ==
[2021-01-17 01:01] VITALS: BP 141/102
[2021-01-17] MEDS ORDERED: ALBUTEROL 2.5 MG/3 ML NEBU IH ONE (01:26)
[2021-01-17] MEDS ORDERED: IPRATROPIUM 0.02% NEBU 2.5 ML IH ONE (01:28)
--- NOTE | 2021-01-17 02:31 | XRay Report ---
CHEST 2 VIEWS INDICATION / CLINICAL INFORMATION: cough. FINDINGS: SUPPORT DEVICES: None. HEART / MEDIASTINUM: No significant abnormality. LUNGS / PLEURA: No significant pulmonary or pleural abnormality. No pneumothorax. ADDITIONAL FINDINGS: No significant additional findings. IMPRESSION: 1. No acute findings. Signer Name: Sree Anne MD Signed: 01/17/2021 2:27 AM Workstation Name: [id number]
== END 2021-01-18 20:55 ==
LOC: ED 22:08
DX: R06.02 Shortness of breath (principal); Z53.21 Procedure and treatment not carried out due to patient leaving prior to being seen by health care provider
CPT/HCPCS: 71046

== ENCOUNTER 2021-01-27 09:43 | Emergency (ER) | payer MEDICARE ==
[2021-01-27 09:57] VITALS: BP 133/101
[2021-01-27] MEDS ORDERED: IPRATROPIUM/ALBUTEROL SULFATE 3 ML AMPUL.NEB IH ONE (10:15)
[2021-01-27] MEDS ORDERED: predniSONE 50 MG TAB PO STA (10:15)
--- NOTE | 2021-01-27 10:21 | Emergency Department Report ---
ED Asthma HPI - General Chief Complaint: Dyspnea/Respdistress Stated Complaint: ASTHMA ATTACK Time Seen by Provider: 01/27/21 10:15 Source: patient Mode of arrival: Ambulatory Limitations: No Limitations - History of Present Illness Initial Comments: 60-year-old F [place] male with my department complaining of left exacerbation of him out of his asthma medications. Ports no fever, chills, sweats no hemoptysis no hematemesis hematochezia. No nausea or vomiting, no chest pain or palpitations. MD Complaint: "asthma attack", shortness of breath -: Gradual Severity: mild, moderate Context: ran out of meds Associated Symptoms: none - Related Data Previous Rx's Medication Instructions Recorded Last Taken Type amLODIPine 5 mg PO QDAY #30 tablet 11/05/18 Unknown Rx Ipratropium [Atrovent NEB] 0.5 mg IH Q4HR PRN #1 box 09/14/20 Unknown Rx Ipratropium/Albuterol Sulfate 1 ampul IH Q8HR PRN #30 ampul.neb 11/10/20 Unknown Rx [DUONEB *Not for PRN Use*] Ipratropium (Nf) [Atrovent HFA 2 puff IH Q6HR PRN #1 inha 12/14/20 Unknown Rx 17MCG/PUFF] ALBUTEROL NEB's [Proventil 0.083% 2.5 mg IH TID PRN #30 neb 01/01/21 Unknown Rx NEBS] Albuterol Sulfate [Proventil Hfa] 6.7 gm IH QID PRN #1 hfa.aer.ad 01/01/21 Unknown Rx Fluticasone/Salmeterol [Advair 1 puff IH BID #1 disk.w.dev 01/01/21 Unknown Rx Diskus 250-50 mcg] Ipratropium/Albuterol Sulfate 1 ampul IH Q6HRT #120 ampul.neb 01/01/21 Unknown Rx [DUONEB *Not for PRN Use*] Montelukast [Singulair] 10 mg PO QPM #30 tablet 01/01/21 Unknown Rx Prednisone [predniSONE 10 mg 10 mg PO .TAPER #1 tab.ds.pk 01/01/21 Unknown Rx (6-Day Pack, 21 Tabs)] Albuterol Mdi (or & Nicu Only) 1 puff IH Q4-6H PRN #1 inha 01/27/21 Unknown Rx [ProAir HFA Inhaler] Montelukast [Singulair] 10 mg PO QPM #14 tablet 01/27/21 Unknown Rx predniSONE [Deltasone] 50 mg PO QDAY #5 tab 01/27/21 Unknown Rx Allergies Allergy/AdvReac Type Severity Reaction Status Date / Time No Known Allergies Allergy Verified 01/01/21 07:55 ED Review of Systems ROS: Stated complaint: ASTHMA ATTACK Other details as noted in HPI Comment: All other systems reviewed and negative ED Past Medical Hx - Past Medical History Previous Medical History?: Yes Hx Hypertension: Yes Hx Congestive Heart Failure: No Hx Diabetes: No Hx Sickle Cell Disease: No Hx Asthma: Yes Hx COPD: Yes Hx Tuberculosis: No Hx HIV: No - Surgical History Past Surgical History?: No Additional Surgical History: denies - Social History Smoking Status: Never Smoker Substance Use Type: None - Medications Home Medications: Home Medications Medication Instructions Recorded Confirmed Last Taken Type amLODIPine 5 mg PO QDAY #30 tablet 11/05/18 Unknown Rx Ipratropium [Atrovent NEB] 0.5 mg IH Q4HR PRN #1 box 09/14/20 Unknown Rx Ipratropium/Albuterol Sulfate 1 ampul IH Q8HR PRN #30 ampul.neb 11/10/20 Unknown Rx [DUONEB *Not for PRN Use*] Ipratropium (Nf) [Atrovent HFA 2 puff IH Q6HR PRN #1 inha 12/14/20 Unknown Rx 17MCG/PUFF] ALBUTEROL NEB's [Proventil 0.083% 2.5 mg IH TID PRN #30 neb 01/01/21 Unknown Rx NEBS] Albuterol Sulfate [Proventil Hfa] 6.7 gm IH QID PRN #1 hfa.aer.ad 01/01/21 Unknown Rx Fluticasone/Salmeterol [Advair 1 puff IH BID #1 disk.w.dev 01/01/21 Unknown Rx Diskus 250-50 mcg] Ipratropium/Albuterol Sulfate 1 ampul IH Q6HRT #120 ampul.neb 01/01/21 Unknown Rx [DUONEB *Not for PRN Use*] Montelukast [Singulair] 10 mg PO QPM #30 tablet 01/01/21 Unknown Rx Prednisone [predniSONE 10 mg 10 mg PO .TAPER #1 tab.ds.pk 01/01/21 Unknown Rx (6-Day Pack, 21 Tabs)] Albuterol Mdi (or & Nicu Only) 1 puff IH Q4-6H PRN #1 inha 01/27/21 Unknown Rx [ProAir HFA Inhaler] Montelukast [Singulair] 10 mg PO QPM #14 tablet 01/27/21 Unknown Rx predniSONE [Deltasone] 50 mg PO QDAY #5 tab 01/27/21 Unknown Rx ED Physical Exam - General Limitations: No Limitations General appearance: alert, in no apparent distress - Head Head exam: Present: atraumatic, normocephalic - Eye Eye exam: Present: normal appearance, PERRL, EOMI Pupils: Present: normal accommodation - ENT ENT exam: Present: mucous membranes moist - Neck Neck exam: Present: normal inspection - Respiratory Respiratory exam: Present: wheezes, rhonchi. Absent: respiratory distress - Cardiovascular Cardiovascular Exam: Present: regular rate, normal rhythm. Absent: systolic murmur, diastolic murmur, rubs, gallop - GI/Abdominal GI/Abdominal exam: Present: soft, normal bowel sounds - Rectal Rectal exam: Present: deferred - Extremities Exam Extremities exam: Present: normal inspection - Back Exam Back exam: Present: normal inspection - Neurological Exam Neurological exam: Present: alert, oriented X3 - Psychiatric Psychiatric exam: Present: normal affect, normal mood - Skin Skin exam: Present: warm, dry, intact, normal color. Absent: rash ED Course Vital Signs 01/27/21 09:55 Temperature 97.6 F Pulse Rate 91 H Respiratory 20 Rate Blood Pressure 133/101 [Right] O2 Sat by Pulse 96 Oximetry ED Medical Decision Making - Medical Decision Making No altered mental status, saddle respirations, belly breathing or other signs of impending ventilatory failure. No intubations or recent admissions to the hospital for asthma. Unlikely pneumonia, CHF, COPD, GERD Workup Review include a chest x-ray which was normal she also received steroids and albuterol Therapies: Prednisone 50 mg PO. Albuterol nebulizer Reassessment: Patient improved with albuterol and ipratropium in less than 3 hours. Disposition: Discharge home with return precautions. Advised to follow up with primary care physician within next 24-48 hours. Aside from this acute exacerbation patient has been well controlled on baseline home regimen. Rx short steroid course, albuterol, Singulair, Flovent Critical care attestation.: If time is entered above; I have spent that time in minutes in the direct care of this critically ill patient, excluding procedure time. ED Disposition Clinical Impression: Asthma exacerbation Disposition: HOME / SELF CARE / HOMELESS Is pt being admited?: No Does the pt Need Aspirin: No Condition: Stable Instructions: Asthma Attack, Asthma, Adult, Cough, Adult, [id number]
--- NOTE | 2021-01-28 10:24 | Electrocardiograph Report ---
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
== END 2021-01-27 12:10 | disposition home or self-care (01) ==
LOC: ED 09:43
DX: J45.901 Unspecified asthma with (acute) exacerbation (principal); I10 Essential (primary) hypertension; J44.9 Chronic obstructive pulmonary disease, unspecified
CPT/HCPCS: 93005; 94640; 99283; J7512

== ENCOUNTER 2021-04-23 09:24 | Emergency (ER) | payer MEDICARE ==
[2021-04-23] MEDS ORDERED: IPRATROPIUM 0.02% NEBU 2.5 ML IH ONE (09:43)
[2021-04-23] MEDS ORDERED: ALBUTEROL 2.5 MG/3 ML NEBU IH ONE (09:43)
[2021-04-23] MEDS ORDERED: predniSONE 20 MG TAB PO ONE (09:51)
--- NOTE | 2021-04-23 09:51 | Emergency Department Report ---
HPI - General Chief Complaint: Adult Asthma Time Seen by Provider: 04/23/21 09:37 - HPI HPI: Room 34 The patient is a 60-year-old male present with a chief complaint of asthma exacerbation. Patient states the symptom began this morning with tightness and wheezing consistent with his asthma. Patient states he ran out of his albuterol at home. Patient admits to wheezing but denies history of fever. Patient admits to an occasional cough. Patient states he has received vaccination against Covid receiving 2 doses. ED Past Medical Hx - Past Medical History Hx Hypertension: Yes Hx Asthma: Yes Hx COPD: Yes - Surgical History Past Surgical History?: No Additional Surgical History: denies - Family History Family history: no significant - Social History Smoking Status: Current Some Day Smoker Substance Use Type: None (Denies illicit drug) - Medications Home Medications: Home Medications Medication Instructions Recorded Confirmed Last Taken Type amLODIPine 5 mg PO QDAY #30 tablet 11/05/18 Unknown Rx Ipratropium [Atrovent NEB] 0.5 mg IH Q4HR PRN #1 box 09/14/20 Unknown Rx Ipratropium/Albuterol Sulfate 1 ampul IH Q8HR PRN #30 ampul.neb 11/10/20 Unknown Rx [DUONEB *Not for PRN Use*] Ipratropium (Nf) [Atrovent HFA 2 puff IH Q6HR PRN #1 inha 12/14/20 Unknown Rx 17MCG/PUFF] ALBUTEROL NEB's [Proventil 0.083% 2.5 mg IH TID PRN #30 neb 01/01/21 Unknown Rx NEBS] Albuterol Sulfate [Proventil Hfa] 6.7 gm IH QID PRN #1 hfa.aer.ad 01/01/21 Unknown Rx Fluticasone/Salmeterol [Advair 1 puff IH BID #1 disk.w.dev 01/01/21 Unknown Rx Diskus 250-50 mcg] Montelukast [Singulair] 10 mg PO QPM #30 tablet 01/01/21 Unknown Rx Montelukast [Singulair] 10 mg PO QPM #14 tablet 01/27/21 Unknown Rx predniSONE [Deltasone] 50 mg PO QDAY #5 tab 01/27/21 Unknown Rx Albuterol Mdi (or & Nicu Only) 2 puff IH Q4-6H PRN #1 inha 04/23/21 Unknown Rx [ProAir HFA Inhaler] Ipratropium/Albuterol Sulfate 1 ampul IH Q6HRT #120 ampul.neb 04/23/21 Unknown Rx [DUONEB *Not for PRN Use*] Prednisone [predniSONE 10 mg 10 mg PO .TAPER #1 tab.ds.pk 04/23/21 Unknown Rx (6-Day Pack, 21 Tabs)] ED Review of Systems ROS: Stated complaint: ASTHMA Other details as noted in HPI Constitutional: denies: fever Eyes: denies: eye pain ENT: denies: throat pain Respiratory: cough, shortness of breath, wheezing Cardiovascular: denies: chest pain Endocrine: no symptoms reported Gastrointestinal: denies: abdominal pain Genitourinary: denies: dysuria Musculoskeletal: denies: back pain Neurological: denies: headache Physical Exam - Physical Exam Vital Signs: Vital Signs 04/23/21 09:26 Temperature 97.4 F L Pulse Rate 76 Respiratory 22 Rate Blood Pressure 139/92 [Right] O2 Sat by Pulse 94 Oximetry Physical Exam: GENERAL: The patient is well-developed well-nourished male lying on stretcher not appearing to be in acute distress. [] HEENT: Normocephalic. Atraumatic. Extraocular motions are intact. Patient has moist mucous membranes. NECK: Supple. Trachea midline CHEST/LUNGS: Diminished. There is no respiratory distress noted. HEART/CARDIOVASCULAR: Regular. There is no tachycardia. There is no gallop rub or murmur. ABDOMEN: Abdomen is soft, nontender. Patient has normal bowel sounds. There is no abdominal distention. SKIN: There is no rash. There is no edema. There is no diaphoresis. NEURO: The patient is awake, alert, and oriented. The patient is cooperative. The patient has no focal neurologic deficits. The patient has normal speech. G CS 15 MUSCULOSKELETAL: There is no evidence of acute injury. ED Course Vital Signs 04/23/21 09:26 Temperature 97.4 F L Pulse Rate 76 Respiratory 22 Rate Blood Pressure 139/92 [Right] O2 Sat by Pulse 94 Oximetry - Reevaluation(s) Reevaluation #1: 04/23/21 11:20 Patient improved stating he feels great. Lungs CTA bilaterally ED Medical Decision Making - Differential Diagnosis Acute asthma exacerbation Critical care attestation.: If time is entered above; I have spent that time in minutes in the direct care of this critically ill patient, excluding procedure time. ED Disposition Clinical Impression: Acute asthma exacerbation Disposition: HOME / SELF CARE / HOMELESS Is pt being admited?: No Does the pt Need Aspirin: No Condition: Stable Instructions: Asthma, Adult Additional Instructions: Return to the emergency department should you develop worsening symptoms, inability to tolerate food or liquids, high fever or any other concerns Prescriptions: Ipratropium/Albuterol Sulfate [DUONEB *Not for PRN Use*] 1 ampul IH Q6HRT #120 ampul.neb Prednisone [predniSONE 10 mg (6-Day Pack, 21 Tabs)] 10 mg PO .TAPER #1 tab.ds.pk Albuterol Mdi (or & Nicu Only) [ProAir HFA Inhaler] 2 puff IH Q4-6H PRN #1 inha PRN Reason: Cough Referrals: PRIMARY CARE [Primary Care Provider] - 3-5 Days [facility] [Provider Group] - 3-5 Days Time of Disposition: 11:22
[2021-04-23 11:11] VITALS: BP 143/100
== END 2021-04-23 11:33 | disposition home or self-care (01) ==
LOC: ED 09:24
DX: J44.9 Chronic obstructive pulmonary disease, unspecified (principal); F17.200 Nicotine dependence, unspecified, uncomplicated; I10 Essential (primary) hypertension
CPT/HCPCS: 94640; 94644; 99283

== ENCOUNTER 2021-05-20 21:29 | Emergency (ER) | payer MEDICARE ==
[2021-05-20] MEDS ORDERED: IPRATROPIUM 0.02% NEBU 2.5 ML IH ONE (22:33)
[2021-05-20] MEDS ORDERED: ALBUTEROL 2.5 MG/3 ML NEBU IH ONE (22:33)
[2021-05-20] MEDS ORDERED: methylPREDNISolone Sod Succinate 125 MG/2 ML INJ IM ONE (22:34)
--- NOTE | 2021-05-20 23:25 | XRay Report ---
CHEST 2 VIEWS INDICATION / CLINICAL INFORMATION: Cough, dyspnea, asthma. History of COPD and hypertension. COMPARISON: None available. FINDINGS: SUPPORT DEVICES: None. HEART / MEDIASTINUM: No significant abnormality. LUNGS / PLEURA: No significant pulmonary abnormality. No significant pleural effusion. No pneumothora x. ADDITIONAL FINDINGS: An old left sixth rib fracture is unchanged. IMPRESSION: 1. No acute abnormality of the chest. No significant interval changes. Signer Name: Teofilo Baig MD Signed: 05/20/2021 11:21 PM Workstation Name: [id number]
--- NOTE | 2021-05-21 01:15 | Emergency Department Report ---
- General Chief Complaint: Adult Asthma Stated Complaint: ASTHMA Source: patient Mode of arrival: Ambulatory Limitations: No Limitations - History of Present Illness Initial Comments: Patient is a 60-year-old -Montenegr[place] male with a history of hypertension, asthma and COPD who presented to the ED with complaint of acute onset persistent nasal and sinus congestion, persistent dry cough and wheezing and shortness of breath for the last 12 hours, worse in the last 6 hours. Patient states that he ran out of these medications at home and is scheduled to travel to [place] and therefore would like a refill on his medications. Patient also denies dizziness, syncope, fever, chills, chest pain, nausea and vomiting, sore throat, abdominal pain, headache, dysuria, urinary frequency and urgency or neck pain. MD Complaint: cough, rhinorrhea, nasal congestion, other (Shortness of breath) -: Sudden, hour(s) (12) Severity: severe Severity scale (0 -10): 7 Quality: aching Consistency: constant Improves With: nothing Worsens With: nothing Associated Symptoms: rhinorrhea, nasal congestion, cough, shortness of breath. denies: fever, chills, diaphoresis, headache, sore throat, chest pain, abdominal pain, nausea, vomiting, diarrhea, dysuria, right sweats, weight loss, epistaxis, hoarseness, ear pain Treatments Prior to Arrival: none - Related Data Previous Rx's Medication Instructions Recorded Last Taken Type amLODIPine 5 mg PO QDAY #30 tablet 11/05/18 Unknown Rx Ipratropium/Albuterol Sulfate 1 ampul IH Q8HR PRN #30 ampul.neb 11/10/20 Unknown Rx [DUONEB *Not for PRN Use*] Ipratropium (Nf) [Atrovent HFA 2 puff IH Q6HR PRN #1 inha 12/14/20 Unknown Rx 17MCG/PUFF] Albuterol Sulfate [Proventil Hfa] 6.7 gm IH QID PRN #1 hfa.aer.ad 01/01/21 Unknown Rx Montelukast [Singulair] 10 mg PO QPM #14 tablet 01/27/21 Unknown Rx predniSONE [Deltasone] 50 mg PO QDAY #5 tab 01/27/21 Unknown Rx Ipratropium/Albuterol Sulfate 1 ampul IH Q6HRT #120 ampul.neb 04/23/21 Unknown Rx [DUONEB *Not for PRN Use*] ALBUTEROL NEB's [Proventil 0.083% 2.5 mg IH TID PRN #75 ml 05/21/21 Unknown Rx NEBS] Albuterol Mdi (or & Nicu Only) 2 puff IH Q4-6H PRN #1 inha 05/21/21 Unknown Rx [ProAir HFA Inhaler] Fluticasone/Salmeterol [Advair 1 puff IH BID #1 disk.w.dev 05/21/21 Unknown Rx Diskus 250-50 mcg] Ipratropium [Atrovent NEB] 0.5 mg IH Q4HR PRN #1 box 05/21/21 Unknown Rx Montelukast [Singulair] 10 mg PO QPM #30 tablet 05/21/21 Unknown Rx Prednisone [predniSONE 10 mg 10 mg PO .TAPER #1 tab.ds.pk 05/21/21 Unknown Rx (6-Day Pack, 21 Tabs)] Allergies Allergy/AdvReac Type Severity Reaction Status Date / Time No Known Allergies Allergy Verified 01/01/21 07:55 ED Review of Systems ROS: Stated complaint: ASTHMA Other details as noted in HPI Constitutional: denies: chills, fever Eyes: denies: eye pain, eye discharge, vision change ENT: congestion. denies: ear pain, throat pain Respiratory: cough, shortness of breath, wheezing Cardiovascular: denies: chest pain, palpitations Endocrine: no symptoms reported Gastrointestinal: denies: abdominal pain, nausea, diarrhea Genitourinary: denies: urgency, dysuria Musculoskeletal: denies: back pain, joint swelling, arthralgia Skin: denies: rash, lesions Neurological: denies: headache, weakness, paresthesias Psychiatric: denies: anxiety, depression Hematological/Lymphatic: denies: easy bleeding, easy bruising ED Past Medical Hx - Past Medical History Previous Medical History?: Yes Hx Hypertension: Yes Hx Asthma: Yes Hx COPD: Yes - Surgical History Past Surgical History?: No Additional Surgical History: denies - Social History Smoking Status: Current Some Day Smoker Substance Use Type: None (Denies illicit drug) - Medications Home Medications: Home Medications Medication Instructions Recorded Confirmed Last Taken Type amLODIPine 5 mg PO QDAY #30 tablet 11/05/18 Unknown Rx Ipratropium/Albuterol Sulfate 1 ampul IH Q8HR PRN #30 ampul.neb 11/10/20 Unknown Rx [DUONEB *Not for PRN Use*] Ipratropium (Nf) [Atrovent HFA 2 puff IH Q6HR PRN #1 inha 12/14/20 Unknown Rx 17MCG/PUFF] Albuterol Sulfate [Proventil Hfa] 6.7 gm IH QID PRN #1 hfa.aer.ad 01/01/21 Unknown Rx Montelukast [Singulair] 10 mg PO QPM #14 tablet 01/27/21 Unknown Rx predniSONE [Deltasone] 50 mg PO QDAY #5 tab 01/27/21 Unknown Rx Ipratropium/Albuterol Sulfate 1 ampul IH Q6HRT #120 ampul.neb 04/23/21 Unknown Rx [DUONEB *Not for PRN Use*] ALBUTEROL NEB's [Proventil 0.083% 2.5 mg IH TID PRN #75 ml 05/21/21 Unknown Rx NEBS] Albuterol Mdi (or & Nicu Only) 2 puff IH Q4-6H PRN #1 inha 05/21/21 Unknown Rx [ProAir HFA Inhaler] Fluticasone/Salmeterol [Advair 1 puff IH BID #1 disk.w.dev 05/21/21 Unknown Rx Diskus 250-50 mcg] Ipratropium [Atrovent NEB] 0.5 mg IH Q4HR PRN #1 box 05/21/21 Unknown Rx Montelukast [Singulair] 10 mg PO QPM #30 tablet 05/21/21 Unknown Rx Prednisone [predniSONE 10 mg 10 mg PO .TAPER #1 tab.ds.pk 05/21/21 Unknown Rx (6-Day Pack, 21 Tabs)] ED Physical Exam - General Limitations: No Limitations General appearance: alert, in no apparent distress - Head Head exam: Present: atraumatic, normocephalic, normal inspection - Eye Eye exam: Present: normal appearance, PERRL, EOMI Pupils: Present: normal accommodation - ENT ENT exam: Present: normal exam, normal orophraynx, mucous membranes moist, TM's normal bilaterally - Neck Neck exam: Present: normal inspection, full ROM. Absent: tenderness - Respiratory Respiratory exam: Present: wheezes (diffuse coarse wheezes). Absent: respiratory distress, rales, rhonchi, stridor, chest wall tenderness, accessory muscle use, decreased breath sounds, prolonged expiratory - Cardiovascular Cardiovascular Exam: Present: regular rate, normal rhythm, normal heart sounds. Absent: systolic murmur, diastolic murmur, rubs, gallop - GI/Abdominal GI/Abdominal exam: Present: soft, normal bowel sounds. Absent: tenderness, guarding, rebound, hyperactive bowel sounds, hypoactive bowel sounds, organomegaly - Extremities Exam Extremities exam: Present: normal inspection, full ROM, normal capillary refill. Absent: tenderness, pedal edema, joint swelling, calf tenderness - Back Exam Back exam: Present: normal inspection, full ROM. Absent: tenderness, CVA tenderness (R), CVA tenderness (L), muscle spasm, paraspinal tenderness, vertebral tenderness - Neurological Exam Neurological exam: Present: alert, oriented X3, CN II-XII intact, normal gait, reflexes normal - Psychiatric Psychiatric exam: Present: normal affect, normal mood. Absent: anxious - Skin Skin exam: Present: warm, dry, intact, normal color. Absent: rash ED Course Vital Signs 05/20/21 21:34 Temperature 97.6 F Pulse Rate 76 Respiratory 18 Rate Blood Pressure 113/79 O2 Sat by Pulse 95 Oximetry ED Medical Decision Making - Radiology Data Radiology results: report reviewed, image reviewed [facility] [address] [place] [address] XRay Report Signed Patient: OSCAR BARBA MR #: [id number] : 1960 Acct:[id number] Age/Sex: 60 / M ADM Date: 05/20/21 Loc: ED Attending Dr: Ordering Physician: MARINA SIDDIQUI Date of Service: 05/20/21 Procedure(s): XR chest routine 2V Accession Number(s): [id number] cc: MARINA SIDDIQUI Fluoro Time In Minutes: CHEST 2 VIEWS INDICATION / CLINICAL INFORMATION: Cough, dyspnea, asthma. History of COPD and hypertension. COMPARISON: None available. FINDINGS: SUPPORT DEVICES: None. HEART / MEDIASTINUM: No significant abnormality. LUNGS / PLEURA: No significant pulmonary abnormality. No significant pleural effusion. No pneumothorax. ADDITIONAL FINDINGS: An old left sixth rib fracture is unchanged. IMPRESSION: 1. No acute abnormality of the chest. No significant interval changes. Signer Name: Teofilo Baig MD Signed: 05/20/2021 11:21 PM Workstation Name: [id number] Transcribed By: JESSICA Dictated By: Teofilo Baig MD Electronically Authenticated By: Teofilo Baig MD Signed Date/Time: 05/20/212320 DD/ 19 TD/TT: Print - Medical Decision Making This is a 60-year-old -[place] male with a history of hypertension, asthma and COPD who presented to the ED with complaint of acute onset persistent nasal and sinus congestion, persistent dry cough and wheezing and shortness of breath for the last 12 hours, worse in the last 6 hours. Patient states that he ran out of these medications at home and is scheduled to travel to [place] and therefore would like a refill on his medications. In the ED, patient is alert and oriented x3 and is not in any distress. Patient was treated in the ED with DuoNeb for 1 hour, Solu-Medrol 125 mg intramuscular injection. Chest x-ray showed no acute cardiopulmonary abnormalities or pneumonitis. On reevaluation, patient felt better, the wheezing resolved and the oxygen saturation is 99 to 100% in room air. Patient was discharged home on medications and advised to follow-up with his primary care physician in 7 to 10 days for reevaluation or return to the ED immediately if symptoms get worse. - Differential Diagnosis asthma; copd; pneumonia; covid-19; URI Critical care attestation.: If time is entered above; I have spent that time in minutes in the direct care of this critically ill patient, excluding procedure time. ED Disposition Clinical Impression: Shortness of breath, Acute upper respiratory infection Acute asthma exacerbation Qualifiers: Asthma severity: moderate Asthma persistence: persistent Qualified Code(s): J45.41 - Moderate persistent asthma with (acute) exacerbation Disposition: 01 HOME / SELF CARE / HOMELESS Is pt being admited?: No Does the pt Need Aspirin: No Condition: Stable Instructions: Shortness of Breath, Adult, [id number], Upper Respiratory Infection, Adult, [id number], Asthma, Adult, [id number], Cough, Adult, Uaic-[id number]-Inve Additional Instructions: Take medication with food, drink plenty of fluids and follow-up with your primary care physician in 7 to 10 days for reevaluation. Return to the ED immediately if symptoms get worse. Prescriptions: Fluticasone/Salmeterol [Advair Diskus 250-50 mcg] 1 puff IH BID #1 disk.w.dev Ipratropium [Atrovent NEB] 0.5 mg IH Q4HR PRN #1 box PRN Reason: Shortness Of Breath Prednisone [predniSONE 10 mg (6-Day Pack, 21 Tabs)] 10 mg PO .TAPER #1 tab.ds.pk Albuterol Mdi (or & Nicu Only) [ProAir HFA Inhaler] 2 puff IH Q4-6H PRN #1 inha PRN Reason: Cough ALBUTEROL NEB's [Proventil 0.083% NEBS] 2.5 mg IH TID PRN #75 ml PRN Reason: Wheezing Montelukast [Singulair] 10 mg PO QPM #30 tablet Referrals: [facility] [Provider Group] - 7-10 days Time of Disposition: 01:16 Print Language: HONDURAN
[2021-05-21 01:43] VITALS: BP 132/85
== END 2021-05-21 01:47 | disposition home or self-care (01) ==
LOC: ED 21:29
DX: J44.9 Chronic obstructive pulmonary disease, unspecified (principal); J06.9 Acute upper respiratory infection, unspecified; I10 Essential (primary) hypertension; F17.200 Nicotine dependence, unspecified, uncomplicated; Z79.899 Other long term (current) drug therapy
CPT/HCPCS: 71046; 94640; 96372; 99283; J2930

== ENCOUNTER 2021-06-21 20:08 | Emergency (ER) | payer MEDICARE ==
[2021-06-21] MEDS ORDERED: dexAMETHasone 4 MG/ML VIAL IM STA (20:19)
[2021-06-21] MEDS ORDERED: ALBUTEROL 2.5 MG/3 ML NEBU IH ONE (20:19)
[2021-06-21] MEDS ORDERED: IPRATROPIUM 0.02% NEBU 2.5 ML IH ONE (20:19)
--- NOTE | 2021-06-21 20:24 | Emergency Department Report ---
ED General Adult HPI - General Chief complaint: Adult Asthma Stated complaint: HAVING AN ASTHMA ATTACK Time Seen by Provider: 06/21/21 20:18 Source: patient Mode of arrival: Ambulatory Limitations: No Limitations - History of Present Illness Initial comments: 60-year-old -[place]aur[place] male patient presents with complaints of asthma exacerbation x2 hours. Patient seen here in the ED for asthma exacerbations many times in the past. He states he ran out of his home meds. No other past medical history per patient. He denies any loss of taste or smell, hemoptysis, or fever/chills or sweats. Patient states he is vaccinated against COVID-19. He admits to chest tightness without pain and states this feels like his normal asthma exacerbation. He denies being a smoker. He also denies any history of DVT/PE/cancer or recent long travel - Related Data Previous Rx's Medication Instructions Recorded Last Taken Type amLODIPine 5 mg PO QDAY #30 tablet 11/05/18 Unknown Rx Ipratropium/Albuterol Sulfate 1 ampul IH Q8HR PRN #30 ampul.neb 11/10/20 Unknown Rx [DUONEB *Not for PRN Use*] Ipratropium (Nf) [Atrovent HFA 2 puff IH Q6HR PRN #1 inha 12/14/20 Unknown Rx 17MCG/PUFF] Albuterol Sulfate [Proventil Hfa] 6.7 gm IH QID PRN #1 hfa.aer.ad 01/01/21 Unknown Rx predniSONE [Deltasone] 50 mg PO QDAY #5 tab 01/27/21 Unknown Rx Ipratropium/Albuterol Sulfate 1 ampul IH Q6HRT #120 ampul.neb 04/23/21 Unknown Rx [DUONEB *Not for PRN Use*] Albuterol Mdi (or & Nicu Only) 2 puff IH Q4-6H PRN #1 inha 05/21/21 Unknown Rx [ProAir HFA Inhaler] Montelukast [Singulair] 10 mg PO QPM #30 tablet 05/21/21 Unknown Rx ALBUTEROL NEB's [Proventil 0.083% 2.5 mg IH TID PRN #75 ml 06/21/21 Unknown Rx NEBS] Fluticasone/Salmeterol [Advair 1 puff IH BID #1 disk.w.dev 06/21/21 Unknown Rx Diskus 250-50 mcg] Ipratropium [Atrovent NEB] 0.5 mg IH Q4HR PRN #1 box 06/21/21 Unknown Rx Montelukast [Singulair] 10 mg PO QPM #30 tablet 06/21/21 Unknown Rx Prednisone [predniSONE 10 mg 10 mg PO .TAPER #1 tab.ds.pk 06/21/21 Unknown Rx (6-Day Pack, 21 Tabs)] Allergies Allergy/AdvReac Type Severity Reaction Status Date / Time No Known Allergies Allergy Verified 06/21/21 20:12 ED Review of Systems ROS: Stated complaint: HAVING AN ASTHMA ATTACK Other details as noted in HPI Constitutional: denies: chills, diaphoresis, fever, malaise Respiratory: cough (mild, nonproductive ), shortness of breath, wheezing Cardiovascular: as per HPI. denies: edema, syncope Gastrointestinal: denies: abdominal pain Musculoskeletal: as per HPI. denies: other (No leg pains or swelling in legs) Skin: as per HPI ED Past Medical Hx - Past Medical History Hx Hypertension: Yes Hx Asthma: Yes Hx COPD: Yes - Surgical History Past Surgical History?: No Additional Surgical History: denies - Social History Smoking Status: Never Smoker - Medications Home Medications: Home Medications Medication Instructions Recorded Confirmed Last Taken Type amLODIPine 5 mg PO QDAY #30 tablet 11/05/18 Unknown Rx Ipratropium/Albuterol Sulfate 1 ampul IH Q8HR PRN #30 ampul.neb 11/10/20 Unknown Rx [DUONEB *Not for PRN Use*] Ipratropium (Nf) [Atrovent HFA 2 puff IH Q6HR PRN #1 inha 12/14/20 Unknown Rx 17MCG/PUFF] Albuterol Sulfate [Proventil Hfa] 6.7 gm IH QID PRN #1 hfa.aer.ad 01/01/21 Unknown Rx predniSONE [Deltasone] 50 mg PO QDAY #5 tab 01/27/21 Unknown Rx Ipratropium/Albuterol Sulfate 1 ampul IH Q6HRT #120 ampul.neb 04/23/21 Unknown Rx [DUONEB *Not for PRN Use*] Albuterol Mdi (or & Nicu Only) 2 puff IH Q4-6H PRN #1 inha 05/21/21 Unknown Rx [ProAir HFA Inhaler] Montelukast [Singulair] 10 mg PO QPM #30 tablet 05/21/21 Unknown Rx ALBUTEROL NEB's [Proventil 0.083% 2.5 mg IH TID PRN #75 ml 06/21/21 Unknown Rx NEBS] Fluticasone/Salmeterol [Advair 1 puff IH BID #1 disk.w.dev 06/21/21 Unknown Rx Diskus 250-50 mcg] Ipratropium [Atrovent NEB] 0.5 mg IH Q4HR PRN #1 box 06/21/21 Unknown Rx Montelukast [Singulair] 10 mg PO QPM #30 tablet 06/21/21 Unknown Rx Prednisone [predniSONE 10 mg 10 mg PO .TAPER #1 tab.ds.pk 06/21/21 Unknown Rx (6-Day Pack, 21 Tabs)] ED Physical Exam - General Limitations: No Limitations General appearance: alert, in no apparent distress - Head Head exam: Present: atraumatic, normocephalic - Eye Eye exam: Present: normal appearance. Absent: scleral icterus - Neck Neck exam: Present: normal inspection - Respiratory Respiratory exam: Present: wheezes (diffuse), decreased breath sounds (diffuse ). Absent: rales, rhonchi, stridor, chest wall tenderness - Cardiovascular Cardiovascular Exam: Present: regular rate, normal rhythm. Absent: systolic murmur, diastolic murmur, rubs, gallop - Extremities Exam Extremities exam: Present: full ROM. Absent: calf tenderness (no swelling noted ) - Neurological Exam Neurological exam: Present: alert, oriented X3, normal gait - Psychiatric Psychiatric exam: Present: normal affect, normal mood - Skin Skin exam: Present: warm, dry, intact, normal color. Absent: rash ED Course Vital Signs 06/21/21 06/21/21 20:13 23:00 Temperature 97.9 F Pulse Rate 78 68 Respiratory 23 18 Rate Blood Pressure 123/85 122/89 [Right] O2 Sat by Pulse 96 99 Oximetry ED Medical Decision Making - Medical Decision Making 60-year-old -[place] male patient presents with complaints of asthma exacerbation x2 hours. Patient seen here in the ED for asthma exacerbations many times in the past. He states he ran out of his home meds. No other past medical history per patient. He denies any loss of taste or smell, hemoptysis, or fever/chills or sweats. Patient states he is vaccinated against COVID-19. He admits to chest tightness without pain and states this feels like his normal asthma exacerbation. He denies being a smoker. He also denies any history of DVT/PE/cancer or recent long travel Patient given hour-long DuoNeb and Decadron. He states his symptoms have completely resolved and he is no longer feeling short of breath. Refills of medications given for home. He is well-appearing and stable for discharge home. Discussed in detail signs and symptoms that should prompt immediate return to the emergency department with patient verbalizes understanding. He is to follow-up with primary care in 3 to 5 days Critical care attestation.: If time is entered above; I have spent that time in minutes in the direct care of this critically ill patient, excluding procedure time. ED Disposition Clinical Impression: Asthma exacerbation Disposition: 01 HOME / SELF CARE / HOMELESS Is pt being admited?: No Condition: Stable Instructions: Asthma, Adult Prescriptions: Fluticasone/Salmeterol [Advair Diskus 250-50 mcg] 1 puff IH BID #1 disk.w.dev Ipratropium [Atrovent NEB] 0.5 mg IH Q4HR PRN #1 box PRN Reason: Shortness Of Breath Prednisone [predniSONE 10 mg (6-Day Pack, 21 Tabs)] 10 mg PO .TAPER #1 tab.ds.pk ALBUTEROL NEB's [Proventil 0.083% NEBS] 2.5 mg IH TID PRN #75 ml PRN Reason: Wheezing Montelukast [Singulair] 10 mg PO QPM #30 tablet Referrals: [facility] [Provider Group] - 3-5 Days
[2021-06-21 23:29] VITALS: BP 122/89
== END 2021-06-21 23:29 | disposition home or self-care (01) ==
LOC: ED 20:08
DX: J45.901 Unspecified asthma with (acute) exacerbation (principal); J44.9 Chronic obstructive pulmonary disease, unspecified; I10 Essential (primary) hypertension; Z79.899 Other long term (current) drug therapy
CPT/HCPCS: 94640; 96372; 99282; J1100

== ENCOUNTER 2021-09-11 00:03 | Emergency (ER) | payer MEDICARE ==
[2021-09-11] MEDS ORDERED: IPRATROPIUM 0.02% NEBU 2.5 ML IH ONE ×2 (00:28→00:36)
[2021-09-11] MEDS ORDERED: ALBUTEROL 2.5 MG/3 ML NEBU IH ONE ×2 (00:29→00:36)
[2021-09-11] MEDS ORDERED: MAGNESIUM SULFATE 2 GM/50 ML BAG IV ONE (02:23)
[2021-09-11] MEDS ORDERED: methylPREDNISolone Sod Succinate 125 MG/2 ML INJ IV ONE (02:23)
--- NOTE | 2021-09-11 02:33 | Emergency Department Report ---
ED Asthma HPI - General Chief Complaint: Adult Asthma Stated Complaint: SOB Time Seen by Provider: 09/11/21 02:23 Source: patient Mode of arrival: Ambulatory Limitations: No Limitations - History of Present Illness Initial Comments: 60-year-old male with a past medical history of asthma and hypertension presents to the hospital with complaints of asthma exacerbation x1 day. Short of breath worse with exertion. Patient ran out of his asthma medications for the past 3 days. He complains of wheeze and occasional cough without fever. He denies previous history of intubations. 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 No pain reported. - Related Data Previous Rx's Medication Instructions Recorded Last Taken Type amLODIPine 5 mg PO QDAY #30 tablet 11/05/18 Unknown Rx Ipratropium (Nf) [Atrovent HFA 2 puff IH Q6HR PRN #1 inha 12/14/20 Unknown Rx 17MCG/PUFF] predniSONE [Deltasone] 50 mg PO QDAY #5 tab 01/27/21 Unknown Rx Ipratropium/Albuterol Sulfate 1 ampul IH Q6HRT #120 ampul.neb 04/23/21 Unknown Rx [DUONEB *Not for PRN Use*] Albuterol Mdi (or & Nicu Only) 2 puff IH Q4-6H PRN #1 inha 05/21/21 Unknown Rx [ProAir HFA Inhaler] ALBUTEROL NEB's [Proventil 0.083% 2.5 mg IH TID PRN #75 ml 06/21/21 Unknown Rx NEBS] Fluticasone/Salmeterol [Advair 1 puff IH BID #1 disk.w.dev 06/21/21 Unknown Rx Diskus 250-50 mcg] Ipratropium [Atrovent NEB] 0.5 mg IH Q4HR PRN #1 box 06/21/21 Unknown Rx Montelukast [Singulair] 10 mg PO QPM #30 tablet 06/21/21 Unknown Rx Albuterol Sulfate [Proventil Hfa] 6.7 gm IH QID PRN #1 hfa.aer.ad 09/11/21 Unknown Rx Fluticasone/Umeclidin/Vilanter 1 each IH DAILY #1 09/11/21 Unknown Rx [Trelegy Ellipta 200-62.5-25] Ipratropium/Albuterol Sulfate 1 ampul IH Q8HR PRN #30 ampul.neb 09/11/21 Unknown Rx [DUONEB *Not for PRN Use*] Montelukast [Singulair] 10 mg PO QPM #30 tablet 09/11/21 Unknown Rx Prednisone [predniSONE 10 mg 10 mg PO .TAPER #1 tab.ds.pk 09/11/21 Unknown Rx (6-Day Pack, 21 Tabs)] Sodium Chloride [Saline Nasal 1 - 2 sprays NS PRN PRN #1 spray 09/11/21 Unknown Rx [place]] Allergies Allergy/AdvReac Type Severity Reaction Status Date / Time No Known Allergies Allergy Verified 09/11/21 00:32 ED Review of Systems ROS: Stated complaint: SOB Other details as noted in HPI Comment: All other systems reviewed and negative ED Past Medical Hx - Past Medical History Previous Medical History?: Yes Hx Hypertension: Yes Hx Asthma: Yes Hx COPD: Yes - Surgical History Past Surgical History?: No Additional Surgical History: denies - Social History Smoking Status: Never Smoker - Medications Home Medications: Home Medications Medication Instructions Recorded Confirmed Last Taken Type amLODIPine 5 mg PO QDAY #30 tablet 11/05/18 Unknown Rx Ipratropium (Nf) [Atrovent HFA 2 puff IH Q6HR PRN #1 inha 12/14/20 Unknown Rx 17MCG/PUFF] predniSONE [Deltasone] 50 mg PO QDAY #5 tab 01/27/21 Unknown Rx Ipratropium/Albuterol Sulfate 1 ampul IH Q6HRT #120 ampul.neb 04/23/21 Unknown Rx [DUONEB *Not for PRN Use*] Albuterol Mdi (or & Nicu Only) 2 puff IH Q4-6H PRN #1 inha 05/21/21 Unknown Rx [ProAir HFA Inhaler] ALBUTEROL NEB's [Proventil 0.083% 2.5 mg IH TID PRN #75 ml 06/21/21 Unknown Rx NEBS] Fluticasone/Salmeterol [Advair 1 puff IH BID #1 disk.w.dev 06/21/21 Unknown Rx Diskus 250-50 mcg] Ipratropium [Atrovent NEB] 0.5 mg IH Q4HR PRN #1 box 06/21/21 Unknown Rx Montelukast [Singulair] 10 mg PO QPM #30 tablet 06/21/21 Unknown Rx Albuterol Sulfate [Proventil Hfa] 6.7 gm IH QID PRN #1 hfa.aer.ad 09/11/21 Unknown Rx Fluticasone/Umeclidin/Vilanter 1 each IH DAILY #1 09/11/21 Unknown Rx [Trelegy Ellipta 200-62.5-25] Ipratropium/Albuterol Sulfate 1 ampul IH Q8HR PRN #30 ampul.neb 09/11/21 Unknown Rx [DUONEB *Not for PRN Use*] Montelukast [Singulair] 10 mg PO QPM #30 tablet 09/11/21 Unknown Rx Prednisone [predniSONE 10 mg 10 mg PO .TAPER #1 tab.ds.pk 09/11/21 Unknown Rx (6-Day Pack, 21 Tabs)] Sodium Chloride [Saline Nasal 1 - 2 sprays NS PRN PRN #1 spray 09/11/21 Unknown Rx [place]] ED Physical Exam - General Limitations: No Limitations - Other Other exam information: General: Mild respiratory distress Head: Atraumatic Eyes: normal appearance ENT: Moist mucous membranes Neck: Normal appearance, no midline tenderness Chest: Lateral wheezing, mild tachypnea, accessory muscle CV: Regular rate and rhythm Abdomen: Soft, normal bowel sounds, nontender, nondistended, no rebound or guarding Back: Normal inspection Extremity: Normal inspection, full range of motion, no calf tenderness or leg Neuro: Alert O x 3, no facial asymmetry, speech clear, no gross motor sensory deficit Psych: Appropriate behavior Skin: No rash ED Course Vital Signs 09/11/21 09/11/21 00:09 00:38 Temperature 97.3 F L Pulse Rate 64 Pulse Rate [ 58 L Bilateral Throughout] Respiratory 28 H Rate Respiratory 22 Rate [Bilateral Throughout] Blood Pressure 110/79 [Right] O2 Sat by Pulse 98 Oximetry - Reevaluation(s) Reevaluation #1: 09/11/21 03:42 Patient reports feeling much better. Room air saturation 94% while sleeping. Patient still has some wheezing but declines additional breathing treatments and prefers to be discharged to continue treatments at home ED Medical Decision Making - Medical Decision Making 60-year-old male presents to the hospital acute asthma exacerbations likely secondary to running out of medications. He was treated in the ED of bronchodilators, steroids, and magnesium with improvement in symptoms. No signs of hypoxia. Plan to discharge and refill her medications. Patient also requesting medication for allergy relief Critical Care Time: No Critical care attestation.: If time is entered above; I have spent that time in minutes in the direct care of this critically ill patient, excluding procedure time. ED Disposition Clinical Impression: Asthma exacerbation, Noncompliance Disposition: 01 HOME / SELF CARE / HOMELESS Is pt being admited?: No Does the pt Need Aspirin: No Condition: Stable Instructions: Asthma, Adult Additional Instructions: Take the medication as prescribed. Follow-up with your doctor or doctor/clinic provided. Return if symptoms worsen as indicated by your discharge instructions. 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
[2021-09-11 04:18] VITALS: BP 116/66
[2021-09-11] MEDS ORDERED: MORPHINE 2 MG/1 ML INJ IV PRN (08:11)
[2021-09-11] MEDS ORDERED: ACETAMINOPHEN 325 MG TAB PO PRN (08:11)
[2021-09-11] MEDS ORDERED: NALOXONE 0.4 MG/1 ML INJ IV PRN (08:11)
[2021-09-11] MEDS ORDERED: ONDANSETRON 4 MG/2 ML INJ IV PRN (08:11)
[2021-09-11] MEDS ORDERED: ALBUTEROL 2.5 MG/3 ML NEBU IH PRN (08:11)
--- NOTE | 2021-09-11 08:11 | History and Physical Report ---
Medications and Allergies Allergies Allergy/AdvReac Type Severity Reaction Status Date / Time No Known Allergies Allergy Verified 09/11/21 00:32 Home Medications Medication Instructions Recorded Confirmed Last Taken Type amLODIPine 5 mg PO QDAY #30 tablet 11/05/18 Unknown Rx Ipratropium (Nf) [Atrovent HFA 2 puff IH Q6HR PRN #1 inha 12/14/20 Unknown Rx 17MCG/PUFF] predniSONE [Deltasone] 50 mg PO QDAY #5 tab 01/27/21 Unknown Rx Ipratropium/Albuterol Sulfate 1 ampul IH Q6HRT #120 ampul.neb 04/23/21 Unknown Rx [DUONEB *Not for PRN Use*] Albuterol Mdi (or & Nicu Only) 2 puff IH Q4-6H PRN #1 inha 05/21/21 Unknown Rx [ProAir HFA Inhaler] ALBUTEROL NEB's [Proventil 0.083% 2.5 mg IH TID PRN #75 ml 06/21/21 Unknown Rx NEBS] Fluticasone/Salmeterol [Advair 1 puff IH BID #1 disk.w.dev 06/21/21 Unknown Rx Diskus 250-50 mcg] Ipratropium [Atrovent NEB] 0.5 mg IH Q4HR PRN #1 box 06/21/21 Unknown Rx Montelukast [Singulair] 10 mg PO QPM #30 tablet 06/21/21 Unknown Rx Albuterol Sulfate [Proventil Hfa] 6.7 gm IH QID PRN #1 hfa.aer.ad 09/11/21 Unk nown Rx Fluticasone/Umeclidin/Vilanter 1 each IH DAILY #1 09/11/21 Unknown Rx [Trelegy Ellipta 200-62.5-25] Ipratropium/Albuterol Sulfate 1 ampul IH Q8HR PRN #30 ampul.neb 09/11/21 Unknown Rx [DUONEB *Not for PRN Use*] Montelukast [Singulair] 10 mg PO QPM #30 tablet 09/11/21 Unknown Rx Prednisone [predniSONE 10 mg 10 mg PO .TAPER #1 tab.ds.pk 09/11/21 Unknown Rx (6-Day Pack, 21 Tabs)] Sodium Chloride [Saline Nasal 1 - 2 sprays NS PRN PRN #1 spray 09/11/21 Unknown Rx [place]] Exam - Constitutional Vitals: Temp Pulse Resp BP Pulse Ox 97.9 F 79 15 116/66 92 09/11/21 04:17 09/11/21 04:17 09/11/21 04:17 09/11/21 04:17 09/11/21 04:17
[2021-09-11] MEDS ORDERED: NON-FORMULARY EACH (Ipratropium (Nf) 1 PUFF Inha) IH PRN (08:14)
[2021-09-11] MEDS ORDERED: BUDESONIDE 0.5 MG/2 ML NEBU IH SCH (08:15)
[2021-09-11] MEDS ORDERED: methylPREDNISolone Sod Succinate 125 MG/2 ML INJ IV SCH (09:00)
[2021-09-11] MEDS ORDERED: ARFORMOTEROL 15 MCG/2 ML NEBU IH SCH (09:00)
[2021-09-11] MEDS ORDERED: SENNOSIDES 8.6 MG TAB PO SCH (10:00)
[2021-09-11] MEDS ORDERED: amLODIPine 5 MG TAB PO SCH (10:00)
[2021-09-11] MEDS ORDERED: IPRATROPIUM/ALBUTEROL SULFATE 3 ML AMPUL.NEB IH SCH (14:00)
[2021-09-11] MEDS ORDERED: HEPARIN 5,000 UNIT/1 ML VIAL SUB-Q SCH (14:00)
[2021-09-11] MEDS ORDERED: MONTELUKAST 10 MG TAB PO SCH (22:00)
== END 2021-09-11 04:19 | disposition home or self-care (01) ==
LOC: ED 00:03
DX: J44.1 Chronic obstructive pulmonary disease with (acute) exacerbation (principal); I10 Essential (primary) hypertension; Z79.899 Other long term (current) drug therapy
CPT/HCPCS: 36415; 36600; 71045; 80048; 82803; 85025; 94640; 94644; 96365; 96375; 99283; 99285; J2060; J2930; J3475

== ENCOUNTER 2021-09-30 17:12 | Emergency (ER) | payer MEDICARE ==
[2021-09-30] MEDS ORDERED: IPRATROPIUM 0.02% NEBU 2.5 ML IH ONE (17:39)
[2021-09-30] MEDS ORDERED: ALBUTEROL 2.5 MG/3 ML NEBU IH ONE (17:39)
--- NOTE | 2021-09-30 17:39 | Emergency Department Report ---
ED General Adult HPI - General Chief complaint: Adult Asthma Stated complaint: asthma Time Seen by Provider: 09/30/21 17:28 Source: patient, EMS Mode of arrival: Stretcher Limitations: No Limitations - History of Present Illness Severity scale (0 -10): 0 - Related Data Previous Rx's Medication Instructions Recorded Last Taken Type amLODIPine 5 mg PO QDAY #30 tablet 11/05/18 Unknown Rx Ipratropium (Nf) [Atrovent HFA 2 puff IH Q6HR PRN #1 inha 12/14/20 Unknown Rx 17MCG/PUFF] predniSONE [Deltasone] 50 mg PO QDAY #5 tab 01/27/21 Unknown Rx Ipratropium/Albuterol Sulfate 1 ampul IH Q6HRT #120 ampul.neb 04/23/21 Unknown Rx [DUONEB *Not for PRN Use*] Albuterol Mdi (or & Nicu Only) 2 puff IH Q4-6H PRN #1 inha 05/21/21 Unknown Rx [ProAir HFA Inhaler] ALBUTEROL NEB's [Proventil 0.083% 2.5 mg IH TID PRN #75 ml 06/21/21 Unknown Rx NEBS] Fluticasone/Salmeterol [Advair 1 puff IH BID #1 disk.w.dev 06/21/21 Unknown Rx Diskus 250-50 mcg] Ipratropium [Atrovent NEB] 0.5 mg IH Q4HR PRN #1 box 06/21/21 Unknown Rx Montelukast [Singulair] 10 mg PO QPM #30 tablet 06/21/21 Unknown Rx Albuterol Sulfate [Proventil Hfa] 6.7 gm IH QID PRN #1 hfa.aer.ad 09/11/21 Unknown Rx Fluticasone/Umeclidin/Vilanter 1 each IH DAILY #1 09/11/21 Unknown Rx [Trelegy Ellipta 200-62.5-25] Ipratropium/Albuterol Sulfate 1 ampul IH Q8HR PRN #30 ampul.neb 09/11/21 Unknown Rx [DUONEB *Not for PRN Use*] Montelukast [Singulair] 10 mg PO QPM #30 tablet 09/11/21 Unknown Rx Prednisone [predniSONE 10 mg 10 mg PO .TAPER #1 tab.ds.pk 09/11/21 Unknown Rx (6-Day Pack, 21 Tabs)] Sodium Chloride [Saline Nasal 1 - 2 sprays NS PRN PRN #1 spray 09/11/21 Unknown Rx [place]] Allergies Allergy/AdvReac Type Severity Reaction Status Date / Time No Known Allergies Allergy Verified 09/11/21 00:32 ED Review of Systems ROS: Stated complaint: asthma Other details as noted in HPI ED Past Medical Hx - Past Medical History Hx Hypertension: Yes Hx Asthma: Yes Hx COPD: Yes - Surgical History Additional Surgical History: denies - Social History Smoking Status: Never Smoker - Medications Home Medications: Home Medications Medication Instructions Recorded Confirmed Last Taken Type amLODIPine 5 mg PO QDAY #30 tablet 11/05/18 Unknown Rx Ipratropium (Nf) [Atrovent HFA 2 puff IH Q6HR PRN #1 inha 12/14/20 Unknown Rx 17MCG/PUFF] predniSONE [Deltasone] 50 mg PO QDAY #5 tab 01/27/21 Unknown Rx Ipratropium/Albuterol Sulfate 1 ampul IH Q6HRT #120 ampul.neb 04/23/21 Unknown Rx [DUONEB *Not for PRN Use*] Albuterol Mdi (or & Nicu Only) 2 puff IH Q4-6H PRN #1 inha 05/21/21 Unknown Rx [ProAir HFA Inhaler] ALBUTEROL NEB's [Proventil 0.083% 2.5 mg IH TID PRN #75 ml 06/21/21 Unknown Rx NEBS] Fluticasone/Salmeterol [Advair 1 puff IH BID #1 disk.w.dev 06/21/21 Unknown Rx Diskus 250-50 mcg] Ipratropium [Atrovent NEB] 0.5 mg IH Q4HR PRN #1 box 06/21/21 Unknown Rx Montelukast [Singulair] 10 mg PO QPM #30 tablet 06/21/21 Unknown Rx Albuterol Sulfate [Proventil Hfa] 6.7 gm IH QID PRN #1 hfa.aer.ad 09/11/21 Unknown Rx Fluticasone/Umeclidin/Vilanter 1 each IH DAILY #1 09/11/21 Unknown Rx [Trelegy Ellipta 200-62.5-25] Ipratropium/Albuterol Sulfate 1 ampul IH Q8HR PRN #30 ampul.neb 09/11/21 Unknown Rx [DUONEB *Not for PRN Use*] Montelukast [Singulair] 10 mg PO QPM #30 tablet 09/11/21 Unknown Rx Prednisone [predniSONE 10 mg 10 mg PO .TAPER #1 tab.ds.pk 09/11/21 Unknown Rx (6-Day Pack, 21 Tabs)] Sodium Chloride [Saline Nasal 1 - 2 sprays NS PRN PRN #1 spray 09/11/21 Unknown Rx [place]] ED Physical Exam - General Limitations: No Limitations ED Course Vital Signs 09/30/21 17:14 Temperature 98.4 F Pulse Rate 84 Respiratory 20 Rate Blood Pressure 142/78 [Left] O2 Sat by Pulse 96 Oximetry Critical care attestation.: If time is entered above; I have spent that time in minutes in the direct care of this critically ill patient, excluding procedure time. ED Disposition Condition: Stable
--- NOTE | 2021-09-30 17:51 | Emergency Department Report ---
ED General Adult HPI - General Chief complaint: Adult Asthma Stated complaint: asthma PUI?: No Time Seen by Provider: 09/30/21 17:28 Source: patient, EMS (Verbal report received from emergency medical services. EMS documentation not available at time of chart dictation ), RN notes reviewed, old records reviewed Mode of arrival: Stretcher Limitations: No Limitations - History of Present Illness Initial comments: This patient is a pleasant and cooperative 60-year-old gentleman whom I evaluated in the past. He has a history of asthma, tobacco use and possible COPD. Who presents to the hospital today with EMS, with a complaint of "my asthma." Patient reports that he was outside working today, and developed painless shortness of breath and wheezing. He was given albuterol and steroids prior to my personal evaluation. This was administered by EMS. The patient reports marked improvement in symptoms. He denies physical pain. He denies additional complaints. -: This afternoon Severity scale (0 -10): 0 Consistency: other (Improved) Improves with: medication Worsens with: none Associated Symptoms: denies other symptoms - Related Data Previous Rx's Medication Instructions Recorded Last Taken Type amLODIPine 5 mg PO QDAY #30 tablet 11/05/18 Unknown Rx Ipratropium (Nf) [Atrovent HFA 2 puff IH Q6HR PRN #1 inha 12/14/20 Unknown Rx 17MCG/PUFF] predniSONE [Deltasone] 50 mg PO QDAY #5 tab 01/27/21 Unknown Rx Ipratropium/Albuterol Sulfate 1 ampul IH Q6HRT #120 ampul.neb 04/23/21 Unknown Rx [DUONEB *Not for PRN Use*] Albuterol Mdi (or & Nicu Only) 2 puff IH Q4-6H PRN #1 inha 05/21/21 Unknown Rx [ProAir HFA Inhaler] ALBUTEROL NEB's [Proventil 0.083% 2.5 mg IH TID PRN #75 ml 06/21/21 Unknown Rx NEBS] Fluticasone/Salmeterol [Advair 1 puff IH BID #1 disk.w.dev 06/21/21 Unknown Rx Diskus 250-50 mcg] Ipratropium [Atrovent NEB] 0.5 mg IH Q4HR PRN #1 box 06/21/21 Unknown Rx Montelukast [Singulair] 10 mg PO QPM #30 tablet 06/21/21 Unknown Rx Albuterol Sulfate [Proventil Hfa] 6.7 gm IH QID PRN #1 hfa.aer.ad 09/11/21 Unknown Rx Fluticasone/Umeclidin/Vilanter 1 each IH DAILY #1 09/11/21 Unknown Rx [Trelegy Ellipta 200-62.5-25] Ipratropium/Albuterol Sulfate 1 ampul IH Q8HR PRN #30 ampul.neb 09/11/21 Unknown Rx [DUONEB *Not for PRN Use*] Montelukast [Singulair] 10 mg PO QPM #30 tablet 09/11/21 Unknown Rx Prednisone [predniSONE 10 mg 10 mg PO .TAPER #1 tab.ds.pk 09/11/21 Unknown Rx (6-Day Pack, 21 Tabs)] Sodium Chloride [Saline Nasal 1 - 2 sprays NS PRN PRN #1 spray 09/11/21 Unknown Rx [place]] Albuterol Sulfate [Albuterol 0.63% 0.63 mg IH Q4HR PRN #2 ml 09/30/21 Unknown Rx NEBS] Albuterol Sulfate [Proair 90 mcg IH Q4HR PRN #2 aer.pow.ba 09/30/21 Unknown Rx [place]] Ipratropium (Nf) [Atrovent] 2 puff IH Q6HR PRN #1 inha 09/30/21 Unknown Rx Ipratropium [Atrovent NEB] 0.5 mg IH Q4HR #2 ml 09/30/21 Unknown Rx predniSONE [Deltasone] 40 mg PO QDAY #8 tab 09/30/21 Unknown Rx Allergies Allergy/AdvReac Type Severity Reaction Status Date / Time No Known Allergies Allergy Verified 09/11/21 00:32 ED Review of Systems ROS: Stated complaint: asthma Other details as noted in HPI Comment: All other systems reviewed and negative Respiratory: cough, shortness of breath, wheezing ED Past Medical Hx - Past Medical History Hx Hypertension: Yes Hx Asthma: Yes Hx COPD: Yes - Surgical History Additional Surgical History: denies - Social History Smoking Status: Never Smoker - Medications Home Medications: Home Medications Medication Instructions Recorded Confirmed Last Taken Type amLODIPine 5 mg PO QDAY #30 tablet 11/05/18 Unknown Rx Ipratropium (Nf) [Atrovent HFA 2 puff IH Q6HR PRN #1 inha 12/14/20 Unknown Rx 17MCG/PUFF] predniSONE [Deltasone] 50 mg PO QDAY #5 tab 01/27/21 Unknown Rx Ipratropium/Albuterol Sulfate 1 ampul IH Q6HRT #120 ampul.neb 04/23/21 Unknown Rx [DUONEB *Not for PRN Use*] Albuterol Mdi (or & Nicu Only) 2 puff IH Q4-6H PRN #1 inha 05/21/21 Unknown Rx [ProAir HFA Inhaler] ALBUTEROL NEB's [Proventil 0.083% 2.5 mg IH TID PRN #75 ml 06/21/21 Unknown Rx NEBS] Fluticasone/Salmeterol [Advair 1 puff IH BID #1 disk.w.dev 06/21/21 Unknown Rx Diskus 250-50 mcg] Ipratropium [Atrovent NEB] 0.5 mg IH Q4HR PRN #1 box 06/21/21 Unknown Rx Montelukast [Singulair] 10 mg PO QPM #30 tablet 06/21/21 Unknown Rx Albuterol Sulfate [Proventil Hfa] 6.7 gm IH QID PRN #1 hfa.aer.ad 09/11/21 Unknown Rx Fluticasone/Umeclidin/Vilanter 1 each IH DAILY #1 09/11/21 Unknown Rx [Trelegy Ellipta 200-62.5-25] Ipratropium/Albuterol Sulfate 1 ampul IH Q8HR PRN #30 ampul.neb 09/11/21 Unknown Rx [DUONEB *Not for PRN Use*] Montelukast [Singulair] 10 mg PO QPM #30 tablet 09/11/21 Unknown Rx Prednisone [predniSONE 10 mg 10 mg PO .TAPER #1 tab.ds.pk 09/11/21 Unknown Rx (6-Day Pack, 21 Tabs)] Sodium Chloride [Saline Nasal 1 - 2 sprays NS PRN PRN #1 spray 09/11/21 Unknown Rx [place]] Albuterol Sulfate [Albuterol 0.63% 0.63 mg IH Q4HR PRN #2 ml 05/05/22 Unknown Rx NEBS] Albuterol Sulfate [Proair 90 mcg IH Q4HR PRN #2 aer.pow.ba 09/30/21 Unknown Rx [place]] Ipratropium (Nf) [Atrovent] 2 puff IH Q6HR PRN #1 inha 09/30/21 Unknown Rx Ipratropium [Atrovent NEB] 0.5 mg IH Q4HR #2 ml 09/30/21 Unknown Rx predniSONE [Deltasone] 40 mg PO QDAY #8 tab 09/30/21 Unknown Rx ED Physical Exam - General Limitations: No Limitations General appearance: alert, in no apparent distress - Head Head exam: Present: atraumatic, normocephalic - Eye Eye exam: Present: normal appearance, EOMI. Absent: nystagmus - ENT ENT exam: Present: normal exam, normal orophraynx, mucous membranes moist, normal external ear exam - Neck Neck exam: Present: normal inspection, full ROM. Absent: tenderness, meningismus - Respiratory Respiratory exam: Present: wheezes (Very faint wheezes), rhonchi (Very faint). Absent: respiratory distress, rales, stridor - Cardiovascular Cardiovascular Exam: Present: regular rate, normal rhythm, normal heart sounds. Absent: bradycardia, tachycardia, irregular rhythm, systolic murmur, diastolic murmur, rubs, gallop - GI/Abdominal GI/Abdominal exam: Present: soft. Absent: distended, tenderness, guarding, rebound, rigid, pulsatile mass, hernia - Rectal Rectal exam: Present: deferred - Extremities Exam Extremities exam: Present: normal inspection, full ROM, other (2+ pulses noted in the bilateral upper and lower extremities. There is no palpable cord. negative Homans sign. Muscular compartments are soft. The pelvis is stable.). Absent: pedal edema, calf tenderness - Back Exam Back exam: Present: normal inspection. Absent: tenderness, CVA tenderness (R), CVA tenderness (L), paraspinal tenderness, vertebral tenderness - Neurological Exam Neurological exam: Present: alert, oriented X3, other (No facial droop. Tongue midline. Extraocular movements intact bilaterally. Facial sensation intact to light touch in V1, V2, V3 distribution bilaterally. 5 and a 5 strength in 4 ex tremities. Sensation intact to light touch in 4 extremities.). Absent: motor sensory deficit - Psychiatric Psychiatric exam: Present: normal affect, normal mood - Skin Skin exam: Present: warm, dry, intact, normal color. Absent: rash ED Course Vital Signs 09/30/21 09/30/21 09/30/21 17:14 17:38 17:46 Temperature 98.4 F Pulse Rate 84 80 79 Pulse Rate [ Anterior Bilateral] Respiratory 20 20 16 Rate Respiratory Rate [Anterior Bilateral] Blood Pressure 107/79 107/79 Blood Pressure 142/78 [Left] O2 Sat by Pulse 96 93 92 Oximetry 09/30/21 09/30/21 09/30/21 17:58 18:00 18:06 Temperature Pulse Rate 75 Pulse Rate [ 78 Anterior Bilateral] Respiratory 20 21 Rate Respiratory 22 Rate [Anterior Bilateral] Blood Pressure 118/77 Blood Pressure [Left] O2 Sat by Pulse 98 91 Oximetry 09/30/21 18:16 Temperature Pulse Rate 67 Pulse Rate [ Anterior Bilateral] Respiratory 16 Rate Respiratory Rate [Anterior Bilateral] Blood Pressure 118/77 Blood Pressure [Left] O2 Sat by Pulse 99 Oximetry - Reevaluation(s) Reevaluation #1: 09/30/21 17:49 Differential diagnosis, including but not limited to: COPD, pneumonia, asthma, allergies, reactive airways disease Assessment and plan: 60-year-old gentleman, who was afebrile, with reassuring vital signs, presenting with probable reactive airways disease exacerbation. He was recently seen by pulmonology for similar symptoms, Dr. Russ, who indicated this patient may have undiagnosed COPD. Place patient on campus monitor, administer albuterol, Atrovent, he has already received steroids, obtain EKG, x-ray the chest. After initial therapy, provide trial of ambulation. The patient states he does not smoke at this time. 09/30/21 18:49 The patient is reexamined. His wheezing has resolved. He is ambulatory with a steady gait. On trial of ambulation, he does not desaturate. EKG and chest x- ray unremarkable. Discharged with appropriate medications. Return precautions are reviewed. All questions answered peer Patient specifically asking to be discharged because he has grandchildren at home that he has to take care of ED Medical Decision Making - Lab Data Vital Signs 09/30/21 17:14 Temperature 98.4 F Pulse Rate 84 Respiratory 20 Rate Blood Pressure 142/78 [Left] O2 Sat by Pulse 96 Oximetry - EKG Data -: EKG Interpreted by [place] EKG shows normal: sinus rhythm Rate: normal - EKG Data 09/30/21 18:26 The EKG is interpreted at 18: 05 Sinus rhythm, 76 bpm. Normal axis, normal P wave axis, motion artifact, and left ventricular hypertrophy. This is an abnormal EKG. This is not a STEMI - Radiology Data Radiology results: pending, report reviewed, image reviewed XR chest 1V ap INDICATION / CLINICAL INFORMATION: copd exacerbation. COMPARISON: 09/11/2021 FINDINGS: SUPPORT DEVICES: None. HEART /PULMONARY VASCULATURE: No significant abnormality. LUNGS / PLEURA: No acute pulmonary or pleural abnormality. No pneumothorax. ADDITIONAL FINDINGS: Remote left posterior lateral sixth rib fracture. IMPRESSION: 1. No acute findings. Signer Name: Justin Arboleda MD Signed: 09/30/2021 5:07 PM Workstation Name: [id number] Critical care attestation.: If time is entered above; I have spent that time in minutes in the direct care of this critically ill patient, excluding procedure time. ED Disposition Clinical Impression: Acute asthma exacerbation Disposition: 01 HOME / SELF CARE / HOMELESS Is pt being admited?: No Does the pt Need Aspirin: No Condition: Stable Instructions: Asthma, Adult Additional Instructions: Avoid consumption of alcohol, tobacco, smoke products. Take the breathing medications as needed and directed. Take the steroids as directed. 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 Please return to the emergency room right away with new pain, worsened pain, mi gration of pain, projectile vomiting, change in mental status, confusion, inability tolerate liquid feeds, new, worsened or different symptoms not present on the initial emergency room evaluation Referrals: KEITH RUSS MD [Staff Physician] - 3-5 Days [facility] [Provider Group] - 3-5 Days
--- NOTE | 2021-09-30 18:11 | XRay Report ---
XR chest 1V ap INDICATION / CLINICAL INFORMATION: copd exacerbation. COMPARISON: 09/11/2021 FINDINGS: SUPPORT DEVICES: None. HEART /PULMONARY VASCULATURE: No significant abnormality. LUNGS / PLEURA: No acute pulmonary or pleural abnormality. No pneumothorax. ADDITIONAL FINDINGS: Remote left posterior lateral sixth rib fracture. IMPRESSION: 1. No acute findings. Signer Name: Justin Arboleda MD Signed: 09/30/2021 6:07 PM Workstation Name: [id number]
[2021-09-30 19:03] VITALS: BP 159/90
--- NOTE | 2021-10-01 10:14 | Electrocardiograph Report ---
[facility] Test Date: 2021-09-30 Test Time: 18:05:27 Pat Name: OSCAR BARBA Department: Room: Gender: M Sky Diver: TRINH : 1960 Requested By: ANUPAMA ABDI Order Number: [id number] Reading MD: Omar Narayanan Measurements Intervals [place] Rate: 76 P: 72 MA: 154 QRS: 66 QRSD: 83 T: 52 QT: 384 QTc: 433 Interpretive Statements Sinus rhythm Consider left ventricular hypertrophy Compared to ECG 01/27/2021 09:50:23 No significant changes Electronically Signed On 10-01-2021 10:14:03 EDT by Omar Narayanan
== END 2021-09-30 19:03 | disposition home or self-care (01) ==
LOC: ED 17:12
DX: J45.901 Unspecified asthma with (acute) exacerbation (principal); I10 Essential (primary) hypertension
CPT/HCPCS: 71045; 93005; 94640; 94644; 99284

== ENCOUNTER 2021-10-07 16:46 | Emergency (ER) | payer MEDICARE ==
[2021-10-07 17:00] VITALS: BP 140/98
--- NOTE | 2021-10-07 17:56 | Emergency Department Report ---
ED Shortness of Breath HPI - General Chief Complaint: Dyspnea/Respdistress Stated Complaint: ALEKSANDAR Time Seen by Provider: 10/07/21 17:42 Source: EMS Mode of arrival: Stretcher Limitations: No Limitations - History of Present Illness Initial Comments: 60-year-old male with a past medical history of COPD/asthma and hypertension presents to the hospital he once at onset of wheezing and shortness of breath while at the store. He uses inhaler but was afraid he was about to panic and therefore called EMS. He received albuterol 7.5 mg in route and 1 dose of IV Solu-Medrol. At time a ED presentation he is asymptomatic and reports feeling a lot better. Denies chest pain, cough, fever, wheezing. Is currently compliant with medications. As per medical record he was just here in September 30 for acute asthma exacerbation and was prescribed 8-day prednisone dose. 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 Patient was admitted here in August and required BiPAP support but denies previous history of intubations - Related Data Previous Rx's Medication Instructions Recorded Last Taken Type amLODIPine 5 mg PO QDAY #30 tablet 11/05/18 Unknown Rx Ipratropium (Nf) [Atrovent HFA 2 puff IH Q6HR PRN #1 inha 12/14/20 Unknown Rx 17MCG/PUFF] predniSONE [Deltasone] 50 mg PO QDAY #5 tab 01/27/21 Unknown Rx Ipratropium/Albuterol Sulfate 1 ampul IH Q6HRT #120 ampul.neb 04/23/21 Unknown Rx [DUONEB *Not for PRN Use*] Albuterol Mdi (or & Nicu Only) 2 puff IH Q4-6H PRN #1 inha 05/21/21 Unknown Rx [ProAir HFA Inhaler] Fluticasone/Salmeterol [Advair 1 puff IH BID #1 disk.w.dev 06/21/21 Unknown Rx Diskus 250-50 mcg] Ipratropium [Atrovent NEB] 0.5 mg IH Q4HR PRN #1 box 06/21/21 Unknown Rx Montelukast [Singulair] 10 mg PO QPM #30 tablet 06/21/21 Unknown Rx Albuterol Sulfate [Proventil Hfa] 6.7 gm IH QID PRN #1 hfa.aer.ad 09/11/21 Unknown Rx Fluticasone/Umeclidin/Vilanter 1 each IH DAILY #1 09/11/21 Unknown Rx [Trelegy Ellipta 200-62.5-25] Ipratropium/Albuterol Sulfate 1 ampul IH Q8HR PRN #30 ampul.neb 09/11/21 Unknown Rx [DUONEB *Not for PRN Use*] Montelukast [Singulair] 10 mg PO QPM #30 tablet 09/11/21 Unknown Rx Prednisone [predniSONE 10 mg 10 mg PO .TAPER #1 tab.ds.pk 09/11/21 Unknown Rx (6-Day Pack, 21 Tabs)] Sodium Chloride [Saline Nasal 1 - 2 sprays NS PRN PRN #1 spray 09/11/21 Unknown Rx [place]] Albuterol Sulfate [Albuterol 0.63% 0.63 mg IH Q4HR PRN #2 ml 09/30/21 Unknown Rx NEBS] Albuterol Sulfate [Proair 90 mcg IH Q4HR PRN #2 aer.pow.ba 09/30/21 Unknown Rx Respiclick] Ipratropium (Nf) [Atrovent] 2 puff IH Q6HR PRN #1 inha 09/30/21 Unknown Rx Ipratropium [Atrovent NEB] 0.5 mg IH Q4HR #2 ml 09/30/21 Unknown Rx ALBUTEROL NEB's [Proventil 0.083% 2.5 mg IH TID PRN #30 dose 10/07/21 Unknown Rx NEBS] predniSONE [Deltasone] 40 mg PO QDAY #8 tab 10/07/21 Unknown Rx Allergies Allergy/AdvReac Type Severity Reaction Status Date / Time No Known Allergies Allergy Verified 10/07/21 17:00 ED Review of Systems ROS: Stated complaint: ALEKSANDAR Other details as noted in HPI Comment: All other systems reviewed and negative ED Past Medical Hx - Past Medical History Previous Medical History?: Yes Hx Hypertension: Yes Hx Asthma: Yes Hx COPD: Yes - Surgical History Past Surgical History?: No Additional Surgical History: denies - Social History Smoking Status: Never Smoker - Medications Home Medications: Home Medications Medication Instructions Recorded Confirmed Last Taken Type amLODIPine 5 mg PO QDAY #30 tablet 11/05/18 Unknown Rx Ipratropium (Nf) [Atrovent HFA 2 puff IH Q6HR PRN #1 inha 12/14/20 Unknown Rx 17MCG/PUFF] predniSONE [Deltasone] 50 mg PO QDAY #5 tab 01/27/21 Unknown Rx Ipratropium/Albuterol Sulfate 1 ampul IH Q6HRT #120 ampul.neb 04/23/21 Unknown Rx [DUONEB *Not for PRN Use*] Albuterol Mdi (or & Nicu Only) 2 puff IH Q4-6H PRN #1 inha 05/21/21 Unknown Rx [ProAir HFA Inhaler] Fluticasone/Salmeterol [Advair 1 puff IH BID #1 disk.w.dev 06/21/21 Unknown Rx Diskus 250-50 mcg] Ipratropium [Atrovent NEB] 0.5 mg IH Q4HR PRN #1 box 06/21/21 Unknown Rx Montelukast [Singulair] 10 mg PO QPM #30 tablet 06/21/21 Unknown Rx Albuterol Sulfate [Proventil Hfa] 6.7 gm IH QID PRN #1 hfa.aer.ad 09/11/21 Unknown Rx Fluticasone/Umeclidin/Vilanter 1 each IH DAILY #1 09/11/21 Unknown Rx [Trelegy Ellipta 200-62.5-25] Ipratropium/Albuterol Sulfate 1 ampul IH Q8HR PRN #30 ampul.neb 09/11/21 Unknown Rx [DUONEB *Not for PRN Use*] Montelukast [Singulair] 10 mg PO QPM #30 tablet 09/11/21 Unknown Rx Prednisone [predniSONE 10 mg 10 mg PO .TAPER #1 tab.ds.pk 09/11/21 Unknown Rx (6-Day Pack, 21 Tabs)] Sodium Chloride [Saline Nasal 1 - 2 sprays NS PRN PRN #1 spray 09/11/21 Unknown Rx [place]] Albuterol Sulfate [Albuterol 0.63% 0.63 mg IH Q4HR PRN #2 ml 09/30/21 Unknown Rx NEBS] Albuterol Sulfate [Proair 90 mcg IH Q4HR PRN #2 aer.pow.ba 09/30/21 Unknown Rx [place]] Ipratropium (Nf) [Atrovent] 2 puff IH Q6HR PRN #1 inha 09/30/21 Unknown Rx Ipratropium [Atrovent NEB] 0.5 mg IH Q4HR #2 ml 09/30/21 Unknown Rx ALBUTEROL NEB's [Proventil 0.083% 2.5 mg IH TID PRN #30 dose 10/07/21 Unknown Rx NEBS] predniSONE [Deltasone] 40 mg PO QDAY #8 tab 10/07/21 Unknown Rx ED Physical Exam - General Limitations: No Limitations - Other Other exam information: General: No acute distress Head: Atraumatic Eyes: normal appearance ENT: Moist mucous membranes Neck: Normal appearance, no midline tenderness Chest: Clear to auscultation bilaterally without accessory muscle CV: Regular rate and rhythm Abdomen: Soft, normal bowel sounds, nontender, nondistended, no rebound or guarding Back: Normal inspection Extremity: Normal inspection, full range of motion, no calf tenderness or leg edema Neuro: Alert O x 3, no facial asymmetry, speech clear, no gross motor sensory deficit Psych: Appropriate behavior Skin: No rash ED Course Vital Signs 10/07/21 16:52 Temperature 97.5 F L Pulse Rate 85 Respiratory 16 Rate Blood Pressure 140/98 [Left] O2 Sat by Pulse 97 Oximetry - Reevaluation(s) Reevaluation #1: 10/07/21 18:52 Patient tolerated ambulation department with saturation 96% continues to deny respiratory symptoms ED Medical Decision Making - Medical Decision Making 60-year-old male presents with acute asthma exacerbation improved with EMS treatment in route to the hospital. Patient did not require any additional treatment in the ED and will be discharged with med - Differential Diagnosis Asthma, COPD, pneumonia, bronchitis Critical Care Time: No Critical care attestation.: If time is entered above; I have spent that time in minutes in the direct care of this critically ill patient, excluding procedure time. ED Disposition Clinical Impression: Acute asthma exacerbation Disposition: 01 HOME / SELF CARE / HOMELESS Is pt being admited?: No Does the pt Need Aspirin: No Condition: Stable Instructions: Asthma, Adult Additional Instructions: Take the medication as prescribed. Follow-up with your doctor or doctor/clinic provided. Return if symptoms worsen as indicated by your discharge instructions. 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
== END 2021-10-07 19:07 | disposition home or self-care (01) ==
LOC: ED 16:46
DX: J45.901 Unspecified asthma with (acute) exacerbation (principal); I10 Essential (primary) hypertension; Z79.899 Other long term (current) drug therapy
CPT/HCPCS: 99283

== ENCOUNTER 2021-10-18 01:57 | Emergency (ER) | payer MEDICARE ==
[2021-10-18 02:13] VITALS: BP 123/88
[2021-10-18] MEDS ORDERED: IPRATROPIUM/ALBUTEROL SULFATE 3 ML AMPUL.NEB IH ONE (02:15)
== END 2021-10-19 09:55 | disposition left against medical advice (07) ==
LOC: ED 01:57
DX: J45.909 Unspecified asthma, uncomplicated (principal); Z53.21 Procedure and treatment not carried out due to patient leaving prior to being seen by health care provider

== ENCOUNTER 2021-10-23 05:15 | Emergency (ER) | payer MEDICARE ==
[2021-10-23] MEDS ORDERED: ALBUTEROL 2.5 MG/3 ML NEBU IH ONE ×3 (05:54→10:03)
[2021-10-23] MEDS ORDERED: IPRATROPIUM 0.02% NEBU 2.5 ML IH ONE ×3 (06:04→10:04)
[2021-10-23] MEDS ORDERED: methylPREDNISolone Sod Succinate 125 MG/2 ML INJ IV ONE (06:14)
[2021-10-23] MEDS ORDERED: SODIUM CHLORIDE 0.9% 1000 ML 1,000 ML IV ONE (06:15)
--- NOTE | 2021-10-23 06:49 | XRay Report ---
CHEST 1 VIEW INDICATION / CLINICAL INFORMATION: Asthma. COMPARISON: Chest x-ray 09/30/2021 FINDINGS: SUPPORT DEVICES: None. HEART / MEDIASTINUM: No significant abnormality. LUNGS / PLEURA: No significant pulmonary abnormality. BONES: Stable appearance of left sixth rib fracture. ADDITIONAL FINDINGS: No significant additional findings. IMPRESSION: 1. No active cardiopulmonary disease. Signer Name: Rahul Traore II, MD Signed: 10/23/2021 6:45 AM Workstation Name: [id number]
[2021-10-23 07:58] LABS: Basophils # (Auto) 0.1 K/mm3 (0.0-0.1); Basophils % (Auto) 1.3 % (0.0-1.8); Eosinophils # (Auto) 0.3 K/mm3 (0.0-0.4); Eosinophils % (Auto) 5.2 % (0.0-4.3); Hemoglobin 14.7 gm/dl (11.8-15.2); Lymphocytes # (Auto) 0.8 K/mm3 (1.2-5.4); Lymphocytes % (Auto) 12.9 % (13.4-35.0); Mean Corpuscular HGB Conc 34 % (32-34); Mean Corpuscular Volume 98 fl (84-94); Monocytes # (Auto) 0.7 K/mm3 (0.0-0.8); Platelet Count 184 K/mm3 (140-440); Red Blood Count 4.47 M/mm3 (3.65-5.03)
[2021-10-23 08:04] LABS: Alanine Aminotransferase 23 units/L (7-56); Albumin 3.9 g/dL (3.9-5); BUN/Creatinine Ratio 20; Blood Urea Nitrogen 26 mg/dL (9-20); Calcium 8.4 mg/dL (8.4-10.2); Hemolysis Index 16
[2021-10-23 08:58] LABS: Bacteria,Urine 1+ /HPF (Negative); Bilirubin,Urine NEG (Negative); Blood,Urine NEG (Negative); Color,Urine Yellow (Yellow); Protein,Urine <15 mg/dL mg/dL (Negative); Urobilinogen,Urine < 2.0 mg/dL (<2.0)
[2021-10-23] MEDS ORDERED: cefTRIAXone/NS 1 GM/50 ML 1 GM/50 ML BAG IV ONE (09:01)
--- NOTE | 2021-10-23 09:05 | Emergency Department Report ---
ED Shortness of Breath HPI - General Chief Complaint: Adult Asthma Stated Complaint: SOB Time Seen by Provider: 10/23/21 06:14 Source: EMS Mode of arrival: Stretcher Limitations: No Limitations - History of Present Illness Initial Comments: PT STATED "STARTED WAKING UP THIS AM AND WAS HAVING DIFFICULTY BREATHING, THOUGHT I WAS HAVING AN ASTHMA ATTACK" PT STATES HE HAS HX OF ASTHMA AND HAS ALBUTERAL TREATMENTS PREVIOUSLY. EMS STATES HE HAS "GRUNTING", NO WHEEZING BILATERALLY. PT'S O2 IS 96%, NO MEDS NEEDED EN ROUTE, PT WAS PLACED ON 2L NC FOR COMFORT. MD Complaint: shortness of breath, cough -: Gradual, days(s) Improves With: oxygen Known History Of: asthma Associated Symptoms: denies other symptoms Treatments Prior to Arrival: oxygen, bronchodilator - Related Data Previous Rx's Medication Instructions Recorded Last Taken Type amLODIPine 5 mg PO QDAY #30 tablet 11/05/18 Unknown Rx Ipratropium (Nf) [Atrovent HFA 2 puff IH Q6HR PRN #1 inha 12/14/20 Unknown Rx 17MCG/PUFF] predniSONE [Deltasone] 50 mg PO QDAY #5 tab 01/27/21 Unknown Rx Ipratropium/Albuterol Sulfate 1 ampul IH Q6HRT #120 ampul.neb 04/23/21 Unknown Rx [DUONEB *Not for PRN Use*] Albuterol Mdi (or & Nicu Only) 2 puff IH Q4-6H PRN #1 inha 05/21/21 Unknown Rx [ProAir HFA Inhaler] Fluticasone/Salmeterol [Advair 1 puff IH BID #1 disk.w.dev 06/21/21 Unknown Rx Diskus 250-50 mcg] Ipratropium [Atrovent NEB] 0.5 mg IH Q4HR PRN #1 box 06/21/21 Unknown Rx Montelukast [Singulair] 10 mg PO QPM #30 tablet 06/21/21 Unknown Rx Albuterol Sulfate [Proventil Hfa] 6.7 gm IH QID PRN #1 hfa.aer.ad 09/11/21 Unknown Rx Fluticasone/Umeclidin/Vilanter 1 each IH DAILY #1 09/11/21 Unknown Rx [Trelegy Ellipta 200-62.5-25] Ipratropium/Albuterol Sulfate 1 ampul IH Q8HR PRN #30 ampul.neb 09/11/21 Unknown Rx [DUONEB *Not for PRN Use*] Montelukast [Singulair] 10 mg PO QPM #30 tablet 09/11/21 Unknown Rx Prednisone [predniSONE 10 mg 10 mg PO .TAPER #1 tab.ds.pk 09/11/21 Unknown Rx (6-Day Pack, 21 Tabs)] Sodium Chloride [Saline Nasal 1 - 2 sprays NS PRN PRN #1 spray 09/11/21 Unknown Rx [place]] Albuterol Sulfate [Albuterol 0.63% 0.63 mg IH Q4HR PRN #2 ml 09/30/21 Unknown Rx NEBS] Albuterol Sulfate [Proair 90 mcg IH Q4HR PRN #2 aer.pow.ba 09/30/21 Unknown Rx Respiclick] Ipratropium (Nf) [Atrovent] 2 puff IH Q6HR PRN #1 inha 09/30/21 Unknown Rx Ipratropium [Atrovent NEB] 0.5 mg IH Q4HR #2 ml 09/30/21 Unknown Rx ALBUTEROL NEB's [Proventil 0.083% 2.5 mg IH TID PRN #30 dose 10/07/21 Unknown Rx NEBS] predniSONE [Deltasone] 40 mg PO QDAY #8 tab 10/07/21 Unknown Rx Albuterol Mdi (or & Nicu Only) 2 puff IH QID PRN #8.5 gram 10/23/21 Unknown Rx [ProAir HFA Inhaler] Brompheniramine/Pseudoephed/Dm 5 ml PO Q6HR PRN #120 syrup 10/23/21 Unknown Rx [Bromfed Dm Cough Syrup] Doxycycline Hyclate [Lymepak] 100 mg PO BID #14 10/23/21 Unknown Rx methylPREDNISolone [Medrol 4MG 4 mg PO DAILY #1 10/23/21 Unknown Rx DOSEPAK (21 tabs)] Allergies Allergy/AdvReac Type Severity Reaction Status Date / Time No Known Allergies Allergy Verified 10/07/21 17:00 ED Review of Systems ROS: Stated complaint: SOB Other details as noted in HPI Constitutional: denies: chills, fever Eyes: denies: eye pain, eye discharge, vision change ENT: denies: ear pain, throat pain Respiratory: denies: cough, shortness of breath, wheezing Cardiovascular: denies: chest pain, palpitations Endocrine: no symptoms reported Gastrointestinal: denies: abdominal pain, nausea, diarrhea Genitourinary: denies: urgency, dysuria Musculoskeletal: denies: back pain, joint swelling, arthralgia Skin: denies: rash, lesions Neurological: denies: headache, weakness, paresthesias Psychiatric: denies: anxiety, depression Hematological/Lymphatic: denies: easy bleeding, easy bruising ED Past Medical Hx - Past Medical History Previous Medical History?: Yes Hx Hypertension: Yes Hx CVA: No Hx Heart Attack/AMI: No Hx Asthma: Yes Hx COPD: Yes - Surgical History Past Surgical History?: No Additional Surgical History: denies - Social History Smoking Status: Unknown if ever smoked Substance Use Type: None - Medications Home Medications: Home Medications Medication Instructions Recorded Confirmed Last Taken Type amLODIPine 5 mg PO QDAY #30 tablet 11/05/18 Unknown Rx Ipratropium (Nf) [Atrovent HFA 2 puff IH Q6HR PRN #1 inha 12/14/20 Unknown Rx 17MCG/PUFF] predniSONE [Deltasone] 50 mg PO QDAY #5 tab 01/27/21 Unknown Rx Ipratropium/Albuterol Sulfate 1 ampul IH Q6HRT #120 ampul.neb 04/23/21 Unknown Rx [DUONEB *Not for PRN Use*] Albuterol Mdi (or & Nicu Only) 2 puff IH Q4-6H PRN #1 inha 05/21/21 Unknown Rx [ProAir HFA Inhaler] Fluticasone/Salmeterol [Advair 1 puff IH BID #1 disk.w.dev 06/21/21 Unknown Rx Diskus 250-50 mcg] Ipratropium [Atrovent NEB] 0.5 mg IH Q4HR PRN #1 box 06/21/21 Unknown Rx Montelukast [Singulair] 10 mg PO QPM #30 tablet 06/21/21 Unknown Rx Albuterol Sulfate [Proventil Hfa] 6.7 gm IH QID PRN #1 hfa.aer.ad 09/11/21 Unknown Rx Fluticasone/Umeclidin/Vilanter 1 each IH DAILY #1 09/11/21 Unknown Rx [Trelegy Ellipta 200-62.5-25] Ipratropium/Albuterol Sulfate 1 ampul IH Q8HR PRN #30 ampul.neb 09/11/21 Unknown Rx [DUONEB *Not for PRN Use*] Montelukast [Singulair] 10 mg PO QPM #30 tablet 09/11/21 Unknown Rx Prednisone [predniSONE 10 mg 10 mg PO .TAPER #1 tab.ds.pk 09/11/21 Unknown Rx (6-Day Pack, 21 Tabs)] Sodium Chloride [Saline Nasal 1 - 2 sprays NS PRN PRN #1 spray 09/11/21 Unknown Rx [place]] Albuterol Sulfate [Albuterol 0.63% 0.63 mg IH Q4HR PRN #2 ml 09/30/21 Unknown Rx NEBS] Albuterol Sulfate [Proair 90 mcg IH Q4HR PRN #2 aer.pow.ba 09/30/21 Unknown Rx Resp[place]lick] Ipratropium (Nf) [Atrovent] 2 puff IH Q6HR PRN #1 inha 09/30/21 Unknown Rx Ipratropium [Atrovent NEB] 0.5 mg IH Q4HR #2 ml 09/30/21 Unknown Rx ALBUTEROL NEB's [Proventil 0.083% 2.5 mg IH TID PRN #30 dose 10/07/21 Unknown Rx NEBS] predniSONE [Deltasone] 40 mg PO QDAY #8 tab 10/07/21 Unknown Rx Albuterol Mdi (or & Nicu Only) 2 puff IH QID PRN #8.5 gram 10/23/21 Unknown Rx [ProAir HFA Inhaler] Brompheniramine/Pseudoephed/Dm 5 ml PO Q6HR PRN #120 syrup 10/23/21 Unknown Rx [Bromfed Dm Cough Syrup] Doxycycline Hyclate [Lymepak] 100 mg PO BID #14 10/23/21 Unknown Rx methylPREDNISolone [Medrol 4MG 4 mg PO DAILY #1 10/23/21 Unknown Rx DOSEPAK (21 tabs)] ED Physical Exam - General Limitations: No Limitations General appearance: alert, in distress - Head Head exam: Present: atraumatic, normocephalic - Eye Eye exam: Present: normal appearance - ENT ENT exam: Present: mucous membranes moist - Neck Neck exam: Present: normal inspection - Respiratory Respiratory exam: Present: normal lung sounds bilaterally, wheezes. Absent: respiratory distress - Cardiovascular Cardiovascular Exam: Present: regular rate, normal rhythm. Absent: systolic murmur, diastolic murmur, rubs, gallop - GI/Abdominal GI/Abdominal exam: Present: soft, normal bowel sounds - Rectal Rectal exam: Present: deferred - Extremities Exam Extremities exam: Present: normal inspection - Back Exam Back exam: Present: normal inspection - Neurological Exam Neurological exam: Present: alert, oriented X3 - Psychiatric Psychiatric exam: Present: normal affect, normal mood - Skin Skin exam: Present: warm, dry, intact, normal color. Absent: rash ED Course Vital Signs 10/23/21 10/23/21 10/23/21 05:16 05:46 05:55 Temperature 97.2 F L 98.0 F Pulse Rate 80 88 Pulse Rate [ Posterior Bilateral Throughout] Respiratory 16 20 Rate Respiratory Rate [Posterior Bilateral Throughout] Blood Pressure 146/82 Blood Pressure 107/65 [Left] O2 Sat by Pulse 96 97 92 Oximetry 10/23/21 10/23/21 10/23/21 05:56 05:58 06:14 Temperature 98.0 F Pulse Rate 88 Pulse Rate [ 84 Posterior Bilateral Throughout] Respiratory 20 20 Rate Respiratory 20 Rate [Posterior Bilateral Throughout] Blood Pressure 120/70 Blood Pressure [Left] O2 Sat by Pulse 92 92 Oximetry ED Medical Decision Making - Lab Data Result diagrams: 10/23/21 06:07 10/23/21 06:07 - Radiology Data Radiology results: report reviewed, image reviewed - Medical Decision Making rt steriods and abx given us ashowe uti vss no distress o2 sat 98 on RA Critical care attestation.: If time is entered above; I have spent that time in minutes in the direct care of this critically ill patient, excluding procedure time. ED Disposition Clinical Impression: Asthma exacerbation, UTI (urinary tract infection) Disposition: 01 HOME / SELF CARE / HOMELESS Is pt being admited?: No Does the pt Need Aspirin: No Condition: Stable Instructions: Asthma, Adult Referrals: ABSOLUTE,CARE [Other] - 3-5 Days
[2021-10-23 10:08] VITALS: BP 122/88
== END 2021-10-23 11:48 | disposition home or self-care (01) ==
LOC: ED 05:15
DX: J45.901 Unspecified asthma with (acute) exacerbation (principal); N39.0 Urinary tract infection, site not specified; J44.9 Chronic obstructive pulmonary disease, unspecified; I10 Essential (primary) hypertension
CPT/HCPCS: 36415; 71045; 80053; 81001; 82140; 83735; 84484; 85025; 87076; 87086; 87186; 94640; 96361; 96365; 96375; 99284; J0696; J2930; J7030; 94644

== ENCOUNTER 2021-10-31 15:00 | Emergency (ER) | payer MEDICARE ==
[2021-10-31] MEDS ORDERED: IPRATROPIUM/ALBUTEROL SULFATE 3 ML AMPUL.NEB IH ONE ×2 (15:19→20:07)
[2021-10-31] MEDS ORDERED: ASPIRIN 325 MG TAB PO ONE (17:11)
[2021-10-31 17:26] VITALS: BP 124/85
[2021-10-31 17:47] LABS: Basophils # (Auto) 0.1 K/mm3 (0.0-0.1); Basophils % (Auto) 0.9 % (0.0-1.8); Eosinophils # (Auto) 0.3 K/mm3 (0.0-0.4); Eosinophils % (Auto) 3.5 % (0.0-4.3); Hematocrit 44.3 % (35.5-45.6); Hemoglobin 14.6 gm/dl (11.8-15.2); Lymphocytes # (Auto) 1.2 K/mm3 (1.2-5.4); Lymphocytes % (Auto) 16.7 % (13.4-35.0); Mean Corpuscular HGB Conc 33 % (32-34); Mean Corpuscular Volume 98 fl (84-94); Monocytes # (Auto) 0.8 K/mm3 (0.0-0.8); Monocytes % (Auto) 11.1 % (0.0-7.3); Platelet Count 189 K/mm3 (140-440); Red Blood Count 4.54 M/mm3 (3.65-5.03)
--- NOTE | 2021-10-31 17:55 | XRay Report ---
CHEST 2 VIEWS INDICATION: SOB, chest pain. COMPARISON: 10/23/2021 FINDINGS: SUPPORT DEVICES: None. HEART: Within normal limits. LUNGS/PLEURA: No acute air space or interstitial disease. No pneumothorax. ADDITIONAL FINDINGS: None. IMPRESSION: 1. No acute findings. Signer Name: Steve Ramos MD Signed: 10/31/2021 5:50 PM Workstation Name: [id number]
[2021-10-31 18:12] LABS: Alanine Aminotransferase 19 units/L (7-56); Albumin 3.9 g/dL (3.9-5); BUN/Creatinine Ratio 14; Blood Urea Nitrogen 18 mg/dL (9-20); Calcium 9.2 mg/dL (8.4-10.2); Hemolysis Index 15
[2021-10-31] MEDS ORDERED: MAGNESIUM SULFATE 2 GM/50 ML BAG IV ONE (20:06)
[2021-10-31] MEDS ORDERED: ALBUTEROL 2.5 MG/3 ML NEBU IH ONE (20:06)
[2021-10-31] MEDS ORDERED: methylPREDNISolone Sod Succinate 125 MG/2 ML INJ IV ONE (20:07)
--- NOTE | 2021-10-31 20:13 | Emergency Department Report ---
ED Asthma HPI - General Chief Complaint: Adult Asthma Stated Complaint: ASTHMA ATTACK Time Seen by Provider: 10/31/21 20:05 Source: patient Mode of arrival: Ambulatory Limitations: No Limitations - History of Present Illness Initial Comments: 60-year-old male with a history of asthma who presented with shortness of breath as started today progressively getting worse. Patient girlfriend who was in the room reported that patient nebulized machine at home was not working properly. No fever or chills reported. Patient denies any chest pain or palpitation. Patient also reports some anxiety. No other modifying or associated factors reported. MD Complaint: "asthma attack", shortness of breath, wheezing - Related Data Previous Rx's Medication Instructions Recorded Last Taken Type amLODIPine 5 mg PO QDAY #30 tablet 11/05/18 Unknown Rx Ipratropium (Nf) [Atrovent HFA 2 puff IH Q6HR PRN #1 inha 12/14/20 Unknown Rx 17MCG/PUFF] predniSONE [Deltasone] 50 mg PO QDAY #5 tab 01/27/21 Unknown Rx Ipratropium/Albuterol Sulfate 1 ampul IH Q6HRT #120 ampul.neb 04/23/21 Unknown Rx [DUONEB *Not for PRN Use*] Albuterol Mdi (or & Nicu Only) 2 puff IH Q4-6H PRN #1 inha 05/21/21 Unknown Rx [ProAir HFA Inhaler] Fluticasone/Salmeterol [Advair 1 puff IH BID #1 disk.w.dev 06/21/21 Unknown Rx Diskus 250-50 mcg] Ipratropium [Atrovent NEB] 0.5 mg IH Q4HR PRN #1 box 06/21/21 Unknown Rx Montelukast [Singulair] 10 mg PO QPM #30 tablet 06/21/21 Unknown Rx Albuterol Sulfate [Proventil Hfa] 6.7 gm IH QID PRN #1 hfa.aer.ad 09/11/21 Unknown Rx Fluticasone/Umeclidin/Vilanter 1 each IH DAILY #1 09/11/21 Unknown Rx [Trelegy Ellipta 200-62.5-25] Ipratropium/Albuterol Sulfate 1 ampul IH Q8HR PRN #30 ampul.neb 09/11/21 Unknown Rx [DUONEB *Not for PRN Use*] Montelukast [Singulair] 10 mg PO QPM #30 tablet 09/11/21 Unknown Rx Prednisone [predniSONE 10 mg 10 mg PO .TAPER #1 tab.ds.pk 09/11/21 Unknown Rx (6-Day Pack, 21 Tabs)] Sodium Chloride [Saline Nasal 1 - 2 sprays NS PRN PRN #1 spray 09/11/21 Unknown Rx [place]] Albuterol Sulfate [Albuterol 0.63% 0.63 mg IH Q4HR PRN #2 ml 09/30/21 Unknown Rx NEBS] Albuterol Sulfate [Proair 90 mcg IH Q4HR PRN #2 aer.pow.ba 09/30/21 Unknown Rx Respiclick] Ipratropium (Nf) [Atrovent] 2 puff IH Q6HR PRN #1 inha 09/30/21 Unknown Rx Ipratropium [Atrovent NEB] 0.5 mg IH Q4HR #2 ml 09/30/21 Unknown Rx ALBUTEROL NEB's [Proventil 0.083% 2.5 mg IH TID PRN #30 dose 10/07/21 Unknown Rx NEBS] predniSONE [Deltasone] 40 mg PO QDAY #8 tab 10/07/21 Unknown Rx ALBUTEROL NEB's [Proventil 0.083% 2.5 mg IH TID PRN #30 neb 10/23/21 Unknown Rx NEBS] Albuterol Mdi (or & Nicu Only) 2 puff IH QID PRN #8.5 gram 10/23/21 Unknown Rx [ProAir HFA Inhaler] Brompheniramine/Pseudoephed/Dm 5 ml PO Q6HR PRN #120 syrup 10/23/21 Unknown Rx [Bromfed Dm Cough Syrup] Doxycycline Hyclate [Lymepak] 100 mg PO BID #14 10/23/21 Unknown Rx Ipratropium [Atrovent] 0.5 mg IH Q4HR #30 ml 10/23/21 Unknown Rx methylPREDNISolone [Medrol 4MG 4 mg PO DAILY #1 10/23/21 Unknown Rx DOSEPAK (21 tabs)] predniSONE [Deltasone] 20 mg PO QDAY 7 Days #7 tab NS 10/31/21 Unknown Rx Allergies Allergy/AdvReac Type Severity Reaction Status Date / Time No Known Allergies Allergy Verified 10/07/21 17:00 ED Review of Systems ROS: Stated complaint: ASTHMA ATTACK Other details as noted in HPI Comment: All other systems reviewed and negative Respiratory: shortness of breath, SOB with exertion, wheezing ED Past Medical Hx - Past Medical History Previous Medical History?: Yes Hx Hypertension: Yes Hx CVA: No Hx Heart Attack/AMI: No Hx Asthma: Yes Hx COPD: Yes - Surgical History Past Surgical History?: Yes Additional Surgical History: denies - Social History Smoking Status: Unknown if ever smoked Substance Use Type: None - Medications Home Medications: Home Medications Medication Instructions Recorded Confirmed Last Taken Type amLODIPine 5 mg PO QDAY #30 tablet 11/05/18 Unknown Rx Ipratropium (Nf) [Atrovent HFA 2 puff IH Q6HR PRN #1 inha 12/14/20 Unknown Rx 17MCG/PUFF] predniSONE [Deltasone] 50 mg PO QDAY #5 tab 01/27/21 Unknown Rx Ipratropium/Albuterol Sulfate 1 ampul IH Q6HRT #120 ampul.neb 04/23/21 Unknown Rx [DUONEB *Not for PRN Use*] Albuterol Mdi (or & Nicu Only) 2 puff IH Q4-6H PRN #1 inha 05/21/21 Unknown Rx [ProAir HFA Inhaler] Fluticasone/Salmeterol [Advair 1 puff IH BID #1 disk.w.dev 06/21/21 Unknown Rx Diskus 250-50 mcg] Ipratropium [Atrovent NEB] 0.5 mg IH Q4HR PRN #1 box 06/21/21 Unknown Rx Montelukast [Singulair] 10 mg PO QPM #30 tablet 06/21/21 Unknown Rx Albuterol Sulfate [Proventil Hfa] 6.7 gm IH QID PRN #1 hfa.aer.ad 09/11/21 Unknown Rx Fluticasone/Umeclidin/Vilanter 1 each IH DAILY #1 09/11/21 Unknown Rx [Trelegy Ellipta 200-62.5-25] Ipratropium/Albuterol Sulfate 1 ampul IH Q8HR PRN #30 ampul.neb 09/11/21 Unknown Rx [DUONEB *Not for PRN Use*] Montelukast [Singulair] 10 mg PO QPM #30 tablet 09/11/21 Unknown Rx Prednisone [predniSONE 10 mg 10 mg PO .TAPER #1 tab.ds.pk 09/11/21 Unknown Rx (6-Day Pack, 21 Tabs)] Sodium Chloride [Saline Nasal 1 - 2 sprays NS PRN PRN #1 spray 09/11/21 Unknown Rx [place]] Albuterol Sulfate [Albuterol 0.63% 0.63 mg IH Q4HR PRN #2 ml 09/30/21 Unknown Rx NEBS] Albuterol Sulfate [Proair 90 mcg IH Q4HR PRN #2 aer.pow.ba 09/30/21 Unknown Rx Respiclick] Ipratropium (Nf) [Atrovent] 2 puff IH Q6HR PRN #1 inha 09/30/21 Unknown Rx Ipratropium [Atrovent NEB] 0.5 mg IH Q4HR #2 ml 09/30/21 Unknown Rx ALBUTEROL NEB's [Proventil 0.083% 2.5 mg IH TID PRN #30 dose 10/07/21 Unknown Rx NEBS] predniSONE [Deltasone] 40 mg PO QDAY #8 tab 10/07/21 Unknown Rx ALBUTEROL NEB's [Proventil 0.083% 2.5 mg IH TID PRN #30 neb 10/23/21 Unknown Rx NEBS] Albuterol Mdi (or & Nicu Only) 2 puff IH QID PRN #8.5 gram 10/23/21 Unknown Rx [ProAir HFA Inhaler] Brompheniramine/Pseudoephed/Dm 5 ml PO Q6HR PRN #120 syrup 10/23/21 Unknown Rx [Bromfed Dm Cough Syrup] Doxycycline Hyclate [Lymepak] 100 mg PO BID #14 10/23/21 Unknown Rx Ipratropium [Atrovent] 0.5 mg IH Q4HR #30 ml 10/23/21 Unknown Rx methylPREDNISolone [Medrol 4MG 4 mg PO DAILY #1 10/23/21 Unknown Rx DOSEPAK (21 tabs)] predniSONE [Deltasone] 20 mg PO QDAY 7 Days #7 tab NS 10/31/21 Unknown Rx ED Physical Exam - General Limitations: No Limitations General appearance: alert, in distress (Due to shortness of breath and wheezing) - Head Head exam: Present: normal inspection - Eye Eye exam: Present: normal appearance Pupils: Present: normal accommodation - ENT ENT exam: Present: normal orophraynx, mucous membranes moist - Neck Neck exam: Present: normal inspection. Absent: tenderness - Respiratory Respiratory exam: Present: respiratory distress, wheezes, accessory muscle use (Due to pain) - Cardiovascular Cardiovascular Exam: Present: tachycardia - GI/Abdominal GI/Abdominal exam: Present: soft, normal bowel sounds. Absent: tenderness - Extremities Exam Extremities exam: Present: normal inspection, normal capillary refill. Absent: tenderness - Back Exam Back exam: Present: normal inspection. Absent: tenderness - Neurological Exam Neurological exam: Present: alert, oriented X3 ED Course Vital Signs 10/31/21 10/31/21 10/31/21 15:04 15:32 17:25 Temperature 98.3 F 98.2 F Pulse Rate 69 52 L Pulse Rate [ 70 Anterior Bilateral Throughout] Respiratory 24 24 Rate Respiratory 20 Rate [Anterior Bilateral Throughout] Blood Pressure 119/90 124/85 [Right] O2 Sat by Pulse 96 98 Oximetry 10/31/21 20:15 Temperature Pulse Rate Pulse Rate [ 78 Anterior Bilateral Throughout] Respiratory Rate Respiratory 20 Rate [Anterior Bilateral Throughout] Blood Pressure [Right] O2 Sat by Pulse Oximetry - Reevaluation(s) Reevaluation #1: 10/31/21 20:11 Patient here with shortness of breath with history of asthma--differential diagnosis include but not limited to possible acute asthma exacerbation, didi cardial infraction, pneumothorax, pulmonary embolism, or pneumonia and or systemic infection or electrolyte derangement. In order to rule out the above we will go ahead and order routine dyspnea work-up that includes chest x-ray, cardiac enzymes/troponin, CBC, CMP, and D-dimer. In the meantime we will go ahead and give breathing treatment DuoNeb, Solu-Medrol 125 mg IV x1 and magnesium sulfate 2 g IV x1 and will continue to monitor patient. Reevaluation #2: 10/31/21 21:55 Patient reevaluated and reports feeling much better tachycardia is resolved at this point. No shortness of breath noted. Patient stable enough to be discharged home to continue steroids with close follow-up with his primary doctor. Lab reviewed and noted to be very reassuring and within normal limit. ED Medical Decision Making - Lab Data Result diagrams: 10/31/21 17:28 10/31/21 17:28 Critical care attestation.: If time is entered above; I have spent that time in minutes in the direct care of this critically ill patient, excluding procedure time. ED Disposition Clinical Impression: Asthma exacerbation attacks Qualifiers: Asthma severity: severe Asthma persistence: unspecified Qualified Code(s): J45.901 - Unspecified asthma with (acute) exacerbation Disposition: HOME / SELF CARE / HOMELESS Is pt being admited?: No Does the pt Need Aspirin: No Condition: Stable Instructions: Asthma, Adult, [id number], Asthma Attack Prevention, Adult, A sthma and Physical Activity Additional Instructions: Continue taking your asthma medication as prescribed by your primary doctor Please take and complete your steroid as prescribed to continue to help your symptoms Call and schedule follow-up with your primary doctor in the next 3 to 5 days for progress Please do not hesitate to call or return to emergency if your symptoms worsen Prescriptions: predniSONE [Deltasone] 20 mg PO QDAY 7 Days #7 tab NS Time of Disposition: 21:58
[2021-10-31] MEDS ORDERED: ASPIRIN 81 MG TAB CHEW ONE (21:19)
--- NOTE | 2021-11-04 11:42 | Electrocardiograph Report ---
[facility] Test Date: 2021-10-31 Test Time: 17:17:54 Pat Name: OSCAR BARBA Department: Room: Gender: M [employer] Operator: Dieter CUMMINGS RN : 1960 Requested By: EMILIANO MIRZA Order Number: [id number] Reading MD: Pino Mace Measurements Intervals [place] Rate: 52 P: -45 VT: 155 QRS: 67 QRSD: 92 T: 49 QT: 445 QTc: 412 Interpretive Statements Sinus or ectopic atrial bradycardia Compared to ECG 09/30/2021 18:05:27 Bradycardia, nonsinus now present Electronically Signed On 11-04-2021 11:42:44 EDT by Pino Mace
== END 2021-10-31 22:00 | disposition home or self-care (01) ==
LOC: ED 15:00
DX: J45.901 Unspecified asthma with (acute) exacerbation (principal); J44.9 Chronic obstructive pulmonary disease, unspecified; Z98.890 Other specified postprocedural states
CPT/HCPCS: 36415; 71046; 80053; 84484; 85025; 93005; 94640; 96365; 96375; 99284; J2930; J3475; 94644

== ENCOUNTER 2021-12-24 16:57 | Emergency (ER) | payer MEDICARE ==
[2021-12-24 17:03] VITALS: BP 115/87
[2021-12-24] MEDS ORDERED: ALBUTEROL 2.5 MG/3 ML NEBU IH ONE (18:05)
[2021-12-24] MEDS ORDERED: TERBUTALINE 1 MG/1 ML INJ SUB-Q ONE (18:06)
[2021-12-24] MEDS ORDERED: SODIUM CHLORIDE 0.9% 1000 ML 1,000 ML IV ONE (18:06)
[2021-12-24] MEDS ORDERED: methylPREDNISolone Sod Succinate 125 MG/2 ML INJ IV ONE (18:27)
[2021-12-24 18:31] LABS: Basophils # (Auto) 0.1 K/mm3 (0.0-0.1); Eosinophils # (Auto) 0.4 K/mm3 (0.0-0.4); Hematocrit 44.5 % (35.5-45.6); Hemoglobin 14.7 gm/dl (11.8-15.2); Lymphocytes # (Auto) 1.2 K/mm3 (1.2-5.4); Lymphocytes % (Auto) 18.3 % (13.4-35.0); Mean Corpuscular HGB Conc 33 % (32-34); Mean Corpuscular Volume 97 fl (84-94); Monocytes # (Auto) 0.4 K/mm3 (0.0-0.8); Monocytes % (Auto) 6.6 % (0.0-7.3); Platelet Count 210 K/mm3 (140-440)
[2021-12-24] MEDS ORDERED: MAGNESIUM SULFATE 2 GM/50 ML BAG IV ONE (18:38)
[2021-12-24 18:51] LABS: Creatine Kinase MB 7.8 ng/mL (0.0-4.0)
[2021-12-24 18:53] LABS: Alanine Aminotransferase 15 units/L (7-56); Albumin 4.2 g/dL (3.9-5); BUN/Creatinine Ratio 11; Blood Urea Nitrogen 16 mg/dL (9-20); Calcium 9.8 mg/dL (8.4-10.2); Hemolysis Index 19
--- NOTE | 2021-12-24 18:58 | XRay Report ---
CHEST 2 VIEWS INDICATION / CLINICAL INFORMATION: Dyspnea. FINDINGS: SUPPORT DEVICES: None. HEART / MEDIASTINUM: No significant abnormality. LUNGS / PLEURA: No significant pulmonary or pleural abnormality. No pneumothorax. ADDITIONAL FINDINGS: Focal expansile abnormality involving the left sixth rib posteriorly, possibly r elated to healing fracture. This was seen on 10/31/2021 IMPRESSION: 1. No acute findings. Signer Name: Sree Anne MD Signed: 12/24/2021 6:53 PM Workstation Name: [employer]
[2021-12-24] MEDS ORDERED: MAGNESIUM SULFATE 1 GM in SODIUM CHLORIDE 0.9% 50 ML IV ONE (19:00)
--- NOTE | 2021-12-24 19:52 | Emergency Department Report ---
ED General Adult HPI - General Chief complaint: Dyspnea/Respdistress Stated complaint: DIFFICULTY BREATHING PUI?: No Time Seen by Provider: 12/24/21 18:58 Source: patient Mode of arrival: Ambulatory Limitations: No Limitations - History of Present Illness Initial comments: SOB and inez , pt has asthma , ran out of meds no chets pain no fever -: Gradual, hour(s) Radiation: non-radiation Consistency: constant Improves with: none Associated Symptoms: cough, shortness of breath. denies: denies other symptoms, confusion Treatments Prior to Arrival: none - Related Data Previous Rx's Medication Instructions Recorded Last Taken Type amLODIPine 5 mg PO QDAY #30 tablet 11/05/18 Unknown Rx Ipratropium (Nf) [Atrovent HFA 2 puff IH Q6HR PRN #1 inha 12/14/20 Unknown Rx 17MCG/PUFF] predniSONE [Deltasone] 50 mg PO QDAY #5 tab 01/27/21 Unknown Rx Ipratropium/Albuterol Sulfate 1 ampul IH Q6HRT #120 ampul.neb 04/23/21 Unknown Rx [DUONEB *Not for PRN Use*] Albuterol Mdi (or & Nicu Only) 2 puff IH Q4-6H PRN #1 inha 05/21/21 Unknown Rx [ProAir HFA Inhaler] Fluticasone/Salmeterol [Advair 1 puff IH BID #1 disk.w.dev 06/21/21 Unknown Rx Diskus 250-50 mcg] Ipratropium [Atrovent NEB] 0.5 mg IH Q4HR PRN #1 box 06/21/21 Unknown Rx Montelukast [Singulair] 10 mg PO QPM #30 tablet 06/21/21 Unknown Rx Albuterol Sulfate [Proventil Hfa] 6.7 gm IH QID PRN #1 hfa.aer.ad 09/11/21 Unknown Rx Fluticasone/Umeclidin/Vilanter 1 each IH DAILY #1 09/11/21 Unknown Rx [Trelegy Ellipta 200-62.5-25] Ipratropium/Albuterol Sulfate 1 ampul IH Q8HR PRN #30 ampul.neb 09/11/21 Unknown Rx [DUONEB *Not for PRN Use*] Montelukast [Singulair] 10 mg PO QPM #30 tablet 09/11/21 Unknown Rx Prednisone [predniSONE 10 mg 10 mg PO .TAPER #1 tab.ds.pk 09/11/21 Unknown Rx (6-Day Pack, 21 Tabs)] Sodium Chloride [Saline Nasal 1 - 2 sprays NS PRN PRN #1 spray 09/11/21 Unknown Rx [place]] Albuterol Sulfate [Albuterol 0.63% 0.63 mg IH Q4HR PRN #2 ml 09/30/21 Unknown Rx NEBS] Albuterol Sulfate [Proair 90 mcg IH Q4HR PRN #2 aer.pow.ba 09/30/21 Unknown Rx Respiclick] Ipratropium (Nf) [Atrovent] 2 puff IH Q6HR PRN #1 inha 09/30/21 Unknown Rx Ipratropium [Atrovent NEB] 0.5 mg IH Q4HR #2 ml 09/30/21 Unknown Rx ALBUTEROL NEB's [Proventil 0.083% 2.5 mg IH TID PRN #30 dose 10/07/21 Unknown Rx NEBS] predniSONE [Deltasone] 40 mg PO QDAY #8 tab 10/07/21 Unknown Rx ALBUTEROL NEB's [Proventil 0.083% 2.5 mg IH TID PRN #30 neb 10/23/21 Unknown Rx NEBS] Albuterol Mdi (or & Nicu Only) 2 puff IH QID PRN #8.5 gram 10/23/21 Unknown Rx [ProAir HFA Inhaler] Brompheniramine/Pseudoephed/Dm 5 ml PO Q6HR PRN #120 syrup 10/23/21 Unknown Rx [Bromfed Dm Cough Syrup] Doxycycline Hyclate [Lymepak] 100 mg PO BID #14 10/23/21 Unknown Rx Ipratropium [Atrovent] 0.5 mg IH Q4HR #30 ml 10/23/21 Unknown Rx methylPREDNISolone [Medrol 4MG 4 mg PO DAILY #1 10/23/21 Unknown Rx DOSEPAK (21 tabs)] predniSONE [Deltasone] 20 mg PO QDAY 7 Days #7 tab NS 10/31/21 Unknown Rx ALBUTEROL NEB's [Proventil 0.083% 2.5 mg IH TID PRN #30 neb 12/24/21 Unknown Rx NEBS] methylPREDNISolone [Medrol 4MG 4 mg PO UNK #1 12/24/21 Unknown Rx DOSEPAK (21 tabs)] Allergies Allergy/AdvReac Type Severity Reaction Status Date / Time No Known Allergies Allergy Verified 12/24/21 17:03 ED Review of Systems ROS: Stated complaint: DIFFICULTY BREATHING Other details as noted in HPI Constitutional: denies: chills, fever Eyes: denies: eye pain, eye discharge, vision change ENT: denies: ear pain, throat pain Respiratory: denies: cough, shortness of breath, wheezing Cardiovascular: denies: chest pain, palpitations Endocrine: no symptoms reported Gastrointestinal: denies: abdominal pain, nausea, diarrhea Genitourinary: denies: urgency, dysuria Musculoskeletal: denies: back pain, joint swelling, arthralgia Skin: denies: rash, lesions Neurological: denies: headache, weakness, paresthesias Psychiatric: denies: anxiety, depression Hematological/Lymphatic: denies: easy bleeding, easy bruising ED Past Medical Hx - Past Medical History Hx Hypertension: Yes Hx CVA: No Hx Heart Attack/AMI: No Hx Asthma: Yes Hx COPD: Yes - Surgical History Additional Surgical History: denies - Social History Smoking Status: Unknown if ever smoked - Medications Home Medications: Home Medications Medication Instructions Recorded Confirmed Last Taken Type amLODIPine 5 mg PO QDAY #30 tablet 11/05/18 Unknown Rx Ipratropium (Nf) [Atrovent HFA 2 puff IH Q6HR PRN #1 inha 12/14/20 Unknown Rx 17MCG/PUFF] predniSONE [Deltasone] 50 mg PO QDAY #5 tab 01/27/21 Unknown Rx Ipratropium/Albuterol Sulfate 1 ampul IH Q6HRT #120 ampul.neb 04/23/21 Unknown Rx [DUONEB *Not for PRN Use*] Albuterol Mdi (or & Nicu Only) 2 puff IH Q4-6H PRN #1 inha 05/21/21 Unknown Rx [ProAir HFA Inhaler] Fluticasone/Salmeterol [Advair 1 puff IH BID #1 disk.w.dev 06/21/21 Unknown Rx Diskus 250-50 mcg] Ipratropium [Atrovent NEB] 0.5 mg IH Q4HR PRN #1 box 06/21/21 Unknown Rx Montelukast [Singulair] 10 mg PO QPM #30 tablet 06/21/21 Unknown Rx Albuterol Sulfate [Proventil Hfa] 6.7 gm IH QID PRN #1 hfa.aer.ad 09/11/21 Unknown Rx Fluticasone/Umeclidin/Vilanter 1 each IH DAILY #1 09/11/21 Unknown Rx [Trelegy Ellipta 200-62.5-25] Ipratropium/Albuterol Sulfate 1 ampul IH Q8HR PRN #30 ampul.neb 09/11/21 Unknown Rx [DUONEB *Not for PRN Use*] Montelukast [Singulair] 10 mg PO QPM #30 tablet 09/11/21 Unknown Rx Prednisone [predniSONE 10 mg 10 mg PO .TAPER #1 tab.ds.pk 09/11/21 Unknown Rx (6-Day Pack, 21 Tabs)] Sodium Chloride [Saline Nasal 1 - 2 sprays NS PRN PRN #1 spray 09/11/21 Unknown Rx [place]] Albuterol Sulfate [Albuterol 0.63% 0.63 mg IH Q4HR PRN #2 ml 09/30/21 Unknown Rx NEBS] Albuterol Sulfate [Proair 90 mcg IH Q4HR PRN #2 aer.pow.ba 09/30/21 Unknown Rx Respiclick] Ipratropium (Nf) [Atrovent] 2 puff IH Q6HR PRN #1 inha 09/30/21 Unknown Rx Ipratropium [Atrovent NEB] 0.5 mg IH Q4HR #2 ml 09/30/21 Unknown Rx ALBUTEROL NEB's [Proventil 0.083% 2.5 mg IH TID PRN #30 dose 10/07/21 Unknown Rx NEBS] predniSONE [Deltasone] 40 mg PO QDAY #8 tab 10/07/21 Unknown Rx ALBUTEROL NEB's [Proventil 0.083% 2.5 mg IH TID PRN #30 neb 10/23/21 Unknown Rx NEBS] Albuterol Mdi (or & Nicu Only) 2 puff IH QID PRN #8.5 gram 10/23/21 Unknown Rx [ProAir HFA Inhaler] Brompheniramine/Pseudoephed/Dm 5 ml PO Q6HR PRN #120 syrup 10/23/21 Unknown Rx [Bromfed Dm Cough Syrup] Doxycycline Hyclate [Lymepak] 100 mg PO BID #14 10/23/21 Unknown Rx Ipratropium [Atrovent] 0.5 mg IH Q4HR #30 ml 10/23/21 Unknown Rx methylPREDNISolone [Medrol 4MG 4 mg PO DAILY #1 10/23/21 Unknown Rx DOSEPAK (21 tabs)] predniSONE [Deltasone] 20 mg PO QDAY 7 Days #7 tab NS 10/31/21 Unknown Rx ALBUTEROL NEB's [Proventil 0.083% 2.5 mg IH TID PRN #30 neb 12/24/21 Unknown Rx NEBS] methylPREDNISolone [Medrol 4MG 4 mg PO UNK #1 12/24/21 Unknown Rx DOSEPAK (21 tabs)] ED Physical Exam - General Limitations: No Limitations General appearance: alert, in distress - Head Head exam: Present: atraumatic, normocephalic - Eye Eye exam: Present: normal appearance - ENT ENT exam: Present: mucous membranes moist - Neck Neck exam: Present: normal inspection - Respiratory Respiratory exam: Present: wheezes, accessory muscle use. Absent: respiratory distress - Cardiovascular Cardiovascular Exam: Present: regular rate, normal rhythm. Absent: systolic murmur, diastolic murmur, rubs, gallop - GI/Abdominal GI/Abdominal exam: Present: soft, normal bowel sounds - Rectal Rectal exam: Present: deferred - Extremities Exam Extremities exam: Present: normal inspection - Back Exam Back exam: Present: normal inspection - Neurological Exam Neurological exam: Present: alert, oriented X3 - Psychiatric Psychiatric exam: Present: normal affect, normal mood - Skin Skin exam: Present: warm, dry, intact, normal color. Absent: rash ED Course Vital Signs 12/24/21 17:00 Temperature 99 F Pulse Rate 80 Respiratory 26 H Rate Blood Pressure 115/87 O2 Sat by Pulse 94 Oximetry ED Medical Decision Making - Lab Data Result diagrams: 12/24/21 18:11 12/24/21 18:15 - EKG Data When compared to previous EKG there are: no significant change - Radiology Data Radiology results: report reviewed, image reviewed - Medical Decision Making rt given steriods and magnesoum feels better paxton to basline no distress Critical care attestation.: If time is entered above; I have spent that time in minutes in the direct care of this critically ill patient, excluding procedure time. ED Disposition Clinical Impression: Asthma exacerbation Disposition: 01 HOME / SELF CARE / HOMELESS Is pt being admited?: No Does the pt Need Aspirin: No Condition: Stable Instructions: Asthma, Adult Prescriptions: methylPREDNISolone [Medrol 4MG DOSEPAK (21 tabs)] 4 mg PO UNK #1 ALBUTEROL NEB's [Proventil 0.083% NEBS] 2.5 mg IH TID PRN #30 neb PRN Reason: Wheezing
== END 2021-12-24 20:10 | disposition home or self-care (01) ==
LOC: ED 16:57
DX: J45.901 Unspecified asthma with (acute) exacerbation (principal); I10 Essential (primary) hypertension; Z79.899 Other long term (current) drug therapy
CPT/HCPCS: 36415; 71045; 80053; 82550; 82553; 84484; 85025; 94640; 96365; 96372; 96375; 99284; J3105; J3475; J7030

== ENCOUNTER 2022-01-08 18:17 | Emergency (ER) | payer MEDICARE | END 2022-01-09 10:00 | disposition left against medical advice (07) | LOC: ED 18:17 | DX: J45.909 Unspecified asthma, uncomplicated (principal); Z53.21 Procedure and treatment not carried out due to patient leaving prior to being seen by health care provider ==